=== PATIENT | male | born 1970 | race Caucasian/White ===

== ENCOUNTER 2018-01-09 14:31 | Emergency (ER) | payer MEDICAID, SELFPAY ==
[2018-01-09 14:33] VITALS: BP 149/80; PULSE 107; RESP 16; TEMP 37; O2SAT 94; BMI 27.6
[2018-01-09] MEDS: Acetaminophen 500 MG Tablet 1000 MG PO (15:02)
[2018-01-09] MEDS: LORazepam 1 MG Tablet PO (15:02)
[2018-01-09] MEDS: levETIRAcetam 1,000 MG Tablet 1000 MG PO (15:13)
--- NOTE | 2018-01-09 15:15 | CM.ED ---
Patient states his drug store has to call his PCP every month for a new prescription for Keppra. He waits until he runs out to call for the refill. Patient states he has never had problems with his insurance covering his medication. Patient states he sees Lynn Boone in [place] for primary care. I instructed him to contact his PCP's office for advisement on the quantity of prescription. Patient denies further needs from case management at this time.
--- NOTE | 2018-01-09 15:23 | ED.VISSUMM ---
- ER Visit Summary Date of Service: 01/09/18 Chief Complaint: Seizure History of Present Illness: The patient is a [address] Mcdonough on. He has a long-standing history of seizures. He reports that he is supposed to be on Keppra 750 mg twice daily. He ran out of it 3 days ago. Reports that he had a seizure today that was approximately 7 minutes at work and a 50 minute postictal episode. He did not bite his tongue. Did not have any urinary incontinence. Currently patient complains of headache is 8 out of 10 severity in his typical of the headaches that he gets after seizures. He denies any injury to his head. Review of systems: General: No fever, chills, cold sweats. Cardiovascular: No chest pain, palpitations. Respiratory: No cough, shortness of breath, dyspnea on exertion. Gastrointestinal: No abdominal pain, nausea, vomiting, diarrhea, melena, or hematochezia. Genitourinary: No dysuria, frequency, hematuria. Skin: No rash. Neuro: No numbness, weakness. Physical Examination: Vitals: Stable. Afebrile. General: Well-nourished and well-developed. Head: Normocephalic atraumatic. Neck: Supple, no lymphadenopathy. No JVD. Nontender. Cardiovascular: Regular rate and rhythm. No murmurs. Respiratory: No respiratory distress. Clear to auscultation bilaterally. Abdominal: Soft, nontender, nondistended, normal bowel sounds. No guarding, rebound, or peritoneal signs. Back: Nontender. Extremities: Nontender, no edema. Skin: Normal color, no rash. Neurologic: Alert and oriented ?3. Cranial nerves II through XII are intact. Normal strength and sensation. Psych: Normal affect. Test Results: Patient refused an IV. Emergency Department Course and Treatment: Patient was given a gram of Keppra p.o., Ativan p.o., Tylenol p.o. He has been observed over the course of an hour and has not had any further seizure activity. Treatment Plan: Patient was discussed with Dr. Goode. He will be placed back on his 750 mg of Keppra twice daily and instructed to follow-up Dr. Mcdonough on for further evaluation and treatment. Patient reports that he does not drive. Disposition: To home in improved and stable condition. Impression: 1. Recurrent seizure. 2. Medical noncompliance. This note was generated with [employer] dictation software. It may contain incorrect words, spelling, and punctuation that were not noted in review of the chart prior to signing ED Disposition - Plan for ED Patient: Chief Complaint: Seizure Instructions: ED Seizure Recurrent Prescriptions: Levetiracetam [Keppra] 750 mg PO BID #60 tablet Referrals: Perfecto Mcdonough MD [STAFF PHYSICIAN] - As Needed
== END 2018-01-09 15:43 | disposition home or self-care (01) ==
PROVIDERS: Emergency Provider Emergency Medicine
DX: G40.909 Epilepsy, unspecified, not intractable, without status epilepticus (principal); Z91.14 Patient's other noncompliance with medication regimen
CPT/HCPCS: 99285

== ENCOUNTER 2018-09-18 20:31 | Inpatient (IN) | payer MEDICAID, SELFPAY ==
[2018-09-18] VITALS (10 sets, daily range): BP systolic 149–175; BP diastolic 99–113; PULSE 125–138; RESP 15–27; TEMP 36.6–37.1; O2SAT 86–98; BMI 22.8; BMI 25.3
--- NOTE | 2018-09-18 20:48 | CT_ITS ---
STUDY: CT BRAIN WITHOUT CONTRAST REASON FOR EXAM: Male, 48 years old. Trauma RADIATION DOSAGE (If Supplied By Facility): CTDIvol = ( 44.99 ) mGy, DLP = ( 796.11 ) mGycm TECHNIQUE: Transaxial CT imaging of the brain was performed without administration of intravenous contrast material. Individualized dose optimization techniques were used for this CT. COMPARISON: August 13, 2013 FINDINGS: Normal soft tissue structures. Normal calvarium. Mild cortical atrophy and periventricular white matter ischemic changes.. Normal basal ganglia and thalami. Normal brainstem. Normal cerebellum. There is no intracranial hemorrhage. There are no findings of an acute ischemic infarction. Mild mucosal thickening of the maxillary ethmoid and sphenoid sinuses. CT/Brain/Head without Contrast IMPRESSION: Mild cortical atrophy and periventricular white matter ischemic changes. No evidence for acute cranial bleed Electronically Signed: Jnoo Figueroa MD at 21:52 EST , Service support ,
--- NOTE | 2018-09-18 20:48 | CT_ITS ---
STUDY: CT CERVICAL SPINE WITHOUT CONTRAST REASON FOR EXAM: Male, 48 years old. Trauma RADIATION DOSAGE (If Supplied By Facility): CTDIvol = ( 14.61 ) mGy, DLP = ( 292.97 ) mGycm TECHNIQUE: High resolution transaxial imaging was performed without contrast material. Sagittal and coronal images were reconstructed. Individualized dose optimization techniques were used for this CT. COMPARISON: None FINDINGS: Normal craniovertebral junction. Normal anterior atlantoaxial articulation. Normal odontoid process. Normal cervical lordosis. Normal vertebral bodies and posterior osseous elements. C2-3: Normal endplates. Normal disc height and morphology. Normal central canal and intervertebral neuroforamina. C3-4: Normal endplates. Normal disc height and morphology. Normal central canal and intervertebral neuroforamina. C4-5: Minor endplate spurring.. Normal disc height and morphology. Normal central canal and intervertebral neuroforamina. C5-6: Normal endplates. Normal disc height and morphology. Normal central canal and intervertebral neuroforamina. C6-7: Normal endplates. Normal disc height and morphology. Normal central canal and intervertebral neuroforamina. C7-T1: Normal endplates. Normal disc height and morphology. Normal central canal and intervertebral neuroforamina. Normal visualized soft tissue structures. CT/Spine Cervical without Contras IMPRESSION: No evidence for acute fracture or subluxation.. Mild spondylosis Electronically Signed: Jono Figueroa MD at 21:50 EST , Service support ,
[2018-09-18] MEDS: Ondansetron 4 MG/2 ML Vial IV (21:01)
[2018-09-18] MEDS: LORazepam 2 MG/ML Syringe 1 MG IV ×2 (21:01→21:47)
[2018-09-18 21:04] LABS: Absolute Lymphocyte Count 0.77 X10^3/ul (0.83-4.51); Absolute Neutrophil Count 15.7 X10^3/uL (2.0-7.7); Basophil# 0.07 X10^3/uL; Basophil% 0.4 % (0-1); Eosinophil# 0.05 X10^3/uL; Eosinophils% 0.3 % (0-5); Hematocrit 45.7 % (40-54); Hemoglobin 15.1 g/dl (13.0-16.5); Lymphocyte # 0.77 X10^3/ul (4.0); Lymphocyte % 4.4 % (19-41); Mean Corpuscular Hgb 32.8 pg (27.0-32.0); Mean Corpuscular Volume 99.3 fL (80-94); Mean Platelet Vol. 9.5 fl (6.2-12.0); Monocyte# 1.06 X10^3/uL; Neutrophil # 15.72 X10^3/uL (2.7-7.7); Neutrophil % 88.8 % (47-70); Platelet Count 214 K/mm3 (150-450); RBC Distribution Width CV 12.9 % (11.6-14.6); White Blood Count 17.7 K/mm3 (4.4-11.0)
[2018-09-18 21:09] LABS: POSITIVE COUNT NO; POSITIVE DIFFERENTIAL NO; POSITIVE MORPHOLOGY NO
[2018-09-18 21:24] LABS: ALB/GLOB Ratio 0.9 RATIO (0.9-2.4); AST(SGOT) 55 U/L (15-37); Alanine Aminotransfer ALT/SGPT 49 U/L (16-61); Albumin, Serum 4.4 g/dL (3.2-5.0); Alkaline Phosphatase 71 U/L (45-117); Anion Gap 19 (5-15); BUN 8 mg/dL (7-18); BUN/Creat Ratio 7.5 RATIO (10-20); Calcium,Total 8.8 mg/dL (8.5-10.1); Chloride 98 mmol/L (98-107); Creatinine, Serum 1.07 mg/dL (0.70-1.30); EST Glomerular Filtration Rate 78 mL/min (>60); Est Glom Filt Rate - Afr Amer 94 mL/min (>60); Estimated Creatinine Clearance 90.01 ml/min; Globulin 4.7 g/dL (2.2-4.2); Glucose 120 mg/dL (74-106); Potassium 4.6 mmol/L (3.5-5.1); Protein, Total 9.1 g/dL (6.4-8.2); Sodium Level 133 mmol/L (136-145)
--- NOTE | 2018-09-18 21:40 | RAD_ITS ---
STUDY: X-RAY CHEST REASON FOR EXAM: Male, 48 years old. Hypoxia TECHNIQUE: PA and lateral COMPARISON: October 02, 2015 FINDINGS: Diminished inspiratory effort is seen however the lungs are clear There is no demonstrated pleural abnormality. Normal size heart. Normal mediastinum and desi. Normal visualized pulmonary arteries. Normal visualized aortic arch and descending thoracic aorta. Dorsal spine demonstrates spondylosis. Normal visualized ribs, clavicles, and shoulders. There is no demonstrated abnormality of the visualized soft tissue structures of the upper abdomen. RAD/Chest PA and Lateral IMPRESSION: Diminished inspiratory effort. No acute disease Electronically Signed: Jono Figueroa MD at 22:14 EST , Service support ,
[2018-09-18] MEDS: chlordiazePOXIDE 25 MG Capsule 50 MG PO (21:49)
--- NOTE | 2018-09-18 22:18 | ED.VISSUMM ---
- ER Visit Summary Date of Service: 09/18/18 Chief Complaint: Seizure History of Present Illness: The patient is a 48 M who is unable to provide any relevant history. When asked questions he answers everything I do not know. Per EMS the patient was carrying in groceries and had an unwitnessed fall outside. He is unsure what happened. Friends believe he may have had a seizure. He has a history of seizures and is supposed to be on Keppra 750 twice daily. Friends also told EMS that he had a job interview today and because of this he did not drink. I am unable to ascertain whether the patient drinks on a daily basis. Physical Examination: Vitals: 98.0, 151/113, 138, 27, 88% on room air which is hypoxic. General: Well-nourished and well-developed. Extremely tremulous. Head: Normocephalic, abrasion and contusion to the bridge of his nose. No septal hematoma. Neck: Supple, no lymphadenopathy. No JVD. Nontender. Cardiovascular: Tachycardic regular rhythm. No murmurs. Respiratory: No respiratory distress. Clear to auscultation bilaterally. Abdominal: Soft, nontender, nondistended, normal bowel sounds. No guarding, rebound, or peritoneal signs. Back: Nontender. Extremities: Nontender, no edema. Skin: Normal color, no rash. Neurologic: Lethargic. Arouses to voice. Moves all extremities well.. Test Results: CT brain shows mild cortical atrophy and periventricular white matter changes. No intracranial hemorrhage. CT of the C-spine shows no acute disease. Chest x-ray shows no acute disease. CBC is more for white count of 17.7 with 89 segmented neutrophils and 4 lymphocytes. Chem-7 is more for sodium 133, CO2 of 16, glucose of 120, anion gap of 19. This is consistent with a seizure. LFTs marked total protein 9.1 globulin 4.7. His AST is 55. Alcohol level is 0. Emergency Department Course and Treatment: Patient had an IV placed. He was given a dose of Ativan IV and his tremulousness essentially resolved. However, he remained tachycardic and hypertensive. He was given a second dose of Ativan IV and Librium p.o. He was given Keppra and Zofran IV. Chart reviewed does show that he has been admitted for alcohol withdrawal in the past. Treatment Plan: At this time I am unable to obtain any useful history from the patient and he does not have family with him. The squad did bring his Keppra. It appears that it was last filled September 10 and in the last 8 days he is taken 10 pills. The patient was discussed with Dr. Kaur. He will be admitted for further evaluation and treatment. Disposition: Admitted in serious condition. Impression: 1. Alcohol withdrawal, presumed. 2. Seizure. This note was generated with [employer] dictation software. It may contain incorrect words, spelling, and punctuation that were not noted in review of the chart prior to signing ED Disposition - Plan for ED Patient: Chief Complaint: Seizure Referrals: Care Physician,No Primary [Primary Care Provider] -
--- NOTE | 2018-09-18 22:20 | HP.PCM_ITS ---
Problem List (1) Seizure Status: Acute (2) EtOH dependence Status: Acute (3) Alcohol withdrawal Status: Acute History of Present Illness Date of Admission: 09/18/18 Chief Complaint: fall The patient is a 48 year old M with a significant history of seizure disorder and alcohol dependence who was brought by the paramedics because of a probable fall. It is assumed that patient fell and crawled to his home. Notably he had returned from a grocery shopping. Patient is a known alcoholic but friend reported that because patient was going to an interview on the day of presentation he did not drink. Emergency department doctor reported the patient was shaking on presentation but his shakiness went down after receiving IV Ativan. Patient is on home Keppra. Upon ED staff checking his home Keppra bottle, it was realize that he might not have taken 6 of his Keppra pills. At the emergency department patient vomited multiple times. Patient was noted to be hypoxic requiring supplemental oxygen. Patient was tachycardic. He had elevated blood pressure and his respiratory rate was high. Patient was noted to have leukocytosis; hyponatremia and anion gap metabolic acidosis. Past Medical History Medical History: Medical History (Last Updated 09/19/18 @ 00:43 by Otis Kaur MD) Seizure disorder G40.909 Allergies No Known Allergies Allergy (Verified 10/02/15 14:35) Home Medications: Ambulatory Orders Medication Instructions Recorded Levetiracetam [Keppra] 750 mg PO BID 01/09/18 Amitriptyline HCl 50 mg PO QHS 09/18/18 Surgical History: - - History of left tibial fracture status post internal fixation with wires and screws. No other significant past surgical history. Psychiatric History: No pertinent psych hx, - Lives: - - Live with friends Tobacco Use: - - Unable to obtain history as patient is lethargic and not unanswering many questions Alcohol: Heavy Drugs: - - Unable to obtain history as patient is lethargic and not unanswering many questions - *Family History Maternal History Items: - - Unable to obtain history as patient is lethargic and not unanswering many questions Paternal History Items: - - Unable to obtain history as patient is lethargic and not unanswering many questions Review of Systems Unable to obtain accurate/complete ROS d/t: Unable to obtain hx as patient is lethargic and not unanswering questions VTE Information - Inpt Only VTE Present on Admission: No VTE Mechan Device Prophylaxis: SCD's, None VTE Pharm Prophylaxis ordered?: No Patient Problems: Active and Suspected Problems (Last Updated 09/19/18 @ 00:43 by Otis Kaur MD) Seizure (Acute) EtOH dependence (Acute) Alcohol withdrawal (Acute) - Physical Exam General: Confused, Lethargic HEENT: - - excoriation on bridge of nose Neck: Supple, No JVD, Negative Carotid Bruits Lungs: Clear to auscultation, Normal air movement Cardiovascular: Tachycardic Abdomen: Bowel Sounds Present, Soft, Non Tender Extremities: No edema, Capillary Refill Less than 3 Seconds Skin: Excoriated - Right knuckles Musculoskeletal: No Muscle Wasting Neurological: - - Lethargic. Follow some commands like protruding tongue but with peristent directions. Psych/Mental Status: - - Lethargic and confused. Vital Signs Temp Pulse Resp BP Pulse Ox 98 F 126 H 15 175/105 H 95 09/18/18 20:38 09/18/18 21:53 09/18/18 21:53 09/18/18 21:16 09/18/18 21:58 Oxygen Flow Rate (L/min) 4 Oxygen Delivery Method Nasal Cannula Weight: 76.2 kg Body Mass Index (BMI) 22.8 Finger Stick Blood Glucose 132 Laboratory Tests Past 24 Hrs 09/18/18 09/18/18 09/18/18 20:50 20:50 20:50 WBC 17.7 H RBC 4.60 Hgb 15.1 Hct 45.7 MCV 99.3 H MCH 32.8 H MCHC 33.0 RDW 12.9 RDW Differential 47.0 H Plt Count 214 MPV 9.5 Immature Gran % (Auto) 0.100 Neut % (Auto) 88.8 H Lymph % (Auto) 4.4 L [place]eller % (Auto) 6.0 Eos % (Auto) 0.3 Baso % (Auto) 0.4 Absolute Neuts (auto) 15.7 H Absolute Lymphs (auto) 0.77 L Total Counted Not Reportable Sodium 133 L Potassium 4.6 Chloride 98 Carbon Dioxide 16.0 L Anion Gap 19 H BUN 8 Creatinine 1.07 Estim Creat Clear Calc 90.01 Est GFR (MDRD) Af Amer 94 Est GFR (MDRD) Non-Af 78 BUN/Creatinine Ratio 7.5 L Glucose 120 H Calcium 8.8 Total Bilirubin 0.90 AST 55 H ALT 49 Alkaline Phosphatase 71 Total Protein 9.1 H Albumin 4.4 Globulin 4.7 H Albumin/Globulin Ratio 0.9 Ethyl Alcohol 3.0 Assessment/Plan All Active Problems (Last Updated 09/19/18 @ 00:43 by Otis Kaur MD) Seizure (Acute) EtOH dependence (Acute) Alcohol withdrawal (Acute) The patient is a 48 year old M with a significant history of seizure disorder and alcohol dependence who was brought by the paramedics because of a probable fall that could be from seizures; and also in likely EtOH withdrawal. Acute Encephalopathy Admitted to the ICU Likely post ictal . Etiology from primary seizure disorder; or seizure from alcohol withdrawal; or seizure superimposed on alcohol withdrawal CT head with no acute pathology. Cervical Spine CT unremarkable. Independently reviewed and agree with radiologist interpretation. Patient received IV Keppra at emergency department. Keppra level could not be checked because he has just received IV Keppra. We will continue patient on his home p.o. Keppra. Remarkably patient could take p.o. Librium at emergency department so we will start p.o. Keppra next day of admission. Seizure precautions. Discussed the ED doctor to order prolactin level. Ativan prn for seizure. EEG ordered. Open Hearth Furnace Operator consult to optimize management, Consider neurology consult if patient does not improve. Probable alcohol withdrawal. At admission his ethanol level was normal. Patient had hypertension; tachycardia and tachypnea which could be attributed to alcohol withdrawal. Patient received Librium at emergency department. Librium taper ordered. Clonidine prn for elevated blood pressure in the setting of alcohol dependence. Probable aspiration pneumonia. Patient with leukocytosis and hypoxia with oxygen saturation of 86% on room air. Notably he has no fever, rales or radiographic evidence of pneumonia or chemical pneumonitis We will treat with Unasyn for probable aspiration pneumonia. Receiving IVF normal saline hydration. If patient continues to improve and has no respiratory symptoms or radiographic findings consider discontinuing antibiotics. Leukocytosis Leukocytosis could be reactive from seizure. Less likely aspiration pneumonia. Hyponatremia Likely from seizure or from beer potomania. Trend BMP. Anion gap metabolic acidosis Ketones negative Likely from lactic acidosis secondary to seizure. Seizure management as above Lactic acidosis Likely from seizures as above Seizure management as above Trend Supportive treatment with Normal saline infusion Excoriations on nose and right knuckles. Received Bactroban at the emergency department. Bactroban continued. DVT prophylaxis SCD.
--- NOTE | 2018-09-18 22:28 | ED.RN ---
PT OPENS EYES TO NAME, SPEECH REMAINS NON-SENSICAL, RAMBLING. PT STATES CORRECT DATE OF BUT UNAWARE OF PLACE, TIME OR SITUATION. NO FAMILY PRESENT, EMS BRINGS RX BOTTLE OF KEPPRA, 10 PILLS MISSING SINCE FILL DATE 8 DAYS AGO. ORDERS STATES TO TAKE I TAB BID.
[2018-09-18 23:41] LABS: Prolactin 4.6 ng/mL; Thyroid Stim Hormone (TSH) 2.27 uIU/mL (0.358-3.74)
[2018-09-18 23:44] LABS: Lactic Acid 2.7 mmol/L (0.4-2.0)
[2018-09-19] VITALS (25 sets, daily range): BP systolic 116–149; BP diastolic 74–103; PULSE 61–127; RESP 15–23; TEMP 36.8–37.2; O2SAT 83–98
[2018-09-19] MEDS: Lactated Ringers 1,000 ML 100 ML IV (01:08)
--- NOTE | 2018-09-19 01:37 | NURSING ---
roommate called in to ED and provided contact info- [phone]. pt can use this number to get a ride home when being discharged per roommate.
[2018-09-19] MEDS: chlordiazePOXIDE 25 MG Capsule 50 MG PO ×4 (02:43→21:37)
[2018-09-19 02:52] LABS: Reflex Lactate? Y
[2018-09-19] MEDS: Folic Acid 1 MG Tablet PO (08:24)
[2018-09-19] MEDS: Multivitamins,Therapeutic Tablet 1 TABLET PO (08:24)
[2018-09-19] MEDS: Thiamine Hydrochloride 100 MG Tablet PO (08:24)
[2018-09-19] MEDS: Mupirocin Ointment 22gm Tube 1 APPLIC TOPICAL ×2 (08:25→21:37)
[2018-09-19] MEDS: levETIRAcetam 750 MG Tablet PO ×2 (08:25→21:38)
--- NOTE | 2018-09-19 08:53 | PCM.PN.HOSP ---
Patient Problems: Active and Suspected Problems (Last Updated 09/19/18 @ 00:43 by Otis Kaur MD) Seizure (Acute) EtOH dependence (Acute) Alcohol withdrawal (Acute) Subjective: Unsure of what day it is, and does not know how long he has been here. Denies pain and otherwise is feeling ok Vitals/I&O's: Vital Signs Temp Pulse Resp BP Pulse Ox 99 F 108 H 23 H 137/90 H 96 09/19/18 06:00 09/19/18 07:38 09/19/18 07:00 09/19/18 07:00 09/19/18 07:29 Oxygen Flow Rate (L/min) 2 Oxygen Delivery Method Nasal Cannula Weight: 159 lb 2.78 oz Body Mass Index (BMI) 25.3 Finger Stick Blood Glucose 132 Intake and Output for Last 24 Hours 09/17/18 09/18/18 09/19/18 23:59 23:59 23:59 Intake Total 526 / 526 Output Total 300 / 300 Balance 226 / 226 General: Alert, Oriented x3, Cooperative, No apparent distress HEENT: PERRLA, EOMI, Normocephalic, - - lacerations over bridge of nose Oral: Dry Mucosa Neck: Supple, No JVD Lungs: Clear to auscultation, Normal air movement, No rhonchi, No wheeze, No rales Cardiovascular: Regular rate, Regular Rhythm, Normal S1, Normal S2, No murmurs Abdomen: Soft, Non Tender, Non-Distended, No Hepato-splenomegaly Extremities: No edema, Capillary Refill Less than 3 Seconds Skin: No rashes, No breakdown Neurological: Neuro grossly intact, Sensory exam intact to light touch and pain Psych/Mental Status: Flat Affect Laboratory Results 09/18/18 20:50: WBC 17.7 H, RBC 4.60, Hgb 15.1, Hct 45.7, MCV 99.3 H, MCH 32.8 H, MCHC 33.0, RDW 12.9, RDW Differential 47.0 H, Plt Count 214, MPV 9.5, Immature Gran % (Auto) 0.100, Neut % (Auto) 88.8 H, Lymph % (Auto) 4.4 L, [place] % (Auto) 6.0, Eos % (Auto) 0.3, Baso % (Auto) 0.4, Absolute Neuts (auto) 15.7 H, Absolute Lymphs (auto) 0.77 L, Total Counted Not Reportable 09/18/18 20:50: Sodium 133 L, Potassium 4.6, Chloride 98, Carbon Dioxide 16.0 L, Anion Gap 19 H, BUN 8, Creatinine 1.07, Estim Creat Clear Calc 90.01, Est GFR (MDRD) Af Amer 94, Est GFR (MDRD) Non-Af 78, BUN/Creatinine Ratio 7.5 L, Glucose 120 H, Calcium 8.8, Total Bilirubin 0.90, AST 55 H, ALT 49, Alkaline Phosphatase 71, Total Protein 9.1 H, Albumin 4.4, Globulin 4.7 H, Albumin/Globulin Ratio 0.9 09/18/18 20:50: Ethyl Alcohol 3.0 09/18/18 20:50: Levetiracetam Pending 09/18/18 22:45: Acetone Level NEGATIVE 09/18/18 22:45: Lactic Acid 2.7 H 09/18/18 22:45: TSH 2.27, Prolactin 4.6 09/19/18 02:45: Lactic Acid 1.0 Current Medications Chlordiazepoxide (Librium) 50 mg PO Q6H [facility]; Taper Stop: 09/22/18 04:59 Last Admin: 09/19/18 08:25 Dose: 50 mg Clonidine (Catapres) 0.1 mg PO Q6H PRN PRN PRN Reason: sbp > 160 Folic Acid (Folic Acid) 1 mg PO DAILYCM [facility] Last Admin: 09/19/18 08:24 Dose: 1 mg Ampicillin Sodium/Sulbactam (Sodium 3 gm/ Sodium Chloride) 112 mls @ 150 mls/hr IV Q6 [facility] Last Admin: 09/19/18 05:41 Dose: 150 mls/hr Sodium Chloride () 250 mls @ 15 mls/hr IV .[id number] PRN PRN Reason: SALINE FLUSH Lactated Ringer's () 1,000 mls @ 150 mls/hr IV .[id number] [facility] Last Admin: 09/19/18 08:24 Dose: Not Given Levetiracetam (Keppra Tablet) 750 mg PO BID [facility] Last Admin: 09/19/18 08:25 Dose: 750 mg Lorazepam (Ativan) 3 mg IV Q10M PRN PRN PRN Reason: SEIZURE ACTIVITY Magnesium Hydroxide (Milk Of Magnesia) 30 ml PO DAILY PRN PRN PRN Reason: Constipation Multivitamins (Multivitamin) 1 tablet PO DAILYCM [facility] Last Admin: 09/19/18 08:24 Dose: 1 tablet Mupirocin (Bactroban) 1 applic TOPICAL BID [facility]; Protocol Last Admin: 09/19/18 08:25 Dose: 1 applic Sodium Chloride () 5 - 15 ml IV UD PRN PRN Reason: SALINE FLUSH Thiamine HCl (Vitamin B1) 100 mg PO DAILYCM [facility] Last Admin: 09/19/18 08:24 Dose: 100 mg Medical Necessity - Tobacco Use Smoking Status: Former smoker Tobacco Use: - - Unable to obtain history as patient is lethargic and not unanswering many questions Assessment/Plan All Active Problems (Last Updated 09/19/18 @ 00:43 by Otis Kaur MD) Seizure (Acute) EtOH dependence (Acute) Alcohol withdrawal (Acute) 1. Acute encephalopathy 2/2 EtOH withdrawal and Seizure/Possible aspiration pneumonia/Alcohol abuse/Hyponatremia/Acute metabolic acidosis - He was drinking about 20 beers a day, last beer was on sunday or sunday because he quit for a job interview. - Lost his keppra and hasnt taken for several days - Continue with withdrawal protocol, if he has no intention of discontinuing alcohol use can switch to providing beers - Restart home keppra at his usual dose - c/w unasyn for now, will recheck CBC in am - Increase IVF to 150 - Hyponatremia secondary to EtOH will monitor - Acidosis likely resolved since lactic acidosis resolved 2. Nasal laceration from traumatic fall - c/w wound care DVT: SCDs Code Visit Inpatient E&M: 71935 Subs Hosp L2
--- NOTE | 2018-09-19 09:00 | PN_ITS ---
Patient Problems: Active and Suspected Problems (Last Updated 09/19/18 @ 00:43 by Otis Kaur MD) Seizure (Acute) EtOH dependence (Acute) Alcohol withdrawal (Acute) Subjective: Unsure of what day it is, and does not know how long he has been here. Denies pain and otherwise is feeling ok Vitals/I&O's: Vital Signs Temp Pulse Resp BP Pulse Ox 99 F 108 H 23 H 137/90 H 96 09/19/18 06:00 09/19/18 07:38 09/19/18 07:00 09/19/18 07:00 09/19/18 07:29 Oxygen Flow Rate (L/min) 2 Oxygen Delivery Method Nasal Cannula Weight: 159 lb 2.78 oz Body Mass Index (BMI) 25.3 Finger Stick Blood Glucose 132 Intake and Output for Last 24 Hours 09/17/18 09/18/18 09/19/18 23:59 23:59 23:59 Intake Total 526 / 526 Output Total 300 / 300 Balance 226 / 226 General: Alert, Oriented x3, Cooperative, No apparent distress HEENT: PERRLA, EOMI, Normocephalic, - - lacerations over bridge of nose Oral: Dry Mucosa Neck: Supple, No JVD Lungs: Clear to auscultation, Normal air movement, No rhonchi, No wheeze, No rales Cardiovascular: Regular rate, Regular Rhythm, Normal S1, Normal S2, No murmurs Abdomen: Soft, Non Tender, Non-Distended, No Hepato-splenomegaly Extremities: No edema, Capillary Refill Less than 3 Seconds Skin: No rashes, No breakdown Neurological: Neuro grossly intact, Sensory exam intact to light touch and pain Psych/Mental Status: Flat Affect Laboratory Results 09/18/18 20:50: WBC 17.7 H, RBC 4.60, Hgb 15.1, Hct 45.7, MCV 99.3 H, MCH 32.8 H , MCHC 33.0, RDW 12.9, RDW Differential 47.0 H, Plt Count 214, MPV 9.5, Immature Gran % (Auto) 0.100, Neut % (Auto) 88.8 H, Lymph % (Auto) 4.4 L, [place] % (Auto) 6.0, Eos % (Auto) 0.3, Baso % (Auto) 0.4, Absolute Neuts (auto) 15.7 H, Absolute Lymphs (auto) 0.77 L, Total Counted Not Reportable 09/18/18 20:50: Sodium 133 L, Potassium 4.6, Chloride 98, Carbon Dioxide 16.0 L, Anion Gap 19 H, BUN 8, Creatinine 1.07, Estim Creat Clear Calc 90.01, Est GFR (MDRD) Af Amer 94, Est GFR (MDRD) Non-Af 78, BUN/Creatinine Ratio 7.5 L, Glucose 120 H, Calcium 8.8, Total Bilirubin 0.90, AST 55 H, ALT 49, Alkaline Phosphatase 71, Total Protein 9.1 H, Albumin 4.4, Globulin 4.7 H, Albumin/Globulin Ratio 0.9 09/18/18 20:50: Ethyl Alcohol 3.0 09/18/18 20:50: Levetiracetam Pending 09/18/18 22:45: Acetone Level NEGATIVE 09/18/18 22:45: Lactic Acid 2.7 H 09/18/18 22:45: TSH 2.27, Prolactin 4.6 09/19/18 02:45: Lactic Acid 1.0 Current Medications Chlordiazepoxide (Librium) 50 mg PO Q6H [facility]; Taper Stop: 09/22/18 04:59 Last Admin: 09/19/18 08:25 Dose: 50 mg Clonidine (Catapres) 0.1 mg PO Q6H PRN PRN PRN Reason: sbp > 160 Folic Acid (Folic Acid) 1 mg PO DAILYCM [facility] Last Admin: 09/19/18 08:24 Dose: 1 mg Ampicillin Sodium/Sulbactam (Sodium 3 gm/ Sodium Chloride) 112 mls @ 150 mls/hr IV Q6 [facility] Last Admin: 09/19/18 05:41 Dose: 150 mls/hr Sodium Chloride () 250 mls @ 15 mls/hr IV .[id number] PRN PRN Reason: SALINE FLUSH Lactated Ringer's () 1,000 mls @ 150 mls/hr IV .Q6H40M [facility] Last Admin: 09/19/18 08:24 Dose: Not Given Levetiracetam (Keppra Tablet) 750 mg PO BID [facility] Last Admin: 09/19/18 08:25 Dose: 750 mg Lorazepam (Ativan) 3 mg IV Q10M PRN PRN PRN Reason: SEIZURE ACTIVITY Magnesium Hydroxide (Milk Of Magnesia) 30 ml PO DAILY PRN PRN PRN Reason: Constipation Multivitamins (Multivitamin) 1 tablet PO DAILYCM [facility] Last Admin: 09/19/18 08:24 Dose: 1 tablet Mupirocin (Bactroban) 1 applic TOPICAL BID [facility]; Protocol Last Admin: 09/19/18 08:25 Dose: 1 applic Sodium Chloride () 5 - 15 ml IV UD PRN PRN Reason: SALINE FLUSH Thiamine HCl (Vitamin B1) 100 mg PO DAILYCM [facility] Last Admin: 09/19/18 08:24 Dose: 100 mg Medical Necessity - Tobacco Use Smoking Status: Former smoker Tobacco Use: - - Unable to obtain history as patient is lethargic and not unanswering many questions Assessment/Plan All Active Problems (Last Updated 09/19/18 @ 00:43 by Otis Kaur MD) Seizure (Acute) EtOH dependence (Acute) Alcohol withdrawal (Acute) 1. Acute encephalopathy 2/2 EtOH withdrawal and Seizure/Possible aspiration pneumonia/Alcohol abuse/Hyponatremia/Acute metabolic acidosis - He was drinking about 20 beers a day, last beer was on sunday or sunday because he quit for a job interview. - Lost his keppra and hasnt taken for several days - Continue with withdrawal protocol, if he has no intention of discontinuing alcohol use can switch to providing beers - Restart home keppra at his usual dose - c/w unasyn for now, will recheck CBC in am - Increase IVF to 150 - Hyponatremia secondary to EtOH will monitor - Acidosis likely resolved since lactic acidosis resolved 2. Nasal laceration from traumatic fall - c/w wound care DVT: SCDs Code Visit Inpatient E&M: 79140 Subs Hosp L2
[2018-09-19] MEDS: Lactated Ringers 1,000 ML 150 ML IV ×2 (10:45→17:38)
--- NOTE | 2018-09-19 12:54 | CASEMGMT ---
SW met with pt in room and completed assessment. Pt lives in a two story with home with a friend, bed and bath on the second floor. The friend does work and pt is home alone most of the day. Prior to hospitalization pt was independent with ADLs and IADLS. He does not drive and relies on friends or walks for transportation. Pt has a cane that he uses occasionally and no other DME. No previous stays in any form of Rehab. Pt does not have HCPOA or Living will and does not want additional information on this. Pt states he does not have a PCP and friends bring him to ED if he needs something. Later in the conversation pt indicated he has been to the [facility] previously. [facility] is pt pharmacy. SW inquired about alcohol use. Pt denies alcohol abuse stating he drinks 2-3 beers a day and that is not every day. Pt also states he stops drinking at times and denies ever using illegal substances. Pt denies need or desire for information on Substance abuse programs. Pt plans to return home upon d/c from hosptial. Denies and d/c needs at this time. Pt room mate is available to transport pt home. Plan: home with no needs TERENCE Hinton
[2018-09-19 13:38] LABS: Hematocrit 38.8 % (40-54); Hemoglobin 12.6 g/dl (13.0-16.5); Mean Corp Hgb Conc 32.5 g/gl (32-36); Mean Corpuscular Hgb 32.6 pg (27.0-32.0); Mean Corpuscular Volume 100.3 fL (80-94); Mean Platelet Vol. 9.4 fl (6.2-12.0); Platelet Count 152 K/mm3 (150-450); RBC Distribution Width CV 12.7 % (11.6-14.6); RBC Distribution Width SD 46.6 fl (35.1-43.9); Red Blood Count 3.87 M/mm3 (4.6-6.2); White Blood Count 10.2 K/mm3 (4.4-11.0)
[2018-09-19 13:41] LABS: Scan Indicated on CBC? Y/N NO
[2018-09-19 14:20] LABS: Anion Gap 8 (5-15); BUN 8 mg/dL (7-18); BUN/Creat Ratio 10.6 RATIO (10-20); Calcium,Total 8.1 mg/dL (8.5-10.1); Chloride 93 mmol/L (98-107); Creatinine, Serum 0.75 mg/dL (0.70-1.30); EST Glomerular Filtration Rate 117 mL/min (>60); Est Glom Filt Rate - Afr Amer 142 mL/min (>60); Estimated Creatinine Clearance 107.51 ml/min; Glucose 96 mg/dL (74-106); Potassium 3.9 mmol/L (3.5-5.1); Sodium Level 131 mmol/L (136-145)
--- NOTE | 2018-09-19 18:14 | NURSING ---
report called to transfer to room 307 per bed with belongings
[2018-09-19] MEDS: LORazepam 2 MG/ML Syringe IV (23:52)
[2018-09-20] VITALS (12 sets, daily range): BP systolic 111–207; BP diastolic 68–179; PULSE 60–88; RESP 15–24; TEMP 36.6–37.2; O2SAT 92–98
[2018-09-20] MEDS: Haloperidol Lactate 5 MG/ML Vial 2 MG IM (01:10)
[2018-09-20] MEDS: LORazepam 2 MG/ML Syringe IV ×5 (02:09→20:17)
[2018-09-20] MEDS: Lactated Ringers 1,000 ML 150 ML IV (06:12)
[2018-09-20] MEDS: chlordiazePOXIDE 25 MG Capsule 50 MG PO ×3 (06:13→20:22)
[2018-09-20] MEDS: Mupirocin Ointment 22gm Tube 1 APPLIC TOPICAL (07:46)
[2018-09-20] MEDS: levETIRAcetam 750 MG Tablet PO ×2 (07:46→20:22)
[2018-09-20] MEDS: Multivitamins,Therapeutic Tablet 1 TABLET PO (07:46)
[2018-09-20] MEDS: Thiamine Hydrochloride 100 MG Tablet PO (07:46)
[2018-09-20] MEDS: Folic Acid 1 MG Tablet PO (07:46)
--- NOTE | 2018-09-20 09:29 | PCM.PN.HOSP ---
Patient Problems: Active and Suspected Problems (Last Updated 09/19/18 @ 00:43 by Otis Kaur MD) Seizure (Acute) EtOH dependence (Acute) Alcohol withdrawal (Acute) Subjective: Feeling ok, no complaints overnight. Vitals/I&O's: Vital Signs Temp Pulse Resp BP Pulse Ox 98.1 F 60 18 139/88 H 95 09/20/18 07:55 09/20/18 07:55 09/20/18 07:55 09/20/18 07:55 09/20/18 07:55 Oxygen Flow Rate (L/min) 2 Oxygen Delivery Method Room Air Weight: 159 lb 8.56 oz Body Mass Index (BMI) 25.3 Finger Stick Blood Glucose 132 Intake and Output for Last 24 Hours 09/18/18 09/19/18 09/20/18 23:59 23:59 23:59 Intake Total 2491 / 2491 1694 / 1694 Output Total 600 / 600 Balance 1891 / 1891 1694 / 1694 General: Alert, Oriented x3, Cooperative, No apparent distress HEENT: PERRLA, EOMI, Normocephalic, - - lacerations over bridge of nose Oral: Dry Mucosa Neck: Supple, No JVD Lungs: Clear to auscultation, Normal air movement, No rhonchi, No wheeze, No rales Cardiovascular: Regular rate, Regular Rhythm, Normal S1, Normal S2, No murmurs Abdomen: Soft, Non Tender, Non-Distended, No Hepato-splenomegaly Extremities: No edema, Capillary Refill Less than 3 Seconds Skin: No rashes, No breakdown Neurological: Neuro grossly intact, Sensory exam intact to light touch and pain Psych/Mental Status: Flat Affect Laboratory Results 09/19/18 13:30: WBC 10.2, RBC 3.87 L, Hgb 12.6 L, Hct 38.8 L, MCV 100.3 H, MCH 32.6 H, MCHC 32.5, RDW 12.7, RDW Differential 46.6 H, Plt Count 152, MPV 9.4 09/19/18 13:30: Sodium 131 L, Potassium 3.9, Chloride 93 L, Carbon Dioxide 30.0, Anion Gap 8, BUN 8, Creatinine 0.75, Estim Creat Clear Calc 107.51, Est GFR (MDRD) Af Amer 142, Est GFR (MDRD) Non-Af 117, BUN/Creatinine Ratio 10.6, Glucose 96, Calcium 8.1 L Current Medications Chlordiazepoxide (Librium) 50 mg PO Q8H [facility]; Taper Stop: 09/22/18 04:59 Last Admin: 09/20/18 06:13 Dose: 50 mg Clonidine (Catapres) 0.1 mg PO Q6H PRN PRN PRN Reason: sbp > 160 [facility] Last Admin: 09/20/18 07:46 Dose: 1 mg Ampicillin Sodium/Sulbactam (Sodium 3 gm/ Sodium Chloride) 112 mls @ 150 mls/hr IV Q6 [facility] Last Admin: 09/20/18 06:13 Dose: 150 mls/hr Sodium Chloride () 250 mls @ 15 mls/hr IV .[id number] PRN PRN Reason: SALINE FLUSH Lactated Ringer's () 1,000 mls @ 150 mls/hr IV .Q6H40M [facility] Last Admin: 09/20/18 06:12 Dose: 150 mls/hr Levetiracetam (Keppra Tablet) 750 mg PO BID [facility] Last Admin: 09/20/18 07:46 Dose: 750 mg Lorazepam (Ativan) 3 mg IV Q10M PRN PRN PRN Reason: SEIZURE ACTIVITY Magnesium Hydroxide (Milk Of Magnesia) 30 ml PO DAILY PRN PRN PRN Reason: Constipation Multivitamins ([facility]itamin) [facility] Last Admin: 09/20/18 07:46 Dose: 1 tablet Mupirocin (Bactroban) 1 applic TOPICAL BID [facility]; Protocol Last Admin: 09/20/18 07:46 Dose: 1 applic Sodium Chloride () 5 - 15 ml IV UD PRN PRN Reason: SALINE FLUSH Thiamine HCl (Vitamin B1) [facility] Last Admin: 09/20/18 07:46 Dose: 100 mg Medical Necessity - Tobacco Use Smoking Status: Former smoker Tobacco Use: - - Unable to obtain history as patient is lethargic and not unanswering many questions Assessment/Plan All Active Problems (Last Updated 09/19/18 @ 00:43 by Otis Kaur MD) Seizure (Acute) EtOH dependence (Acute) Alcohol withdrawal (Acute) 1. EtOH withdrawal and Seizure/Possible aspiration pneumonia (ruled out)/Alcohol abuse/Hyponatremia/Acute metabolic acidosis - He was drinking about 20 beers a day, last beer was on sunday or sunday because he quit for a job interview. - Lost his keppra and hasnt taken for several days - Continue with withdrawal protocol, if he has no intention of discontinuing alcohol use can switch to providing beers - Restart home keppra at his usual dose - d/c unasyn cbc was 10 and he is not symptomatic - DC IVF - Hyponatremia secondary to EtOH will monitor - Acidosis likely resolved since lactic acidosis resolved - Acute enecphalopathy ruled out - I discussed with him whether he has any intention of quitting alcohol use after discharge. If not, I can DC him today on keppra and he can continue drinking, or he can complete the [facility] protocol and be discharged tomorrow, he is thinking about it. 2. Nasal laceration from traumatic fall - c/w wound care DVT: SCDs Code Visit Inpatient E&M: 89938 Subs Hosp L2
--- NOTE | 2018-09-20 09:33 | PN_ITS ---
Patient Problems: Active and Suspected Problems (Last Updated 09/19/18 @ 00:43 by Otis Kaur MD) Seizure (Acute) EtOH dependence (Acute) Alcohol withdrawal (Acute) Subjective: Feeling ok, no complaints overnight. Vitals/I&O's: Vital Signs Temp Pulse Resp BP Pulse Ox 98.1 F 60 18 139/88 H 95 09/20/18 07:55 09/20/18 07:55 09/20/18 07:55 09/20/18 07:55 09/20/18 07:55 Oxygen Flow Rate (L/min) 2 Oxygen Delivery Method Room Air Weight: 159 lb 8.56 oz Body Mass Index (BMI) 25.3 Finger Stick Blood Glucose 132 Intake and Output for Last 24 Hours 09/18/18 09/19/18 09/20/18 23:59 23:59 23:59 Intake Total 2491 / 2491 1694 / 1694 Output Total 600 / 600 Balance 1891 / 1891 1694 / 1694 General: Alert, Oriented x3, Cooperative, No apparent distress HEENT: PERRLA, EOMI, Normocephalic, - - lacerations over bridge of nose Oral: Dry Mucosa Neck: Supple, No JVD Lungs: Clear to auscultation, Normal air movement, No rhonchi, No wheeze, No rales Cardiovascular: Regular rate, Regular Rhythm, Normal S1, Normal S2, No murmurs Abdomen: Soft, Non Tender, Non-Distended, No Hepato-splenomegaly Extremities: No edema, Capillary Refill Less than 3 Seconds Skin: No rashes, No breakdown Neurological: Neuro grossly intact, Sensory exam intact to light touch and pain Psych/Mental Status: Flat Affect Laboratory Results 09/19/18 13:30: WBC 10.2, RBC 3.87 L, Hgb 12.6 L, Hct 38.8 L, MCV 100.3 H, MCH 32.6 H, MCHC 32.5, RDW 12.7, RDW Differential 46.6 H, Plt Count 152, MPV 9.4 09/19/18 13:30: Sodium 131 L, Potassium 3.9, Chloride 93 L, Carbon Dioxide 30.0, Anion Gap 8, BUN 8, Creatinine 0.75, Estim Creat Clear Calc 107.51, Est GFR (MDRD) Af Amer 142, Est GFR (MDRD) Non-Af 117, BUN/Creatinine Ratio 10.6, Glucose 96, Calcium 8.1 L Current Medications Chlordiazepoxide (Librium) 50 mg PO Q8H [facility]; Taper Stop: 09/22/18 04:59 Last Admin: 09/20/18 06:13 Dose: 50 mg Clonidine (Catapres) 0.1 mg PO Q6H PRN PRN PRN Reason: sbp > 160 [facility] Last Admin: 09/20/18 07:46 Dose: 1 mg Ampicillin Sodium/Sulbactam (Sodium 3 gm/ Sodium Chloride) 112 mls @ 150 mls/hr IV Q6 [facility] Last Admin: 09/20/18 06:13 Dose: 150 mls/hr Sodium Chloride () 250 mls @ 15 mls/hr IV .[id number] PRN PRN Reason: SALINE FLUSH Lactated Ringer's () 1,000 mls @ 150 mls/hr IV .Q6H40M [facility] Last Admin: 09/20/18 06:12 Dose: 150 mls/hr Levetiracetam (Keppra Tablet) 750 mg PO BID [facility] Last Admin: 09/20/18 07:46 Dose: 750 mg Lorazepam (Ativan) 3 mg IV Q10M PRN PRN PRN Reason: SEIZURE ACTIVITY Magnesium Hydroxide (Milk Of Magnesia) 30 ml PO DAILY PRN PRN PRN Reason: Constipation [facility]) [facility] Last Admin: 09/20/18 07:46 Dose: 1 tablet Mupirocin (Bactroban) 1 applic TOPICAL BID [facility]; Protocol Last Admin: 09/20/18 07:46 Dose: 1 applic Sodium Chloride () 5 - 15 ml IV UD PRN PRN Reason: SALINE FLUSH Thiamine HCl (Vitamin B1) [facility] Last Admin: 09/20/18 07:46 Dose: 100 mg Medical Necessity - Tobacco Use Smoking Status: Former smoker Tobacco Use: - - Unable to obtain history as patient is lethargic and not unanswering many questions Assessment/Plan All Active Problems (Last Updated 09/19/18 @ 00:43 by Otis Kaur MD) Seizure (Acute) EtOH dependence (Acute) Alcohol withdrawal (Acute) 1. EtOH withdrawal and Seizure/Possible aspiration pneumonia (ruled out)/Alcohol abuse/Hyponatremia/Acute metabolic acidosis - He was drinking about 20 beers a day, last beer was on sunday or sunday because he quit for a job interview. - Lost his keppra and hasnt taken for several days - Continue with withdrawal protocol, if he has no intention of discontinuing alcohol use can switch to providing beers - Restart home keppra at his usual dose - d/c unasyn cbc was 10 and he is not symptomatic - DC IVF - Hyponatremia secondary to EtOH will monitor - Acidosis likely resolved since lactic acidosis resolved - Acute enecphalopathy ruled out - I discussed with him whether he has any intention of quitting alcohol use after discharge. If not, I can DC him today on keppra and he can continue drinking, or he can complete the [facility] protocol and be discharged tomorrow, he is thinking about it. 2. Nasal laceration from traumatic fall - c/w wound care DVT: SCDs Code Visit Inpatient E&M: 59294 Subs Hosp L2
--- NOTE | 2018-09-20 11:14 | CASEMGMT ---
Social Work Met with pt, dgt and pt mother in pt room to discuss alcohol abuse. Pt quiet during conversation. SW presented information on [facility] and discussed with pt opportunity for alcohol rehabilitation. Pt mother and dgt stating they are at a limit with pt and feel pt needs to get help if they are going to continue to be active in his life. Pt is agreeable to speak with career services representative of [facility] program. Referral made to Meenakshi Crowley in [facility] who states she will see pt today. TERENCE Hinton
--- NOTE | 2018-09-20 13:49 | EEG ---
- Electroencephalogram Date of service 09/19/18 This is an 18 channel echoencephalogram performed utilizing the international electrode placement protocol on this 48-year-old male with seizures due to alcohol withdrawal. Background activity appears to be 9 Hz symmetrically in the posterior leads which attenuates with eye opening. There is also superimposed beta range activity likely due to medication effect. Hyperventilation is performed for 1 minute. Poor effort is noted by the radiation technician. The post hyperventilatory phase was unremarkable. The patient remained awake throughout the recording without lateralizing or epileptiform changes. EKG was normal sinus rhythm during the recording. Stimulation generates a normal symmetric drive response in the posterior leads. Impression: This is an abnormal echoencephalogram to the presence of beta range activity which is likely medication effect. There are no epileptiform changes noted during this recording.
--- NOTE | 2018-09-20 13:52 | EEG_ITS ---
- Electroencephalogram Date of service 09/19/18 This is an 18 channel echoencephalogram performed utilizing the international electrode placement protocol on this 48-year-old male with seizures due to alcohol withdrawal. Background activity appears to be 9 Hz symmetrically in the posterior leads which attenuates with eye opening. There is also superimposed beta range activity likely due to medication effect. Hyperventilation is performed for 1 minute. Poor effort is noted by the arcade game technician. The post hyperventilatory phase was unremarkable. The patient remained awake throughout the recording without lateralizing or epileptiform changes. EKG was normal sinus rhythm during the recording. Stimulation generates a normal symmetric drive response in the posterior leads. Impression: This is an abnormal echoencephalogram to the presence of beta range activity which is likely medication effect. There are no epileptiform changes noted during this recording.
[2018-09-20] MEDS: LORazepam 2 MG/ML Syringe IM (15:32)
[2018-09-20] MEDS: 0.9% NaCl Peripheral Flush Adult/Peds IV ×5 (16:07→22:38)
--- NOTE | 2018-09-20 19:25 | NURSING ---
per pharmacist daphne, libby to give ativan every 1 hr if ciwa greater than 15 or diastolic bp >110
--- NOTE | 2018-09-20 20:16 | NURSING ---
Called Laine Arango because pt would not stay in the room and the RN was having to block the door. DELORES Perry, here to assist. Contacted Dr. Kaur and explained the situation and advised him that sawing and assembly supervisor thought he would probably need to go to ICU for Precedex gtt. Dr. Kaur agreed and pt will go to ICU #2.
--- NOTE | 2018-09-20 20:18 | PCM.PN.BLA ---
Progress Note Patient was violent to the extent that code violent was called. Patient was admitted with probable seizures and alcohol withdrawal. Nurses requested that the patient's be transferred to the ICU and placed on Precedex. I thought that was reasonable . Patient with will be transferred to the ICU and placed on Precedex drip.
[2018-09-20] MEDS: cloNIDine HCl 0.1 MG Tablet PO (20:21)
[2018-09-20] MEDS: Haloperidol Lactate 5 MG/ML Vial 4 MG IV (21:45)
[2018-09-21] VITALS (26 sets, daily range): BP systolic 130–170; BP diastolic 84–104; PULSE 54–68; RESP 13–23; TEMP 36.1–37.1; O2SAT 93–100
[2018-09-21] MEDS: Mupirocin Ointment 22gm Tube 1 APPLIC TOPICAL ×3 (01:00→21:08)
[2018-09-21] MEDS: 0.9% NaCl Peripheral Flush Adult/Peds IV ×6 (01:01→23:12)
[2018-09-21] MEDS: hydrALAZINE 20 MG/ML Vial 5 MG IV (01:01)
[2018-09-21 04:46] LABS: Absolute Lymphocyte Count 1.25 X10^3/ul (0.83-4.51); Absolute Neutrophil Count 4.1 X10^3/uL (2.0-7.7); Basophil# 0.03 X10^3/uL; Basophil% 0.5 % (0-1); Eosinophil# 0.09 X10^3/uL; Eosinophils% 1.5 % (0-5); Hematocrit 39.7 % (40-54); Hemoglobin 13.3 g/dl (13.0-16.5); Lymphocyte # 1.25 X10^3/ul (4.0); Lymphocyte % 20.8 % (19-41); Mean Corp Hgb Conc 33.5 g/gl (32-36); Mean Corpuscular Hgb 32.9 pg (27.0-32.0); Mean Corpuscular Volume 98.3 fL (80-94); Monocyte# 0.57 X10^3/uL; Monocyte% 9.5 % (0-10); Neutrophil # 4.06 X10^3/uL (2.7-7.7); Neutrophil % 67.7 % (47-70); POSITIVE COUNT NO; POSITIVE DIFFERENTIAL NO; POSITIVE MORPHOLOGY NO; Platelet Count 144 K/mm3 (150-450); RBC Distribution Width CV 12.3 % (11.6-14.6); RBC Distribution Width SD 44.3 fl (35.1-43.9); Red Blood Count 4.04 M/mm3 (4.6-6.2)
[2018-09-21 05:01] LABS: Anion Gap 11 (5-15); BUN 8 mg/dL (7-18); BUN/Creat Ratio 11.4 RATIO (10-20); Calcium,Total 8.8 mg/dL (8.5-10.1); Chloride 102 mmol/L (98-107); EST Glomerular Filtration Rate 127 mL/min (>60); Est Glom Filt Rate - Afr Amer 154 mL/min (>60); Estimated Creatinine Clearance 115.19 ml/min; Glucose 113 mg/dL (74-106); Potassium 3.4 mmol/L (3.5-5.1); Sodium Level 139 mmol/L (136-145)
[2018-09-21] MEDS: 0.9% NaCl IVPB Med Flush (250 mL) 15 ML IV (06:49)
--- NOTE | 2018-09-21 07:00 | PCM.CON.CC ---
Problem List (1) Seizure Status: Chronic (2) EtOH dependence Status: Acute Qualifiers: Substance use status: in withdrawal (3) Alcohol withdrawal Status: Acute Qualifiers: Complication of substance-induced condition: with delirium Qualified Code(s): F10.231 - Alcohol dependence with withdrawal delirium Reason for Consult Date of Consultation: 09/21/18 Reason for Consultation: Precedex therapy History of Present Illness: The patient is a 48 year old M, with past medical history significant for seizure disorder, who presented to [facility] on 09/18/2018 secondary to seizure. Patient was reportedly carrying groceries and had an unwitnessed fall outside. Patient has a history of seizures and is supposed to be on Keppra at baseline, but reportedly had stopped drinking alcohol and taking his Keppra because of a job interview. Patient was noted to be 88% by ER and hypertensive with a blood pressure of 151/113. There was some contusion and abrasion noted to the bridge of the nose, but no tongue trauma. Workup showed a metabolic acidosis with a negative alcohol level. Patient was admitted to the intensive care unit for further evaluation. While in the intensive care unit, patient did receive Keppra therapy. No repeat seizure activity was noted. Patient was started on an alcohol withdrawal protocol and transferred to the floor. Overnight, patient became aggressive and had a code arturo called twice. The patient was transferred to the intensive care unit and placed on a Precedex drip. Patient continues to be extremely impulsive despite Precedex therapy. Patient is not able to provide any further history at this time. Past Medical History Past Medical History (Chronic Problems): Chronic Problems (Last Updated 09/19/18 @ 00:43 by Otis Kaur MD) Seizure (Chronic) Medical History: Medical History (Last Updated 09/19/18 @ 00:43 by Otis Kaur MD) Seizure disorder G40.909 Allergies No Known Allergies Allergy (Verified 10/02/15 14:35) Home Medications: Ambulatory Orders Medication Instructions Recorded Levetiracetam [Keppra] 750 mg PO BID 01/09/18 Amitriptyline HCl 50 mg PO QHS 09/18/18 Surgical History: - - History of left tibial fracture status post internal fixation with wires and screws. No other significant past surgical history. Psychiatric History: No pertinent psych hx, - Lives: - - Live with friends Smoking Status: Former smoker Tobacco Use: - - Unable to obtain history as patient is lethargic and not unanswering many questions Alcohol: Heavy Drugs: - - Unable to obtain history as patient is lethargic and not unanswering many questions - *Family History Maternal History Items: - - Unable to obtain history as patient is lethargic and not unanswering many questions Paternal History Items: - - Unable to obtain history as patient is lethargic and not unanswering many questions Review of Systems Unable to obtain accurate/complete ROS d/t: See HPI Patient Problems: Active and Suspected Problems (Last Updated 09/19/18 @ 00:43 by Otis Kuar MD) EtOH dependence (Acute) Alcohol withdrawal (Acute) Objective: All imaging was personally reviewed. Chest x-ray showed poor inspiration, but no acute infiltrates. CT of the head showed some mild cortical atrophy, but no bleed. EEG showed presence of beta range activity that was thought to be medication related. - Physical Exam General: - - Sedated. Not answering questions or following commands. Appears older than stated age. HEENT: PERRLA, EOMI, Normocephalic, - - Abrasion noted at the bridge of the nose. Oral: Moist Mucosa, No Gingival or Mucosal Lesions/ Ulcerations, - - Poor dentition Neck: Supple, No JVD, No Nodes, Trachea Midline Lungs: No rhonchi, No wheeze, No rales, Diminished, - - Fair effort. Cardiovascular: Normal S1, Normal S2, No murmurs, No rub noted, No Gallop, Tachycardic Abdomen: Bowel Sounds Present, Soft, Non Tender, Non-Distended Extremities: No clubbing, No cyanosis, No edema, Capillary Refill Less than 3 Seconds Skin: No rashes, No breakdown Musculoskeletal: No Tenderness to Palpation of Joints or Extremities Lymphatic: No Cervical, Supraclavicular, or Inguinal Adenopathy Neurological: Cranial nerves II-XII grossly intact, Neuro grossly intact, Motor Exam 5/5 strength throughout Psych/Mental Status: Impulsive, Restless Vital Signs Temp Pulse Resp BP Pulse Ox 36.1 C L 56 L 17 148/99 H 97 09/21/18 06:00 09/21/18 06:00 09/21/18 06:00 09/21/18 06:00 09/21/18 06:00 Oxygen Flow Rate (L/min) 2 Oxygen Delivery Method Room Air Weight: 71.9 kg Body Mass Index (BMI) 25.3 Finger Stick Blood Glucose 132 Intake and Output for Last 24 Hours 09/19/18 09/20/18 09/21/18 23:59 23:59 23:59 Intake Total 2491 / 2491 3102 / 3102 204 / 204 Output Total 600 / 600 800 / 800 Balance 1891 / 1891 3102 / 3102 -596 / -596 Laboratory Tests Past 24 Hrs 09/21/18 09/21/18 04:35 04:35 WBC 6.0 RBC 4.04 L Hgb 13.3 Hct 39.7 L MCV 98.3 H MCH 32.9 H MCHC 33.5 RDW 12.3 RDW Differential 44.3 H Plt Count 144 L MPV 10.0 Immature Gran % (Auto) 0.000 Neut % (Auto) 67.7 Lymph % (Auto) 20.8 S[place]y % (Auto) 9.5 Eos % (Auto) 1.5 Baso % (Auto) 0.5 Absolute Neuts (auto) 4.1 Absolute Lymphs (auto) 1.25 Total Counted Not Reportable Sodium 139 Potassium 3.4 L Chloride 102 Carbon Dioxide 26.0 Anion Gap 11 BUN 8 Creatinine 0.70 Estim Creat Clear Calc 115.19 Est GFR (MDRD) Af Amer 154 Est GFR (MDRD) Non-Af 127 BUN/Creatinine Ratio 11.4 Glucose 113 H Calcium 8.8 Phosphorus 2.0 L Magnesium 2.0 Assessment/Plan Active and Suspected Problems (Last Updated 09/19/18 @ 00:43 by Otis Kaur MD) EtOH dependence (Acute) Alcohol withdrawal (Acute) RECOMMENDATIONS: 1. Continue Precedex therapy 2. Electrolyte repletion as indicated 3. Transition Keppra to IV 4. Delirium protocol IMPRESSIONS: 1. Acute alcohol withdrawal Patient failed [facility] protocol. Patient has since been placed on Precedex for safety of staff and himself. Anticipate continuing Precedex for 24-48 hours. Continue with CIWA protocol. Initial seizure likely secondary to holding of Keppra, not true DTs. Patient's x-ray was not consistent with aspiration pneumonia. Patient's heart rate tolerating current dosage of Precedex therapy. Will need to monitor electrolytes closely as patient will likely suffer from refeeding syndrome upon addition of glucose. 2. Seizure disorder Patient is on Keppra at baseline. Given sedation, swallowing will be difficult. Will transition Keppra to IV. Continue with seizure precautions. Code Visit Inpatient E&M: 00446 Init Hosp L2
--- NOTE | 2018-09-21 08:54 | PCM.PN.HOSP ---
Patient Problems: Active and Suspected Problems (Last Updated 09/19/18 @ 00:43 by Otis Kaur MD) EtOH dependence (Acute) Alcohol withdrawal (Acute) Subjective: Very agitated last night necessitating admission to the ICU for closer monitoring and a precedex drip. Vitals/I&O's: Vital Signs Temp Pulse Resp BP Pulse Ox 97 F L 58 L 16 148/101 H 100 09/21/18 06:00 09/21/18 08:00 09/21/18 08:00 09/21/18 08:00 09/21/18 08:00 Oxygen Flow Rate (L/min) 2 Oxygen Delivery Method Room Air Weight: 158 lb 8.198 oz Body Mass Index (BMI) 25.3 Finger Stick Blood Glucose 132 Intake and Output for Last 24 Hours 09/19/18 09/20/18 09/21/18 23:59 23:59 23:59 Intake Total 2491 / 2491 3102 / 3102 204 / 204 Output Total 600 / 600 800 / 800 Balance 1891 / 1891 3102 / 3102 -596 / -596 General: No apparent distress, - - sedated but arouses to stimuli HEENT: Atraumatic, Normocephalic Oral: Dry Mucosa Neck: Supple, No JVD Lungs: Clear to auscultation, Normal air movement, No rhonchi, No wheeze, No rales Cardiovascular: Regular rate, Regular Rhythm, Normal S1, Normal S2, No murmurs Abdomen: Soft, Non-Distended, No Hepato-splenomegaly Extremities: No edema, Capillary Refill Less than 3 Seconds Neurological: Neuro grossly intact, Sensory exam intact to light touch and pain Psych/Mental Status: - - sedated Laboratory Results 09/21/18 04:35: WBC 6.0, RBC 4.04 L, Hgb 13.3, Hct 39.7 L, MCV 98.3 H, MCH 32.9 H, MCHC 33.5, RDW 12.3, RDW Differential 44.3 H, Plt Count 144 L, MPV 10.0, Immature Gran % (Auto) 0.000, Neut % (Auto) 67.7, Lymph % (Auto) 20.8, Swift % (Auto) 9.5, Eos % (Auto) 1.5, Baso % (Auto) 0.5, Absolute Neuts (auto) 4.1, Absolute Lymphs (auto) 1.25, Total Counted Not Reportable 09/21/18 04:35: Sodium 139, Potassium 3.4 L, Chloride 102, Carbon Dioxide 26.0, Anion Gap 11, BUN 8, Creatinine 0.70, Estim Creat Clear Calc 115.19, Est GFR (MDRD) Af Amer 154, Est GFR (MDRD) Non-Af 127, BUN/Creatinine Ratio 11.4, Glucose 113 H, Calcium 8.8, Phosphorus 2.0 L, Magnesium 2.0 Current Medications Clonidine (Catapres) 0.1 mg PO Q6H PRN PRN PRN Reason: sbp > 160 Last Admin: 09/20/18 20:21 Dose: 0.1 mg Folic Acid ([facility]) [facility] Last Admin: 09/21/18 08:45 Dose: Not Given Hydralazine HCl (Apresoline Iv) 5 mg IV Q6H PRN PRN PRN Reason: BLOOD PRESSURE Last Admin: 09/21/18 01:01 Dose: 5 mg Sodium Chloride () 250 mls @ 15 mls/hr IV .[id number] PRN PRN Reason: SALINE FLUSH Last Admin: 09/21/18 06:49 Dose: 15 mls/hr Dexmedetomidine HCl 1,000 mcg/ (Sodium Chloride) 250 mls @ 9.05 mls/hr IV .[id number] [facility] Last Admin: 09/21/18 01:07 Dose: 9.05 mls/hr Potassium Phosphate 40 mm/ (Sodium Chloride) 513.3333 mls @ 62.5 mls/hr IV X1 ONE Stop: 09/21/18 14:33 Last Admin: 09/21/18 06:48 Dose: 62.5 mls/hr Levetiracetam 750 mg/ N/A 150 mls @ 600 mls/hr IV Q12 [facility] Lorazepam (Ativan) 3 mg IV Q10M PRN PRN PRN Reason: SEIZURE ACTIVITY Lorazepam (Ativan) 2 mg IV Q2H PRN PRN PRN Reason: Alcohol Withdrawal Magnesium Hydroxide (Milk Of Magnesia) 30 ml PO DAILY PRN PRN PRN Reason: Constipation Multivitamins (Multivitamin) [facility] Last Admin: 09/21/18 08:45 Dose: Not Given Mupirocin (Bactroban) 1 applic TOPICAL BID NANCY; Protocol Last Admin: 09/21/18 01:00 Dose: 1 applic Sodium Chloride () 5 - 15 ml IV UD PRN PRN Reason: SALINE FLUSH Last Admin: 09/21/18 06:49 Dose: 10 ml Thiamine HCl (Vitamin B1) 100 mg PO DAILYCM NANCY Last Admin: 09/21/18 08:45 Dose: Not Given Medical Necessity - Tobacco Use Smoking Status: Former smoker Tobacco Use: - - Unable to obtain history as patient is lethargic and not unanswering many questions Assessment/Plan All Active Problems (Last Updated 09/19/18 @ 00:43 by Otis Kaur MD) EtOH dependence (Acute) Alcohol withdrawal (Acute) 1. EtOH withdrawal and Seizure/Possible aspiration pneumonia (ruled out)/Alcohol abuse/Hyponatremia(resolved)/Acute metabolic acidosis - He was drinking about 20 beers a day, last beer was on sunday or sunday because he quit for a job interview. - Lost his keppra and hasnt taken for several days prior to admission - Restart home keppra at his usual dose - Acute enecphalopathy ruled out - He decided that he would like to go to 180 on discharge so he was kept to complete the taper and as the day progressed he was becoming more agitated. He was started on CIWA and given ativan. He was transferred to the ICU for a precedex drip which he is doing ok with, c/w ativan, when stable can resume librium 2. Nasal laceration from traumatic fall - c/w wound care DVT: SCDs Code Visit Inpatient E&M: 50071 Subs Hosp L2
--- NOTE | 2018-09-21 08:58 | PN_ITS ---
Patient Problems: Active and Suspected Problems (Last Updated 09/19/18 @ 00:43 by Otis Kaur MD) EtOH dependence (Acute) Alcohol withdrawal (Acute) Subjective: Very agitated last night necessitating admission to the ICU for closer monitoring and a precedex drip. Vitals/I&O's: Vital Signs Temp Pulse Resp BP Pulse Ox 97 F L 58 L 16 148/101 H 100 09/21/18 06:00 09/21/18 08:00 09/21/18 08:00 09/21/18 08:00 09/21/18 08:00 Oxygen Flow Rate (L/min) 2 Oxygen Delivery Method Room Air Weight: 158 lb 8.198 oz Body Mass Index (BMI) 25.3 Finger Stick Blood Glucose 132 Intake and Output for Last 24 Hours 09/19/18 09/20/18 09/21/18 23:59 23:59 23:59 Intake Total 2491 / 2491 3102 / 3102 204 / 204 Output Total 600 / 600 800 / 800 Balance 1891 / 1891 3102 / 3102 -596 / -596 General: No apparent distress, - - sedated but arouses to stimuli HEENT: Atraumatic, Normocephalic Oral: Dry Mucosa Neck: Supple, No JVD Lungs: Clear to auscultation, Normal air movement, No rhonchi, No wheeze, No rales Cardiovascular: Regular rate, Regular Rhythm, Normal S1, Normal S2, No murmurs Abdomen: Soft, Non-Distended, No Hepato-splenomegaly Extremities: No edema, Capillary Refill Less than 3 Seconds Neurological: Neuro grossly intact, Sensory exam intact to light touch and pain Psych/Mental Status: - - sedated Laboratory Results 09/21/18 04:35: WBC 6.0, RBC 4.04 L, Hgb 13.3, Hct 39.7 L, MCV 98.3 H, MCH 32.9 H, MCHC 33.5, RDW 12.3, RDW Differential 44.3 H, Plt Count 144 L, MPV 10.0, Immature Gran % (Auto) 0.000, Neut % (Auto) 67.7, Lymph % (Auto) 20.8, Alfalfa % (Auto) 9.5, Eos % (Auto) 1.5, Baso % (Auto) 0.5, Absolute Neuts (auto) 4.1, Absolute Lymphs (auto) 1.25, Total Counted Not Reportable 09/21/18 04:35: Sodium 139, Potassium 3.4 L, Chloride 102, Carbon Dioxide 26.0, Anion Gap 11, BUN 8, Creatinine 0.70, Estim Creat Clear Calc 115.19, Est GFR (MDRD) Af Amer 154, Est GFR (MDRD) Non-Af 127, BUN/Creatinine Ratio 11.4, Glu cose 113 H, Calcium 8.8, Phosphorus 2.0 L, Magnesium 2.0 Current Medications Clonidine (Catapres) 0.1 mg PO Q6H PRN PRN PRN Reason: sbp > 160 Last Admin: 09/20/18 20:21 Dose: 0.1 mg Folic Acid ([facility] Acid) [facility] Last Admin: 09/21/18 08:45 Dose: Not Given Hydralazine HCl (Apresoline Iv) 5 mg IV Q6H PRN PRN PRN Reason: BLOOD PRESSURE Last Admin: 09/21/18 01:01 Dose: 5 mg Sodium Chloride () 250 mls @ 15 mls/hr IV .[id number] PRN PRN Reason: SALINE FLUSH Last Admin: 09/21/18 06:49 Dose: 15 mls/hr Dexmedetomidine HCl 1,000 mcg/ (Sodium Chloride) 250 mls @ 9.05 mls/hr IV .[id number] [facility] Last Admin: 09/21/18 01:07 Dose: 9.05 mls/hr Potassium Phosphate 40 mm/ (Sodium Chloride) 513.3333 mls @ 62.5 mls/hr IV X1 ONE Stop: 09/21/18 14:33 Last Admin: 09/21/18 06:48 Dose: 62.5 mls/hr Levetiracetam 750 mg/ N/A 150 mls @ 600 mls/hr IV Q12 [facility] Lorazepam (Ativan) 3 mg IV Q10M PRN PRN PRN Reason: SEIZURE ACTIVITY Lorazepam (Ativan) 2 mg IV Q2H PRN PRN PRN Reason: Alcohol Withdrawal Magnesium Hydroxide (Milk Of Magnesia) 30 ml PO DAILY PRN PRN PRN Reason: Constipation Multivitamins (Multivitamin) [facility] Last Admin: 09/21/18 08:45 Dose: Not Given Mupirocin (Bactroban) 1 applic TOPICAL BID NANCY; Protocol Last Admin: 09/21/18 01:00 Dose: 1 applic Sodium Chloride () 5 - 15 ml IV UD PRN PRN Reason: SALINE FLUSH Last Admin: 09/21/18 06:49 Dose: 10 ml Thiamine HCl (Vitamin B1) 100 mg PO DAILYCM [facility]ANCY Last Admin: 09/21/18 08:45 Dose: Not Given Medical Necessity - Tobacco Use Smoking Status: Former smoker Tobacco Use: - - Unable to obtain history as patient is lethargic and not un answering many questions Assessment/Plan All Active Problems (Last Updated 09/19/18 @ 00:43 by Otis Kaur MD) EtOH dependence (Acute) Alcohol withdrawal (Acute) 1. EtOH withdrawal and Seizure/Possible aspiration pneumonia (ruled out)/Alcohol abuse/Hyponatremia(resolved)/Acute metabolic acidosis - He was drinking about 20 beers a day, last beer was on sunday or sunday because he quit for a job interview. - Lost his keppra and hasnt taken for several days prior to admission - Restart home keppra at his usual dose - Acute enecphalopathy ruled out - He decided that he would like to go to 180 on discharge so he was kept to complete the taper and as the day progressed he was becoming more agitated. He was started on CIWA and given ativan. He was transferred to the ICU for a precedex drip which he is doing ok with, c/w ativan, when stable can resume librium 2. Nasal laceration from traumatic fall - c/w wound care DVT: SCDs Code Visit Inpatient E&M: 77984 Subs Hosp L2
[2018-09-21] MEDS: LORazepam 2 MG/ML Syringe IV ×3 (18:21→23:12)
[2018-09-22] VITALS (24 sets, daily range): BP systolic 99–148; BP diastolic 73–91; PULSE 59–81; RESP 14–22; TEMP 36.6–37; O2SAT 95–100
[2018-09-22] MEDS: LORazepam 2 MG/ML Syringe IV ×2 (01:18→03:18)
[2018-09-22] MEDS: 0.9% NaCl Peripheral Flush Adult/Peds IV (01:18)
[2018-09-22 05:57] LABS: Anion Gap 13 (5-15); BUN 8 mg/dL (7-18); BUN/Creat Ratio 11.6 RATIO (10-20); Calcium,Total 8.3 mg/dL (8.5-10.1); Chloride 99 mmol/L (98-107); Creatinine, Serum 0.69 mg/dL (0.70-1.30); EST Glomerular Filtration Rate 129 mL/min (>60); Est Glom Filt Rate - Afr Amer 156 mL/min (>60); Estimated Creatinine Clearance 116.86 ml/min; Glucose 93 mg/dL (74-106); Sodium Level 137 mmol/L (136-145)
--- NOTE | 2018-09-22 06:25 | PCM.PN.HOSP ---
Patient Problems: Active and Suspected Problems (Last Updated 09/19/18 @ 00:43 by Otis Kaur MD) EtOH dependence (Acute) Alcohol withdrawal (Acute) Subjective: Still on the precedex and on ativan and keppra, seems to be doing better, less agitated no complaints Vitals/I&O's: Vital Signs Temp Pulse Resp BP Pulse Ox 98 F 60 17 138/82 H 95 09/22/18 06:00 09/22/18 06:00 09/22/18 06:00 09/22/18 06:00 09/22/18 06:00 Oxygen Flow Rate (L/min) 2 Oxygen Delivery Method Room Air Weight: 157 lb 10.088 oz Body Mass Index (BMI) 25.3 Finger Stick Blood Glucose 132 Intake and Output for Last 24 Hours 09/20/18 09/21/18 09/22/18 23:59 23:59 23:59 Intake Total 3102 / 3102 3266 / 3266 826 / 826 Output Total 1800 / 1800 1000 / 1000 Balance 3102 / 3102 1466 / 1466 -174 / -174 General: No apparent distress, Alert and oriented HEENT: Atraumatic, Normocephalic Oral: Dry Mucosa Neck: Supple, No JVD Lungs: Clear to auscultation, Normal air movement, No rhonchi, No wheeze, No rales Cardiovascular: Regular rate, Regular Rhythm, Normal S1, Normal S2, No murmurs Abdomen: Soft, Non-Distended, No Hepato-splenomegaly Extremities: No edema, Capillary Refill Less than 3 Seconds Neurological: Neuro grossly intact, Sensory exam intact to light touch and pain Psych/Mental Status: Flat affect Laboratory Results 09/22/18 05:35: Sodium 137, Potassium 3.0 L, Chloride 99, Carbon Dioxide 25.0, Anion Gap 13, BUN 8, Creatinine 0.69 L, Estim Creat Clear Calc 116.86, Est GFR (MDRD) Af Amer 156, Est GFR (MDRD) Non-Af 129, BUN/Creatinine Ratio 11.6, Glucose 93, Calcium 8.3 L 09/22/18 05:35: Phosphorus Pending, Magnesium Pending Current Medications Clonidine (Catapres) 0.1 mg PO Q6H PRN PRN PRN Reason: sbp > 160 Last Admin: 09/20/18 20:21 Dose: 0.1 mg Folic Acid ([facility]) [facility] Last Admin: 09/21/18 08:45 Dose: Not Given Hydralazine HCl (Apresoline Iv) 5 mg IV Q6H PRN PRN PRN Reason: BLOOD PRESSURE Last Admin: 09/21/18 01:01 Dose: 5 mg Sodium Chloride () 250 mls @ 15 mls/hr IV .[id number] PRN PRN Reason: SALINE FLUSH Last Admin: 09/21/18 06:49 Dose: 15 mls/hr Dexmedetomidine HCl 1,000 mcg/ (Sodium Chloride) 250 mls @ 9.05 mls/hr IV .[id number] [facility] Last Admin: 09/21/18 23:15 Dose: 9.05 mls/hr Levetiracetam 750 mg/ N/A 150 mls @ 600 mls/hr IV Q12 [facility] Last Admin: 09/21/18 21:07 Dose: 600 mls/hr Lorazepam (Ativan) 3 mg IV Q10M PRN PRN PRN Reason: SEIZURE ACTIVITY Lorazepam (Ativan) 2 mg IV Q2H PRN PRN PRN Reason: Alcohol Withdrawal Last Admin: 09/22/18 03:18 Dose: 2 mg Magnesium Hydroxide (Milk Of Magnesia) 30 ml PO DAILY PRN PRN PRN Reason: Constipation Multivitamins ([facility]itamin) [facility] Last Admin: 09/21/18 08:45 Dose: Not Given Mupirocin (Bactroban) 1 applic TOPICAL BID [facility]; Protocol Last Admin: 09/21/18 21:08 Dose: 1 applic Sodium Chloride () 5 - 15 ml IV UD PRN PRN Reason: SALINE FLUSH Last Admin: 09/22/18 01:18 Dose: 10 ml Thiamine HCl (Vitamin B1) [facility] Last Admin: 09/21/18 08:45 Dose: Not Given Medical Necessity - Tobacco Use Smoking Status: Former smoker Tobacco Use: - - Unable to obtain history as patient is lethargic and not unanswering many questions Assessment/Plan All Active Problems (Last Updated 09/19/18 @ 00:43 by Otis Kaur MD) EtOH dependence (Acute) Alcohol withdrawal (Acute) 1. EtOH withdrawal and Seizure/Possible aspiration pneumonia (ruled out)/Alcohol abuse/Hyponatremia(resolved)/Acute metabolic acidosis - He was drinking about 20 beers a day, last beer was on sunday or sunday because he quit for a job interview. - Lost his keppra and hasnt taken for several days prior to admission - C/w home keppra at his usual dose - Acute enecphalopathy ruled out - He decided that he would like to go to 180 on discharge so he was kept to complete the taper and as the day progressed he was becoming more agitated. He was started on CIWA and given ativan. He was transferred to the ICU for a precedex drip which he is doing ok with, c/w ativan, when stable can resume librium 2. Nasal laceration from traumatic fall - c/w wound care 3. Hypokalemia - replaced yesterday with potassium phos - 3.0 today will replace DVT: SCDs Code Visit Inpatient E&M: 36933 Subs Hosp L2
--- NOTE | 2018-09-22 06:28 | PN_ITS ---
Patient Problems: Active and Suspected Problems (Last Updated 09/19/18 @ 00:43 by Otis Kaur MD) EtOH dependence (Acute) Alcohol withdrawal (Acute) Subjective: Still on the precedex and on ativan and keppra, seems to be doing better, less agitated no complaints Vitals/I&O's: Vital Signs Temp Pulse Resp BP Pulse Ox 98 F 60 17 138/82 H 95 09/22/18 06:00 09/22/18 06:00 09/22/18 06:00 09/22/18 06:00 09/22/18 06:00 Oxygen Flow Rate (L/min) 2 Oxygen Delivery Method Room Air Weight: 157 lb 10.088 oz Body Mass Index (BMI) 25.3 Finger Stick Blood Glucose 132 Intake and Output for Last 24 Hours 09/20/18 09/21/18 09/22/18 23:59 23:59 23:59 Intake Total 3102 / 3102 3266 / 3266 826 / 826 Output Total 1800 / 1800 1000 / 1000 Balance 3102 / 3102 1466 / 1466 -174 / -174 General: No apparent distress, Alert and oriented HEENT: Atraumatic, Normocephalic Oral: Dry Mucosa Neck: Supple, No JVD Lungs: Clear to auscultation, Normal air movement, No rhonchi, No wheeze, No rales Cardiovascular: Regular rate, Regular Rhythm, Normal S1, Normal S2, No murmurs Abdomen: Soft, Non-Distended, No Hepato-splenomegaly Extremities: No edema, Capillary Refill Less than 3 Seconds Neurological: Neuro grossly intact, Sensory exam intact to light touch and pain Psych/Mental Status: Flat affect Laboratory Results 09/22/18 05:35: Sodium 137, Potassium 3.0 L, Chloride 99, Carbon Dioxide 25.0, Anion Gap 13, BUN 8, Creatinine 0.69 L, Estim Creat Clear Calc 116.86, Est GFR (MDRD) Af Amer 156, Est GFR (MDRD) Non-Af 129, BUN/Creatinine Ratio 11.6, Glucose 93, Calcium 8.3 L 09/22/18 05:35: Phosphorus Pending, Magnesium Pending Current Medications Clonidine (Catapres) 0.1 mg PO Q6H PRN PRN PRN Reason: sbp > 160 Last Admin: 09/20/18 20:21 Dose: 0.1 mg [facility] Last Admin: 09/21/18 08:45 Dose: Not Given Hydralazine HCl (Apresoline Iv) 5 mg IV Q6H PRN PRN PRN Reason: BLOOD PRESSURE Last Admin: 09/21/18 01:01 Dose: 5 mg Sodium Chloride () 250 mls @ 15 mls/hr IV .[id number] PRN PRN Reason: SALINE FLUSH Last Admin: 09/21/18 06:49 Dose: 15 mls/hr Dexmedetomidine HCl 1,000 mcg/ (Sodium Chloride) 250 mls @ 9.05 mls/hr IV .[id number] [facility] Last Admin: 09/21/18 23:15 Dose: 9.05 mls/hr Levetiracetam 750 mg/ N/A 150 mls @ 600 mls/hr IV Q12 [facility] Last Admin: 09/21/18 21:07 Dose: 600 mls/hr Lorazepam (Ativan) 3 mg IV Q10M PRN PRN PRN Reason: SEIZURE ACTIVITY Lorazepam (Ativan) 2 mg IV Q2H PRN PRN PRN Reason: Alcohol Withdrawal Last Admin: 09/22/18 03:18 Dose: 2 mg Magnesium Hydroxide (Milk Of Magnesia) 30 ml PO DAILY PRN PRN PRN Reason: Constipation [facility] Last Admin: 09/21/18 08:45 Dose: Not Given Mupirocin (Bactroban) 1 applic TOPICAL BID [facility]; Protocol Last Admin: 09/21/18 21:08 Dose: 1 applic Sodium Chloride () 5 - 15 ml IV UD PRN PRN Reason: SALINE FLUSH Last Admin: 09/22/18 01:18 Dose: 10 ml Thiamine HCl ([facility]itamin B1) [facility] Last Admin: 09/21/18 08:45 Dose: Not Given Medical Necessity - Tobacco Use Smoking Status: Former smoker Tobacco Use: - - Unable to obtain history as patient is lethargic and not unanswering many questions Assessment/Plan All Active Problems (Last Updated 09/19/18 @ 00:43 by Otis Kaur MD) EtOH dependence (Acute) Alcohol withdrawal (Acute) 1. EtOH withdrawal and Seizure/Possible aspiration pneumonia (ruled out)/Alcohol abuse/Hyponatremia(resolved)/Acute metabolic acidosis - He was drinking about 20 beers a day, last beer was on sunday or sunday because he quit for a job interview. - Lost his keppra and hasnt taken for several days prior to admission - C/w home keppra at his usual dose - Acute enecphalopathy ruled out - He decided that he would like to go to 180 on discharge so he was kept to complete the taper and as the day progressed he was becoming more agitated. He was started on CIWA and given ativan. He was transferred to the ICU for a precedex drip which he is doing ok with, c/w ativan, when stable can resume librium 2. Nasal laceration from traumatic fall - c/w wound care 3. Hypokalemia - replaced yesterday with potassium phos - 3.0 today will replace DVT: SCDs Code Visit Inpatient E&M: 98521 Subs Hosp L2
--- NOTE | 2018-09-22 06:39 | PCM.PN.INT ---
Subjective: The patient was seen and examined at the bedside this morning. Events from the last 24 hours have been reviewed. The patient is currently afebrile, hemodynamically stable and maintaining appropriate oxygen saturations on room air. The patient remains on Precedex at 1.2. Nursing staff reports that he remains confused, but is less agitated than previous. Objective: The patient's most recent lab work, culture data and imaging studies have all been personally reviewed. EEG dated September 19 revealed an abnormal encephalogram due to the presence of beta range activity, likely medication effect. No epileptiform discharges were noted. General: Cooperative, No apparent distress HEENT: Atraumatic, PERRLA, Normocephalic Oral: Dry Mucosa Neck: Supple, No Nodes, Trachea Midline Lungs: No rhonchi, No wheeze, No rales, Diminished Cardiovascular: Regular rate, Regular Rhythm, Normal S1, Normal S2, No murmurs Abdomen: Bowel Sounds Present, Soft, Non Tender Extremities: No clubbing, No cyanosis, No edema Skin: No breakdown Musculoskeletal: No Tenderness to Palpation of Joints or Extremities Lymphatic: No Cervical, Supraclavicular, or Inguinal Adenopathy Neurological: Neuro grossly intact Psych/Mental Status: Anxious, Flat Affect Vital Signs Temp Pulse Resp BP Pulse Ox 36.6 C 60 17 138/82 H 95 09/22/18 06:00 09/22/18 06:00 09/22/18 06:00 09/22/18 06:00 09/22/18 06:00 Oxygen Flow Rate (L/min) 2 Oxygen Delivery Method Room Air Weight: 157 lb 10.088 oz Body Mass Index (BMI) 25.3 Finger Stick Blood Glucose 132 Intake and Output for Last 24 Hours 09/20/18 09/21/18 09/22/18 23:59 23:59 23:59 Intake Total 3102 / 3102 3266 / 3266 826 / 826 Output Total 1800 / 1800 1000 / 1000 Balance 3102 / 3102 1466 / 1466 -174 / -174 Labs (Last 48 Hours) 09/21/18 09/21/18 09/22/18 04:35 04:35 05:35 WBC 6.0 RBC 4.04 L Hgb 13.3 Hct 39.7 L MCV 98.3 H MCH 32.9 H MCHC 33.5 RDW 12.3 RDW Differential 44.3 H Plt Count 144 L MPV 10.0 Immature Gran % (Auto) 0.000 Neut % (Auto) 67.7 Lymph % (Auto) 20.8 [place] % (Auto) 9.5 Eos % (Auto) 1.5 Baso % (Auto) 0.5 Absolute Neuts (auto) 4.1 Absolute Lymphs (auto) 1.25 Total Counted Not Reportable Sodium 139 137 Potassium 3.4 L 3.0 L Chloride 102 99 Carbon Dioxide 26.0 25.0 Anion Gap 11 13 BUN 8 8 Creatinine 0.70 0.69 L Estim Creat Clear Calc 115.19 116.86 Est GFR (MDRD) Af Amer 154 156 Est GFR (MDRD) Non-Af 127 129 BUN/Creatinine Ratio 11.4 11.6 Glucose 113 H 93 Calcium 8.8 8.3 L Phosphorus 2.0 L Magnesium 2.0 09/22/18 05:35 WBC RBC Hgb Hct MCV MCH MCHC RDW RDW Differential Plt Count MPV Immature Gran % (Auto) Neut % (Auto) Lymph % (Auto) [place] % (Auto) Eos % (Auto) Baso % (Auto) Absolute Neuts (auto) Absolute Lymphs (auto) Total Counted Sodium Potassium Chloride Carbon Dioxide Anion Gap BUN Creatinine Estim Creat Clear Calc Est GFR (MDRD) Af Amer Est GFR (MDRD) Non-Af BUN/Creatinine Ratio Glucose Calcium Phosphorus Pending Magnesium Pending Clinical Impression(s) from Imaging Studies Brain CT 09/18/18 20:48 IMPRESSION: Mild cortical atrophy and periventricular white matter ischemic changes. No evidence for acute cranial bleed Electronically Signed: Jono Figueroa MD at 21:52 EST , Service support , Cervical Spine CT 09/18/18 20:48 IMPRESSION: No evidence for acute fracture or subluxation.. Mild spondylosis Electronically Signed: Jono Figueroa MD at 21:50 EST , Service support , Chest X-Ray 09/18/18 21:40 IMPRESSION: Diminished inspiratory effort. No acute disease Electronically Signed: Jono Figueroa MD at 22:14 EST , Service support , Medical Necessity - Tobacco Use Smoking Status: Former smoker Tobacco Use: - - Unable to obtain history as patient is lethargic and not unanswering many questions Assessment/Plan All Active Problems (Last Updated 09/19/18 @ 00:43 by Otis Kaur MD) EtOH dependence (Acute) Alcohol withdrawal (Acute) RECOMMENDATIONS: 1. Wean Precedex as tolerated. 2. Continue thiamine and folate repletion. 3. Continue Keppra and Ativan per neurology recommendations. 4. Potassium repletion as indicated. IMPRESSIONS: 1. Acute alcohol withdrawal Continue to wean Precedex as tolerated. Continue to monitor CIWA score. Continue thiamine and folate repletion. 2. Unspecified seizure disorder Continue Keppra and Ativan, along with seizure precautions. Neurology is following. 3. Hypokalemia Potassium repletion as ordered. Recheck levels in the morning. This note was generated with [employer] dictation software. It may contain incorrect words, spelling, and punctuation that were not noted in checking the note before signing. Code Visit Inpatient E&M: 53480 Subs Hosp L2
[2018-09-22 06:48] LABS: Magnesium 1.7 mg/dL (1.6-2.6); Phosphorus 3.7 mg/dL (2.5-4.9)
[2018-09-22] MEDS: Thiamine Hydrochloride 100 MG Tablet PO (08:59)
[2018-09-22] MEDS: Folic Acid 1 MG Tablet PO (08:59)
[2018-09-22] MEDS: Multivitamins,Therapeutic Tablet 1 TABLET PO (08:59)
[2018-09-22] MEDS: Mupirocin Ointment 22gm Tube 1 APPLIC TOPICAL ×2 (09:34→21:48)
[2018-09-23] VITALS (20 sets, daily range): BP systolic 97–145; BP diastolic 72–95; PULSE 85–148; RESP 14–22; TEMP 36.7–37.2; O2SAT 93–98
--- NOTE | 2018-09-23 01:45 | RAD_ITS ---
STUDY: X-RAY CHEST REASON FOR EXAM: Male, 48 years old. Chest pain TECHNIQUE: 1 view COMPARISON: September 18, 2018 FINDINGS: The lungs are clear and expanded. There is no demonstrated pleural abnormality. Normal size heart. Normal mediastinum and desi. Normal visualized pulmonary arteries. Normal visualized aortic arch and descending thoracic aorta. Normal visualized thoracic spine. Normal visualized ribs, clavicles, and shoulders. There is no demonstrated abnormality of the visualized soft tissue structures of the upper abdomen. RAD/Chest 1 View (Portable) IMPRESSION: Normal x-ray examination of the chest. No acute findings in the lungs Electronically Signed: Pacheco Williamson MD at 2:12 EST Tel , Service support ,
--- NOTE | 2018-09-23 06:50 | PN_ITS ---
Subjective: The patient was seen and examined at the bedside this morning. Events from the last 24 hours have been reviewed. The patient is currently afebrile, hemodynamically stable and maintaining appropriate oxygen saturations on room air. The patient has been weaned from Precedex. CIWA scores have improved. Objective: The patient's most recent lab work, culture data and imaging studies have all been personally reviewed. EEG dated September 19 revealed an abnormal encephalogram due to the presence of beta range activity, likely medication effect. No epileptiform discharges were noted. General: Alert, No apparent distress HEENT: Atraumatic, PERRLA, Normocephalic Oral: No Gingival or Mucosal Lesions/ Ulcerations Neck: Supple, No Nodes, Trachea Midline Lungs: Normal air movement, No rhonchi, No wheeze, No rales Cardiovascular: Normal S1, Normal S2, No murmurs, Tachycardic Abdomen: Bowel Sounds Present, Soft, Non Tender Extremities: No clubbing, No cyanosis, No edema Skin: No rashes, No breakdown Musculoskeletal: No Tenderness to Palpation of Joints or Extremities Lymphatic: No Cervical, Supraclavicular, or Inguinal Adenopathy Neurological: Neuro grossly intact Psych/Mental Status: Flat Affect Vital Signs Temp Pulse Resp BP Pulse Ox 37.2 C 125 H 17 122/91 H 96 09/23/18 04:00 09/23/18 06:00 09/23/18 06:00 09/23/18 06:00 09/23/18 06:00 Oxygen Flow Rate (L/min) 2 Oxygen Delivery Method Room Air Weight: 156 lb 15.506 oz Body Mass Index (BMI) 25.3 Finger Stick Blood Glucose 132 Intake and Output for Last 24 Hours 09/21/18 09/22/18 09/23/18 23:59 23:59 23:59 Intake Total 3266 / 3266 1991 / 1991 635 / 635 Output Total 1800 / 1800 1400 / 1400 1800 / 1800 Balance 1466 / 1466 592 / 592 -1165 / -1165 Labs (Last 48 Hours) 09/22/18 09/22/18 09/23/18 05:35 05:35 02:00 Sodium 137 Potassium 3.0 L Chloride 99 Carbon Dioxide 25.0 Anion Gap 13 BUN 8 Creatinine 0.69 L Estim Creat Clear Calc 116.86 Est GFR (MDRD) Af Amer 156 Est GFR (MDRD) Non-Af 129 BUN/Creatinine Ratio 11.6 Glucose 93 Calcium 8.3 L Phosphorus 3.7 Magnesium 1.7 Troponin I < 0.015 09/23/18 04:45 Sodium Potassium Chloride Carbon Dioxide Anion Gap BUN Creatinine Estim Creat Clear Calc Est GFR (MDRD) Af Amer Est GFR (MDRD) Non-Af BUN/Creatinine Ratio Glucose Calcium Phosphorus Magnesium Troponin I < 0.015 Clinical Impression(s) from Imaging Studies Brain CT 09/18/18 20:48 IMPRESSION: Mild cortical atrophy and periventricular white matter ischemic changes. No evidence for acute cranial bleed Electronically Signed: Jono Figueroa MD at 21:52 EST , Service support , Cervical Spine CT 09/18/18 20:48 IMPRESSION: No evidence for acute fracture or subluxation.. Mild spondylosis Electronically Signed: Jono Figueroa MD at 21:50 EST , Service support , Chest X-Ray 09/18/18 21:40 IMPRESSION: Diminished inspiratory effort. No acute disease Electronically Signed: Jono Figueroa MD at 22:14 EST , Service support , Chest X-Ray 09/23/18 01:45 IMPRESSION: Normal x-ray examination of the chest. No acute findings in the lungs Electronically Signed: Pacheco Williamson MD at 2:12 EST Tel , Service support , Medical Necessity - Tobacco Use Smoking Status: Former smoker Tobacco Use: - - Unable to obtain history as patient is lethargic and not unanswering many questions Assessment/Plan All Active Problems (Last Updated 09/19/18 @ 00:43 by Otis Kaur MD) EtOH dependence (Acute) Alcohol withdrawal (Acute) RECOMMENDATIONS: 1. Continue as needed Ativan. 2. Continue thiamine and folate. 3. Continue Keppra. 4. Mobilize patient as tolerated. IMPRESSIONS: 1. Acute alcohol withdrawal The patient has been successfully weaned from continuous Precedex infusion. CIWA scores have improved. He appears to be emerging from his alcohol withdrawal window. Continue as needed Ativan, along with thiamine and folate repletion. 2. Unspecified seizure disorder Continue Keppra and Ativan, along with seizure precautions. Neurology is following. 3. Hypokalemia Potassium was repleted yesterday. Recommend rechecking BMP this morning. This note was generated with [employer] dictation software. It may contain incorrect words, spelling, and punctuation that were not noted in checking the note before signing. DISPOSITION: The patient is medically stable for transfer out of the intensive care unit. Given the lack of further ICU needs, will sign off. Please call with any additional questions. Code Visit Inpatient E&M: 82515 Subs Hosp L2
[2018-09-23] MEDS: Folic Acid 1 MG Tablet PO (08:51)
[2018-09-23] MEDS: Thiamine Hydrochloride 100 MG Tablet PO (08:51)
[2018-09-23] MEDS: Multivitamins,Therapeutic Tablet 1 TABLET PO (08:51)
[2018-09-23] MEDS: 0.9% NaCl Peripheral Flush Adult/Peds IV ×3 (08:52→13:32)
[2018-09-23] MEDS: LORazepam 2 MG/ML Syringe IV ×3 (08:52→13:32)
[2018-09-23] MEDS: levETIRAcetam 750 MG Tablet PO ×2 (10:40→21:07)
[2018-09-23] MEDS: Mupirocin Ointment 22gm Tube 1 APPLIC TOPICAL (10:40)
[2018-09-23 14:44] LABS: KEPPRA (LEVETIRACETAM) 15.6 ug/mL (10.0-40.0)
--- NOTE | 2018-09-23 17:48 | PN_ITS ---
Patient Problems: Active and Suspected Problems (Last Updated 09/19/18 @ 00:43 by Otis Kaur MD) EtOH dependence (Acute) Alcohol withdrawal (Acute) Subjective: Patient seen and examined today in the ICU, he was alert, nursing is still medicating the patient with Ativan as needed for alcohol withdrawal. Patient is tachycardic this morning but has been taken off Precedex only a few hours at the time of my examination this morning. - Physical Exam General: Alert, Oriented x3, Cooperative, No apparent distress, Well developed HEENT: Atraumatic, PERRLA, EOMI, Normocephalic Oral: Moist Mucosa Neck: Supple, No Nuchal Rigidity, Trachea Midline, Thyroid Normal Size and Texture Lungs: Clear to auscultation, Normal air movement, No rhonchi, No wheeze, No rales Cardiovascular: Regular rate, Regular Rhythm, Normal S1, Normal S2, No murmurs, No Ectopic Activity, No rub noted, No Gallop, Tachycardic Abdomen: Bowel Sounds Present, Soft, Non Tender, Non-Distended, No hernias noted Extremities: No clubbing, No cyanosis, No edema, Capillary Refill Less than 3 Seconds Skin: No rashes, No breakdown Neurological: Cranial nerves II-XII grossly intact, Neuro grossly intact, Sensory exam intact to light touch and pain, Coordination normal Psych/Mental Status: Normal Affect, Appropriate, Alert and oriented to time, place, person, mood and affect Vital Signs Temp Pulse Resp BP Pulse Ox 98.8 F 99 20 H 112/86 H 95 09/23/18 15:06 09/23/18 15:06 09/23/18 15:06 09/23/18 15:06 09/23/18 15:06 Oxygen Flow Rate (L/min) 2 Oxygen Delivery Method Room Air Weight: 71.2 kg Body Mass Index (BMI) 25.3 Finger Stick Blood Glucose 132 Intake and Output for Last 24 Hours 09/21/18 09/22/18 09/23/18 23:59 23:59 23:59 Intake Total 3266 / 3266 1991 1075 / 1075 Output Total 1800 / 1800 1400 / 1400 2500 / 2500 Balance 1466 / 1466 592 / 592 -1425 / -1425 Laboratory Tests Past 24 Hrs 09/18/18 09/23/18 09/23/18 20:50 02:00 04:45 Troponin I < 0.015 < 0.015 Levetiracetam 15.6 Medical Necessity - Tobacco Use Smoking Status: Former smoker Tobacco Use: - - Unable to obtain history as patient is lethargic and not unanswering many questions Assessment/Plan All Active Problems (Last Updated 09/19/18 @ 00:43 by Otis Kaur MD) EtOH dependence (Acute) Alcohol withdrawal (Acute) #1 acute alcohol withdrawal-patient's symptoms are being controlled with IV benzodiazepines at this time, patient will be moved to [facility] and I will institute programmed Librium with p.o. Librium as needed for severe agitation. Patient will be seen by PT #2 seizure disorder-continue Sloan #3 hypokalemia-patient's potassium will be rechecked tomorrow #4 chronic alcoholism Code Visit Inpatient E&M: 54703 Subs Hosp L2
[2018-09-23] MEDS: Acetaminophen 325 MG Tablet 650 MG PO (18:10)
[2018-09-23] MEDS: chlordiazePOXIDE 25 MG Capsule PO (21:07)
[2018-09-24 01:56] VITALS: BP 119/71; PULSE 92; RESP 16; TEMP 36.7; O2SAT 99
[2018-09-24] MEDS: chlordiazePOXIDE 25 MG Capsule PO ×3 (05:28→21:31)
[2018-09-24 06:09] LABS: BUN 10 mg/dL (7-18); Creatinine, Serum 0.93 mg/dL (0.70-1.30); EST Glomerular Filtration Rate 92 mL/min (>60); Estimated Creatinine Clearance 86.71 ml/min; Glucose 88 mg/dL (74-106)
[2018-09-24 06:10] LABS: Anion Gap 9 (5-15); BUN/Creat Ratio 10.8 RATIO (10-20); Calcium,Total 8.8 mg/dL (8.5-10.1); Chloride 103 mmol/L (98-107); Est Glom Filt Rate - Afr Amer 111 mL/min (>60); Potassium 3.3 mmol/L (3.5-5.1); Sodium Level 139 mmol/L (136-145)
--- NOTE | 2018-09-24 06:48 | PCM.PROGNOTE ---
Patient Problems: Active and Suspected Problems (Last Updated 09/19/18 @ 00:43 by Otis Kaur MD) EtOH dependence (Acute) Alcohol withdrawal (Acute) Subjective: The patient was seen and examined at the bedside this morning. Events from the last 24 hours have been reviewed. The patient is currently afebrile, hemodynamically stable and maintaining appropriate oxygen saturations on room air. The patient has done well clinically following his transfer out of the intensive care unit yesterday. Potassium is low this morning at 3.3. Objective: The patient's most recent lab work, culture data and imaging studies have all been personally reviewed. EEG dated September 19 revealed an abnormal encephalogram due to the presence of beta range activity, likely medication effect. No epileptiform discharges were noted. - Physical Exam General: Alert, Cooperative, No apparent distress HEENT: Atraumatic, PERRLA, Normocephalic Oral: No Gingival or Mucosal Lesions/ Ulcerations Neck: Supple, No Nodes, Trachea Midline Lungs: Normal air movement, No rhonchi, No wheeze, No rales Cardiovascular: Regular rate, Regular Rhythm, Normal S1, Normal S2, No murmurs Abdomen: Bowel Sounds Present, Soft, Non Tender Extremities: No clubbing, No cyanosis, No edema Skin: No rashes, No breakdown Musculoskeletal: No Tenderness to Palpation of Joints or Extremities, No Muscle Wasting Lymphatic: No Cervical, Supraclavicular, or Inguinal Adenopathy Neurological: Cranial nerves II-XII grossly intact, Neuro grossly intact Psych/Mental Status: Normal Affect, Appropriate Vital Signs Temp Pulse Resp BP Pulse Ox 36.7 C 92 16 119/71 99 09/24/18 01:56 09/24/18 01:56 09/24/18 01:56 09/24/18 01:56 09/24/18 01:56 Oxygen Flow Rate (L/min) 2 Oxygen Delivery Method Room Air Weight: 156 lb 15.506 oz Body Mass Index (BMI) 25.3 Finger Stick Blood Glucose 132 Intake and Output for Last 24 Hours 09/22/18 09/23/18 09/24/18 23:59 23:59 23:59 Intake Total 1991 / 1991 1175 / 1175 1200 / 1200 Output Total 1400 / 1400 2500 / 2500 Balance 592 / 592 -1325 / -1325 1200 / 1200 Laboratory Tests Past 24 Hrs 09/18/18 09/24/18 20:50 05:30 Sodium 139 Potassium 3.3 L Chloride 103 Carbon Dioxide 27.0 Anion Gap 9 BUN 10 Creatinine 0.93 Estim Creat Clear Calc 86.71 Est GFR (MDRD) Af Amer 111 Est GFR (MDRD) Non-Af 92 BUN/Creatinine Ratio 10.8 Glucose 88 Calcium 8.8 Levetiracetam 15.6 Labs (Last 48 Hours) 09/18/18 09/23/18 09/23/18 20:50 02:00 04:45 Sodium Potassium Chloride Carbon Dioxide Anion Gap BUN Creatinine Estim Creat Clear Calc Est GFR (MDRD) Af Amer Est GFR (MDRD) Non-Af BUN/Creatinine Ratio Glucose Calcium Troponin I < 0.015 < 0.015 Levetiracetam 15.6 09/24/18 05:30 Sodium 139 Potassium 3.3 L Chloride 103 Carbon Dioxide 27.0 Anion Gap 9 BUN 10 Creatinine 0.93 Estim Creat Clear Calc 86.71 Est GFR (MDRD) Af Amer 111 Est GFR (MDRD) Non-Af 92 BUN/Creatinine Ratio 10.8 Glucose 88 Calcium 8.8 Troponin I Levetiracetam Clinical Impression(s) from Imaging Studies Brain CT 09/18/18 20:48 IMPRESSION: Mild cortical atrophy and periventricular white matter ischemic changes. No evidence for acute cranial bleed Electronically Signed: Jono Figueroa MD at 21:52 EST , Service support , Cervical Spine CT 09/18/18 20:48 IMPRESSION: No evidence for acute fracture or subluxation.. Mild spondylosis Electronically Signed: Jono Figueroa MD at 21:50 EST , Service support , Chest X-Ray 09/18/18 21:40 IMPRESSION: Diminished inspiratory effort. No acute disease Electronically Signed: Jono Figueroa MD at 22:14 EST , Service support , Chest X-Ray 09/23/18 01:45 IMPRESSION: Normal x-ray examination of the chest. No acute findings in the lungs Electronically Signed: Pacheco Williamson MD at 2:12 EST Tel , Service support , Medical Necessity - Tobacco Use Smoking Status: Former smoker Tobacco Use: - - Unable to obtain history as patient is lethargic and not unanswering many questions Assessment/Plan All Active Problems (Last Updated 09/19/18 @ 00:43 by Otis Kaur MD) EtOH dependence (Acute) Alcohol withdrawal (Acute) RECOMMENDATIONS: 1. Continue as needed Ativan along with Librium taper 2. Continue thiamine and folate. 3. Continue Keppra. 4. Mobilize patient as tolerated. IMPRESSIONS: 1. Acute alcohol withdrawal The patient has been successfully weaned from continuous Precedex infusion. CIWA scores have improved. He appears to be emerging from his alcohol withdrawal window. Continue as needed Ativan, along with thiamine and folate repletion. 2. Unspecified seizure disorder Continue Keppra and Ativan, along with seizure precautions. Neurology is following. 3. Hypokalemia Additional potassium repletion as indicated. This note was generated with [employer] dictation software. It may contain incorrect words, spelling, and punctuation that were not noted in checking the note before signing. DISPOSITION: Given the lack of further ICU/pulmonary needs, will sign off. Please call with any additional questions. Code Visit Inpatient E&M: 33116 Subs Hosp L2
[2018-09-24] MEDS: Folic Acid 1 MG Tablet PO (08:44)
[2018-09-24] MEDS: Thiamine Hydrochloride 100 MG Tablet PO (08:45)
[2018-09-24 10:12] VITALS: BP 94/69; PULSE 95; RESP 18; TEMP 36.8; O2SAT 98
[2018-09-24] MEDS: levETIRAcetam 750 MG Tablet PO ×2 (10:40→21:31)
--- NOTE | 2018-09-24 11:00 | CASEMGMT ---
Social Work Note Per physician, pt is confused and not able to provide appropriate answers to questions. STEPHANIE informed physician that [facility] was following pt and this worker will call [facility] to come see pt again. STEPHANIE placed a call to Meenakshi Crowley with [facility]. Per Meenakshi Crowley she will come see patient again and provide resources, again, for pt. Hanna Valencia SPECIALIST WOUND CARE, [employer]
[2018-09-24 14:39] VITALS: BP 114/74; PULSE 81; RESP 18; TEMP 36.8; O2SAT 98
[2018-09-24 14:44] VITALS: BP 114/74; PULSE 84; RESP 18; TEMP 36.9; O2SAT 98
--- NOTE | 2018-09-24 19:28 | PN_ITS ---
Patient Problems: Active and Suspected Problems (Last Updated 09/19/18 @ 00:43 by Otis Kaur MD) EtOH dependence (Acute) Alcohol withdrawal (Acute) Subjective: Patient was seen and examined today, he does not appear to be actively going through alcohol withdrawal at this time, his memory is poor and he is a poor informant today-he could not name his family practitioner. I found out he was seen a family practitioner in [place]-actually seeing the nurse practitioner that works for the practice-by the name of Paolo. She confirmed that the patient is not been seen in the office since January of this year, she has been refilling his Keppra anyway. I confirm that the patient's last Keppra refill was picked up to 10 September. Patient told me today that he has not been drinking prior to coming into the hospital this time, however, patient cannot tell me why he went through alcohol withdrawal. Patient's daughter came to see the patient this afternoon to pick him up to bring him home and patient wanted to go to inpatient alcohol detox tomorrow instead and so the plan is for the patient to be admitted into [facility] tomorrow as an inpatient. - Physical Exam General: Alert, Oriented x3, Cooperative, No apparent distress, Well developed HEENT: Atraumatic, PERRLA, EOMI, Normocephalic Oral: Moist Mucosa Neck: Supple, No JVD, Negative Carotid Bruits, Trachea Midline, Thyroid Normal Size and Texture Lungs: Clear to auscultation, Normal air movement, No rhonchi, No wheeze, No rales Cardiovascular: Regular rate, Regular Rhythm, Normal S1, Normal S2, No murmurs, PMI Normal, No rub noted, No Gallop Abdomen: Bowel Sounds Present, Soft, Non Tender, Non-Distended, No hernias noted Extremities: No clubbing, No cyanosis, No edema, Capillary Refill Less than 3 Seconds Skin: No rashes, No breakdown Musculoskeletal: No Tenderness to Palpation of Joints or Extremities Neurological: Cranial nerves II-XII grossly intact, Neuro grossly intact, Sensory exam intact to light touch and pain, Coordination normal Psych/Mental Status: Appropriate, Flat Affect Vital Signs Temp Pulse Resp BP Pulse Ox 98.5 F 84 18 114/74 98 09/24/18 14:44 09/24/18 14:44 09/24/18 14:44 09/24/18 14:44 09/24/18 14:44 Oxygen Flow Rate (L/min) 2 Oxygen Delivery Method Room Air Weight: 71.2 kg Body Mass Index (BMI) 25.3 Finger Stick Blood Glucose 132 Intake and Output for Last 24 Hours 09/22/18 09/23/18 09/24/18 23:59 23:59 23:59 Intake Total 1991 / 1991 1175 / 1175 3680 / 3680 Output Total 1400 / 1400 2500 / 2500 Balance 592 / 592 -1325 / -1325 3680 / 3680 Laboratory Tests Past 24 Hrs 09/24/18 05:30 Sodium 139 Potassium 3.3 L Chloride 103 Carbon Dioxide 27.0 Anion Gap 9 BUN 10 Creatinine 0.93 Estim Creat Clear Calc 86.71 Est GFR (MDRD) Af Amer 111 Est GFR (MDRD) Non-Af 92 BUN/Creatinine Ratio 10.8 Glucose 88 Calcium 8.8 Medical Necessity - Tobacco Use Smoking Status: Former smoker Tobacco Use: - - Unable to obtain history as patient is lethargic and not unanswering many questions Assessment/Plan All Active Problems (Last Updated 09/19/18 @ 00:43 by Otis Kaur MD) EtOH dependence (Acute) Alcohol withdrawal (Acute) #1 acute alcohol withdrawal-patient's symptoms are being controlled with oral Librium programmed and oral Librium as needed. #2 seizure disorder-continue Keppra #3 hypokalemia-patient's potassium will be rechecked tomorrow #4 chronic alcoholism-as of today, patient has agreed to an inpatient alcohol detox program, the plan is for the patient to be discharged tomorrow morning. Code Visit Inpatient E&M: 64930 Subs Hosp L2
[2018-09-24 20:21] VITALS: BP 118/75; PULSE 86; RESP 18; TEMP 36.6; O2SAT 100
[2018-09-25 02:55] VITALS: BP 119/73; PULSE 75; RESP 16; TEMP 36.8; O2SAT 98
[2018-09-25] MEDS: chlordiazePOXIDE 25 MG Capsule PO ×2 (06:01→14:56)
[2018-09-25] MEDS: Thiamine Hydrochloride 100 MG Tablet PO (08:51)
[2018-09-25] MEDS: Folic Acid 1 MG Tablet PO (08:51)
[2018-09-25] MEDS: levETIRAcetam 750 MG Tablet PO (08:51)
[2018-09-25 09:10] VITALS: BP 103/64; PULSE 71; RESP 16; TEMP 36.8; O2SAT 98
--- NOTE | 2018-09-25 11:51 | DCINST_ITS ---
- Discharge Diagnoses Current Active Problems: Current Active and Chronic Problems (Last Updated 09/19/18 @ 00:43 by Otis Kaur MD) Seizure (Chronic) EtOH dependence (Acute) Alcohol withdrawal (Acute) You will use the following diet at home:: No restrictions Your food should be the consistency of: Regular Your liquids should be the consistency of: Regular/Thin Discharge Activity: Return to Normal Activity Weight Bearing Status: Full weight bearing Allergies/Adverse Reactions: Allergies No Known Allergies Allergy (Verified 10/02/15 14:35) Medications to take at Discharge Levetiracetam [Keppra] 750 mg PO BID 01/09/18 Amitriptyline HCl 50 mg PO QHS 09/18/18 Primary Care Physician: Care Physician,No Primary [Primary Care Provider] - Please follow up with your Primary Care Physician in: in 2-3 weeks Test Results: Test results from this visit will be discussed in further detail at your follow- up appointment, if applicable.
[2018-09-25 15:01] VITALS: BP 138/66; PULSE 90; RESP 18; TEMP 36.8; O2SAT 99
--- NOTE | 2018-09-25 18:47 | NURSING ---
Patient left entire [employer] packet on bedside table. This RN attempted to call patient at this time to notify him of same. No answer- will pass on and try to call pt again tomorrow.
--- NOTE | 2018-09-26 10:45 | DS.PCM_ITS ---
Discharge Date and Diagnosis Date of Admission: 09/18/18 Date of Discharge: 09/25/18 - Primary Discharge Diagnosis #1 acute alcohol withdrawal- #2 seizure disorder with breakthrough seizure #3 hypokalemia #4 chronic alcoholism - Secondary Discharge Diagnosis Chronic Problems (Last Updated 09/19/18 @ 00:43 by Otis Kaur MD) Seizure (Chronic) Hospital Course and Treatment Operations: None Procedures: None Summary of Care Provided: The patient is a 48 year old M who was seen in the emergency room at [facility] after being found by friends on the ground outside his home, it was believed that the patient had a seizure as he had a history of chronic seizure disorder. Patient also has a history of chronic alcoholism. CT of the brain showed mild cortical atrophy and periventricular white matter changes, CT of the C-spine showed no acute disease, chest x-ray showed no acute disease, CBC showed an elevated white count at 17.7, chemistry profile showed an anion gap of 19 which was felt to be consistent with a seizure. Alcohol level was 0. Patient had an IV placed and was given IV Ativan, he was also given IV Keppra and Zofran. Patient was admitted to [place] [address], he admitted to the medical staff that he was drinking approximately 20 beers per day but he had quit drinking a few days earlier due to a job interview. EEG was performed which was abnormal for a medication effect but no epileptiform changes were noted. On 09/20/18, patient became agitated and a code arturo was called, patient was transferred to ICU and placed on Precedex IV, he was seen in consultation by pulmonary medicine in the ICU. Patient remained confused in the ICU but was less agitated on Precedex, he was subsequently transferred out of the ICU after the Precedex was stopped. He was seen by [facility] social workers and patient had agreed to go to [facility] as an inpatient. On the day the patient was supposed to go to [facility] which was 09/25/18, nursing was unable to contact his transportation until late in the day and by that time he had missed his appointment at [facility]. On 09/25/18, patient was seen and examined:- Physical Exam General: Alert, Oriented x3, Cooperative, No apparent distress, Well developed HEENT: Atraumatic, PERRLA, EOMI, Normocephalic Oral: Moist Mucosa Neck: Supple, No JVD, Negative Carotid Bruits, Trachea Midline, Thyroid Normal Size and Texture Lungs: Clear to auscultation, Normal air movement, No rhonchi, No wheeze, No rales Cardiovascular: Regular rate, Regular Rhythm, Normal S1, Normal S2, No murmurs, PMI Normal, No rub noted, No Gallop Abdomen: Bowel Sounds Present, Soft, Non Tender, Non-Distended, No hernias noted Extremities: No clubbing, No cyanosis, No edema, Capillary Refill Less than 3 Seconds Skin: No rashes, No breakdown Musculoskeletal: No Tenderness to Palpation of Joints or Extremities Neurological: Cranial nerves II-XII grossly intact, Neuro grossly intact, Sensory exam intact to light touch and pain, Coordination normal Psych/Mental Status: Appropriate, Flat Affect, poor informant Vital Signs as outlined on 09/25/18 On 09/25/18, patient was seen and examined felt to be in stable condition for discharge home - Physical Exam Vital Signs Temp Pulse Resp BP Pulse Ox 98.2 F 90 18 138/66 H 99 09/25/18 15:01 09/25/18 15:01 09/25/18 15:01 09/25/18 15:01 09/25/18 15:01 Oxygen Flow Rate (L/min) 2 Oxygen Delivery Method Room Air Weight: 71.2 kg Body Mass Index (BMI) 25.3 Finger Stick Blood Glucose 132 Intake and Output for Last 24 Hours 09/24/18 09/25/18 09/26/18 23:59 23:59 23:59 Intake Total 3680 / 3680 1750 / 1750 Balance 3680 / 3680 1750 / 1750 Discharge Activity: Return to Normal Activity Weight Bearing Status: Full weight bearing Home Medications: Medications to take at Discharge Levetiracetam [Keppra] 750 mg PO BID 01/09/18 Amitriptyline HCl 50 mg PO QHS 09/18/18 Primary Care Physician: Care Physician,No Primary [Primary Care Provider] - Please follow up with your Primary Care Physician in: in 2-3 weeks Disposition: Home Minutes spent on discharge:: 32 Patient Condition:: Stable Medical Necessity - Tobacco Use Smoking Status: Former smoker Tobacco Use: - - Unable to obtain history as patient is lethargic and not unanswering many questions Meaningful Use Info Meaningful Use Diagnoses (Choose all that apply): None applicable Code Visit Inpatient E&M: 70326 Disch Hosp
--- OUTSIDE RECORDS SUMMARY | 2018-11-14 04:36 | XMS RPT_ITS ---
:1970 Author Organization OHIP Support Name Relationship Address Phone MARRERO, CHOLO Unavailable [address] + [place] [address] S Unavailable Unavailable Unavailable MARRERO, CHOLO Unavailable [address] + [place] [address] S Unavailable Unavailable Unavailable MARRERO, CHOLO Unavailable [address] + [place] [address] S Unavailable Unavailable Unavailable MARRERO, CHOLO Unavailable [address] + [place] [address] S Unavailable Unavailable Unavailable MARRERO, CHOLO Unavailable [address] + [place] [address] S Unavailable Unavailable Unavailable MARRERO, CHOLO Unavailable [address] + [place] [address] S Unavailable Unavailable Unavailable MARRERO, CHOLO Unavailable [address] + [place] [address] S Unavailable Unavailable Unavailable MARRERO, CHOLO Unavailable [address] + [place] [address] S Unavailable Unavailable Unavailable MARRERO, CHOLO Unavailable [address] + [place] [address] S Unavailable Unavailable Unavailable MARRERO, CHLOO Unavailable [address] + [place] [address] S Unavailable Unavailable Unavailable MARRERO, CHOLO Unavailable [address] + [place] [address] S Unavailable Unavailable Unavailable MARRERO, CHOLO Unavailable [address] + [place] [address] S Unavailable Unavailable Unavailable MARRERO, CHOLO Unavailable [address] + [place] [address] S Unavailable Unavailable Unavailable MARRERO, CHOLO Unavailable [address] + [place] [address] S Unavailable Unavailable Unavailable Care Team Providers Name Role Phone Primay Care Physicia, No Primary Care Unavailable RadhaErwin wagner Attending Unavailable Primay Care Physicia, No Primary Care Unavailable Agyepong, Otis Admitting Unavailable OlegarioKashif mcdonald Consulting Unavailable TereletskyTc Attending Unavailable Agyepong, Otis Admitting Unavailable Agyepong, Otis Attending Unavailable Primay Care Physicia, No Primary Care Unavailable OlegarioKashif mcdonald Consulting Unavailable Agyepong, Otis Consulting Unavailable Agyepong, Otis Admitting Unavailable Kotsonis, Sly F Attending Unavailable Primay Care Physicia, No Primary Care Unavailable OlegarioKashif Consulting Unavailable Kotsonis, Sly F Consulting Unavailable Agyepong, Otis Admitting Unavailable Kotsonis, Sly F Attending Unavailable Primay Care Physicia, No Primary Care Unavailable Kashif Melvin Consulting Unavailable Kotsonis, Sly F Consulting Unavailable Agyepong, Otis Admitting Unavailable Kotsonis, Sly F Attending Unavailable Primay Care Physicia, No Primary Care Unavailable OlegarioKashif mcdonald Consulting Unavailable Kotsonis, Sly F Consulting Unavailable Agyepong, Otis Admitting Unavailable OlegarioKashif mcdonald Attending Unavailable Primay Care Physicia, No Primary Care Unavailable Kashif Melvin Consulting Unavailable Kotsonis, Sly F Consulting Unavailable Agyepong, Otis Admitting Unavailable Kotsonis, Sly F Attending Unavailable Primay Care Physicia, No Primary Care Unavailable Kashif Melvin Consulting Unavailable Kotsonis, Sly F Consulting Unavailable Agyepong, Otis Admitting Unavailable Angelo Cartwright.Price. Attending Unavailable Primay Care Physicia, No Primary Care Unavailable Kashif Melvin Consulting Unavailable Kotsonis, Sly F Consulting Unavailable Agyepong, Otis Admitting Unavailable Angelo Cartwright.Price. Attending Unavailable Primay Care Physicia, No Primary Care Unavailable Kashif Melvin Consulting Unavailable TereletskyTc Consulting Unavailable Agyepong, Otis Admitting Unavailable Tc Huynh Attending Unavailable Primay Care Physicia, No Primary Care Unavailable Kashif Melvin Consulting Unavailable KarolineeletskyTc Consulting Unavailable Agyepong, Otis Admitting Unavailable Angelo Cartwright.O. Attending Unavailable Primay Care Physicia, No Primary Care Unavailable Kashif Melvin Consulting Unavailable Tereletsky, Tc Consulting Unavailable Agyepong, Otis Admitting Unavailable Tereletsky, Tc Attending Unavailable Primay Care Physicia, No Primary Care Unavailable Olegario, Kashif Consulting Unavailable Tereletsky, Tc Consulting Unavailable Agyepong, Otis Admitting Unavailable Tereletsky, Tc Attending Unavailable Primay Care Physicia, No Primary Care Unavailable Olegario, Kashif Consulting Unavailable Tereletsky, Tc Consulting Unavailable PROBLEMS PROBLEMS No Problem Records FoundPROCEDURES PROCEDURES No Procedure Records FoundRESULTS RESULTS DISCHARGE SUMMARY Observed: 09/26/2018 Status: F Source: [place] 10:46 AM [facility] REPOSITORY [facility] Medical Records Department [address] [place] [address] Discharge Summary 09/26/18 1036 MR#: [id number] Acct: [id number] Name: ANIBAL MANE Rep #: [id number] : 1970 48 From: Tc Huynh DO PCP: Care Physician, No Primary Status: DIS IN Y [place] [facility]-[place] Discharge Date and Diagnosis Date of Admission: 09/18/18 Date of Discharge: 09/25/18 - Primary Discharge Diagnosis #1 acute alcohol withdrawal- #2 seizure disorder with breakthrough seizure #3 hypokalemia #4 chronic alcoholism - Secondary Discharge Diagnosis Chronic Problems (Last Updated 09/19/18 @ 00:43 by Otis Kaur MD) Seizure (Chronic) Hospital Course and Treatment Operations: None Procedures: None Summary of Care Provided: The patient is a 48 year old M who was seen in the emergency room at [facility] after being found by friends on the ground outside his home, it was believed that the patient had a seizure as he had a history of chronic seizure disorder. Patient also has a history of chronic alcoholism. CT of the brain showed mild cortical atrophy and periventricular white matter changes, CT of the C-spine showed no acute disease, chest x-ray showed no acute disease, CBC showed an elevated white count at 17.7, chemistry profile showed an anion gap of 19 which was felt to be consistent with a seizure. Alcohol level was 0. Patient had an IV placed and was given IV Ativan, he was also given IV Keppra and Zofran. Patient was admitted to [place] [address], he admitted to the medical staff that he was drinking approximately 20 beers per day but he had quit drinking a few days earlier due to a job interview. EEG was performed which was abnormal for a medication effect but no epileptiform changes were noted. On 09/20/18, patient became agitated and a code arturo was called, patient was transferred to ICU and placed on Precedex IV, he was seen in consultation by pulmonary medicine in the ICU. Patient remained confused in the ICU but was less agitated on Precedex, he was subsequently transferred out of the ICU after the Precedex was stopped. He was seen by [facility] social workers and patient had agreed to go to [facility] as an inpatient. On the day the patient was supposed to go to [facility] which was 09/25/18, nursing was unable to contact his transportation until late in the day and by that time he had missed his appointment at [facility]. On 09/25/18, patient was seen and examined:- Physical Exam General: Alert, Oriented x3, Cooperative, No apparent distress, Well developed HEENT: Atraumatic, PERRLA, EOMI, Normocephalic Oral: Moist Mucosa Neck: Supple, No JVD, Negative Carotid Bruits, Trachea Midline, Thyroid Normal Size and Texture Lungs: Clear to auscultation, Normal air movement, No rhonchi, No wheeze, No rales Cardiovascular: Regular rate, Regular Rhythm, Normal S1, Normal S2, No murmurs, PMI Normal, No rub noted, No Gallop Abdomen: Bowel Sounds Present, Soft, Non Tender, Non-Distended, No hernias noted Extremities: No clubbing, No cyanosis, No edema, Capillary Refill Less than 3 Seconds Skin: No rashes, No breakdown Musculoskeletal: No Tenderness to Palpation of Joints or Extremities Neurological: Cranial nerves II-XII grossly intact, Neuro grossly intact, Sensory exam intact to light touch and pain, Coordination normal Psych/Mental Status: Appropriate, Flat Affect, poor informant Vital Signs as outlined on 09/25/18 On 09/25/18, patient was seen and examined felt to be in stable condition for discharge home - Physical Exam Vital Signs Temp Pulse Resp BP Pulse Ox 98.2 F 90 18 138/66 H 99 09/25/18 15:01 09/25/18 15:01 09/25/18 15:01 09/25/18 15:01 09/25/18 15:01 Oxygen Flow Rate (L/min) 2 Oxygen Delivery Method Room Air Weight: 71.2 kg Body Mass Index (BMI) 25.3 Finger Stick Blood Glucose 132 Intake and Output for Last 24 Hours Intake Total 3680 / 3680 1750 / 1750 Balance 3680 / 3680 1750 / 1750 Discharge Activity: Return to Normal Activity Weight Bearing Status: Full weight bearing Home Medications: Medications to take at Discharge Levetiracetam [Keppra] 750 mg PO BID 01/09/18 Amitriptyline HCl 50 mg PO QHS 09/18/18 Primary Care Physician: Care Physician,No Primary [Primary Care Provider] - Please follow up with your Primary Care Physician in: in 2- 3 weeks Disposition: Home Minutes spent on discharge:: 32 Patient Condition:: Stable Medical Necessity - Tobacco Use Smoking Status: Former smoker Tobacco Use: - - Unable to obtain history as patient is lethargic and not unanswering many questions Meaningful Use Info Meaningful Use Diagnoses (Choose all that apply): None applicable Code Visit Inpatient E AND M: [id number] Disch Hosp 09/26/18 1046 <Electronically signed by Tc Huynh DO> Date Tc Huynh DO Cosigner Signature (if applicable): Date CC: No Primary Care Physician; Tc Huynh DO Signed DISCHARGE INSTRUCTION Observed: 09/25/2018 Status: F Source: [place] 11:51 AM [facility] REPOSITORY [facility] Medical Records Department [address] [place] [address] Instructions for Home/Discharge Instructions 09/25/18 1150 MR#: [id number] Acct: [id number] Name: ANTONIETTAANIBAL JOE Rep #: [id number] : 1970 48 From: Tc Huynh DO PCP: Care Physician, No Primary Status: ADM IN - Discharge Diagnoses Current Active Problems: Current Active and Chronic Problems (Last Updated 09/19/18 @ 00:43 by Otis Kaur MD) Seizure (Chronic) EtOH dependence (Acute) Alcohol withdrawal (Acute) You will use the following diet at home:: No restrictions Your food should be the consistency of: Regular Your liquids should be the consistency of: Regular/Thin Discharge Activity: Return to Normal Activity Weight Bearing Status: Full weight bearing Allergies/Adverse Reactions: Allergies No Known Allergies Allergy (Verified 10/02/15 14:35) Medications to take at Discharge Levetiracetam [Keppra] 750 mg PO BID 01/09/18 Amitriptyline HCl 50 mg PO QHS 09/18/18 Primary Care Physician: Care Physician,No Primary [Primary Care Provider] - Please follow up with your Primary Care Physician in: in 2- 3 weeks Test Results: Test results from this visit will be discussed in further detail at your follow-up appointment, if applicable. 09/25/18 1151 <Electronically signed by Tc Huynh DO> Date Tc Huynh DO CC: No Primary Care Physician; Kashif Melvin MD BASIC METABOLIC Collected: 09/24/2018 Status: F Source: [place] PROFILE (BMP) 5:30 AM [facility] REPOSITORY TYPE CODE TESTS RESULT OUT OF RANGE REFERENCE UNITS LAB L501.0100 74-106 mg/dL Normal GLU 88 Result Comment: Please note revised GLUCOSE reference range effective 2017. LAB L501.1000 7-18 mg/dL Normal BUN 10 LAB L501.1100 0.70-1.30 mg/dL Normal CREAT,SERUM 0.93 Result Comment: The validity of the calculated GFR AND GFRAA in patients over 70 years has not been determined. Clinical correlation is essential. LAB L501.1110 >60 mL/min Normal EST GFR 92 Result Comment: Non- GFR Calc LAB L501.1115 >60 mL/min Normal EST GFR - AA 111 Result Comment: GFR Calc LAB L501.1255 ml/min Normal Estimated CRCL 86.71 LAB L501.1300 10-20 RATIO Normal BUN/CRE 10.8 LAB L501.2200 8.5-10 mg/dL Normal .1 CA 8.8 LAB L501.5300 136-14 mmol/L Normal 5 NA 139 LAB L501.5600 3.5-5. mmol/L Low 1 K 3.3 LAB L501.5900 98-107 mmol/L Normal CL 103 LAB L501.6100 21.0-3 mmol/L Normal 2.0 CO2 27.0 LAB L501.6200 5-15 Normal GAP 9 Performed By: #### L500.2500 #### [facility] [address] [place], [address] TROPONIN-I Collected: 09/23/2018 Status: F Source: [place] 4:45 AM [facility] REPOSITORY Order Comment: 'TROP' Serial specimen #1, #2 or #3: 2 TYPE CODE TESTS RESULT OUT OF RANGE REFERENCE UNITS LAB L501.4010 <0.045 ng/mL Normal < 0.015 TROPONIN-I Result Comment: TROPONIN-I EXPECTED VALUES <0.045 Negative 0.045 - 0.590 Consistent with Cardiac Damage > OR = 0.600 Critical Value Not every elevated troponin is indicative of SD. These values should be used with clinical judgement in examining the patient's clinical picture for diagnosis. To establish a diagnosis of SD versus myocardial injury, there must be a demonstrated rise and/or fall in the troponin values, in addition to ischemic symptoms, EKG changes, new regional wall motion abnormality, and/or angiographical evidence. PLEASE NOTE: REFERENCE RANGES EDITED 18 Performed By: #### L501.4010 #### [facility] [address] [place], [address] TROPONIN-I Collected: 09/23/2018 Status: F Source: [place] 2:00 AM [facility] REPOSITORY Order Comment: 'TROP' Serial specimen #1, #2 or #3: 1 TYPE CODE TESTS RESULT OUT OF RANGE REFERENCE UNITS LAB L501.4010 <0.045 ng/mL Normal < 0.015 TROPONIN-I Result Comment: TROPONIN-I EXPECTED VALUES <0.045 Negative 0.045 - 0.590 Consistent with Cardiac Damage > OR = 0.600 Critical Value Not every elevated troponin is indicative of SD. These values should be used with clinical judgement in examining the patient's clinical picture for diagnosis. To establish a diagnosis of SD versus myocardial injury, there must be a demonstrated rise and/or fall in the troponin values, in addition to ischemic symptoms, EKG changes, new regional wall motion abnormality, and/or angiographical evidence. PLEASE NOTE: REFERENCE RANGES EDITED 18 Performed By: #### L501.4010 #### [facility] [address] [place], [address] CHEST 1 VIEW Observed: 09/23/2018 Status: F Source: [place] (PORTABLE) 1:46 AM [facility] [place] REPOSITORY [facility] Imaging Services [address] [place] [address] Chest 1 View (Portable) MR#: [id number] Acct: [id number] Name: ANIBAL MANE Rep #: [id number] : 1970 M 48 From: Pacheco Williamson MD PCP: Care Physician, No Primary Status: ADM IN Study: Chest 1 View (Portable) Date of Exam: 09/23/18 Exam# [id number] Ordering Dr: Otis Kaur MD STUDY: X-RAY CHEST REASON FOR EXAM: Male, 48 years old. Chest pain TECHNIQUE: 1 view COMPARISON: September 18, 2018 FINDINGS: The lungs are clear and expanded. There is no demonstrated pleural abnormality. Normal size heart. Normal mediastinum and desi. Normal visualized pulmonary arteries. Normal visualized aortic arch and descending thoracic aorta. Normal visualized thoracic spine. Normal visualized ribs, clavicles, and shoulders. There is no demonstrated abnormality of the visualized soft tissue structures of the upper abdomen. RAD/Chest 1 View (Portable) IMPRESSION: Normal x-ray examination of the chest. No acute findings in the lungs Electronically Signed: Pacheco Williamson MD at 2:12 EST Tel , Service support , CC: No Primary Care Physician; Otis Kaur MD Finance Officer: Signed BASIC METABOLIC Collected: 09/22/2018 Status: F Source: [place] PROFILE (BMP) 5:35 AM [facility] [place] REPOSITORY TYPE CODE TESTS RESULT OUT OF RANGE REFERENCE UNITS LAB L501.0100 74-106 mg/dL Normal GLU 93 Result Comment: Please note revised GLUCOSE reference range effective 2017. LAB L501.1000 7-18 mg/dL Normal BUN 8 LAB L501.1100 0.70-1.30 mg/dL Low CREAT,SERUM 0.69 Result Comment: The validity of the calculated GFR AND GFRAA in patients over 70 years has not been determined. Clinical correlation is essential. LAB L501.1110 >60 mL/min Normal EST GFR 129 Result Comment: Non- GFR Calc LAB L501.1115 >60 mL/min Normal EST GFR - AA 156 Result Comment: GFR Calc LAB L501.1255 ml/min Normal Estimated CRCL 116.86 LAB L501.1300 10-20 RATIO BUN/CRE Normal 11.6 LAB L501.2200 8.5-10 mg/dL Low .1 CA 8.3 LAB L501.5300 136-14 mmol/L 5 NA Normal 137 LAB L501.5600 3.5-5. mmol/L Low 1 K 3.0 LAB L501.5900 98-107 mmol/L CL Normal 99 LAB L501.6100 21.0-3 mmol/L 2.0 CO2 Normal 25.0 LAB L501.6200 5-15 GAP Normal 13 Performed By: #### L500.2500 #### [facility] [address] [place], [place], [address] PHOSPHORUS Collected: 09/22/2018 Status: F Source: [place] 5:35 AM [facility] REPOSITORY TYPE CODE TESTS RESULT OUT OF RANGE REFERENCE UNITS LAB L501.2300 2.5-4.9 mg/dL Normal PHOS 3.7 Performed By: #### L501.2300, L501.5200 #### [facility] [address] [place], [place], [address] MAGNESIUM Collected: 09/22/2018 Status: F Source: [place] 5:35 AM [facility] REPOSITORY TYPE CODE TESTS RESULT OUT OF RANGE REFERENCE UNITS LAB L501.5200 1.6-2.6 mg/dL Normal MG 1.7 Performed By: #### L501.2300, L501.5200 #### [facility] [address] [place], [address] CONSULTATION Observed: 09/21/2018 Status: F Source: [place] 11:59 AM [facility] [place] REPOSITORY [facility] Medical Records Department [address] [place] [address] Consultation 09/21/18 0700 MR#: [id number] Acct: [id number] Name: ANIBAL MANE Rep #: [id number] : 1970 48 From: Kashif Melvin MD PCP: Care Physician, No Primary Status: ADM IN Y Location: ICU ICU02 Problem List (1) Seizure Status: Chronic (2) EtOH dependence Status: Acute Qualifiers: Substance use status: in withdrawal (3) Alcohol withdrawal Status: Acute Qualifiers: Complication of substance-induced condition: with delirium Qualified Code(s): F10.231 - Alcohol dependence with withdrawal delirium Reason for Consult Date of Consultation: 09/21/18 Reason for Consultation: Precedex therapy History of Present Illness: The patient is a 48 year old M, with past medical history significant for seizure disorder, who presented to [facility] on 09/18/2018 secondary to seizure. Patient was reportedly carrying groceries and had an unwitnessed fall outside. Patient has a history of seizures and is supposed to be on Keppra at baseline, but reportedly had stopped drinking alcohol and taking his Keppra because of a job interview. Patient was noted to be 88% by ER and hypertensive with a blood pressure of 151/113. There was some contusion and abrasion noted to the bridge of the nose, but no tongue trauma. Workup showed a metabolic acidosis with a negative alcohol level. Patient was admitted to the intensive care unit for further evaluation. While in the intensive care unit, patient did receive Keppra therapy. No repeat seizure activity was noted. Patient was started on an alcohol withdrawal protocol and transferred to the floor. Overnight, patient became aggressive and had a code arturo called twice. The patient was transferred to the intensive care unit and placed on a Precedex drip. Patient continues to be extremely impulsive despite Precedex therapy. Patient is not able to provide any further history at this time. Past Medical History Past Medical History (Chronic Problems): Chronic Problems (Last Updated 09/19/18 @ 00:43 by Otis Kaur MD) Seizure (Chronic) Medical History: Medical History (Last Updated 09/19/18 @ 00:43 by Otis Kaur MD) Seizure disorder G40.909 Allergies No Known Allergies Allergy (Verified 10/02/15 14:35) Home Medications: Ambulatory Orders Medication Instructions Recorded Levetiracetam [Keppra] 750 mg PO BID 01/09/18 Amitriptyline HCl 50 mg PO QHS 09/18/18 Surgical History: - - History of left tibial fracture status post internal fixation with wires and screws. No other significant past surgical history. Psychiatric History: No pertinent psych hx, - Lives: - - Live with friends Smoking Status: Former smoker Tobacco Use: - - Unable to obtain history as patient is lethargic and not unanswering many questions Alcohol: Heavy Drugs: - - Unable to obtain history as patient is lethargic and not unanswering many questions - *Family History Maternal History Items: - - Unable to obtain history as patient is lethargic and not unanswering many questions Paternal History Items: - - Unable to obtain history as patient is lethargic and not unanswering many questions Review of Systems Unable to obtain accurate/complete ROS d/t: See HPI Patient Problems: Active and Suspected Problems (Last Updated 09/19/18 @ 00:43 by Otis Kaur MD) EtOH dependence (Acute) Alcohol withdrawal (Acute) Objective: All imaging was personally reviewed. Chest x-ray showed poor inspiration, but no acute infiltrates. CT of the head showed some mild cortical atrophy, but no bleed. EEG showed presence of beta range activity that was thought to be medication related. - Physical Exam General: - - Sedated. Not answering questions or following commands. Appears older than stated age. HEENT: PERRLA, EOMI, Normocephalic, - - Abrasion noted at the bridge of the nose. Oral: Moist Mucosa, No Gingival or Mucosal Lesions/ Ulcerations, - - Poor dentition Neck: Supple, No JVD, No Nodes, Trachea Midline Lungs: No rhonchi, No wheeze, No rales, Diminished, - - Fair effort. Cardiovascular: Normal S1, Normal S2, No murmurs, No rub noted, No Gallop, Tachycardic Abdomen: Bowel Sounds Present, Soft, Non Tender, Non-Distended Extremities: No clubbing, No cyanosis, No edema, Capillary Refill Less than 3 Seconds Skin: No rashes, No breakdown Musculoskeletal: No Tenderness to Palpation of Joints or Extremities Lymphatic: No Cervical, Supraclavicular, or Inguinal Adenopathy Neurological: Cranial nerves II-XII grossly intact, Neuro grossly intact, Motor Exam 5/5 strength throughout Psych/Mental Status: Impulsive, Restless Vital Signs Temp Pulse Resp BP Pulse Ox 36.1 C L 56 L 17 148/99 H 97 09/21/18 06:00 09/21/18 06:00 09/21/18 06:00 09/21/18 06:00 09/21/18 06:00 Oxygen Flow Rate (L/min) 2 Oxygen Delivery Method Room Air Weight: 71.9 kg Body Mass Index (BMI) 25.3 Finger Stick Blood Glucose 132 Intake and Output for Last 24 Hours Intake Total 2491 / 2491 3102 / 3102 204 / 204 Output Total 600 / 600 800 / 800 Balance 1891 / 1891 3102 / 3102 -596 / -596 Laboratory Tests Past 24 Hrs WBC 6.0 RBC 4.04 L Hgb 13.3 Hct 39.7 L MCV 98.3 H MCH 32.9 H MCHC 33.5 RDW 12.3 RDW Differential 44.3 H Assessment/Plan Active and Suspected Problems (Last Updated 09/19/18 @ 00:43 by Otis Kaur MD) EtOH dependence (Acute) Alcohol withdrawal (Acute) RECOMMENDATIONS: 1. Continue Precedex therapy 2. Electrolyte repletion as indicated 3. Transition Keppra to IV 4. Delirium protocol IMPRESSIONS: 1. Acute alcohol withdrawal Patient failed [facility] protocol. Patient has since been placed on Precedex for safety of staff and himself. Anticipate continuing Precedex for 24-48 hours. Continue with CIWA protocol. Initial seizure likely secondary to holding of Keppra, not true DTs. Patient's x-ray was not consistent with aspiration pneumonia. Patient's heart rate tolerating current dosage of Precedex therapy. Will need to monitor electrolytes closely as patient will likely suffer from refeeding syndrome upon addition of glucose. 2. Seizure disorder Patient is on Keppra at baseline. Given sedation, swallowing will be difficult. Will transition Keppra to IV. Continue with seizure precautions. Code Visit Inpatient [place] AND M: [id number] Init Hosp L2 09/21/18 1159 <Electronically signed by Kashif Melvin MD> Date Kashif Melvin MD Cosigner Signature (if applicable): Date CC: No Primary Care Physician; Kashif Melvin MD Signed CBC W/DIFF, AUTOMATED Collected: 09/21/2018 Status: F Source: [place] 4:35 AM [facility] REPOSITORY TYPE CODE TESTS RESULT OUT OF RANGE REFERENCE UNITS LAB L100.1000 4.4-11.0 K/mm3 Normal WBC 6.0 LAB L100.1200 4.6-6.2 M/mm3 Low RBC 4.04 LAB L100.1300 13.0-16.5 g/dl Normal HGB 13.3 LAB L100.1400 40-54 % Low HCT 39.7 LAB L100.1500 80-94 fL High MCV 98.3 LAB L100.1600 27.0-32.0 pg High MCH 32.9 LAB L100.1700 32-36 g/gl Normal MCHC 33.5 LAB L100.1810 11.6-14.6 % Normal RDW CV 12.3 LAB L100.1820 35.1-43.9 fl High RDW SD 44.3 LAB L100.1900 150-450 K/mm3 Low PLT 144 LAB L100.2000 6.2-12.0 fl Normal MPV 10.0 LAB L100.2100 47-70 % Normal NEUT% 67.7 LAB L100.2200 19-41 % Normal LY% 20.8 LAB L100.2300 0-10 % Normal MONO% 9.5 LAB L100.2400 0-5 % Normal EO% 1.5 LAB L100.2500 0-1 % Normal BASO% 0.5 LAB L100.2550 0.0-0.9 % Normal IM GRAN % 0.000 Result Comment: IG% - Immature Granulocytes (promyelocytes, myelocytes and metamyelocytes) > 1% indicates that a LEFT SHIFT is Present. LAB L100.2620 2.0-7.7 X10 3/uL Normal Absolute Neut 4.1 LAB L100.2720 0.83-4.51 X10 3/ul Normal Absolute Lymph 1.25 Performed By: #### L100.0100 #### [facility] [address] [place], [place], [address] BASIC METABOLIC Collected: 09/21/2018 Status: F Source: [place] PROFILE (BMP) 4:35 AM [facility] REPOSITORY TYPE CODE TESTS RESULT OUT OF RANGE REFERENCE UNITS LAB L501.0100 74-106 mg/dL High GLU 113 Result Comment: Fasting Glucose result from 100 to 125 mg/dL suggests IMPAIRED HOMEOSTASIS per A.D.A. criteria. Please note revised GLUCOSE reference range effective 2017. LAB L501.1000 7-18 mg/dL Normal BUN 8 LAB L501.1100 0.70-1.30 mg/dL Normal CREAT,SERUM 0.70 Result Comment: The validity of the calculated GFR AND GFRAA in patients over 70 years has not been determined. Clinical correlation is essential. LAB L501.1110 >60 mL/min Normal EST GFR 127 Result Comment: Non- GFR Calc LAB L501.1115 >60 mL/min Normal EST GFR - AA 154 Result Comment: GFR Calc LAB L501.1255 ml/min Normal Estimated CRCL 115.19 LAB L501.1300 10-20 RATIO BUN/CRE Normal 11.4 LAB L501.2200 8.5-10 mg/dL .1 CA Normal 8.8 LAB L501.5300 136-14 mmol/L 5 NA Normal 139 LAB L501.5600 3.5-5. mmol/L Low 1 K 3.4 Result Comment: Moderate Hemolysis, Result may be falsely increased. LAB L501.5900 98-107 mmol/L Normal CL 102 LAB L501.6100 21.0-32.0 mmol/L Normal CO2 26.0 LAB L501.6200 5-15 Normal GAP 11 Performed By: #### L500.2500, L501.2300, L501.5200 #### [facility] [address] [place], [address] PHOSPHORUS Collected: 09/21/2018 Status: F Source: [place] 4:35 AM [facility] REPOSITORY TYPE CODE TESTS RESULT OUT OF RANGE REFERENCE UNITS LAB L501.2300 2.5-4.9 mg/dL Low PHOS 2.0 Performed By: #### L500.2500, L501.2300, L501.5200 #### [facility] [address] [place], [address] MAGNESIUM Collected: 09/21/2018 Status: F Source: [place] 4:35 AM [facility] REPOSITORY TYPE CODE TESTS RESULT OUT OF RANGE REFERENCE UNITS LAB L501.5200 1.6-2.6 mg/dL Normal MG 2.0 Result Comment: Moderate Hemolysis, Result may be falsely increased. Performed By: #### L500.2500, L501.2300, L501.5200 #### [facility] [address] [place], [address] ELECTROENCEPHALOGRAM Observed: 09/20/2018 Status: F Source: [place] 1:52 PM [facility] REPOSITORY [facility] Pulmonary Services/Neurology [address] [place] [address] MR#: [id number] Acct: [id number] Name: ANIBAL MANE JOE Rep #: [id number] : 1970 48 From: Leo Goode MD Referring Dr: Sly Villaseñor MD Status: ADM IN Ordering Dr: Date: Location: ID3 [id number] Sex: M C - Electroencephalogram Date of service 09/19/18 This is an 18 channel echoencephalogram performed utilizing the international electrode placement protocol on this 48-year-old male with seizures due to alcohol withdrawal. Background activity appears to be 9 Hz symmetrically in the posterior leads which attenuates with eye opening. There is also superimposed beta range activity likely due to medication effect. Hyperventilation is performed for 1 minute. Poor effort is noted by the seed technician. The post hyperventilatory phase was unremarkable. The patient remained awake throughout the recording without lateralizing or epileptiform changes. EKG was normal sinus rhythm during the recording. Stimulation generates a normal symmetric drive response in the posterior leads. Impression: This is an abnormal echoencephalogram to the presence of beta range activity which is likely medication effect. There are no epileptiform changes noted during this recording. 09/20/18 1352 <Electronically signed by Leo Goode MD> Date Leo Goode MD CC: No Primary Care Physician; Sly Villaseñor MD; Leo Goode MD Date Dictated: 09/20/181348 Date Transcribed: 09/20/181348 Finance Officer: NF Signed CBC-COMPLETE BLOOD CNT Collected: 09/19/2018 Status: F Source: [place] NO DIFF 1:30 PM [facility] REPOSITORY TYPE CODE TESTS RESULT OUT OF RANGE REFERENCE UNITS LAB L100.1000 4.4-11.0 K/mm3 Normal WBC 10.2 LAB L100.1200 4.6-6.2 M/mm3 Low RBC 3.87 LAB L100.1300 13.0-16.5 g/dl Low HGB 12.6 LAB L100.1400 40-54 % Low HCT 38.8 LAB L100.1500 80-94 fL High MCV 100.3 LAB L100.1600 27.0-32.0 pg High MCH 32.6 LAB L100.1700 32-36 g/gl Normal MCHC 32.5 LAB L100.1810 11.6-14.6 % Normal RDW CV 12.7 LAB L100.1820 35.1-43.9 fl High RDW SD 46.6 LAB L100.1900 150-450 K/mm3 Normal PLT 152 LAB L100.2000 6.2-12.0 fl Normal MPV 9.4 Performed By: #### L100.0500 #### [facility] [address] [place], [address] BASIC METABOLIC Collected: 09/19/2018 Status: F Source: [place] PROFILE (BMP) 1:30 PM [facility] REPOSITORY TYPE CODE TESTS RESULT OUT OF RANGE REFERENCE UNITS LAB L501.0100 74-106 mg/dL Normal GLU 96 Result Comment: Please note revised GLUCOSE reference range effective 2017. LAB L501.1000 7-18 mg/dL Normal BUN 8 LAB L501.1100 0.70-1.30 mg/dL Normal CREAT,SERUM 0.75 Result Comment: The validity of the calculated GFR AND GFRAA in patients over 70 years has not been determined. Clinical correlation is essential. LAB L501.1110 >60 mL/min Normal EST GFR 117 Result Comment: Non- GFR Calc LAB L501.1115 >60 mL/min Normal EST GFR - AA 142 Result Comment: GFR Calc LAB L501.1255 ml/min Normal Estimated CRCL 107.51 LAB L501.1300 10-20 RATIO BUN/CRE Normal 10.6 LAB L501.2200 8.5-10 mg/dL Low .1 CA 8.1 LAB L501.5300 136-14 mmol/L Low 5 NA 131 LAB L501.5600 3.5-5. mmol/L 1 K Normal 3.9 LAB L501.5900 98-107 mmol/L Low CL 93 LAB L501.6100 21.0-3 mmol/L 2.0 CO2 Normal 30.0 LAB L501.6200 5-15 GAP Normal 8 Performed By: #### L500.2500 #### [facility] [address] [place], [address] LACTIC ACID Collected: 09/19/2018 Status: F Source: [place] 2:45 AM [facility] REPOSITORY TYPE CODE TESTS RESULT OUT OF RANGE REFERENCE UNITS LAB L503.6005 0.4-2.0 mmol/L Normal LACTIC ACID 1.0 Performed By: #### L503.6005 #### [facility] [address] [place], [address] HISTORY AND PHYSICAL Observed: 09/19/2018 Status: F Source: [place] EXAM 1:11 AM [facility] REPOSITORY [facility] Medical Records Department [address] [place], [place] [address] [address] History and Physical 09/18/18 2220 MR#: [id number] Acct: [id number] Name: ANIBAL MANE Rep #: [id number] : 1970 48 From: Otis Kaur MD PCP: Care Physician, No Primary Status: ADM IN Y Location: ICU ICU04-1 Problem List (1) Seizure Status: Acute (2) EtOH dependence Status: Acute (3) Alcohol withdrawal Status: Acute History of Present Illness Date of Admission: 09/18/18 Chief Complaint: fall The patient is a 48 year old M with a significant history of seizure disorder and alcohol dependence who was brought by the paramedics because of a probable fall. It is assumed that patient fell and crawled to his home. Notably he had returned from a grocery shopping. Patient is a known alcoholic but friend reported that because patient was going to an interview on the day of presentation he did not drink. Emergency department doctor reported the patient was shaking on presentation but his shakiness went down after receiving IV Ativan. Patient is on home Keppra. Upon ED staff checking his home Keppra bottle, it was realize that he might not have taken 6 of his Keppra pills. At the emergency department patient vomited multiple times. Patient was noted to be hypoxic requiring supplemental oxygen. Patient was tachycardic. He had elevated blood pressure and his respiratory rate was high. Patient was noted to have leukocytosis; hyponatremia and anion gap metabolic acidosis. Past Medical History Medical History: Medical History (Last Updated 09/19/18 @ 00:43 by Otis Kaur MD) Seizure disorder G40.909 Allergies No Known Allergies Allergy (Verified 10/02/15 14:35) Home Medications: Ambulatory Orders Medication Instructions Recorded Levetiracetam [Keppra] 750 mg PO BID 01/09/18 Amitriptyline HCl 50 mg PO QHS 09/18/18 Surgical History: - - History of left tibial fracture status post internal fixation with wires and screws. No other significant past surgical history. Psychiatric History: No pertinent psych hx, - Lives: - - Live with friends Tobacco Use: - - Unable to obtain history as patient is lethargic and not unanswering many questions Alcohol: Heavy Drugs: - - Unable to obtain history as patient is lethargic and not unanswering many questions - *Family History Maternal History Items: - - Unable to obtain history as patient is lethargic and not unanswering many questions Paternal History Items: - - Unable to obtain history as patient is lethargic and not unanswering many questions Review of Systems Unable to obtain accurate/complete ROS d/t: Unable to obtain hx as patient is lethargic and not unanswering questions VTE Information - Inpt Only VTE Present on Admission: No VTE Mechan Device Prophylaxis: SCD's, None VTE Pharm Prophylaxis ordered?: No Patient Problems: Active and Suspected Problems (Last Updated 09/19/18 @ 00:43 by Otis Kaur MD) Seizure (Acute) EtOH dependence (Acute) Alcohol withdrawal (Acute) - Physical Exam General: Confused, Lethargic HEENT: - - excoriation on bridge of nose Neck: Supple, No JVD, Negative Carotid Bruits Lungs: Clear to auscultation, Normal air movement Cardiovascular: Tachycardic Abdomen: Bowel Sounds Present, Soft, Non Tender Extremities: No edema, Capillary Refill Less than 3 Seconds Skin: Excoriated - Right knuckles Musculoskeletal: No Muscle Wasting Neurological: - - Lethargic. Follow some commands like protruding tongue but with peristent directions. Psych/Mental Status: - - Lethargic and confused. Vital Signs Temp Pulse Resp BP Pulse Ox 98 F 126 H 15 175/105 H 95 09/18/18 20:38 09/18/18 21:53 09/18/18 21:53 09/18/18 21:16 09/18/18 21:58 Oxygen Flow Rate (L/min) 4 Oxygen Delivery Method Nasal Cannula Weight: 76.2 kg Body Mass Index (BMI) 22.8 Finger Stick Blood Glucose 132 Laboratory Tests Past 24 Hrs WBC 17.7 H RBC 4.60 Hgb 15.1 Hct 45.7 MCV 99.3 H MCH 32.8 H MCHC 33.0 RDW 12.9 RDW Differential 47.0 H Assessment/Plan All Active Problems (Last Updated 09/19/18 @ 00:43 by Otis Kaur MD) Seizure (Acute) EtOH dependence (Acute) Alcohol withdrawal (Acute) The patient is a 48 year old M with a significant history of seizure disorder and alcohol dependence who was brought by the paramedics because of a probable fall that could be from seizures; and also in likely EtOH withdrawal. Acute Encephalopathy Admitted to the ICU Likely post ictal . Etiology from primary seizure disorder; or seizure from alcohol withdrawal; or seizure superimposed on alcohol withdrawal CT head with no acute pathology. Cervical Spine CT unremarkable. Independently reviewed and agree with radiologist interpretation. Patient received IV Keppra at emergency department. Keppra level could not be checked because he has just received IV Keppra. We will continue patient on his home p.o. Keppra. Remarkably patient could take p.o. Librium at emergency department so we will start p.o. Keppra next day of admission. Seizure precautions. Discussed the ED doctor to order prolactin level. Ativan prn for seizure. EEG ordered. Building Rigger consult to optimize management, Consider neurology consult if patient does not improve. Probable alcohol withdrawal. At admission his ethanol level was normal. Patient had hypertension; tachycardia and tachypnea which could be attributed to alcohol withdrawal. Patient received Librium at emergency department. Librium taper ordered. Clonidine prn for elevated blood pressure in the setting of alcohol dependence. Probable aspiration pneumonia. Patient with leukocytosis and hypoxia with oxygen saturation of 86% on room air. Notably he has no fever, rales or radiographic evidence of pneumonia or chemical pneumonitis We will treat with Unasyn for probable aspiration pneumonia. Receiving IVF normal saline hydration. If patient continues to improve and has no respiratory symptoms or radiographic findings consider discontinuing antibiotics. Leukocytosis Leukocytosis could be reactive from seizure. Less likely aspiration pneumonia. Hyponatremia Likely from seizure or from beer potomania. Trend BMP. Anion gap metabolic acidosis Ketones negative Likely from lactic acidosis secondary to seizure. Seizure management as above Lactic acidosis Likely from seizures as above Seizure management as above Trend Supportive treatment with Normal saline infusion Excoriations on nose and right knuckles. Received Bactroban at the emergency department. Bactroban continued. DVT prophylaxis SCD. 09/19/18 0111 <Electronically signed by Otis Kaur MD> Date Otis Kaur MD Cosigner Signature: Date (if applicable) CC: No Primary Care Physician; Otis Kaur MD Signed EMERGENCY DEPARTMENT Observed: 09/18/2018 Status: F Source: [place] SUMMARY 11:11 PM [facility] REPOSITORY [facility] Medical Records Department [address] [place] [address] Emergency Department Summary 09/18/18 2218 MR#: [id number] Acct: [id number] Name: ANIBAL MANE Rep #: [id number] : 1970 48 From: Erwin Garcia MD PCP: Care Physician, No Primary Status: ADM IN - ER Visit Summary Date of Service: 09/18/18 Chief Complaint: Seizure History of Present Illness: The patient is a 48 M who is unable to provide any relevant history. When asked questions he answers everything I do not know. Per EMS the patient was carrying in groceries and had an unwitnessed fall outside. He is unsure what happened. Friends believe he may have had a seizure. He has a history of seizures and is supposed to be on Keppra 750 twice daily. Friends also told EMS that he had a job interview today and because of this he did not drink. I am unable to ascertain whether the patient drinks on a daily basis. Physical Examination: Vitals: 98.0, 151/113, 138, 27, 88% on room air which is hypoxic. General: Well-nourished and well-developed. Extremely tremulous. Head: Normocephalic, abrasion and contusion to the bridge of his nose. No septal hematoma. Neck: Supple, no lymphadenopathy. No JVD. Nontender. Cardiovascular: Tachycardic regular rhythm. No murmurs. Respiratory: No respiratory distress. Clear to auscultation bilaterally. Abdominal: Soft, nontender, nondistended, normal bowel sounds. No guarding, rebound, or peritoneal signs. Back: Nontender. Extremities: Nontender, no edema. Skin: Normal color, no rash. Neurologic: Lethargic. Arouses to voice. Moves all extremities well.. Test Results: CT brain shows mild cortical atrophy and periventricular white matter changes. No intracranial hemorrhage. CT of the C-spine shows no acute disease. Chest x-ray shows no acute disease. CBC is more for white count of 17.7 with 89 segmented neutrophils and 4 lymphocytes. Chem-7 is more for sodium 133, CO2 of 16, glucose of 120, anion gap of 19. This is consistent with a seizure. LFTs marked total protein 9.1 globulin 4.7. His AST is 55. Alcohol level is 0. Emergency Department Course and Treatment: Patient had an IV placed. He was given a dose of Ativan IV and his tremulousness essentially resolved. However, he remained tachycardic and hypertensive. He was given a second dose of Ativan IV and Librium p.o. He was given Keppra and Zofran IV. Chart reviewed does show that he has been admitted for alcohol withdrawal in the past. Treatment Plan: At this time I am unable to obtain any useful history from the patient and he does not have family with him. The squad did bring his Keppra. It appears that it was last filled September 10 and in the last 8 days he is taken 10 pills. The patient was discussed with Dr. Kaur. He will be admitted for further evaluation and treatment. Disposition: Admitted in serious condition. Impression: 1. Alcohol withdrawal, presumed. 2. Seizure. This note was generated with Floored dictation software. It may contain incorrect words, spelling, and punctuation that were not noted in review of the chart prior to signing ED Disposition - Plan for ED Patient: Chief Complaint: Seizure Referrals: Care Physician,No Primary [Primary Care Provider] - What to do if you have Problems For any increased pain, shortness of breath, bleeding, nausea or vomiting, chest pain, or any unexpected problems, contact your Primary Care Provider. Call [facility] ([phone]) or report to the closest Emergency Room. Call 911 if necessary. 09/18/18 2311 <Electronically signed by Erwin Garcia MD> Date Erwin Garcia MD Cosigner Signature (If Indicated): Date CC: No Primary Care Physician ACETONE SERUM Collected: 09/18/2018 Status: F Source: [place] 10:45 PM [facility] REPOSITORY TYPE CODE TESTS RESULT OUT OF RANGE REFERENCE UNITS LAB L501.6900 NEG Normal ACETONE SERUM NEGATIVE Performed By: #### L501.6900 #### [facility] [address] [place], [place], [address] THYROID STIM HORMONE Collected: 09/18/2018 Status: F Source: [place] (TSH) 10:45 PM [facility] REPOSITORY TYPE CODE TESTS RESULT OUT OF RANGE REFERENCE UNITS LAB L501.9520 0.358-3.74 uIU/mL Normal TSH 2.27 Performed By: #### L501.9520, L3100.5420 #### [facility] [address] [place], [address] PROLACTIN Collected: 09/18/2018 Status: F Source: [place] 10:45 PM [facility] REPOSITORY TYPE CODE TESTS RESULT OUT OF RANGE REFERENCE UNITS LAB L3100.5420 ng/mL Normal PROLACTIN 4.6 Result Comment: NORMAL REFERENCE RANGES FEMALE NON- 2.2 - 30.3 ng/mL 8.1 - 347.6 ng/mL POST-MENOPAUSAL 0.7 - 31.5 ng/mL MALE 2.5 - 17.4 ng/mL NEW TEST METHOD AND REFERENCE RANGES MARCH 11, 2012 Performed By: #### L501.9520, L3100.5420 #### [facility] [address] [place], [place], [address] LACTIC ACID Collected: 09/18/2018 Status: F Source: [place] 10:45 PM [facility] REPOSITORY Order Comment: Yes/No query for Sepsis Lactate Rule Y TYPE CODE TESTS RESULT OUT OF REFERENCE UNITS RANGE LAB L503.6005 0.4-2.0 mmol/L High LACTIC ACID 2.7 Result Comment: Critical Result(s) Called at: 23:43:37 09/18/2018 by: DWAINE GUZMAN to Shanna Matos Performed By: #### L503.6005 #### [facility] [address] [place], [place], [address] CHEST PA AND LATERAL Observed: 09/18/2018 Status: F Source: [place] 9:31 PM [facility] REPOSITORY [facility] Imaging Services [address] [place] [address] Chest PA and Lateral MR#: [id number] Acct: [id number] Name: ANIBAL MANE Rep #: [id number] : 1970 M 48 From: Jono Figueroa MD PCP: Care Physician, No Primary Status: REG ER Study: Chest PA and Lateral Date of Exam: 09/18/18 Exam# [id number] Ordering Dr: Erwin Garcia MD STUDY: X-RAY CHEST REASON FOR EXAM: Male, 48 years old. Hypoxia TECHNIQUE: PA and lateral COMPARISON: October 02, 2015 FINDINGS: Diminished inspiratory effort is seen however the lungs are clear There is no demonstrated pleural abnormality. Normal size heart. Normal mediastinum and desi. Normal visualized pulmonary arteries. Normal visualized aortic arch and descending thoracic aorta. Dorsal spine demonstrates spondylosis. Normal visualized ribs, clavicles, and shoulders. There is no demonstrated abnormality of the visualized soft tissue structures of the upper abdomen. RAD/Chest PA and Lateral IMPRESSION: Diminished inspiratory effort. No acute disease Electronically Signed: Jono Figueroa MD at 22:14 EST , Service support , CC: No Primary Care Physician; Erwin Garcia MD Finance Officer: Signed CBC W/DIFF, AUTOMATED Collected: 09/18/2018 Status: F Source: [place] 8:50 PM [facility] REPOSITORY TYPE CODE TESTS RESULT OUT OF RANGE REFERENCE UNITS LAB L100.1000 4.4-11.0 K/mm3 High WBC 17.7 LAB L100.1200 4.6-6.2 M/mm3 Normal RBC 4.60 LAB L100.1300 13.0-16.5 g/dl Normal HGB 15.1 LAB L100.1400 40-54 % Normal HCT 45.7 LAB L100.1500 80-94 fL High MCV 99.3 LAB L100.1600 27.0-32.0 pg High MCH 32.8 LAB L100.1700 32-36 g/gl Normal MCHC 33.0 LAB L100.1810 11.6-14.6 % Normal RDW CV 12.9 LAB L100.1820 35.1-43.9 fl High RDW SD 47.0 LAB L100.1900 150-450 K/mm3 Normal PLT 214 LAB L100.2000 6.2-12.0 fl Normal MPV 9.5 LAB L100.2100 47-70 % High NEUT% 88.8 LAB L100.2200 19-41 % Low LY% 4.4 LAB L100.2300 0-10 % Normal MONO% 6.0 LAB L100.2400 0-5 % Normal EO% 0.3 LAB L100.2500 0-1 % Normal BASO% 0.4 LAB L100.2550 0.0-0.9 % Normal IM GRAN % 0.100 Result Comment: IG% - Immature Granulocytes (promyelocytes, myelocytes and metamyelocytes) > 1% indicates that a LEFT SHIFT is Present. LAB L100.2620 2.0-7.7 X10 3/uL High Absolute Neut 15.7 LAB L100.2720 0.83-4.51 X10 3/ul Low Absolute Lymph 0.77 Performed By: #### L100.0100 #### [facility] [address] [place], [address] COMPREHENSIVE METABOLIC Collected: 09/18/2018 Status: F Source: [facility] 8:50 PM [facility] REPOSITORY TYPE CODE TESTS RESULT OUT OF RANGE REFERENCE UNITS LAB L501.0100 74-106 mg/dL High GLU 120 Result Comment: Fasting Glucose result from 100 to 125 mg/dL suggests IMPAIRED HOMEOSTASIS per A.D.A. criteria. Please note revised GLUCOSE reference range effective 2017. LAB L501.1000 7-18 mg/dL Normal BUN 8 LAB L501.1100 0.70-1.30 mg/dL Normal CREAT,SERUM 1.07 Result Comment: The validity of the calculated GFR AND GFRAA in patients over 70 years has not been determined. Clinical correlation is essential. LAB L501.1110 >60 mL/min Normal EST GFR 78 Result Comment: Non- GFR Calc LAB L501.1115 >60 mL/min Normal EST GFR - AA 94 Result Comment: GFR Calc LAB L501.1255 ml/min Normal Estimated CRCL 90.01 LAB L501.1300 10-20 RATIO Low BUN/CRE 7.5 LAB L501.1500 6.4-8. g/dL High 2 T PROT 9.1 LAB L501.1800 3.2-5. g/dL Normal 0 ALB 4.4 LAB L501.1950 2.2-4. g/dL High 2 GLOB 4.7 LAB L501.2000 0.9-2. RATIO Normal 4 A/G 0.9 LAB L501.2200 8.5-10 mg/dL Normal .1 CA 8.8 LAB L501.4100 15-37 U/L High AST 55 LAB L501.4305 45-117 U/L Normal ALK P 71 LAB L501.4405 16-61 U/L Normal ALT 49 LAB L501.4600 0.20-1 mg/dL Normal .00 T BILI 0.90 LAB L501.5300 136-14 mmol/L Low 5 NA 133 LAB L501.5600 3.5-5. mmol/L Normal 1 K 4.6 LAB L501.5900 98-107 mmol/L Normal CL 98 LAB L501.6100 21.0-3 mmol/L Low 2.0 CO2 16.0 LAB L501.6200 5-15 High GAP 19 Performed By: #### L500.4050 #### [facility] [address] [place], [address] ALCOHOL, BLOOD Collected: 09/18/2018 Status: F Source: [place] ([facility])-SERUM 8:50 PM [facility] REPOSITORY TYPE CODE TESTS RESULT OUT OF RANGE REFERENCE UNITS LAB L501.9100 mg/dL Normal SERUM 3.0 ETOH Result Comment: The serum:whole blood ethanol ratio is approximately 1.14 and varies slightly with hematocrit. Medical Alcohol reference interval and critical value in non-tolerant individuals; 50 - 100 Impairment 100 Intoxication 100 - 250 Severe Poisoning 250 - 400 Deep/possible fatal coma Performed By: #### L501.9100 #### [facility] [address] [place], [address] KEPPRA (LEVETIRACETAM) Collected: 09/18/2018 Status: F Source: [place] 8:50 PM [facility] REPOSITORY TYPE CODE TESTS RESULT OUT OF RANGE REFERENCE UNITS LAB L3310.0000 10.0-40.0 ug/mL Normal KEPPRA 15.6 Result Comment: Performed at: - [facility] [id number] Auto Former Machine Operator: Barbara Fry MD, Phone: [phone] Performed By: #### L3310.0000 #### [facility] (refer to report for specific site) refer to report for address and phone number SPINE CERVICAL Observed: 09/18/2018 Status: F Source: [place] WITHOUT CONTRAS 8:49 PM [facility] REPOSITORY [facility] Imaging Services [address] [place] [address] Spine Cervical without Contras MR#: [id number] Acct: [id number] Name: ANIBAL MANE Rep #: [id number] : 1970 M 48 From: Jono Figueroa MD PCP: Care Physician, No Primary Status: REG ER Study: Spine Cervical without Contras Date of Exam: 09/18/18 Exam# [id number] Ordering Dr: Erwin Garcia MD STUDY: CT CERVICAL SPINE WITHOUT CONTRAST REASON FOR EXAM: Male, 48 years old. Trauma RADIATION DOSAGE (If Supplied By Facility): CTDIvol = ( 14.61 ) mGy, DLP = ( 292.97 ) mGycm TECHNIQUE: High resolution transaxial imaging was performed without contrast material. Sagittal and coronal images were reconstructed. Individualized dose optimization techniques were used for this CT. COMPARISON: None FINDINGS: Normal craniovertebral junction. Normal anterior atlantoaxial articulation. Normal odontoid process. Normal cervical lordosis. Normal vertebral bodies and posterior osseous elements. C2-3: Normal endplates. Normal disc height and morphology. Normal central canal and intervertebral neuroforamina. C3-4: Normal endplates. Normal disc height and morphology. Normal central canal and intervertebral neuroforamina. C4-5: Minor endplate spurring.. Normal disc height and morphology. Normal central canal and intervertebral neuroforamina. C5-6: Normal endplates. Normal disc height and morphology. Normal central canal and intervertebral neuroforamina. C6-7: Normal endplates. Normal disc height and morphology. Normal central canal and intervertebral neuroforamina. C7-T1: Normal endplates. Normal disc height and morphology. Normal central canal and intervertebral neuroforamina. Normal visualized soft tissue structures. CT/Spine Cervical without Contras IMPRESSION: No evidence for acute fracture or subluxation.. Mild spondylosis Electronically Signed: Jono Figueroa MD at 21:50 EST , Service support , CC: No Primary Care Physician; Erwin Garcia MD Finance Officer: Signed BRAIN/HEAD WITHOUT Observed: 09/18/2018 Status: F Source: [place] CONTRAST 8:49 PM [facility] REPOSITORY [facility] Imaging Services [address] [place] [address] Brain/Head without Contrast MR#: [id number] Acct: [id number] Name: ANIBAL MANE Rep #: [id number] : 1970 M 48 From: Jono Figueroa MD PCP: Care Physician, No Primary Status: REG ER Study: Brain/Head without Contrast Date of Exam: 09/18/18 Exam# [id number] Ordering Dr: Erwin Garcia MD STUDY: CT BRAIN WITHOUT CONTRAST REASON FOR EXAM: Male, 48 years old. Trauma RADIATION DOSAGE (If Supplied By Facility): CTDIvol = ( 44.99 ) mGy, DLP = ( 796.11 ) mGycm TECHNIQUE: Transaxial CT imaging of the brain was performed without administration of intravenous contrast material. Individualized dose optimization techniques were used for this CT. COMPARISON: August 13, 2013 FINDINGS: Normal soft tissue structures. Normal calvarium. Mild cortical atrophy and periventricular white matter ischemic changes.. Normal basal ganglia and thalami. Normal brainstem. Normal cerebellum. There is no intracranial hemorrhage. There are no findings of an acute ischemic infarction. Mild mucosal thickening of the maxillary ethmoid and sphenoid sinuses. CT/Brain/Head without Contrast IMPRESSION: Mild cortical atrophy and periventricular white matter ischemic changes. No evidence for acute cranial bleed Electronically Signed: Jono Figueroa MD at 21:52 EST , Service support , CC: No Primary Care Physician; Erwin Garcia MD Finance Officer: Signed EMERGENCY DEPARTMENT Observed: 01/09/2018 Status: F Source: [place] SUMMARY 4:01 PM [facility] REPOSITORY [facility] Medical Records Department [address] [place] [address] Emergency Department Summary 01/09/18 1523 MR#: [id number] Acct: [id number] Name: ANIBAL MANE Rep #: [id number] : 1970 47 From: Erwin Garcia MD PCP: Care Physician, No Primary Status: DEP ER - ER Visit Summary Date of Service: 01/09/18 Chief Complaint: Seizure History of Present Illness: The patient is a [address] Mcdonough on. He has a long-standing history of seizures. He reports that he is supposed to be on Keppra 750 mg twice daily. He ran out of it 3 days ago. Reports that he had a seizure today that was approximately 7 minutes at work and a 50 minute postictal episode. He did not bite his tongue. Did not have any urinary incontinence. Currently patient complains of headache is 8 out of 10 severity in his typical of the headaches that he gets after seizures. He denies any injury to his head. Review of systems: General: No fever, chills, cold sweats. Cardiovascular: No chest pain, palpitations. Respiratory: No cough, shortness of breath, dyspnea on exertion. Gastrointestinal: No abdominal pain, nausea, vomiting, diarrhea, melena, or hematochezia. Genitourinary: No dysuria, frequency, hematuria. Skin: No rash. Neuro: No numbness, weakness. Physical Examination: Vitals: Stable. Afebrile. General: Well-nourished and well-developed. Head: Normocephalic atraumatic. Neck: Supple, no lymphadenopathy. No JVD. Nontender. Cardiovascular: Regular rate and rhythm. No murmurs. Respiratory: No respiratory distress. Clear to auscultation bilaterally. Abdominal: Soft, nontender, nondistended, normal bowel sounds. No guarding, rebound, or peritoneal signs. Back: Nontender. Extremities: Nontender, no edema. Skin: Normal color, no rash. Neurologic: Alert and oriented 3. Cranial nerves II through XII are intact. Normal strength and sensation. Psych: Normal affect. Test Results: Patient refused an IV. Emergency Department Course and Treatment: Patient was given a gram of Keppra p.o., Ativan p.o., Tylenol p.o. He has been observed over the course of an hour and has not had any further seizure activity. Treatment Plan: Patient was discussed with Dr. Goode. He will be placed back on his 750 mg of Keppra twice daily and instructed to follow-up Dr. Mcdonough on for further evaluation and treatment. Patient reports that he does not drive. Disposition: To home in improved and stable condition. Impression: 1. Recurrent seizure. 2. Medical noncompliance. This note was generated with Floored dictation software. It may contain incorrect words, spelling, and punctuation that were not noted in review of the chart prior to signing ED Disposition - Plan for ED Patient: Chief Complaint: Seizure Instructions: ED Seizure Recurrent Prescriptions: Levetiracetam [Keppra] 750 mg PO BID #60 tablet Referrals: Perfecto Mcdonough MD [STAFF PHYSICIAN] - As Needed What to do if you have Problems For any increased pain, shortness of breath, bleeding, nausea or vomiting, chest pain, or any unexpected problems, contact your Primary Care Provider. Call [facility] ([phone]) or report to the closest Emergency Room. Call 911 if necessary. 01/09/18 1601 <Electronically signed by Erwin Garcia MD> Date Erwin Garcia MD Cosigner Signature (If Indicated): Date CC: No Primary Care Physician ALLERGIES ALLERGIES DATE TYPE / CODE NAME / CODE REACTION SEVERITY SOURCE 10/02/2015 Drug No Known Unknown [facility] Allergy/4160 Allergies/F00 Hospital 31039(SNOMED [id number](RXNOR Repository CT) M) ENCOUNTERS ENCOUNTERS ADMIT/DISCHARGE ACCOUNT ADMITTING ENCOUNTER LOCATION SOURCE NUMBER CLASS 09/18/2018/ [id number] Agyeolug, Inpatient [facility] [place] [address] [place] Encounter [facility] Hospital ing:[id number]: Repository GG166Kmn: 1 09/18/2018 [id number] Agyepong, Ambulatory BMSBuilding:B [facility] [address] [place].[facility] Repository 09/18/2018 [id number] Agyepong, Ambulatory BMSBuilding:B [facility] [address] [place].[facility] Repository 09/18/2018 [id number] Agyepong, Ambulatory BMSBuilding:B [place] [address] [place].[facility] Repository 09/18/2018 [id number] Agyepong, Ambulatory BMSBuilding:B [place] [address] [place].[facility] Repository 09/18/2018 [id number] Agyepong, Ambulatory BMSBuilding:B [facility] [address] [place] MS.[facility] Repository 09/18/2018 [id number] Agyepong, Ambulatory BMSBuilding:B [place] [address] [place].[facility] Repository 09/18/2018 [id number] Agyepong, Ambulatory BMSBuilding:B [facility] [address] [place].[facility] Repository 09/18/2018 [id number] Agyepong, Ambulatory BMSBuilding:B [place] [address] [place].[facility] Repository 09/18/2018 [id number] Agyepong, Ambulatory BMSBuilding:B [place] [address] [place] MS.[facility] Repository 09/18/2018 [id number] Agyepong, Ambulatory BMSBuilding:B [facility] [address] [place].[facility] Repository 09/18/2018 [id number] Agyepong, Ambulatory BMSBuilding:B [facility] [address] [place].[facility] Repository 09/18/2018 [id number] Agyepong, Ambulatory BMSBuilding:B [place] [address] [place].[facility] Repository 01/09/2018/ [id number] Emergency [place] 8 4 [facility] ing:ED Repository PAYERS PAYERS ENCOUNTER GUARANTOR PAYER SUBSCRIBER SOURCE 09/18/2018 ANIBAL PAL Primary ANIBAL PAL [facility] [id number] [place] Insurance:PARAM[facility] LEMARDOB: [facility] [id number] Hospital [address]Bnd: (330) Number: Repository [phone] () [id number] Date:5578-70-63MV [address] [address]YA: 09/18/2018 Secondary NOT GIVENUNK [place] Insurance:SELF PAY [facility] Number: Effective Repository Date:2018-09-18 09/18/2018 Anibal Pal Primary Anibal Pal [place] [id number] Insurance:PARAMOUNT LemarDOB: [facility] [id number] Number: Repository [phone]: 330 [id number] [phone] () Date:1478-17-79YU[address] [address]VN: 09/18/2018 Secondary NOT GIVENUNK [facility] Insurance:SELF PAY [facility] Number: Effective Repository Date:2018-09-18 09/18/2018 ANIBAL PAL Primary ANIBAL PAL [place] [id number] [place] Insurance:LEBANON LEMARDOB: [facility] [id number] Hospital [address]Tal: (330) Number: Repository [phone] () [id number] Date:8050-96-57SU [address] [place] [id number]: 09/18/2018 Secondary NOT GIVENUNK [place] Insurance:SELF PAY [facility] Number: Effective Repository Date:2018-09-18 09/18/2018 ANIBAL PAL Primary ANIBAL PAL [place] [id number] [place] Insurance:PARAMOUNT LEMARDOB: [facility] [id number] Hospital [address]Eqa: (330) Number: Repository [phone] () [id number] Date:3050-86-73OF [address] [place] [id number]: 09/18/2018 Secondary NOT GIVENUNK [facility] Insurance:SELF PAY [facility] Number: Effective Repository Date:2018-09-18 09/18/2018 ANIBALCECI PAL Primary ANIBAL PAL [place] [id number] [place] Insurance:PARAMOUNT LEMARDOB: [facility] [id number] Hospital [address]Ovw: (330) Number: Repository [phone] () [id number] Date:7898-50-51EH [address] [place] [address]GE: 09/18/2018 Secondary NOT GIVENUNK [place] Insurance:SELF PAY [facility] Number: Effective Repository Date:2018-09-18 09/18/2018 ANIBAL PAL Primary ANIBAL PAL [facility] [id number] [place] Insurance:PARAMOUNT LEMARDOB: [facility] [id number] Hospital [address]Ctt: (330) Number: Repository [phone] () [id number] Date:7237-33-02WY [address] [place] [address]VP: 09/18/2018 Secondary NOT GIVENUNK [place] Insurance:SELF PAY [facility] Number: Effective Repository Date:2018-09-18 09/18/2018 ANIBAL PAL Primary ANIBAL PAL [place] [id number] [place] Insurance:PARAMOUNT LEMARDOB: Community [place] ADVANTAGE [employer]CD[employer] [id number] Hospital [address]Bdq: (330) Number: Repository [phone] () [id number] Date:1997-41-34HR [address] [address]CK: 09/18/2018 Secondary NOT GIVENUNK [place] Insurance:SELF PAY [facility] Number: Effective Repository Date:2018-09-18 09/18/2018 ANIBAL PAL Primary ANIBAL PAL [facility] [id number] [place] Insurance:PARAMOUNT LEMARDOB: [facility] ADVANT[facility] [id number] Hospital [address]Riu: (330) Number: Repository [phone] () [id number] Date:8399-94-17AZ [address] [address]GR: 09/18/2018 Secondary NOT GIVENUNK [facility] Insurance:SELF PAY [facility] Number: Effective Repository Date:2018-09-18 09/18/2018 ANIBAL PAL Primary ANIBAL Ibrahim [id number] [place] Insurance:PARAMOUNT LEMARDOB: [facility], in ADVANTAGE [facility] [id number] Hospital [address]Oax: (330) Number: Repository [phone] () [id number] Date:1340-60-77MC [address] [place] [phone]: 09/18/2018 Secondary NOT GIVENUNK [place] Insurance:SELF PAY [facility] Number: Effective Repository Date:2018-09-18 09/18/2018 ANIBAL PAL Primary ANIBAL Ibrahim [id number] [place] Insurance:PARAMOUNT LEMARDOB: [facility] in ADVANTAGE [facility] [id number] Hospital [address]Tav: (330) Number: Repository [phone] () [id number] Date:7245-83-45PI [address] [place] [address]VE: 09/18/2018 Secondary NOT GIVENUNK [facility] Insurance:SELF PAY [facility]: Effective Repository Date:2018-09-18 09/18/2018 ANIBAL PAL Primary ANIBAL PAL [facility] [id number] [place] Insurance:PARAMOUNT LEMARDOB: [place] [employer] [id number] Hospital [address]Fbn: (409) Number: Repository [phone] () [id number] Date:5978-22-98CD [address] [place] [address]XN: 09/18/2018 Secondary NOT GIVENUNK [facility] Insurance:SELF PAY [facility] Hospital Number: Effective Repository Date:2018-09-18 09/18/2018 ANIBAL PAL Primary ANIBAL PAL [facility] [id number] [place] Insurance:PARAMOUNT LEMARDOB: [place] [employer] [id number] Hospital 15[address]Jra: (330) Number: Repository [phone] () [id number] Date:4738-69-33VJ [address] [place] [phone]: 09/18/2018 Secondary NOT GIVENUNK [facility] Insurance:SELF PAY [facility] Number: Effective Repository Date:2018-09-18 09/18/2018 ANIBAL PAL Primary ANIBAL PAL [place] [id number] [place] Insurance:PARAMOUNT LEMARDOB: [place] [employer] [id number] Hospital [address]Sbu: (330) Number: Repository [phone] () [id number] Date:4380-51-79AB [address] [place] [address]AG: 09/18/2018 Secondary NOT GIVENUNK [place] Insurance:SELF PAY [facility] Hospital Number: Effective Repository Date:2018-09-18 01/09/2018 Anibal Pal Primary Anibal [place]oster [id number] Insurance:LEBANON LemarDOB: [facility] [id number] Number: Repository [phone]: [phone]) [id number] [phone] () Date:8244-46-72CO[address] [address]GF: 01/09/2018 Secondary NOT GIVENAMNA Ibrahim Insurance:SELF PAY [facility] Number: Effective Repository Date:2018-01-09
== END 2018-09-25 15:06 | disposition home or self-care (01) | DRG 53 ==
LOC: ED 20:53 → ICU 22:56 → MS3 09-19 18:46 → ICU 09-20 20:38 → MS2 09-24 08:05
PROVIDERS: Family Medicine; Internal Medicine Critical Care Medicine; Admitting Provider Hospitalist; Emergency Provider Emergency Medicine; Visit Provider Internal Medicine
DX: G40.909 Epilepsy, unspecified, not intractable, without status epilepticus (principal); E87.1 Hypo-osmolality and hyponatremia; E87.2 Acidosis; F10.239 Alcohol dependence with withdrawal, unspecified; S01.21XA Laceration without foreign body of nose, initial encounter; W19.XXXA Unspecified fall, initial encounter; E87.6 Hypokalemia; Z87.891 Personal history of nicotine dependence
CPT/HCPCS: 36415; 70450; 71045; 71046; 72125; 80048; 80053; 80177; 80320; 82009; 83605; 83735; 84100; 84146; 84443; 84484; 85025; 85027; 95819; 97161; 97165; 97530; 97802; 99251; 99285; J7030; J7040; J7050; J7120; A4216; G0463; G0480; J0295; J2405

== ENCOUNTER 2019-06-10 10:54 | Emergency (ER) | payer MEDICAID, SELFPAY ==
[2018-09-18 23:34] VITALS: BMI 25.3
[2019-06-10 10:55] VITALS: BP 147/96; PULSE 88; RESP 16; TEMP 36.3; O2SAT 98; BMI 25.8
[2019-06-10 11:35] LABS: Absolute Neutrophil Count 1.7 X10^3/uL (2.0-7.7); Basophil% 2.4 % (0-1); Eosinophil# 0.25 X10^3/uL; Eosinophils% 5.9 % (0-5); Hematocrit 42.8 % (40-54); Hemoglobin 14.3 g/dL (13.0-16.5); Lymphocyte % 37.6 % (19-41); Mean Corp Hgb Conc 33.4 g/dL (32-36); Mean Corpuscular Hgb 32.8 pg (27.0-32.0); Mean Corpuscular Volume 98.2 fL (80-94); Mean Platelet Vol. 9.2 fl (6.2-12.0); Monocyte# 0.55 X10^3/uL; Monocyte% 12.9 % (0-10); NRBC Flagged by Analyzer 0 % (0-5); Neutrophil # 1.74 X10^3/uL (2.7-7.7); Platelet Count 324 K/mm3 (150-450); RBC Distribution Width CV 11.9 % (11.6-14.6); RBC Distribution Width SD 42.9 fl (35.1-43.9); Red Blood Count 4.36 M/mm3 (4.6-6.2); White Blood Count 4.3 K/mm3 (4.4-11.0)
[2019-06-10 12:00] LABS: AST(SGOT) 18 U/L (15-37); Alanine Aminotransfer ALT/SGPT 23 U/L (16-61); Alkaline Phosphatase 57 U/L (45-117); Anion Gap 4 (5-15); BUN 5 mg/dL (7-18); BUN/Creat Ratio 5.6 RATIO (10-20); Calcium,Total 8.8 mg/dL (8.5-10.1); Chloride 99 mmol/L (98-107); EST Glomerular Filtration Rate 95 mL/min (>60); Est Glom Filt Rate - Afr Amer 115 mL/min (>60); Estimated Creatinine Clearance 88.61 ml/min; Glucose 96 mg/dL (74-106); Potassium 3.8 mmol/L (3.5-5.1); Sodium Level 133 mmol/L (136-145)
[2019-06-10 12:06] LABS: Amphetamine Urine VISTA NEGATIVE (<1000 ng/mL); Barbiturate Urine VISTA NEGATIVE (< 200 ng/mL); Benzodiazepine Urine VISTA NEGATIVE (< 200 ng/mL); Cocaine Urine VISTA NEGATIVE (< 300 ng/mL); Ecstacy Urine VISTA NEGATIVE (< 500 ng/mL); Methadone Urine VISTA NEGATIVE (< 300 ng/mL); PCP Urine VISTA NEGATIVE (< 25 ng/mL); THC Urine VISTA NEGATIVE (< 50 ng/mL); Vista UDS pH Range 6
--- NOTE | 2019-06-10 12:15 | CM.ED ---
SOCIAL WORK INFORMANT: DR. KELLOGG REASON FOR REFERRAL: SUBSTANCE ABUSE CHIEF COMPLIANT: PATIENT WANTING ALCOHOL DETOX/TREATMENT LIVING ARRANGEMENTS: HOMELESS EMPLOYMENT/FINANCIAL: UNEMPLOYED, NO INCOME, NO INSURANCE MEDICAL HX: PATIENT REPORTS HX OF SEIZURES MENTAL HEALTH HX: PATIENT REPORTS HX OF DEPRESSION SUBSTANCE ABUSE HX: ALCOHOL ABUSE ASSESSMENT: MET WITH PATIENT IN ROOM. INTRODUCED ROLE AND REASON FOR REFERRAL. PATIENT REPORTS HX OF ALCOHOL ABUSE AND STATES LAST DRINK WAS YESTERDAY, 06/09/19. PATIENT STATES DOES NOT DRINK EVERY DAY. PATIENT WANTING TREATMENT AND REPORTS HX OF SEIZURES. PATIENT IS SELF PAY. THIS WORKER TO ASSIST PATIENT IN APPLYING FOR MEDICAID. PATIENT REPORTS IS HOMELESS. ALL OPTIONS DISCUSSED. PATIENT STATES HAS BEEN TO THE HOMELESS SKILLED NURSING IN THE PAST. THIS WORKER TO CONTACT [facility] TREATMENT NAVIGATOR TO DISCUSS OPTIONS FOR PATIENT. NURSING AND DR. KELLOGG UPDATED. INTERVENTIONS: SOCIAL SERVICE ASSESSMENT ASSIST WITH APPLYING FOR MEDICAID DISCUSS TREATMENT OPTIONS- CALL TO [facility] TREATMENT NAVIGATOR. PLAN: TBD
--- NOTE | 2019-06-10 12:18 | CM.ED ---
SOCIAL WORK CALL TO ONE [facility] TREATMENT NAVIGATOR. LEFT MESSAGE, AWAITING CALL BACK. JHON MARSHALL, DOUGHMAKER, SOCK IRONER.
--- NOTE | 2019-06-10 12:27 | CM.ED ---
SOCIAL WORK ASSISTED PATIENT IN FACILITATING PHONE CALL TO MEDICAID TO RE-APPLY FOR COVERAGE. PATIENT ON PHONE AT THIS TIME. NURSING UPDATED. JHON MARSHALL, HUMAN RESOURCES CONSULTANT, SALES REPRESENTATIVE FACILITY SERVICES.
--- NOTE | 2019-06-10 12:58 | CM.ED ---
SOCIAL WORK PATIENT COMPLETED PHONE CALL WITH MEDICAID. PATIENT STATES WAS INFORMED WILL HAVE COVERAGE AND WILL DATE BACK TO APRIL 21, 2019. PATIENT STATES WORKER REPORTED SHOULD SEE COVERAGE WITHIN THE HOUR OR WITHIN 24 HOURS. UPDATED REGISTRATION. LOI NAIK, ELECTROLYTIC ETCHER.
[2019-06-10 13:00] VITALS: RESP 16
--- NOTE | 2019-06-10 13:23 | CM.ED ---
SOCIAL WORK PATIENT'S MEDICAID RE-INSTATED. FACILITATED PHONE CALL WITH PATIENT AND [facility] TREATMENT NAVIGATOR, [facility]. [facility] WORKING ON OPTIONS FOR PATIENT AND WILL CALL THIS WORKER BACK. JHON MARSHALL, KETTLE WORKER, POWER GENERATING PLANT OPERATOR.
--- NOTE | 2019-06-10 13:27 | ED.DCSUM_ITS ---
- ER Visit Summary Date of Service: 06/10/19 Chief Complaint: [Requesting detox from alcohol] History of Present Illness: The patient is a 49 M [the emergency department requesting detox from alcohol. Patient states that his last drink was yesterday morning. Patient normally drinks about 2 or 3 times a week and anywhere from 3-6 beers. Patient would like to get into an inpatient program. He denies feeling suicidal or homicidal. Patient also has history of seizures and his last seizure was about a month ago. Patient states that he has seizures at least once or twice a month. Patient takes Keppra for seizures. He denies any significant complaints at this time.] Physical Examination: [HEENT-PERRLA, EOMI. Cranial nerves II through XII grossly intact. TMs clear. Mucous membranes moist. No adenopathy. Cardiovascular-regular rate and rhythm without murmur or ectopy Lungs-clear to auscultation, chest wall stable without crepitus or subcu emphysema Abdomen-normoactive bowel sounds, soft, nontender, no rebound or rigidity, no peritoneal signs. Neuro fozx-vxxzcz-tfpc and heel hamlin testing within normal limits, negative Romberg, negative pronator drift, fundi benign Extremities-intact ?4, normal range of motion, normal pulses, atraumatic] Test Results: [CBC with differential showed a white count of 4.3, hemoglobin 14, hematocrit 43, platelets 324. Chemistries unremarkable. LFTs were normal. Toxicology screen was negative. Alcohol was 59.] Emergency Department Course and Treatment: [Patient is being seen in the emergency department by aids social worker at this time.] Treatment Plan: [Patient was accepted at a detox facility in [place] facilitated by 180 and they will arrange transfer for patient.] Disposition: [Discharged for voluntary detox to facility in [place]] Impression: [EtOH abuse] This note was generated with [employer] dictation software. It may contain incorrect words, spelling, and punctuation that were not noted in review of the chart prior to signing ED Disposition - Plan for ED Patient: Prescriptions: Levetiracetam [Keppra] 500 mg PO BID #60 tab Prescription Printed Referrals: Lynn Boone, EMILYC [Primary Care Provider] -
--- NOTE | 2019-06-10 13:46 | CM.ED ---
SOCIAL WORK PATIENT COMPLETED INTAKE QUESTIONS WITH RECOR IN [place]. WORKER REQUESTING COPY OF PHOTO ID BE FAXED TO FACILITY. COPY OF PHOTO ID FAXED AT THIS TIME. AWAITING ACCEPTANCE. JHON MARSHALL, SENIOR WEB ARCHITECT, LIME MIXER TENDER.
--- NOTE | 2019-06-10 13:56 | ED.DEP ---
ED Disposition - Plan for ED Patient: Prescriptions: Levetiracetam [Keppra] 500 mg PO BID #60 tab Prescription Printed Referrals: Lynn Boone, ROZINA-C [Primary Care Provider] -
[2019-06-10] MEDS: levETIRAcetam 500 MG Tablet PO (14:14)
--- NOTE | 2019-06-10 14:55 | CM.ED ---
SOCIAL WORK RECEIVED CALL FROM DAY[facility] WITH RECOR IN [place]. PATIENT ACCEPTED TO DETOX UNIT. CALL TO [facility] WITH [facility]. [facility] TO ASSIST WITH TRANSPORT FOR PATIENT. WILL CALL THIS WORKER BACK ONCE TRANSPORT HAS BEEN ARRANGED. JHON MARSHALL, DISPLAY AND BANNER DESIGNER, ENGINEERING FACULTY MEMBER.
[2019-06-10 15:00] VITALS: BP 144/85; PULSE 79; RESP 16; O2SAT 97
--- NOTE | 2019-06-10 15:00 | ED.DEP ---
ED Disposition - Plan for ED Patient: Instructions: Alcohol Abuse Prescriptions: Levetiracetam [Keppra] 500 mg PO BID #60 tab Prescription Printed Referrals: Lynn Boone NP-C [Primary Care Provider] - As Needed Additional Instructions: go to detox facility
--- NOTE | 2019-06-10 15:14 | CM.ED ---
SOCIAL WORK RECEIVED CALL FROM [facility] WITH [facility]. [facility] TO PICK PATIENT UP WITHIN THE HOUR TO TRANSPORT PATIENT TO [facility] FOR THE CRIMINALLY INSANER FOR DETOX. UPDATED PATIENT AND STAFF. JHON MARSHALL, EMERGENCY SPILL RESPONSE TECHNICIAN, MACHINING TECHNICIAN.
== END 2019-06-10 16:10 | disposition home or self-care (01) ==
PROVIDERS: Emergency Provider Emergency Medicine; Family Provider Family Medicine; PCP Family Medicine
DX: F10.10 Alcohol abuse, uncomplicated (principal); Y90.2 Blood alcohol level of 40-59 mg/100 ml; G40.909 Epilepsy, unspecified, not intractable, without status epilepticus
CPT/HCPCS: 80053; 80307; 80320; 85025; 99284; A4216; G0480

== ENCOUNTER 2020-05-24 15:14 | Emergency (ER) | payer MEDICAID, SELFPAY ==
[2020-05-24 15:15] VITALS: BP 132/85; PULSE 89; RESP 18; TEMP 37; O2SAT 96; BMI 29.0
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
== END 2020-05-24 16:54 | disposition home or self-care (01) ==
PROVIDERS: Emergency Provider Emergency Medicine; PCP Family Medicine
DX: S16.1XXA Strain of muscle, fascia and tendon at neck level, initial encounter (principal); V48.6XXA Car passenger injured in noncollision transport accident in traffic accident, initial encounter
CPT/HCPCS: 70450; 71250; 72125; 99285

== ENCOUNTER 2020-10-13 16:42 | Inpatient (IN) | payer MEDICAID, SELFPAY ==
[2020-10-13 16:45] VITALS: BP 147/98; PULSE 109; RESP 18; TEMP 36.2; O2SAT 94; BMI 27.0
[2020-10-13 17:21] VITALS: BP 137/69; PULSE 74; RESP 16; TEMP 36.4; O2SAT 96
[2020-10-13 17:25] LABS: Absolute Lymphocyte Count 1.65 X10^3/uL (0.83-4.51); Absolute Neutrophil Count 3.2 X10^3/uL (2.0-7.7); Basophil# 0.07 X10^3/uL; Basophil% 1.2 % (0-1); Eosinophil# 0.04 X10^3/uL; Eosinophils% 0.7 % (0-5); Hematocrit 39.1 % (40-54); Hemoglobin 13.3 g/dL (13.0-16.5); Lymphocyte # 1.65 X10^3/ul (4.0); Lymphocyte % 29.4 % (19-41); Mean Corpuscular Hgb 32.9 pg (27.0-32.0); Mean Corpuscular Volume 96.8 fL (80-94); Monocyte# 0.69 X10^3/uL; Monocyte% 12.3 % (0-10); NRBC Flagged by Analyzer 0 % (0-5); Neutrophil # 3.16 X10^3/uL (2.7-7.7); Neutrophil % 56.2 % (47-70); Platelet Count 134 K/mm3 (150-450); RBC Distribution Width CV 12.4 % (11.6-14.6); RBC Distribution Width SD 44.4 fl (35.1-43.9); Red Blood Count 4.04 M/mm3 (4.6-6.2); White Blood Count 5.6 K/mm3 (4.4-11.0)
[2020-10-13 17:33] LABS: Bacteria 0 SEEN /hpf (None Seen); Mucous, Urine 0 SEEN /hpf (<or=2+); Red Blood Cells-Urine 0 SEEN /hpf (0-5); Squamous Epithelial Cells - UA 0 SEEN /hpf (0-5); White Blood Cells 0 SEEN /hpf (0-5)
[2020-10-13 17:35] LABS: Color, Urine Straw (Yellow); Glucose, Dipstick Normal (Normal); Ketone-Dipstick Negative (Negative); Leukocyte Esterase-Dipstick Negative /ul (Negative); Nitrite-Dipstick Negative (Negative); Occult Blood-Urine Negative /ul (Negative); Protein-Dipstick Negative (Negative); Urine Bilirubin Dipstick Negative (Negative); Urine Clarity Clear (Clear); Urine Urobilinogen Normal (Normal); Urine pH 6.5 (5.0 - 8.0)
[2020-10-13 17:41] LABS: AST(SGOT) 71 U/L (15-37); Alanine Aminotransfer ALT/SGPT 58 U/L (16-61); Alkaline Phosphatase 69 U/L (45-117); Anion Gap 9 (5-15); BUN 7 mg/dL (7-18); BUN/Creat Ratio 9.4 RATIO (10-20); Calcium,Total 8.6 mg/dL (8.5-10.1); Chloride 104 mmol/L (98-107); Creatinine, Serum 0.74 mg/dL (0.70-1.30); EST Glomerular Filtration Rate 118 mL/min (>60); Est Glom Filt Rate - Afr Amer 143 mL/min (>60); Estimated Creatinine Clearance 106.57 ml/min; Glucose 103 mg/dL (74-106); Lipase 344 U/L (73-393); Potassium 3.7 mmol/L (3.5-5.1); Sodium Level 141 mmol/L (136-145)
--- NOTE | 2020-10-13 17:47 | ED.DCSUM_ITS ---
- ER Visit Summary Date of Service: 10/13/20 Chief Complaint: Alcohol detox History of Present Illness: The patient is a 50 M who presents requesting alcohol detox. Patient states he drinks approximately 5-6 beers per day. Patient states he has been drinking since he was 15 years of age. Patient has never been through detox before. Patient does have a history of epilepsy and has been having seizures. Patient states she also has a history of a cerebral aneurysm but denies any headaches. Patient states he does feel his heart racing at times. Patient denies any fevers or chills. Patient denies any nausea or vomiting. Patient denies any diarrheas. Patient denies any rashes or abscesses. Physical Examination: Vital signs are stable. Patient is afebrile. Patient is in no acute distress. Oral mucosa is pink and moist. Neck is supple. Trachea is midline. There is no JVD noted. Heart was regular rate and rhythm. Lungs are clear and equal bilaterally. Abdomen is soft. Bowel sounds are normal. There is no tenderness. There is no rebound or guarding noted. Skin is warm dry. Cranial nerves II through XII are intact. There are no focal motor or sensory deficits noted. Extremities are intact. There is no calf tenderness or edema. Test Results: CBC and comprehensive metabolic profile were within normal limits. Urinalysis was normal. Serum alcohol level and urine tox screen are obtained and are pending. Emergency Department Course and Treatment: Patient was given a dose of phenobarbital. Case was discussed with the hospitalist. Patient will be admitted for detox. Patient understands and is agreeable with the plan. All questions were answered. Disposition: Admit to hospital Impression: Alcohol abuse This note was generated with [employer] dictation software. It may contain incorrect words, spelling, and punctuation that were not noted in review of the chart prior to signing ED Disposition - Plan for ED Patient: Disposition: Acute Care Hospital [facility] Diagnosis: Alcohol abuse Referrals: Lynn Boone NP, CLINICAL SERVICES ASSISTANT-C [Primary Care Provider] -
[2020-10-13 17:52] LABS: Amphetamine Urine VISTA NEGATIVE (<1000 ng/mL); Barbiturate Urine VISTA NEGATIVE (< 200 ng/mL); Benzodiazepine Urine VISTA NEGATIVE (< 200 ng/mL); Cocaine Urine VISTA NEGATIVE (< 300 ng/mL); Ecstacy Urine VISTA NEGATIVE (< 500 ng/mL); Methadone Urine VISTA NEGATIVE (< 300 ng/mL); PCP Urine VISTA NEGATIVE (< 25 ng/mL); THC Urine VISTA NEGATIVE (< 50 ng/mL); Vista UDS pH Range 6
[2020-10-13 18:57] VITALS: BMI 27.0
[2020-10-13 19:00] VITALS: BP 114/71; PULSE 82; RESP 16; TEMP 37; O2SAT 95
[2020-10-13] MEDS: Phenobarbital 32.4 MG Tablet PO (19:05)
--- NOTE | 2020-10-13 19:17 | HP.PCM_ITS ---
History of Present Illness Date of Admission: 10/13/20 Chief Complaint: Alcohol detox The patient is a 50 year old M with a PMH as below who presents to the hospital requesting alcohol detox. When asked him why today he decided that today was the day he want to quit drinking. He said that he went to inpatient rehab in [place] 3 years ago and he completed that after about 4-1/2 5 months. He states that he was sober for about 1 month and then went back to drinking. I asked him why he thinks at this time will be any different and he did not have an answer. Does not have any current symptoms of withdrawal and his CIWA was a 0 in the ER. 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 In the ED lab work was unremarkable, urine drug screen was negative for any other drugs but his blood alcohol level was 434. Past Medical History Past Medical History (Chronic Problems): Chronic Problems (Last Updated 09/19/18 @ 00:[address] Otis Kaur MD) Seizure (Chronic) Medical History: Medical History (Last Updated 09/19/18 @ 00:[address] Otis Kaur MD) Seizure disorder G40.909 Allergies No Known Allergies Allergy (Verified 10/13/20 16:46) Home Medications: Ambulatory Orders Medication Instructions Recorded Levetiracetam [Keppra] 750 mg PO BID 01/09/18 Tadalafil 20 mg PO DAILY 05/24/20 Surgical History: - - History of left tibial fracture status post internal fixation with wires and screws. No other significant past surgical history. Psychiatric History: No pertinent psych hx, - Smoking Status: Current every day smoker Tobacco Use: Cigarettes Alcohol: Heavy Drugs: None - *Family History Maternal History Items: Unknown - He does not speak to his mother Paternal History Items: Unknown - States old age Review of Systems Constitutional: Denies: Chills, Fever, Weight Change HEENT: Denies: Head Aches, Sinus Congestion, Sinus Drainage Cardiovascular: Denies: Chest Pain, Palpitations Respiratory: Denies: Cough, Shortness of breath at rest, Sputum production Gastrointestinal: Denies: Abdominal Pain, Nausea, Vomiting Genitourinary: Denies: Dysuria Musculoskeletal: Denies: Joint Pain, Joint Tenderness Skin: Denies: Rash, Wounds Neurological: Denies: Numbness, Tingling, Focal weakness Psychiatric: Denies: Anxiety, Depression Hematologic/ Lymphatic: Denies: Easy Bruising, Easy Bleeding VTE Information - Inpt Only VTE Present on Admission: No Patient Problems: Active and Suspected Problems Alcohol abuse (Acute) - Physical Exam Vitals/I&O's: Vital Signs Temp Pulse Resp BP Pulse Ox 98.6 F 82 16 114/71 95 10/13/20 19:00 10/13/20 19:00 10/13/20 19:00 10/13/20 19:00 10/13/20 19:00 Oxygen Delivery Method Room Air Weight: 167 lb 8.821 oz Body Mass Index (BMI) 27.0 Finger Stick Blood Glucose 132 General: Alert, Oriented x3, Cooperative, No apparent distress HEENT: Atraumatic, PERRLA, EOMI, Normocephalic Oral: Moist Mucosa Neck: Supple, No JVD Lungs: Clear to auscultation, Normal air movement, No rhonchi, No wheeze, No rales Cardiovascular: Regular rate, Regular Rhythm, Normal S1, Normal S2, No murmurs Abdomen: Soft, Non Tender, Non-Distended, No Hepato-splenomegaly Extremities: No edema, Capillary Refill Less than 3 Seconds Skin: No rashes, No breakdown Neurological: Neuro grossly intact, Sensory exam intact to light touch and pain Psych/Mental Status: Normal Affect, Appropriate Laboratory Results 10/13/20 17:15: WBC 5.6, RBC 4.04 L, Hgb 13.3, Hct 39.1 L, MCV 96.8 H, MCH 32.9 H, MCHC 34.0, RDW Std Deviation 44.4 H, RDW Coeff of Kenneth 12.4, Plt Count 134 L, MPV 10.0, Immature Gran % (Auto) 0.200, Neut % (Auto) 56.2, Lymph % (Auto) 29.4, [place] % (Auto) 12.3 H, Eos % (Auto) 0.7, Baso % (Auto) 1.2 H, Absolute Neuts (auto) 3.2, Absolute Lymphs (auto) 1.65, Nucleated RBC % 0 10/13/20 17:15: Sodium 141, Potassium 3.7, Chloride 104, Carbon Dioxide 28.0, Anion Gap 9, BUN 7, Creatinine 0.74, Estim Creat Clear Calc 106.57, Est GFR (MDRD) Af Amer 143, Est GFR (MDRD) Non-Af 118, BUN/Creatinine Ratio 9.4 L, Glucose 103, Calcium 8.6, Total Bilirubin 0.30, AST 71 H, ALT 58, Alkaline Phosphatase 69, Total Protein 8.0, Albumin 4.0, Globulin 4.0, Albumin/Globulin Ratio 1.0, Lipase 344 10/13/20 17:15: Ethyl Alcohol 434.0 H* 10/13/20 17:26: Urine Color Straw, Urine Clarity Clear, Urine pH 6.5, Ur Specific [place] 1.010, Urine Protein Negative, Urine Glucose (UA) Normal, Urine Ketones Negative, Urine Occult Blood Negative, Urine Nitrite Negative, Urine Bilirubin Negative, Urine Urobilinogen Normal, Ur Leukocyte Esterase Negative, Urine RBC 0 SEEN, Urine WBC 0 SEEN, Ur Squamous Epith Cells 0 SEEN, Urine Bacteria 0 SEEN, Urine Mucus 0 SEEN 10/13/20 17:26: Urine Opiates Screen NEGATIVE, Urine Methadone Screen NEGATIVE, Ur Barbiturates Screen NEGATIVE, Ur Phencyclidine Scrn NEGATIVE, Ur Amphetamines Screen NEGATIVE, U Methamphetamin-MDMA NEGATIVE, U Benzodiazepines Scrn NEGATIVE, Urine Cocaine Screen NEGATIVE, U Cannabinoids Screen NEGATIVE, Ur Drug Screen Comment Current Medications Dicyclomine HCl (Dicyclomine 10 Mg Capsule) 20 mg PO Q6H PRN PRN PRN Reason: abdominal discomfort Folic Acid (Folic Acid 1 Mg Tablet) 1 mg PO DAILY@0800 [facility] Gabapentin (Gabapentin 300 Mg Capsule) 300 mg PO Q8H PRN PRN PRN Reason: moderate to severe anxiety Hydroxyzine Pamoate (Hydroxyzine [place] 25 Mg Capsule) 50 mg PO Q4H PRN PRN PRN Reason: mild anxiety Loperamide HCl (Loperamide 2 Mg Capsule) 2 mg PO Q4H PRN PRN PRN Reason: LOOSE STOOLS Lorazepam (Lorazepam 1 Mg Tablet) 2 mg PO Q4H [facility]; Taper Stop: 10/18/20 02:59 Ondansetron HCl (Ondansetron 8 Mg Tablet) 8 mg PO Q8H PRN PRN PRN Reason: NAUSEA Thiamine HCl (Thiamine Hydrochloride 100 Mg Tablet) 100 mg PO DAILYCM NANCY Trazodone HCl (Trazodone 100 Mg Tablet) 100 mg PO QHS PRN PRN Reason: INSOMNIA Assessment/Plan All Active Problems EtOH dependence (Acute) Alcohol withdrawal (Acute) Alcohol abuse (Acute) 1. Alcohol abuse/alcohol detox/seizure disorder -We will continue with his Keppra 1000 mg p.o. twice daily which is what he says he takes -We will also place him on an Ativan taper -Continue with the current alcohol withdrawal protocol, the last time he was admitted his withdrawal was so severe that he needed to be placed on a Precedex drip in the ICU so will have a low threshold -We will have him follow-up with 180 as an outpatient DVT: Ambulation Inpatient E&M: 76696 Init Hosp L2
[2020-10-13 19:55] VITALS: BMI 27.0
[2020-10-13] MEDS: LORazepam 1 MG Tablet 0.5 MG PO ×2 (20:01→23:05)
--- NOTE | 2020-10-13 21:22 | CM.ED ---
Social Work Unable to meet with patient. Telephone call to [facility] treatment navigator, Honey. Honey updated on patient admission to [facility] program. Kamaljit Mcnair MSW, JADIEL-S
[2020-10-13 23:04] VITALS: BP 115/70; PULSE 77; RESP 16; TEMP 36.6; O2SAT 97
[2020-10-13] MEDS: levETIRAcetam 1,000 MG Tablet 1000 MG PO (23:05)
[2020-10-14] VITALS (8 sets, daily range): BP systolic 119–158; BP diastolic 69–97; PULSE 60–88; RESP 12–18; TEMP 36.1–37.1; O2SAT 94–98
[2020-10-14] MEDS: LORazepam 1 MG Tablet 0.5 MG PO ×6 (03:19→22:07)
[2020-10-14] MEDS: Folic Acid 1 MG Tablet PO (10:48)
[2020-10-14] MEDS: Thiamine Hydrochloride 100 MG Tablet PO (10:48)
[2020-10-14] MEDS: hydrOXYzine PAM 25 MG Capsule 50 MG PO ×2 (10:48→18:00)
[2020-10-14] MEDS: levETIRAcetam 1,000 MG Tablet 1000 MG PO ×2 (10:49→21:05)
--- NOTE | 2020-10-14 14:04 | PN_ITS ---
Patient Problems: Active and Suspected Problems Alcohol abuse (Acute) Subjective: Resting comfortably no issues overnight Vitals/I&O's: Vital Signs Temp Pulse Resp BP Pulse Ox 98.1 F 60 12 144/93 H 98 10/14/20 10:46 10/14/20 10:46 10/14/20 10:46 10/14/20 10:46 10/14/20 10:46 Oxygen Delivery Method Room Air Weight: 167 lb 8.821 oz Body Mass Index (BMI) 27.0 Finger Stick Blood Glucose 132 Intake and Output for Last 24 Hours 10/12/20 10/13/20 10/14/20 23:59 23:59 23:59 Intake Total 330 / 330 Balance 330 / 330 General: Alert, Oriented x3, Cooperative, No apparent distress HEENT: Atraumatic, PERRLA, EOMI, Normocephalic Oral: Moist Mucosa Neck: Supple, No JVD Lungs: Clear to auscultation, Normal air movement, No rhonchi, No wheeze, No rales Cardiovascular: Regular rate, Regular Rhythm, Normal S1, Normal S2, No murmurs Abdomen: Soft, Non Tender, Non-Distended, No Hepato-splenomegaly Extremities: No edema, Capillary Refill Less than 3 Seconds Skin: No rashes, No breakdown Neurological: Neuro grossly intact, Sensory exam intact to light touch and pain Psych/Mental Status: Normal Affect, Appropriate Laboratory Results 10/13/20 17:15: WBC 5.6, RBC 4.04 L, Hgb 13.3, Hct 39.1 L, MCV 96.8 H, MCH 32.9 H, MCHC 34.0, RDW Std Deviation 44.4 H, RDW Coeff of Kenneth 12.4, Plt Count 134 L, MPV 10.0, Immature Gran % (Auto) 0.200, Neut % (Auto) 56.2, Lymph % (Auto) 29.4, [place] % (Auto) 12.3 H, Eos % (Auto) 0.7, Baso % (Auto) 1.2 H, Absolute Neuts (auto) 3.2, Absolute Lymphs (auto) 1.65, Nucleated RBC % 0 10/13/20 17:15: Sodium 141, Potassium 3.7, Chloride 104, Carbon Dioxide 28.0, Anion Gap 9, BUN 7, Creatinine 0.74, Estim Creat Clear Calc 106.57, Est GFR (MDRD) Af Amer 143, Est GFR (MDRD) Non-Af 118, BUN/Creatinine Ratio 9.4 L, Glucose 103, Calcium 8.6, Total Bilirubin 0.30, AST 71 H, ALT 58, Alkaline Phosphatase 69, Total Protein 8.0, Albumin 4.0, Globulin 4.0, Albumin/Globulin Ratio 1.0, Lipase 344 10/13/20 17:15: Ethyl Alcohol 434.0 H* 10/13/20 17:26: Urine Color Straw, Urine Clarity Clear, Urine pH 6.5, Ur Specific [place] 1.010, Urine Protein Negative, Urine Glucose (UA) Normal, Urine Ketones Negative, Urine Occult Blood Negative, Urine Nitrite Negative, Urine Bilirubin Negative, Urine Urobilinogen Normal, Ur Leukocyte Esterase Negative, Urine RBC 0 SEEN, Urine WBC 0 SEEN, Ur Squamous Epith Cells 0 SEEN, Urine Bacteria 0 SEEN, Urine Mucus 0 SEEN 10/13/20 17:26: Urine Opiates Screen NEGATIVE, Urine Methadone Screen NEGATIVE, Ur Barbiturates Screen NEGATIVE, Ur Phencyclidine Scrn NEGATIVE, Ur Amphetamines Screen NEGATIVE, U Methamphetamin-MDMA NEGATIVE, U Benzodiazepines Scrn NEGATIVE, Urine Cocaine Screen NEGATIVE, U Cannabinoids Screen NEGATIVE, Ur Drug Screen Comment Current Medications Dicyclomine HCl (Dicyclomine 10 Mg Capsule) 20 mg PO Q6H PRN PRN PRN Reason: abdominal discomfort Folic Acid (Folic Acid 1 Mg Tablet) 1 mg PO DAILY@0800 [facility] Last Admin: 10/14/20 10:48 Dose: 1 mg Documented by: Gabapentin (Gabapentin 300 Mg Capsule) 300 mg PO Q8H PRN PRN PRN Reason: moderate to severe anxiety Hydroxyzine Pamoate (Hydroxyzine [place] 25 Mg Capsule) 50 mg PO Q4H PRN PRN PRN Reason: mild anxiety Last Admin: 10/14/20 10:48 Dose: 50 mg Documented by: Levetiracetam (Levetiracetam 1,000 Mg Tablet) 1,000 mg PO BID [facility] Last Admin: 10/14/20 10:49 Dose: 1,000 mg Documented by: Loperamide HCl (Loperamide 2 Mg Capsule) 2 mg PO Q4H PRN PRN PRN Reason: LOOSE STOOLS Lorazepam (Lorazepam 1 Mg Tablet) 2 mg PO Q4H [facility]ANC[facility]; Taper Stop: 10/18/20 02:59 Last Admin: 10/14/20 10:48 Dose: 2 mg Documented by: Ondansetron HCl (Ondansetron 8 Mg Tablet) 8 mg PO Q8H PRN PRN PRN Reason: NAUSEA Thiamine HCl (Thiamine Hydrochloride 100 Mg Tablet) 100 mg PO DAILYCM NANCY Last Admin: 10/14/20 10:48 Dose: 100 mg Documented by: Trazodone HCl (Trazodone 100 Mg Tablet) 100 mg PO QHS PRN PRN Reason: INSOMNIA STROKE Vital Signs/Narrative: Vital Signs Temp Pulse Resp BP Pulse Ox 10/14/20 10:46 98.1 F 60 12 144/93 H 98 Medical Necessity - Tobacco Use Smoking Status: Never smoker Tobacco Use: Cigarettes Assessment/Plan All Active Problems EtOH dependence (Acute) Alcohol withdrawal (Acute) Alcohol abuse (Acute) 1. Alcohol abuse/alcohol detox/seizure disorder -We will continue with his Keppra 1000 mg p.o. twice daily which is what he says he takes -We will also place him on an Ativan taper -Continue with the current alcohol withdrawal protocol, the last time he was admitted his withdrawal was so severe that he needed to be placed on a Precedex drip in the ICU so will have a low threshold -We will have him follow-up with 180 as an outpatient DVT: Ambulation Inpatient E&M: [id number] Subs Hosp L2
[2020-10-14] MEDS: Dicyclomine 10 MG Capsule 20 MG PO (15:10)
[2020-10-14] MEDS: Gabapentin 300 MG Capsule PO ×2 (15:10→23:19)
[2020-10-14] MEDS: traZODone 100 MG Tablet PO (21:07)
[2020-10-15] MEDS: hydrOXYzine PAM 25 MG Capsule 50 MG PO ×4 (00:44→21:48)
[2020-10-15 02:18] VITALS: BP 114/77; PULSE 85; RESP 18; TEMP 36.5; O2SAT 98
[2020-10-15] MEDS: LORazepam 1 MG Tablet 0.5 MG PO ×6 (02:21→23:45)
[2020-10-15] MEDS: Phenobarbital 32.4 MG Tablet PO ×5 (07:02→23:45)
--- NOTE | 2020-10-15 07:45 | PN_ITS ---
Patient Problems: Active and Suspected Problems Alcohol abuse (Acute) Subjective: Patient with significant agitation and elevated CIWA scores overnight initially maintained only on Ativan taper, discussed at length with the staff and added phenobarbital taper concurrently given significant prior history with required transition to the ICU at one point with Precedex. Following initiation early this morning on dual agents per clearance per pharmacy patient with significantly improved CIWA scores. Patient only complaint upon evaluation was itching. Patient denies fevers, chills, nausea, emesis, abdominal pain, chest pain or dyspnea. Objective: Physical Examination: General: Awakens to stimuli, still alert, oriented to self, place and recent events, fatigued appearing, currently more cooperative, mild tremor still but notes he is feeling improved, only complaint is itching, laying in the medical surgical bed. Skin: normal color, turgor, no icterus, cyanosis. HEENT: AT/NC, EOMI, PERRLA, mildly dry MM. Lungs: Diminished BS, > bases, moderate effort, no rales, ronchi or wheezing. Heart: Currently regular rate and rhythm; no gallop, rub audible. Abdomen: soft, obese, NTTP, ND, normal BS. Extremities: no cyanosis, clubbing, or edema. Neurological: patient awake, alert, oriented as noted; cognitive function given recent added regimen mildly decreased, more fatigued, not baseline intact; pupils equally reactive to light and accomodation; cranial nerves II-XII grossly normal, moving all 4 extremities, no focal deficits, strength severely globally decreased given acute presentation and recently worsened withdrawal symptoms with regimen addition, mild tremors but not severe. Psychiatric: affect appears fatigued, no acute evidence of depressive or anxiety feelings. Vitals/I&O's: Vital Signs Temp Pulse Resp BP Pulse Ox 97.7 F L 85 18 114/77 98 10/15/20 02:18 10/15/20 02:18 10/15/20 02:18 10/15/20 02:18 10/15/20 02:18 Oxygen Delivery Method Room Air Weight: 167 lb 8.821 oz Body Mass Index (BMI) 27.0 Finger Stick Blood Glucose 132 Intake and Output for Last 24 Hours 10/13/20 10/14/20 10/15/20 23:59 23:59 23:59 Intake Total 1130 / 1130 1000 / 1000 Output Total 400 / 400 Balance 730 / 730 1000 / 1000 Current Medications Acetaminophen (Acetaminophen 500 Mg Tablet) 500 mg PO Q4H PRN PRN PRN Reason: Temp > 100.4 F Al Hydroxide/Mg Hydroxide (Mag Hydrox/Al Hydrox/Simeth 30 Ml Udc) 30 ml PO Q6H PRN PRN PRN Reason: dyspesia Bisacodyl (Bisacodyl 10 Mg Suppository) 10 mg RECTAL DAILY PRN PRN Reason: Constipation Dicyclomine HCl (Dicyclomine 10 Mg Capsule) 20 mg PO Q6H PRN PRN PRN Reason: abdominal discomfort Last Admin: 10/14/20 15:10 Dose: 20 mg Documented by: Folic Acid (Folic Acid 1 Mg Tablet) 1 mg PO DAILY@0800 [facility] Last Admin: 10/14/20 10:48 Dose: 1 mg Documented by: Gabapentin (Gabapentin 300 Mg Capsule) 300 mg PO Q8H PRN PRN PRN Reason: moderate to severe anxiety Last Admin: 10/14/20 23:19 Dose: 300 mg Documented by: Hydroxyzine Pamoate (Hydroxyzine Beverly 25 Mg Capsule) 50 mg PO Q4H PRN PRN PRN Reason: mild anxiety Last Admin: 10/15/20 04:47 Dose: 50 mg Documented by: Levetiracetam (Levetiracetam 1,000 Mg Tablet) 1,000 mg PO BID [facility] Last Admin: 10/14/20 21:05 Dose: 1,000 mg Documented by: Loperamide HCl (Loperamide 2 Mg Capsule) 2 mg PO Q4H PRN PRN PRN Reason: LOOSE STOOLS Lorazepam (Lorazepam 1 Mg Tablet) 1 mg PO Q4H [facility]; Taper Stop: 10/18/20 02:59 Last Admin: 10/15/20 06:15 Dose: 1 mg Documented by: Ondansetron HCl (Ondansetron 8 Mg Tablet) 8 mg PO Q8H PRN PRN PRN Reason: NAUSEA Phenobarbital (Phenobarbital 32.4 Mg Tablet) 97.2 mg PO Q4H [facility]; Taper Stop: 10/19/20 14:59 Last Admin: 10/15/20 07:02 Dose: 97.2 mg Documented by: Senna (Senna Tablet) 2 tablet PO QHS PRN PRN Reason: Constipation Thiamine HCl (Thiamine Hydrochloride 100 Mg Tablet) 100 mg PO DAILYCM [facility] Last Admin: 10/14/20 10:48 Dose: 100 mg Documented by: Trazodone HCl (Trazodone 100 Mg Tablet) 100 mg PO QHS PRN PRN Reason: INSOMNIA Last Admin: 10/14/20 21:07 Dose: 100 mg Documented by: Medical Necessity - Tobacco Use Smoking Status: Never smoker Tobacco Use: Cigarettes Assessment/Plan All Active Problems EtOH dependence (Acute) Alcohol withdrawal (Acute) Alcohol abuse (Acute) The patient is a 50 y/o M w/ PMHx: Seizure disorder, EtOH Abuse, Tobacco use who presented to the [facility] ED on 10/13/20 with history of requested acute alcohol detoxification. 1. Acute EtOH Withdrawal, Worsening Symptoms and elevated CIWA scores: Patient admitted to medical surgical floor, routine labs obtained in the ED upon presentation and notable for chronically elevated LFTs, UDS with positive cannabis and initial alcohol level 367 when initially presented to the ED, given interest in sobriety patient was initiated and continue on protocol with taper course of initially Ativan however given severity of symptoms also started on concurrent taper of phenobarbital, clinically improving since dual regimen initiation, attempt to avoid need for ICU transfer and Precedex which patient has required prior, given history encourage staff to utilize gabapentin for seizure prophylaxis in addition to continuation of his baseline keppra regimen, as needed Catapres, Bentyl, Vistaril, IV fluids, IV antiemetics, Tylenol as needed for pain. Will consult Case management for assistance for transition to next level of rehabilitation care. Mag, phos pending. Maintain on CIWA protocol concurrently. 2. 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 3. DVT prophylaxis: Low risk but if unable to ambulate may need to consider addition of SCDs and Lovenox therapy in AM. Inpatient E&M: [id number] [facility] Hosp L3
[2020-10-15 10:05] VITALS: BP 158/95; PULSE 87; RESP 18; TEMP 36.6; O2SAT 97
[2020-10-15] MEDS: Thiamine Hydrochloride 100 MG Tablet PO (10:11)
[2020-10-15] MEDS: levETIRAcetam 1,000 MG Tablet 1000 MG PO ×2 (10:11→21:48)
[2020-10-15] MEDS: Folic Acid 1 MG Tablet PO (10:11)
[2020-10-15 14:45] VITALS: BP 161/81; PULSE 65; RESP 18; TEMP 36.6; O2SAT 98
[2020-10-15] MEDS: Gabapentin 300 MG Capsule PO (14:47)
[2020-10-15 18:40] VITALS: BP 155/85; PULSE 65; RESP 18; TEMP 36.6; O2SAT 97
[2020-10-15 22:40] VITALS: BP 139/86; PULSE 81; RESP 16; TEMP 36.7; O2SAT 98
[2020-10-16] MEDS: Phenobarbital 32.4 MG Tablet PO ×5 (06:57→23:41)
--- NOTE | 2020-10-16 07:01 | PN_ITS ---
Patient Problems: Active and Suspected Problems Alcohol abuse (Acute) Subjective: Patient significantly improved from day prior on dual regimen. CIWA score significantly lower. Slept through the evening without any issues per discussion with staff and himself. This morning he has no complaints and denies any specific itching as he had noted significant whole body itching the day prior requesting hydroxyzine. Patient denies fevers, chills, nausea, emesis, abdominal pain, chest pain or dyspnea. Objective: Physical Examination: General: awake, alert, oriented x 3 and cooperative, laying in the medical surgical bed, notes feeling improved since day prior, no acute distress, no significant overt withdrawal symptoms. Skin: normal color, turgor, no icterus, cyanosis. HEENT: AT/NC, EOMI, PERRLA, improved MMM. Lungs: Diminished breath sounds, greater bases, moderate effort, no rales, ronchi or wheezing. Heart: Regular rate and rhythm; no gallop, rub audible. Abdomen: soft, NTTP, ND, normal BS, no HSM. Extremities: no cyanosis, clubbing, or edema. Neurological: patient awake, alert, oriented as noted; cognitive function improved, nearing baseline; pupils equally reactive to light and accomodation; cranial nerves II-XII grossly normal, moving all 4 extremities, no focal deficits, strength improving, moderately global decrease. Psychiatric: affect appears less anxious, less fatigued, no acute evidence of depressive or anxiety feelings. Vitals/I&O's: Vital Signs Temp Pulse Resp BP Pulse Ox 98.0 F 81 16 139/86 H 98 10/15/20 22:40 10/15/20 22:40 10/15/20 22:40 10/15/20 22:40 10/15/20 22:40 Oxygen Delivery Method Room Air Weight: 167 lb 8.821 oz Body Mass Index (BMI) 27.0 Finger Stick Blood Glucose 132 Intake and Output for Last 24 Hours 10/14/20 10/15/20 10/16/20 23:59 23:59 23:59 Intake Total 1130 / 1130 1300 / 1500 400 / 400 Output Total 400 / 400 525 / 525 Balance 730 / 730 775 / 975 400 / 400 Current Medications Acetaminophen (Acetaminophen 500 Mg Tablet) 500 mg PO Q4H PRN PRN PRN Reason: Temp > 100.4 F Al Hydroxide/Mg Hydroxide (Mag Hydrox/Al Hydrox/Simeth 30 Ml Udc) 30 ml PO Q6H PRN PRN PRN Reason: dyspesia Bisacodyl (Bisacodyl 10 Mg Suppository) 10 mg RECTAL DAILY PRN PRN Reason: Constipation Dicyclomine HCl (Dicyclomine 10 Mg Capsule) 20 mg PO Q6H PRN PRN PRN Reason: abdominal discomfort Last Admin: 10/14/20 15:10 Dose: 20 mg Documented by: Folic Acid (Folic Acid 1 Mg Tablet) 1 mg PO DAILY@0800 [facility] Last Admin: 10/15/20 10:11 Dose: 1 mg Documented by: Gabapentin (Gabapentin 300 Mg Capsule) 300 mg PO Q8H PRN PRN PRN Reason: moderate to severe anxiety Last Admin: 10/15/20 14:47 Dose: 300 mg Documented by: Hydroxyzine Pamoate (Hydroxyzine Beverly 25 Mg Capsule) 50 mg PO Q4H PRN PRN PRN Reason: mild anxiety Last Admin: 10/15/20 21:48 Dose: 50 mg Documented by: Levetiracetam (Levetiracetam 1,000 Mg Tablet) 1,000 mg PO BID [facility] Last Admin: 10/15/20 21:48 Dose: 1,000 mg Documented by: Loperamide HCl (Loperamide 2 Mg Capsule) 2 mg PO Q4H PRN PRN PRN Reason: LOOSE STOOLS Lorazepam (Lorazepam 1 Mg Tablet) 1 mg PO Q6H [facility]; Taper Stop: 10/18/20 02:59 Last Admin: 10/16/20 04:00 Dose: Not Given Documented by: Nicotine Polacrilex (Nicotine Polacrilex 4 Mg Gum) 4 mg PO Q2H PRN PRN PRN Reason: Nicotine Craving Ondansetron HCl (Ondansetron 8 Mg Tablet) 8 mg PO Q8H PRN PRN PRN Reason: NAUSEA Phenobarbital (Phenobarbital 32.4 Mg Tablet) 97.2 mg PO Q4H [facility]; Taper Stop: 10/19/20 14:59 Last Admin: 10/16/20 06:57 Dose: 97.2 mg Documented by: Senna (Senna Tablet) 2 tablet PO QHS PRN PRN Reason: Constipation Thiamine HCl (Thiamine Hydrochloride 100 Mg Tablet) 100 mg PO DAILYCM [facility] Last Admin: 10/15/20 10:11 Dose: 100 mg Documented by: Trazodone HCl (Trazodone 100 Mg Tablet) 100 mg PO QHS PRN PRN Reason: INSOMNIA Last Admin: 10/14/20 21:07 Dose: 100 mg Documented by: Medical Necessity - Tobacco Use Smoking Status: Never smoker Tobacco Use: Cigarettes Assessment/Plan All Active Problems EtOH dependence (Acute) Alcohol withdrawal (Acute) Alcohol abuse (Acute) The patient is a 50 y/o M w/ PMHx: Seizure disorder, EtOH Abuse, Tobacco use who presented to the [facility] ED on 10/13/20 with history of requested acute alcohol detoxification. 1. Acute EtOH Withdrawal, Worsening Symptoms and elevated CIWA scores: Patient admitted to medical surgical floor, routine labs obtained in the ED upon presentation and notable for chronically elevated LFTs, UDS with positive cannabis and initial alcohol level 367 when initially presented to the ED, given interest in sobriety patient was initiated and continue on protocol with taper course of initially Ativan however given severity of symptoms also started on concurrent taper of phenobarbital 10/15/20, clinically improving since dual regimen initiation. Patient with prior history of need for ICU transition for Precedex, currently given presentation likely will defer any need. Will continue to utilize gabapentin for seizure prophylaxis in addition to continuation of his baseline keppra regimen, as needed Catapres, Bentyl, Vistaril, IV fluids, IV antiemetics, Tylenol as needed for pain. Case management consulted for assistance for transition to next level of rehabilitation care. Mag, phos requested to be added to initial ED labs upon presentation and will supplement if needed. Maintain on CIWA protocol concurrently. 2. 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 3. DVT prophylaxis: Low risk, given improvement encourage ambulation. Inpatient E&M: 61993 [facility] Hosp L2
[2020-10-16 08:15] VITALS: BP 127/83; PULSE 74; RESP 16; TEMP 36.8; O2SAT 95
[2020-10-16] MEDS: hydrOXYzine PAM 25 MG Capsule 50 MG PO ×2 (08:20→17:13)
[2020-10-16] MEDS: LORazepam 1 MG Tablet 0.5 MG PO ×3 (08:20→21:24)
[2020-10-16] MEDS: levETIRAcetam 1,000 MG Tablet 1000 MG PO ×2 (08:21→21:25)
[2020-10-16] MEDS: Folic Acid 1 MG Tablet PO (08:21)
[2020-10-16] MEDS: Thiamine Hydrochloride 100 MG Tablet PO (08:22)
[2020-10-16 13:18] LABS: Magnesium 2.1 mg/dL (1.6-2.6); Phosphorus 3.2 mg/dL (2.5-4.9)
[2020-10-16 15:09] VITALS: BP 127/88; PULSE 84; RESP 16; TEMP 36.8; O2SAT 100
[2020-10-16 18:47] VITALS: BP 113/78; PULSE 89; RESP 16; TEMP 37.1; O2SAT 97
[2020-10-17 00:47] VITALS: BP 114/81; PULSE 82; RESP 16; TEMP 37.2; O2SAT 95
[2020-10-17] MEDS: Phenobarbital 32.4 MG Tablet PO ×4 (06:29→20:55)
[2020-10-17 06:31] VITALS: BP 125/83; PULSE 79; RESP 16; TEMP 36.4; O2SAT 97
--- NOTE | 2020-10-17 06:53 | PN_ITS ---
Patient Problems: Active and Suspected Problems Alcohol abuse (Acute) Subjective: The patient is a 50 y/o M w/ PMHx: Seizure disorder, EtOH Abuse, Tobacco use who presented to the [facility] ED on 10/13/20 with history of requested acute alcohol detoxification. Patient admitted to medical surgical floor, routine labs obtained in the ED upon presentation and notable for chronically elevated LFTs, UDS with positive cannabis and initial alcohol level 367 when initially presented to the ED, given interest in sobriety patient was initiated and continue on protocol with taper course of initially Ativan however given severity of symptoms also started on concurrent taper of phenobarbital 10/15/20, clinically improving since dual regimen initiation. 10/17/2020 will plan to change Ativan to every 8 from every 6 for the last 3.5 mg doses and continue phenobarb taper given clinical improvement and some increased fatigue.. Patient with prior history of need for ICU transition for Precedex. Will continue to utilize gabapentin for seizure prophylaxis in addition to continuation of his baseline keppra regimen, as needed Catapres, Bentyl, Vistaril, IV fluids, IV antiemetics, Tylenol as needed for pain. Case management consulted for assistance for transition to next level of rehabilitation care. Mag, phos requested to be added to initial ED labs upon presentation and will supplement if needed. Maintain on CIWA protocol concurrently. Patient with no acute events overnight per self and per nursing report however p atient was more sluggish and did require hold on Ativan but continued phenobarb. Patient withdrawal symptoms have significantly improved. This morning he awakens and discusses current status and states that he is feeling improved. Discussed widening the Ativan for the last 3 doses given his fatigue and continuing his phenobarb taper to which she is amenable. Patient denies fevers, chills, nausea, emesis, abdominal pain, chest pain or dyspnea. Objective: Physical Examination: General: awake, alert, oriented x 3 and cooperative, laying in the medical surgical bed, notes withdrawal symptoms have significantly improved, notes he feels sluggish, states he slept well and is just waking up. Skin: normal color, turgor, no icterus, cyanosis. HEENT: AT/NC, EOMI, PERRLA, MMM. Lungs: Diminished breath sounds, greater bases, moderate effort, no rales, ronchi or wheezing. Heart: Regular rate and rhythm; no gallop, rub audible. Abdomen: soft, NTTP, ND, normal BS, no HSM. Extremities: no cyanosis, clubbing, or edema. Neurological: patient awake, alert, oriented as noted; cognitive function improved, nearing baseline; pupils equally reactive to light and accomodation; cranial nerves II-XII grossly normal, moving all 4 extremities, no focal deficits, strength improving, moderately global decrease. Psychiatric: affect appears calm, mildly sluggish but notes he just woke up, no acute evidence of depressive or anxiety feelings. Vitals/I&O's: Vital Signs Temp Pulse Resp BP Pulse Ox 97.6 F L 79 16 125/83 H 97 10/17/20 06:31 10/17/20 06:31 10/17/20 06:31 10/17/20 06:31 10/17/20 06:31 Oxygen Delivery Method Room Air Weight: 167 lb 8.821 oz Body Mass Index (BMI) 27.0 Finger Stick Blood Glucose 132 Intake and Output for Last 24 Hours 10/15/20 10/16/20 10/17/20 23:59 23:59 23:59 Intake Total 1300 / 1500 400 / 400 1100 / 1100 Output Total 525 / 525 1550 / 1550 1250 / 1250 Balance 775 / 975 -1150 / -1150 -150 / -150 Laboratory Results 10/13/20 16:29: Phosphorus 3.2, Magnesium 2.1 Current Medications Acetaminophen (Acetaminophen 500 Mg Tablet) 500 mg PO Q4H PRN PRN PRN Reason: Temp > 100.4 F Al Hydroxide/Mg Hydroxide (Mag Hydrox/Al Hydrox/Simeth 30 Ml Udc) 30 ml PO Q6H PRN PRN PRN Reason: dyspesia Bisacodyl (Bisacodyl 10 Mg Suppository) 10 mg RECTAL DAILY PRN PRN Reason: Constipation Dicyclomine HCl (Dicyclomine 10 Mg Capsule) 20 mg PO Q6H PRN PRN PRN Reason: abdominal discomfort Last Admin: 10/14/20 15:10 Dose: 20 mg Documented by: Folic Acid (Folic Acid 1 Mg Tablet) 1 mg PO DAILY@0800 [facility] Last Admin: 10/16/20 08:21 Dose: 1 mg Documented by: Gabapentin (Gabapentin 300 Mg Capsule) 300 mg PO Q8H PRN PRN PRN Reason: moderate to severe anxiety Last Admin: 10/15/20 14:47 Dose: 300 mg Documented by: Hydroxyzine Pamoate (Hydroxyzine Beverly 25 Mg Capsule) 50 mg PO Q4H PRN PRN PRN Reason: mild anxiety Last Admin: 10/16/20 17:13 Dose: 50 mg Documented by: Levetiracetam (Levetiracetam 1,000 Mg Tablet) 1,000 mg PO BID [facility] Last Admin: 10/16/20 21:25 Dose: 1,000 mg Documented by: Loperamide HCl (Loperamide 2 Mg Capsule) 2 mg PO Q4H PRN PRN PRN Reason: LOOSE STOOLS Lorazepam (Lorazepam 1 Mg Tablet) 0.5 mg PO Q6H [facility]; Taper Stop: 10/18/20 02:59 Last Admin: 10/17/20 03:11 Dose: Not Given Documented by: Nicotine Polacrilex (Nicotine Polacrilex 4 Mg Gum) 4 mg PO Q2H PRN PRN PRN Reason: Nicotine Craving Ondansetron HCl (Ondansetron 8 Mg Tablet) 8 mg PO Q8H PRN PRN PRN Reason: NAUSEA Phenobarbital (Phenobarbital 32.4 Mg Tablet) 64.8 mg PO Q4H [facility]; Taper Stop: 10/19/20 14:59 Last Admin: 10/17/20 06:29 Dose: 64.8 mg Documented by: Senna (Senna Tablet) 2 tablet PO QHS PRN PRN Reason: Constipation Thiamine HCl (Thiamine Hydrochloride 100 Mg Tablet) 100 mg PO DAILYCM [facility] Last Admin: 10/16/20 08:22 Dose: 100 mg Documented by: Trazodone HCl (Trazodone 100 Mg Tablet) 100 mg PO QHS PRN PRN Reason: INSOMNIA Last Admin: 10/14/20 21:07 Dose: 100 mg Documented by: STROKE Vital Signs/Narrative: Vital Signs Temp Pulse Resp BP Pulse Ox 10/17/20 06:31 97.6 F L 79 16 125/83 H 97 Medical Necessity - Tobacco Use Smoking Status: Never smoker Tobacco Use: Cigarettes Assessment/Plan All Active Problems EtOH dependence (Acute) Alcohol withdrawal (Acute) Alcohol abuse (Acute) The patient is a 50 y/o M w/ PMHx: Seizure disorder, EtOH Abuse, Tobacco use who presented to the [facility] ED on 10/13/20 with history of requested acute alcohol detoxification. 1. Acute EtOH Withdrawal, Worsening Symptoms and elevated CIWA scores: Patient admitted to medical surgical floor, routine labs obtained in the ED upon presentation and notable for chronically elevated LFTs, UDS with positive cannabis and initial alcohol level 367 when initially presented to the ED, given interest in sobriety patient was initiated and continue on protocol with taper course of initially Ativan however given severity of symptoms also started on concurrent taper of phenobarbital 10/15/20, clinically improving since dual regimen initiation. 10/17/2020 will plan to change Ativan to every 8 from every 6 for the last 3.5 mg doses and continue phenobarb taper given clinical improvement and some increased fatigue.. Patient with prior history of need for ICU transition for Precedex. Will continue to utilize gabapentin for seizure prophylaxis in addition to continuation of his baseline keppra regimen, as needed Catapres, Bentyl, Vistaril, IV fluids, IV antiemetics, Tylenol as needed for pain. Case management consulted for assistance for transition to next level of rehabilitation care. Mag, phos requested to be added to initial ED labs upon presentation and will supplement if needed. Maintain on CIWA protocol concurrently. Plan discharge this coming week once completed taper and medically appropriate with case management/[address] 2. 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 3. DVT prophylaxis: Low risk, given improvement encourage ambulation. Inpatient E&M: [id number] [facility] Hosp L2
[2020-10-17] MEDS: Thiamine Hydrochloride 100 MG Tablet PO (08:19)
[2020-10-17] MEDS: Gabapentin 300 MG Capsule PO (08:20)
[2020-10-17] MEDS: Folic Acid 1 MG Tablet PO (08:20)
[2020-10-17] MEDS: LORazepam 1 MG Tablet 0.5 MG PO (08:20)
[2020-10-17] MEDS: levETIRAcetam 1,000 MG Tablet 1000 MG PO ×2 (08:21→20:55)
[2020-10-17 10:58] VITALS: BP 111/75; PULSE 87; RESP 16; TEMP 36.7; O2SAT 95
[2020-10-17] MEDS: LORazepam 0.5 MG Tablet PO ×2 (15:42→23:54)
[2020-10-17 21:00] VITALS: BP 126/80; PULSE 85; RESP 16; TEMP 37.2; O2SAT 95
[2020-10-18 03:00] VITALS: BP 116/73; PULSE 75; RESP 16; TEMP 36.9; O2SAT 97
[2020-10-18] MEDS: Phenobarbital 32.4 MG Tablet PO ×4 (03:28→20:40)
--- NOTE | 2020-10-18 08:54 | CASEMGMT ---
STEPHANIE spoke w/pt navigator Petey with [facility], plan is for pt to eventually go to [facility] when they can again take patients. For now, pt to return to [facility] at discharge. CEZAR Medley
[2020-10-18 09:00] VITALS: BP 116/72; PULSE 73; RESP 18; TEMP 36.5; O2SAT 97
--- NOTE | 2020-10-18 09:00 | PCM.PN.HOSP ---
Patient Problems: Active and Suspected Problems Alcohol abuse (Acute) Reason for Visit: alcohol wd Subjective: Feels tired. States he only drinks 4-6 beers/day. Vitals/I&O's: Vital Signs Temp Pulse Resp BP Pulse Ox 36.9 C 75 16 116/73 97 10/18/20 03:00 10/18/20 03:00 10/18/20 03:00 10/18/20 03:00 10/18/20 03:00 Oxygen Delivery Method Room Air Weight: 76 kg Body Mass Index (BMI) 27.0 Finger Stick Blood Glucose 132 Intake and Output for Last 24 Hours 10/16/20 10/17/20 10/18/20 23:59 23:59 23:59 Intake Total 400 / 400 1100 / 1100 400 / 400 Output Total 1550 / 1550 1250 / 1250 1000 / 1000 Balance -1150 / -1150 -150 / -150 -600 / -600 General: Alert, - - groggy. listless. HEENT: Atraumatic, Normocephalic Psych/Mental Status: Appropriate, Flat Affect Current Medications Acetaminophen (Acetaminophen 500 Mg Tablet) 500 mg PO Q4H PRN PRN PRN Reason: Temp > 100.4 F Al Hydroxide/Mg Hydroxide (Mag Hydrox/Al Hydrox/Simeth 30 Ml Udc) 30 ml PO Q6H PRN PRN PRN Reason: dyspesia Bisacodyl (Bisacodyl 10 Mg Suppository) 10 mg RECTAL DAILY PRN PRN Reason: Constipation Dicyclomine HCl (Dicyclomine 10 Mg Capsule) 20 mg PO Q6H PRN PRN PRN Reason: abdominal discomfort Last Admin: 10/14/20 15:10 Dose: 20 mg Documented by: Folic Acid (Folic Acid 1 Mg Tablet) 1 mg PO DAILY@0800 [facility] Last Admin: 10/17/20 08:20 Dose: 1 mg Documented by: Gabapentin (Gabapentin 300 Mg Capsule) 300 mg PO Q8H PRN PRN PRN Reason: moderate to severe anxiety Last Admin: 10/17/20 08:20 Dose: 300 mg Documented by: Hydroxyzine Pamoate (Hydroxyzine Beverly 25 Mg Capsule) 50 mg PO Q4H PRN PRN PRN Reason: mild anxiety Last Admin: 10/16/20 17:13 Dose: 50 mg Documented by: Levetiracetam (Levetiracetam 1,000 Mg Tablet) 1,000 mg PO BID [facility] Last Admin: 10/17/20 20:55 Dose: 1,000 mg Documented by: Loperamide HCl (Loperamide 2 Mg Capsule) 2 mg PO Q4H PRN PRN PRN Reason: LOOSE STOOLS Nicotine Polacrilex (Nicotine Polacrilex 4 Mg Gum) 4 mg PO Q2H PRN PRN PRN Reason: Nicotine Craving Ondansetron HCl (Ondansetron 8 Mg Tablet) 8 mg PO Q8H PRN PRN PRN Reason: NAUSEA Phenobarbital (Phenobarbital 32.4 Mg Tablet) 64.8 mg PO Q6H [facility]; Taper Stop: 10/19/20 14:59 Last Admin: 10/18/20 03:28 Dose: 64.8 mg Documented by: Senna (Senna Tablet) 2 tablet PO QHS PRN PRN Reason: Constipation Thiamine HCl (Thiamine Hydrochloride 100 Mg Tablet) 100 mg PO DAILYCM [facility] Last Admin: 10/17/20 08:19 Dose: 100 mg Documented by: Trazodone HCl (Trazodone 100 Mg Tablet) 100 mg PO QHS PRN PRN Reason: INSOMNIA Last Admin: 10/14/20 21:07 Dose: 100 mg Documented by: Medical Necessity - Tobacco Use Smoking Status: Never smoker Tobacco Use: Cigarettes Assessment/Plan All Active Problems EtOH dependence (Acute) Alcohol withdrawal (Acute) Alcohol abuse (Acute) 1. acute alcohol withdrawal ongoing on phenobarital taper through 10/19 had long discussion with patient about his long-term plans. He said he wants to go to an inpatient program, but has no other plans. I asked him to whom he is working with. He said he is not working with anyone. I explained to the patient that he needs to be an active participant in his recovery, if not, then he will have a high-likelihood to relapse. 2. VTE prophylaxis: not indicated 3. Disposition: anticipate DC 10/19 Greater than 25 minutes of which greater than 50% of the time was discussing with the patient about his alcohol withdrawal treatments, outpatient evaluation and being an active participate in his recovery. Inpatient E&M: [id number] [facility] Hosp L2
[2020-10-18] MEDS: LORazepam 0.5 MG Tablet PO (09:20)
[2020-10-18] MEDS: levETIRAcetam 1,000 MG Tablet 1000 MG PO ×2 (09:21→20:40)
[2020-10-18] MEDS: Thiamine Hydrochloride 100 MG Tablet PO (09:21)
[2020-10-18] MEDS: Folic Acid 1 MG Tablet PO (09:21)
--- NOTE | 2020-10-18 10:53 | CASEMGMT ---
Addendum entered by Nicolasa Tafoya 10/18/20 14:30: SW spoke wEran from [facility], they will have a bed for him likely by . When Jona comes in later from [facility] she is to speak w/elizabeth. CEZAR Medley Addendum entered by Nicolasa Tafoya 10/18/20 11:50: SW spoke justus/Jerardo from [facility], they do not take Medicaid. This is the facility that SW had passed information on to Petey at [facility]. SW called Petey back, let her know this. SW explained pt is not ready for discharge today, asked if the pt navigator coming in today can follow up w/pt, she states will let her know to do so. Also, she is going to look into seeing if there is any possibility [facility] may have a spot for pt tomorrow. CEZAR Medley Original Note: SW spoke w/Petey again, pt navigator from [facility], she asked for pt's number to call when pt is discharged, so she can follow up w/him once Fernando has a bed. SW spoke w/pt, got his phone number to pass on to [facility]. Pt then spoke w/SW about all of his health problems, but cannot get disability. Pt became tearful. SW offered support. SW spoke w/pt about plan from the hospital, where he will go while waiting for bed at [facility]. Pt states [facility] has no beds, states cannot go to any friends' homes. SW asked if he would want to go to a detention in [place]; pt agreeable to this if transportation can be provided. SW explained will find out if he can go there and then we will look into transport. SW called [facility], confirmed they have no beds. SW called [facility], they will not take pt as they are not taking pts outside of the [facility] due to COVID. SW spoke wEran again from [facility], gave her this pt's number, explained he has no place to go. SW did pass on to Petey a residential program to try. SW will continue to follow. CEZAR Medley
[2020-10-18 14:50] VITALS: BP 128/79; PULSE 74; RESP 18; TEMP 36.8; O2SAT 99
--- NOTE | 2020-10-18 14:52 | CASEMGMT ---
Social Work Erick from [phone] and now reporting that [facility] might have an open bed for patient tomorrow. Zheng Tafoya updated. H&P faxed to [facility] as requested. Kamaljit Mcnair RETAIL PLANNER, TRUCK DRIVER HEAVY-S
--- NOTE | 2020-10-18 15:49 | CHAPLAIN ---
Type of Pastoral Visit _x__ Initial Visit ___ Follow-up Visit ___ On-call Visit ___ General Patient Visit ___ Spiritual Assessment ___ Family Conference ___ Bereavement ___ Rapid Response ___ Code Blue ___ Other (describe below) Pastoral Care Referral From _x__ Patient ___ Family ___ Nurse ___ Physician ___ Buzzsaw Operator ___ Algebra Tutor ___ Other (describe below) Sacrament/Intervention _x__ Active listening ___ Anointing ___ Anabaptism _x__ Bereavement ___ Communion ___ Nicolasa exploration ___ _x__ Life review _x__ Prayer ___ Reconciliation ___ Sacrament of Sick _x__ Supportive presence ___ Wedding ___ Other (describe below) Pastoral Comments patient welcomes this Shot Hole Shooter to take a seat and pt gives long review of life, decisions, losses, and current situation; pt has layers of issues and needs; pt is homeless at this point; pt states I am facing a brick wall and I need answers which I don't think there are many; pt states he is open to any rehab/treatment including [facility]; pt acknowledges he needs housing
[2020-10-18 20:32] VITALS: BP 128/79; PULSE 88; RESP 17; TEMP 36.9; O2SAT 97
[2020-10-19] MEDS: Phenobarbital 32.4 MG Tablet PO ×2 (02:22→09:16)
[2020-10-19 02:27] VITALS: BP 157/87; PULSE 76; RESP 17; TEMP 37; O2SAT 98
[2020-10-19] MEDS: Thiamine Hydrochloride 100 MG Tablet PO (07:48)
[2020-10-19] MEDS: Folic Acid 1 MG Tablet PO (07:48)
[2020-10-19 08:27] VITALS: BP 117/85; PULSE 73; RESP 18; TEMP 36.6; O2SAT 98
--- NOTE | 2020-10-19 08:57 | CASEMGMT ---
Addendum entered by Nicolasa Tafoya 10/19/20 09:59: SW called peer supporter Aranza, to let her know pt is discharged and can be picked up about 11am. Aranza states she has a client, Saúl will be here to slate picker pt. CEZAR Medley Original Note: SW spoke w/Petey at [facility], pt can go to [facility] today, he will be picked up by a peer supporter once discharged. SW will call the peer supporter once pt is discharged to let her know. CEZAR Medley
[2020-10-19] MEDS: levETIRAcetam 1,000 MG Tablet 1000 MG PO (09:17)
--- NOTE | 2020-10-19 09:33 | DCINST_ITS ---
- Discharge Diagnoses Current Active Problems: Current Active and Chronic Problems Alcohol abuse (Acute) You will use the following diet at home:: No restrictions Your food should be the consistency of: Regular Your liquids should be the consistency of: Regular/Thin Call your doctor if you observe: Fever of 101 or Higher, Shortness of breath Allergies/Adverse Reactions: Allergies No Known Allergies Allergy (Verified 10/13/20 16:46) Medications to take at Discharge Levetiracetam [Keppra] 750 mg PO BID 01/09/18 Primary Care Physician: Lynn Boone CLERICAL SUPPORT, CLERICAL SUPPORT-C [NON-STAFF] - Test Results: Test results from this visit will be discussed in further detail at your follow- up appointment, if applicable. Please Follow Up With: [facility] Proposed Discharge Date: 10/19/20
--- NOTE | 2020-10-19 09:34 | PCM.DC.SUM ---
Discharge Date and Diagnosis - Problem List Patient Problems: Active and Suspected Problems Alcohol abuse (Acute) Date of Admission: 10/13/20 Date of Discharge: 10/19/20 - Primary Discharge Diagnosis Acute Problems: Active Problems acute alcohol withdrawal - Secondary Discharge Diagnosis Chronic Problems: Chronic Problems (Last Updated 09/19/18 @ 00:[address] Otis Kaur MD) Seizure (Chronic) Hospital Course and Treatment Operations: None Procedures: None Summary of Care Provided: The patient is a 50 year old M presents seeking treatment for acute alcohol withdrawal. Patient was initiated on a lorazepam taper, however did start getting worse and then was switched over to a phenobarbital taper. Subsequently, patient did steadily improve. Patient had no further evidence of worsening alcohol withdrawal, alcohol withdrawal seizures nor delirium tremens. [facility]. [] Patient Problems: Active and Suspected Problems Alcohol abuse (Acute) - Physical Exam Vitals/I&O's: Vital Signs Temp Pulse Resp BP Pulse Ox 36.6 C 73 18 117/85 H 98 10/19/20 08:27 10/19/20 08:27 10/19/20 08:27 10/19/20 08:27 10/19/20 08:27 Oxygen Delivery Method Room Air Weight: 76 kg Body Mass Index (BMI) 27.0 Finger Stick Blood Glucose 132 Intake and Output for Last 24 Hours 10/17/20 10/18/20 10/19/20 23:59 23:59 23:59 Intake Total 1100 / 1100 880 / 880 Output Total 1250 / 1250 2150 / 2150 Balance -150 / -150 -1270 / -1270 General: Alert, No apparent distress HEENT: Atraumatic, Normocephalic Oral: Moist Mucosa, No Gingival or Mucosal Lesions/ Ulcerations Neck: No Nodes, Thyroid Normal Size and Texture Lungs: Clear to auscultation, Normal air movement, No rhonchi, No wheeze, No rales Cardiovascular: Regular rate, Regular Rhythm, Normal S1, Normal S2, No murmurs Abdomen: Bowel Sounds Present, Soft, Non Tender, Non-Distended, No Hepato-splenomegaly Extremities: No edema, No Calf Tenderness Psych/Mental Status: Normal Affect, Appropriate Current Medications Acetaminophen (Acetaminophen 500 Mg Tablet) 500 mg PO Q4H PRN PRN PRN Reason: Temp > 100.4 F Al Hydroxide/Mg Hydroxide (Mag Hydrox/Al Hydrox/Simeth 30 Ml Udc) 30 ml PO Q6H PRN PRN PRN Reason: dyspesia Bisacodyl (Bisacodyl 10 Mg Suppository) 10 mg RECTAL DAILY PRN PRN Reason: Constipation Dicyclomine HCl (Dicyclomine 10 Mg Capsule) 20 mg PO Q6H PRN PRN PRN Reason: abdominal discomfort Last Admin: 10/14/20 15:10 Dose: 20 mg Documented by: Folic Acid (Folic Acid 1 Mg Tablet) 1 mg PO DAILY@0800 [facility] Last Admin: 10/19/20 07:48 Dose: 1 mg Documented by: Hydroxyzine Pamoate (Hydroxyzine Beverly 25 Mg Capsule) 50 mg PO Q4H PRN PRN PRN Reason: mild anxiety Last Admin: 10/16/20 17:13 Dose: 50 mg Documented by: Levetiracetam (Levetiracetam 1,000 Mg Tablet) 1,000 mg PO BID [facility] Last Admin: 10/19/20 09:17 Dose: 1,000 mg Documented by: Loperamide HCl (Loperamide 2 Mg Capsule) 2 mg PO Q4H PRN PRN PRN Reason: LOOSE STOOLS Nicotine Polacrilex (Nicotine Polacrilex 4 Mg Gum) 4 mg PO Q2H PRN PRN PRN Reason: Nicotine Craving Ondansetron HCl (Ondansetron 8 Mg Tablet) 8 mg PO Q8H PRN PRN PRN Reason: NAUSEA Phenobarbital (Phenobarbital 32.4 Mg Tablet) 32.4 mg PO Q6H [facility]; Taper Stop: 10/19/20 14:59 Last Admin: 10/19/20 09:16 Dose: 32.4 mg Documented by: Senna (Senna Tablet) 2 tablet PO QHS PRN PRN Reason: Constipation Thiamine HCl (Thiamine Hydrochloride 100 Mg Tablet) 100 mg PO DAILYCM [facility] Last Admin: 10/19/20 07:48 Dose: 100 mg Documented by: Trazodone HCl (Trazodone 100 Mg Tablet) 100 mg PO QHS PRN PRN Reason: INSOMNIA Last Admin: 10/14/20 21:07 Dose: 100 mg Documented by: Discharge Diet: No Restrictions Call your doctor if you observe: Fever of 101 or Higher, Shortness of breath Home Medications: Medications to take at Discharge Levetiracetam [Keppra] 750 mg PO BID 01/09/18 Primary Care Physician: Lynn Boone FRAMING MECHANIC, FRAMING MECHANIC-C [NON-STAFF] - Please Follow Up With: [facility] Disposition: Home Minutes spent on discharge:: 28 Patient Condition:: Good Medical Necessity - Tobacco Use Smoking Status: Never smoker Tobacco Use: Cigarettes Meaningful Use Info Meaningful Use Diagnoses (Choose all that apply): None applicable Inpatient E&M: 44576 Disch Hosp
[2020-10-19 11:12] VITALS: BP 128/62; PULSE 70; RESP 18; TEMP 37; O2SAT 98
--- NOTE | 2020-10-20 11:43 | CASEMGMT ---
Social Work Note SW received call from Gina at [facility] who requests H+P be faxed to Honey at [facility]. STEPHANIE faxed H+P to [facility]. Hanna Valencia EXTRACT MIXER, COOLER SERVICE SUPERVISOR
== END 2020-10-19 11:10 | disposition home or self-care (01) | DRG 775 ==
LOC: ED 17:51 → MS3 18:16
PROVIDERS: Family Medicine; Admitting Provider Family Medicine; Emergency Provider Emergency Medicine
DX: F10.239 Alcohol dependence with withdrawal, unspecified (principal); G40.909 Epilepsy, unspecified, not intractable, without status epilepticus; Y90.8 Blood alcohol level of 240 mg/100 ml or more; F17.210 Nicotine dependence, cigarettes, uncomplicated
CPT/HCPCS: 80053; 80307; 80320; 81001; 83690; 83735; 84100; 85025; 99282; A4216; G0480

== ENCOUNTER 2024-08-05 12:19 | Observation (INO) | payer MEDICAID, SELFPAY ==
[2024-08-05] VITALS (14 sets, daily range): BP systolic 91–135; BP diastolic 62–76; PULSE 77–121; RESP 13–18; TEMP 36.4–36.9; O2SAT 96–100; BMI 23.3; BMI 24.3
--- NOTE | 2024-08-05 14:03 | EKG12_ITS ---
Test Reason : GENERAL Blood Pressure : / mmHG Vent. Rate : 085 BPM Atrial Rate : 085 BPM P-R Int : 176 ms QRS Dur : 090 ms QT Int : 394 ms P-R-T Axes : 054 063 059 degrees QTc Int : 468 ms Normal sinus rhythm Normal ECG Confirmed by Patrick Fink ([id number]), offline editor DAYAMI BOUCHER ([id number]) on 08/06/2024 9:33:09 AM Referred By: Confirmed By:Patrick Fink
--- NOTE | 2024-08-05 14:04 | EDS_ITS ---
HPI History of Present Illness Chief Complaint: General Illness Narrative Narrative: 54-year-old male past medical history of seizure disorder, on Keppra, drinks alcohol daily, presents with his significant other for multiple reasons. Over the last few weeks, he is felt weak, and tired. They state that he has lost weight. He is felt rundown. They relate history that approximately 3 weeks ago he had a 200 pound lawnmower run over his right foot and, up to his right ankle. The area was swollen and bruised. While the skin is dry on it and swelling is gone down and improved, they noticed that few days ago he has bruising all over the back of his thighs. Additionally, while he denies any fever he has had chills, but has chronically been cold. He denies any other bleeding diathesis but he vomits every morning. He endorses generalized weakness and fatigue. Denies other bleeding diathesis. His significant other has noticed that he has been somewhat yellow in color. Denies black stool or discolored urine. [facility] Medical History Drinking problem Seizure disorder Home Medications ?Medication ?Instructions ?Recorded ?Last Taken ?Type levetiracetam 750 mg tablet 750 mg PO BID 01/09/18 Unknown History (Keppra) Allergy/AdvReac Type Severity Reaction Status Date / Time No Known Allergies Allergy Verified 08/05/24 12:21 Social History Smoking Status: Never smoker ROS ROS ED ROS Narrative Constitutional: No fever, occasional chills. Positive fatigue and generalized weakness. Positive weight loss. HEENT: No sore throat. No neck pain. No loss of vision. No rhinorrhea. Cardiovascular: No chest pain. No palpitations. No pedal edema. Respiratory: No cough, no shortness of breath. Abdominal: No abdominal pain. Nausea and vomiting, daily. Genitourinary: No dysuria. No hematuria. Musculoskeletal: No myalgias. No arthralgias. Neurologic: No headaches. No dizziness. No lightheadedness. Skin: No rash. Positive change in color. Yellowing of eyes. Bruises easily along posterior thighs. Psychiatric: No depression. No anxiety. EXAM Physical Exam Narrative Exam Narrative: Afebrile. Vital signs noted. HEENT examination shows it to be normal cephalic, atraumatic, positive scleral icterus, no subconjunctival pallor. Mild pallor face. No central cyanosis. Airway patent. Neck soft supple without meningismus. Cardiovascular examination reveals a regular rate and rhythm, lungs are clear to auscultation bilaterally. Abdomen is soft nontender with normoactive bowel sounds. Patient has bilateral lower extremities shows large ecchymosis along the posterior thighs. There is dry skin and cellulitis/dusky color to right ankle. Palpable dorsalis pedis pulses bilaterally. EHL intact bilaterally. Const Vital Signs: 08/05/24 12:21 08/05/24 13:14 08/05/24 13:20 Temperature 97.7 F L Temperature Source Oral Pulse Rate 121 H 90 Respiratory Rate 16 18 Respiratory Pattern Normal Blood Pressure 91/68 94/63 Blood Pressure Mean 75 73 Pulse Ox 100 99 Oxygen Delivery Method Room Air Room Air 08/05/24 14:00 08/05/24 15:00 08/05/24 16:00 Temperature Temperature Source Pulse Rate 85 90 Respiratory Rate 15 17 Respiratory Pattern Blood Pressure 105/62 97/65 101/64 Blood Pressure Mean 77 76 75 Pulse Ox 99 99 100 Oxygen Delivery Method 08/05/24 17:00 08/05/24 18:00 Temperature Temperature Source Pulse Rate 85 83 Respiratory Rate 13 16 Respiratory Pattern Blood Pressure 105/65 Blood Pressure Mean 78 Pulse Ox 99 99 Oxygen Delivery Method Room Air MDM MDM MDM Narrative Medical decision making narrative: Differential diagnosis includes but not limited to liver failure with coagulation abnormality. Patient was initially tachycardic, and has a soft blood pressure 94/63, but while I was in the room he had a systolic blood pressure of 100. Concern the right lower extremity would be cellulitis versus fracture versus contusion. Comprehensive workup was pursued. I will obtain x- rays of the right ankle and of the right foot. X-rays of the right ankle and of the right foot interpreted by myself independently shows no evidence of acute fracture. I reviewed the radiology report which confirms my independent interpretation. I reviewed his laboratory work and he has normal white count of 10.0, hemoglobin low at 9.5, but he has been anemic previously, and the last comparison is from 4 years ago. Platelet count is normal at 201. PT is slightly elevated at 15 but INR normal at 1.2 with a PTT normal at 31.2. No elevation of his coagulation studies. Sodium is slightly low at 132 and potassium 3.3. He was bolused normal saline because chloride was 96 so he may be dehydrated, as he was initially tachycardic and hypotensive. Glucose is appropriately elevated at 111. Lactic acid is elevated at 2.4 which once again may be secondary to dehydration more so than sepsis. I do not think that his right lower extremity is cellulitic where he is septic from it. It has been 3 weeks since his initial injury, so antibiotics were deferred to the hospitalist. Lipase is normal at 56 so I doubt pancreatitis. Urinalysis is negative for infection. I do not feel antibiotics are indicated for a UTI. Given the bruising on his posterior bilateral thighs, concern was for DVT as well. I received call from ultrasound with preliminary report that he is negative for DVT bilaterally. I obtained a CT of the abdomen and pelvis because of elevated LFTs as alk phos was in the 170s and AST was in the 40s but he had a low ALT, and CT of the abdomen and pelvis showed no acute process. While the gallbladder was distended, there was no wall thickening or pericholecystic fluid. I do not feel that ultrasound of the right upper quadrant is indicated and I have low suspicion for acute cholecystitis. His LFTs may be secondary to cirrhosis as he drinks alcohol daily. In discussion with his significant other and the patient, he is cut back on his alcohol intake over the last few days. At this point in time, given his elevated lactic acid and slight elevation of LFTs and his bilateral neuropathy and leg pain, I discussed patient with Dr. Abreu. As he is also hyponatremic, he requested the patient be given an additional liter of normal saline and his blood pressure rechecked. He would like him admitted to the PCU. Disposition is admit in stable condition. History & Record Review Discussion w/independent historian: Patient and Significant other Additional record(s) reviewed:: Prior ED visit and Prior labs (Since 2019) Lab Data Attestation: I reviewed the patient's lab results. Labs: Laboratory Results - last 24 hr 08/05/24 08/05/24 08/05/24 13:05 16:35 17:40 WBC 10.0 RBC 2.70 L Hgb 9.5 L Hct 29.0 L MCV 107.4 H MCH 35.2 H MCHC 32.8 RDW Std Deviation 58.6 H RDW Coeff of Kenneth 14.9 H Plt Count 201 MPV 10.9 Immature Gran % (Auto) 0.700 Neut % (Auto) 77.8 H Lymph % (Auto) 11.5 L Hinds % (Auto) 9.1 Eos % (Auto) 0.1 Baso % (Auto) 0.8 Absolute Neuts (auto) 7.8 H Absolute Lymphs (auto) 1.15 Nucleated RBC % 0 PT 15.0 H INR 1.2 APTT 31.2 Sodium 132 L Potassium 3.3 L Chloride 96 L Carbon Dioxide 26.0 Anion Gap 11 BUN 10 Creatinine 0.63 L Estim Creat Clear Calc 119.55 Est GFR (MDRD) Af Amer 169 Est GFR (MDRD) Non-Af 139 BUN/Creatinine Ratio 15.8 Glucose 111 H Lactic Acid 2.4 H* Calcium 8.6 Total Bilirubin 4.10 H AST 42 H ALT 14 L Alkaline Phosphatase 179 H Troponin I High Sens 3 Total Protein 6.9 Albumin 2.5 L Globulin 4.4 H Albumin/Globulin Ratio 0.6 L Lipase 56 Urine Color Vera Urine Clarity Sl. Cloudy Urine pH 7.0 Ur Specific [place] 1.005 Urine Protein 15 H Urine Glucose (UA) Normal Urine Ketones 50 H Urine Occult Blood Negative Urine Nitrite Negative Urine Bilirubin 3 H Urine Urobilinogen 12 H Ur Leukocyte Esterase 25 H Urine RBC 0 SEEN Urine WBC 0 SEEN Ur Squamous Epith Cells 0 SEEN Urine Bacteria RARE Urine Mucus 0 SEEN Ethyl Alcohol < 3.0 Radiography Diagnostic Testing: Clinical Impression(s) from Imaging Studies Ankle X-Ray 08/05/24 14:10 IMPRESSION: Normal x-ray examination of the ankle. Electronically Signed: Lexx Lees MD at 14:27 EDT , Foot X-Ray 08/05/24 14:10 IMPRESSION: Normal x-ray examination of the foot. Electronically Signed: Lexx Lees MD at 14:28 EDT , Abdomen/Pelvis CT 08/05/24 15:18 IMPRESSION: No definite acute or significant abnormality seen. Electronically Signed: Lexx Lees MD at 16:36 EDT , Management Discussion w/another healthcare provider: Hospitalist (Dr. Abreu) Discharge Plan Dx/Rx/DC Orders Clinical Impression: Elevated liver enzymes, Lactic acidosis, Bilateral leg pain, Scleral icterus Disposition Disposition: Acute Care Hospital [facility]
--- NOTE | 2024-08-05 14:10 | RAD_ITS ---
STUDY: X-RAY - RIGHT FOOT CLINICAL: Male, 54 years old. Trauma TECHNIQUE: 3 view(s) of the foot. COMPARISON: None. FINDINGS: Normal talus, calcaneus, and tarsal bones. Normal visualized subtalar, talonavicular, calcaneocuboid, tarsal and tarsometatarsal articulations. Normal metatarsi. Normal metatarsophalangeal joint of the great toe. Normal tibial and fibular sesamoid bones. Normal interphalangeal joint of the great toe. Normal phalanges of the great toe. Normal second through fifth metatarsophalangeal joints. Normal interphalangeal joints and phalanges of the lesser toes. The soft tissue structures are unremarkable. There is no demonstrated fracture. RAD/Foot min 3 Views IMPRESSION: Normal x-ray examination of the foot. Electronically Signed: Lexx Lees MD at 14:28 EDT ,
--- NOTE | 2024-08-05 14:10 | RAD_ITS ---
STUDY: X-RAY - RIGHT ANKLE REASON FOR EXAM: Male, 54 years old. trauma TECHNIQUE: 3 view(s) of the ankle. COMPARISON: None. FINDINGS: Normal visualized distal tibia and fibula. Normal medial and lateral malleoli. Normal tibiotalar articulation and ankle mortise. Normal visualized talus and calcaneus. The visualized subtalar, talonavicular, calcaneocuboid and tarsal articulations are normal. There is no demonstrated fracture. The soft tissue structures are unremarkable. RAD/Ankle min 3 Views IMPRESSION: Normal x-ray examination of the ankle. Electronically Signed: Lexx Lees MD at 14:27 EDT ,
[2024-08-05 14:14] LABS: Absolute Lymphocyte Count 1.15 X10^3/uL (0.83-4.51); Absolute Neutrophil Count 7.8 X10^3/uL (2.0-7.7); Basophil# 0.08 X10^3/uL; Basophil% 0.8 % (0-1); Eosinophil# 0.01 X10^3/uL; Eosinophils% 0.1 % (0-5); Hemoglobin 9.5 g/dL (13.0-16.5); Lymphocyte # 1.15 X10^3/ul (0.83-4.51); Lymphocyte % 11.5 % (19-41); Mean Corp Hgb Conc 32.8 g/dL (32-36); Mean Corpuscular Hgb 35.2 pg (27.0-32.0); Mean Corpuscular Volume 107.4 fL (80-94); Mean Platelet Vol. 10.9 fl (6.2-12.0); Monocyte# 0.91 X10^3/uL; Monocyte% 9.1 % (0-10); NRBC Flagged by Analyzer 0 % (0-5); Neutrophil % 77.8 % (47-70); Platelet Count 201 K/mm3 (150-450); RBC Distribution Width CV 14.9 % (11.6-14.6); RBC Distribution Width SD 58.6 fl (35.1-43.9)
[2024-08-05 14:27] LABS: International Normalized Ratio 1.2
[2024-08-05 14:36] LABS: ALB/GLOB Ratio 0.6 RATIO (0.9-2.4); AST(SGOT) 42 U/L (15-37); Alanine Aminotransfer ALT/SGPT 14 U/L (16-61); Albumin, Serum 2.5 g/dL (3.2-5.0); Alkaline Phosphatase 179 U/L (45-117); Anion Gap 11 (5-15); BUN 10 mg/dL (7-18); BUN/Creat Ratio 15.8 RATIO (10-20); Calcium,Total 8.6 mg/dL (8.5-10.1); Chloride 96 mmol/L (98-107); Creatinine, Serum 0.63 mg/dL (0.70-1.30); EST Glomerular Filtration Rate 139 mL/min (>60); Est Glom Filt Rate - Afr Amer 169 mL/min (>60); Estimated Creatinine Clearance 119.55 ml/min; Globulin 4.4 g/dL (2.2-4.2); Glucose 111 mg/dL (74-106); Lipase 56 U/L (13-75); Potassium 3.3 mmol/L (3.5-5.1); Protein, Total 6.9 g/dL (6.4-8.2); Sodium Level 132 mmol/L (136-145); Troponin-I HS 3 pg/mL (3.0-78.0)
[2024-08-05 14:40] LABS: Partial Thromboplast Time 31.2 Seconds (24.1-36.2)
--- NOTE | 2024-08-05 14:54 | ED.RN ---
LACTIC 2.4. AWARE
[2024-08-05 14:55] LABS: Lactic Acid 2.4 mmol/L (0.4-1.9)
--- NOTE | 2024-08-05 15:18 | CT_ITS ---
EXAM: CT ABDOMEN AND PELVIS WITH INTRAVENOUS CONTRAST CLINICAL INDICATION: jaundice, nausea and vomiting TECHNIQUE: Helically acquired images were obtained of the abdomen and pelvis with intravenous contrast. This CT exam was performed using one or more of the following dose reduction techniques: automated exposure control, adjustment of the mA and/or kV according to patient size, and/or use of iterative reconstruction technique. CONTRAST: IV 100mL Isovue-370 RADIATION DOSE: CTDIvol = 9.44 mGy, DLP = 440.86 mGy-cm COMPARISON: No relevant prior studies available. FINDINGS: LOWER THORAX: Unremarkable. Lung bases are clear. No cardiomegaly. No significant pericardial effusion. ABDOMEN: LIVER: Unremarkable. Homogeneous. No focal mass. GALLBLADDER AND BILE DUCTS: No calcified gallstones. There is gallbladder distention. No wall thickening. No intra- or extrahepatic biliary ductal dilation. PANCREAS: Unremarkable. No focal cystic or solid mass. SPLEEN: Unremarkable. Normal size without focal cystic or solid mass. ADRENALS: Unremarkable. No nodules. KIDNEYS AND URETERS: Unremarkable. Normal renal size and position. No hydronephrosis. STOMACH AND BOWEL: Unremarkable. No stomach or bowel distention. No focal inflammatory change. PELVIS: APPENDIX: No evidence of acute appendicitis. BLADDER: Unremarkable. REPRODUCTIVE: Unremarkable as visualized. No mass. ABDOMEN and PELVIS: INTRAPERITONEAL SPACE: Unremarkable. No ascites or other fluid collection. No free air. BONES/JOINTS: Prominent degenerative changes of the thoracolumbar spine. Old compression fracture of T12. No suspicious lytic or blastic abnormality. SOFT TISSUES: Unremarkable. No discrete abdominal or pelvic wall hernia. VASCULATURE: Unremarkable. Abdominal aorta is non-dilated. LYMPH NODES: Unremarkable. No enlarged lymph nodes. CT/Abdomen/Pelvis W IV Cont ONLY IMPRESSION: No definite acute or significant abnormality seen. Electronically Signed: Lexx Lees MD at 16:36 EDT ,
[2024-08-05] MEDS: 0.9% Normal Saline (1000mL) 1,000 ML 999 ML IV ×3 (15:22→18:48)
--- NOTE | 2024-08-05 15:25 | VDLE_ITS ---
Reason For Study: BLE Pain RIGHT LEFT GSV is normal. GSV is normal. CFV is compressible, spontaneous, phasic, CFV is compressible, spontaneous, phasic, competent and demonstrates normal competent, and demonstrates normal augmentation. augmentation. FV is compressible, spontaneous, phasic, FV is compressible, spontaneous, phasic, competent and demonstrates normal competent and demonstrates normal augmentation. augmentation. POP V is compressible, spontaneous, phasic, POP V is compressible, spontaneous, phasic, competent and demonstrates normal competent and demonstrates normal augmentation. augmentation. T/P Trunk is compressible. T/P Trunk is compressible. PTV is compressible. PTV is compressible. RT PerV is compressible. LT PerV is compressible. Procedure This is a venous duplex using B-mode, color flow and spectral Doppler. Exam performed portable in ED. The exam was diagnostic. A preliminary report was called and/or faxed to Dr. Richardson. VL/Venous Duplex US - Nestor Extrem Interpretation Summary Deep veins of the lower extremities are bilaterally patent and compressible seg mentally. There is no evidence of deep vein thrombosis on either side. Valvular competence appears in tact within the proximal deep venous systems bilaterally. The great saphenous veins appear bila terally patent and compressible segmentally. Ordering Physician: Jona Richardson Referring Physician: N/A Performed By: Raul Ga RVT
[2024-08-05 16:39] LABS: Mucous, Urine 0 SEEN /hpf (<or=2+); Red Blood Cells-Urine 0 SEEN /hpf (0-5); Squamous Epithelial Cells - UA 0 SEEN /hpf (0-5); White Blood Cells 0 SEEN /hpf (0-5)
[2024-08-05 16:44] LABS: Color, Urine Amber (Yellow); Glucose, Dipstick Normal (Normal); Ketone-Dipstick 50 mg/dl (Negative); Leukocyte Esterase-Dipstick 25 /ul (Negative); Nitrite-Dipstick Negative (Negative); Occult Blood-Urine Negative /ul (Negative); Protein-Dipstick 15 mg/dl (Negative); Specific Gravity, Urine 1.005 (1.002-1.030); Urine Clarity Sl. Cloudy (Clear); Urine Urobilinogen 12 mg/dl (Normal)
[2024-08-05 17:05] LABS: Urine Bilirubin Dipstick 3 mg/dL (Negative)
[2024-08-05 17:06] LABS: Bacteria RARE /hpf (None Seen)
--- NOTE | 2024-08-05 17:51 | CT_ITS ---
STUDY: CT LEFT LOWER EXTREMITY WITHOUT CONTRAST REASON FOR EXAM: Male, 54 years old. BRUISING -- LEFT RADIATION DOSAGE (If Supplied By Facility): CTDIvol = ( 15.35 ) mGy, DLP = ( 1570.34 ) mGycm TECHNIQUE: Transaxial CT imaging of the femur was performed. Sagittal and coronal images were reconstructed. Individualized dose optimization techniques were used for this CT. COMPARISON: None. FINDINGS: Normal visualized femur. Normal tibia and fibula. Normal musculature. There is swelling and subcutaneous edema of the lower leg. There are atherosclerotic calcifications. CT/Extremity Lower without Contra IMPRESSION: Soft tissue swelling. No abscess or fluid collection. Electronically Signed: Genaro Hawk MD at 20:16 EDT ,
--- NOTE | 2024-08-05 17:54 | PCM.HP.STD ---
HPI - General General Date of Admission: 08/05/24 Date of Service: 08/05/24 Chief Complaint: Both lower leg swelling and bruise and pain HPI Narrative JACKIE MANE, is a 54 M was brought to ED for bilateral lower extremity bruising and swelling that was noticed yesterday by his girlfriend, present in the ED. Patient drinks beer 6-8 every day but has not drunken for last 2 to 3 days. He had a lawnmower fell on his right foot about 3 weeks ago and right foot was swollen and pain but did not seek medical help. Yesterday, bruising the right thigh was noticed by his girlfriend and then she noticed it is in both right and left thighs and right and left foot and ankle. Although he has pain and swelling in bilateral ankle and feet right worse than left, thigh bruises are not tender. Besides that he did not had fall or other injury. Denies any fever or chill, headache. Patient also complained of dry heaving, acid reflux in the morning when he wakes up but that is his chronic problem In ED, blood pressure was low 91/68, heart rate 120/min and at 1 L of normal saline bolus improved to 101/64. He is on second normal saline IV bolus. Labs and imaging reviewed and discussed assessment and plan. [facility] Medical History Drinking problem Seizure disorder Home Medications ?Medication ?Instructions ?Recorded ?Last Taken ?Type levetiracetam 750 mg tablet 750 mg PO BID 01/09/18 Unknown History (Ke) Allergy/AdvReac Type Severity Reaction Status Date / Time No Known Allergies Allergy Verified 08/05/24 12:21 Social History Smoking Status: Never smoker ROS ROS Narrative Constitutional: As described in HPI. No fever. HEENT: Reports systems reviewed and no addt'l complaints, except as documented Respiratory/Chest: No acute shortness of breath or respiratory distress or wheezing. CVS: No chest pain or acute shortness of breath. Denies CAD Gastrointestinal: Chronic acid reflux and dry heaving. Denies GI bleed Genitourinary: Had BM yesterday. Denies burning urination or new urinary tract symptoms Musculoskeletal: Denies acute joint pain or limited range of motion. No acute injury Neurologic: Denies acute seizure-like symptoms. On Keppra for seizure last year. skin: Subcutaneous bruise as described in HPI. Endocrinology: Reports systems reviewed and no addt'l complaints, except as documented Hematologic/Lymphatic: Reports systems reviewed and no addt'l complaints, except as documented Rest 14 ROS are negative except as mentioned in HPI Vital Signs Vital Signs Vital Signs: 08/05/24 12:21 08/05/24 13:14 08/05/24 13:20 Temperature 97.7 F L Temperature Source Oral Pulse Rate 121 H 90 Respiratory Rate 16 18 Respiratory Pattern Normal Blood Pressure 91/68 94/63 Blood Pressure Mean 75 73 Pulse Ox 100 99 Oxygen Delivery Method Room Air Room Air 08/05/24 14:00 08/05/24 15:00 08/05/24 16:00 Temperature Temperature Source Pulse Rate 85 90 Respiratory Rate 15 17 Respiratory Pattern Blood Pressure 105/62 97/65 101/64 Blood Pressure Mean 77 76 75 Pulse Ox 99 99 100 Oxygen Delivery Method 08/05/24 17:00 Temperature Temperature Source Pulse Rate 85 Respiratory Rate 13 Respiratory Pattern Blood Pressure Blood Pressure Mean Pulse Ox 99 Oxygen Delivery Method Weight Weight: 145 lb Body Mass Index (BMI) 23.3 Physical Exam Narrative General: Alert, Oriented x3, Cooperative HEENT: Scleral icterus present. Atraumatic, PERRLA, EOMI, Normocephalic Oral: Oral mucosa dry. No Gingival or Mucosal Lesions/ Ulcerations Neck: Supple, No JVD, Negative Carotid Bruits Chest wall/Lungs: Air entry diminished in bilateral lung bases. No crepitation/rhonchi Cardiovascular: Sinus rhythm, Normal S1, Normal S2, No M/G/R Abdomen: Bowel Sounds Present, Soft, Non Tender, Non-Distended : No dysuria. No renal angle tenderness. No suprapubic tenderness. No scrotal/perineal tenderness, swelling or discoloration or open ulcer. Extremities: Mild bilateral right more than left ankle inflammatory edema, Capillary Refill Less than 3 Seconds Skin: Swelling, tenderness and redness in bilateral ankle right more than left. Bilateral thigh bruise/bluish discoloration. Musculoskeletal: No Tenderness to Palpation of Joints or Extremities Neurological: Cranial nerves II-XII grossly intact, DTR 2+/4. No acute focal neurological deficit. Psych/Mental Status: Normal Affect, Appropriate. Results Lab / Micro Data 08/05/24 13:05 08/05/24 13:05 Labs: Laboratory Results - last 24 hr 08/05/24 13:05: WBC 10.0, RBC 2.70 L, Hgb 9.5 L, Hct 29.0 L, MCV 107.4 H, MCH 35.2 H, MCHC 32.8, RDW Std Deviation 58.6 H, RDW Coeff of Kenneth 14.9 H, Plt Count 201, MPV 10.9, Immature Gran % (Auto) 0.700, Neut % (Auto) 77.8 H, Lymph % (Auto) 11.5 L, Lasalle % (Auto) 9.1, Eos % (Auto) 0.1, Baso % (Auto) 0.8, Absolute Neuts (auto) 7.8 H, Absolute Lymphs (auto) 1.15, Nucleated RBC % 0, PT 15.0 H, INR 1.2, APTT 31.2, Sodium 132 L, Potassium 3.3 L, Chloride 96 L, Carbon Dioxide 26.0, Anion Gap 11, BUN 10, Creatinine 0.63 L, Estim Creat Clear Calc 119.55, Est GFR (MDRD) Af Amer 169, Est GFR (MDRD) Non-Af 139, BUN/Creatinine Ratio 15.8, Glucose 111 H, Lactic Acid 2.4 H*, Calcium 8.6, Total Bilirubin 4.10 H, AST 42 H, ALT 14 L, Alkaline Phosphatase 179 H, Troponin I High Sens 3, Total Protein 6.9, Albumin 2.5 L, Globulin 4.4 H, Albumin/Globulin Ratio 0.6 L, Lipase 56 08/05/24 16:35: Urine Color Vera, Urine Clarity Sl. Cloudy, Urine pH 7.0, Ur Specific [place] 1.005, Urine Protein 15 H, Urine Glucose (UA) Normal, Urine Ketones 50 H, Urine Occult Blood Negative, Urine Nitrite Negative, Urine Bilirubin 3 H, Urine Urobilinogen 12 H, Ur Leukocyte Esterase 25 H, Urine RBC 0 SEEN, Urine WBC 0 SEEN, Ur Squamous Epith Cells 0 SEEN, Urine Bacteria RARE, Urine Mucus 0 SEEN Imaging Radiology Impression Ankle X-Ray 08/05/24 14:10 IMPRESSION: Normal x-ray examination of the ankle. Electronically Signed: Lexx Lees MD at 14:27 EDT , Foot X-Ray 08/05/24 14:10 IMPRESSION: Normal x-ray examination of the foot. Electronically Signed: Lexx Lees MD at 14:28 EDT , Abdomen/Pelvis CT 08/05/24 15:18 IMPRESSION: No definite acute or significant abnormality seen. Electronically Signed: Lexx Lees MD at 16:36 EDT , Assessment & Plan Assessment/Plan (1) Cellulitis: QUALIFIERS: Site of cellulitis: extremity Site of cellulitis of extremity: lower extremity Laterality: unspecified laterality Qualified Code(s): L03.119 - Cellulitis of unspecified part of limb PLAN: Plan 54-year-old came to ED after noticed bruise on the bilateral thigh yesterday and right ankle swelling and pain more than left ankle for 3 weeks. 1. High suspicion of cellulitis right ankle/feet more than left after lawnmower injury: Patient is being admitted in PCU. His baseline blood pressure is about systolic in 120s. His MAP did not drop less than 65 mmHg therefore does not meet criteria for sepsis even though lactic acid elevated which I think might be elevated because of dehydration along with drinking alcohol/ketoacidosis. Second liter of IV fluid bolus normal saline going on and then normal saline +40 mEq IV KCl at 100 mL/h for 1 more liter. Started on broad-spectrum IV antibiotic vancomycin and ceftriaxone. Imaging done in the ED reviewed and does not show acute or significant abnormality. CT bilateral lower extremities without contrast and venous duplex bilateral lower extremities ordered as patient just had contrast for abdomen/pelvis CT. 2. Chronic alcohol use with chronic alcoholic hepatitis: Lactic acid elevated 2.4, total bilirubin 4.1. AST more than ALT 2: 1 ratio. Alkaline phosphatase elevated. Lipase normal. Serum alcohol and GGT ordered. CIWA for next 24 hours. Patient was last admitted in September 2020 for acute alcohol withdrawal syndrome. 3. Possible alcoholic gastritis with GERD: Pantoprazole 40 mg once daily in the morning ordered 4. Electrolyte abnormality: Hyponatremia, hypokalemia: Patient on IV fluid normal saline. Potassium getting replaced. Serum magnesium and phosphorus ordered. 5. Mild acute or chronic macrocytic anemia: Last H&H 13.3/39% in September 2020 about 4 years ago. Most recent 9.5/29% therefore unclear about acuity of anemia. Platelet count 201,000. Stool for occult blood, anemia workup including serum vitamin B12 and folic acid ordered DVT prophylaxis: High risk of bleeding due to bilateral thigh bruise and mild anemia. Patient also her high risk for DVT. Venous duplex ordered. Lovenox 40 mg subcu daily with holding parameters ordered Laboratory Results 08/05/24 13:05: WBC 10.0, RBC 2.70 L, Hgb 9.5 L, Hct 29.0 L, MCV 107.4 H, MCH 35.2 H, MCHC 32.8, RDW Std Deviation 58.6 H, RDW Coeff of Kenneth 14.9 H, Plt Count 201, MPV 10.9, Immature Gran % (Auto) 0.700, Neut % (Auto) 77.8 H, Lymph % (Auto) 11.5 L, Lasalle % (Auto) 9.1, Eos % (Auto) 0.1, Baso % (Auto) 0.8, Absolute Neuts (auto) 7.8 H, Absolute Lymphs (auto) 1.15, Nucleated RBC % 0, PT 15.0 H, INR 1.2, APTT 31.2, Sodium 132 L, Potassium 3.3 L, Chloride 96 L, Carbon Dioxide 26.0, Anion Gap 11, BUN 10, Creatinine 0.63 L, Estim Creat Clear Calc 119.55, Est GFR (MDRD) Af Amer 169, Est GFR (MDRD) Non-Af 139, BUN/Creatinine Ratio 15.8, Glucose 111 H, Lactic Acid 2.4 H*, Calcium 8.6, Total Bilirubin 4.10 H, AST 42 H, ALT 14 L, Alkaline Phosphatase 179 H, Troponin I High Sens 3, Total Protein 6.9, Albumin 2.5 L, Globulin 4.4 H, Albumin/Globulin Ratio 0.6 L, Lipase 56 08/05/24 16:35: Urine Color Vera, Urine Clarity Sl. Cloudy, Urine pH 7.0, Ur Specific Latham 1.005, Urine Protein 15 H, Urine Glucose (UA) Normal, Urine Ketones 50 H, Urine Occult Blood Negative, Urine Nitrite Negative, Urine Bilirubin 3 H, Urine Urobilinogen 12 H, Ur Leukocyte Esterase 25 H, Urine RBC 0 SEEN, Urine WBC 0 SEEN, Ur Squamous Epith Cells 0 SEEN, Urine Bacteria RARE, Urine Mucus 0 SEEN 08/05/24 17:40: GGT Pending, Ethyl Alcohol Pending Clinical Impression(s) from Imaging Studies Ankle X-Ray 08/05/24 14:10 IMPRESSION: Normal x-ray examination of the ankle. Foot X-Ray 08/05/24 14:10 IMPRESSION: Normal x-ray examination of the foot. Abdomen/Pelvis CT 08/05/24 15:18 IMPRESSION: No definite acute or significant abnormality seen. Electronically Signed: Lexx eLes MD at 16:36 EDT , Charges/Coding Visit Charges Inpatient E&M: 46642 Init Hosp L3 Procedures Hospitalists Procedures: 74607 Advncd Care Plan 30 Min
--- NOTE | 2024-08-05 17:58 | CT_ITS ---
STUDY: CT RIGHT LOWER EXTREMITY WITHOUT CONTRAST REASON FOR EXAM: Male, 54 years old. BRUISING -- RIGHT RADIATION DOSAGE (If Supplied By Facility): CTDIvol = ( 15.35 ) mGy, DLP = ( 1545.01 ) mGycm TECHNIQUE: Transaxial CT imaging of the lower extremity was performed. Sagittal and coronal images were reconstructed. Individualized dose optimization techniques were used for this CT. COMPARISON: None. FINDINGS: Normal visualized femur. Normal tibia and fibula. Normal visualized ankle. There is accessory navicular. Normal musculature. There are atherosclerotic calcifications. There is subcutaneous edema of the medial aspect of the lower leg. CT/Extremity Lower without Contra IMPRESSION: Soft tissue swelling. No abscess or fluid collection. Electronically Signed: Genaro Hawk MD at 20:19 EDT ,
[2024-08-05 18:10] LABS: Reflex Lactate? Y
[2024-08-05 18:10] LABS: Alcohol, Blood (Medical)-Serum < 3.0 mg/dL
--- NOTE | 2024-08-05 18:20 | US_ITS ---
INDICATION: bilateral swelling EXAMINATION: Ultrasound US Venous Duplex LE Bilat Complete TECHNIQUE: Brunson scale, pulse wave, and color flow Doppler imaging was performed of the lower extremity venous system. The bilateral greater saphenous, common femoral, femoral, and popliteal veins were interrogated. COMPARISON: None. FINDINGS: There is normal compression, augmentation, and signal throughout the visualized deep lower extremity veins. No mass or fluid collection. US/Venous Duplex Imag/Nestor Extrem IMPRESSION: No sonographic evidence of deep venous thrombosis. Electronically Signed: Sal Massey MD at 20:50 EDT ,
[2024-08-05 18:47] LABS: Platelet Count 205 K/mm3 (150-450); RET-HE 37.3 pg (30-35); Reticulocyte Count 10.07 % (0.5-1.5)
[2024-08-05] MEDS: Ceftriaxone 1 GM/50 ML BAG IV (18:48)
[2024-08-05 18:55] LABS: Bilirubin, Direct 2.07 mg/dL (0.00-0.30); CPK Total, Creatine Kinase 14 U/L (39-308); Magnesium 1.9 mg/dL (1.6-2.6); Phosphorus 2.7 mg/dL (2.5-4.9)
[2024-08-05 18:58] LABS: Ferritin 177 ng/mL (26-388); Iron 65 ug/dL (65-175); Iron Binding Capacity,Total 206 ug/dL (250-450); PERCENT IRON SATURATION 31.6 % (15.0-55.0)
[2024-08-05 19:23] LABS: Lactic Acid 1.5 mmol/L (0.4-1.9)
[2024-08-05] MEDS: Vancomycin IV 1,000 MG/200 ML BAG 200 MG IV (21:07)
--- NOTE | 2024-08-05 22:15 | PCM.RX.CS ---
Consult Antibiotic Management Pharmacy has been consulted to manage selected antibiotic: Vancomycin Type of Intervention Type of Consult: New start Suspected Infection Suspected Infection: Skin/Soft tissue Labs Labs: Sodium 132 mmol/L (136-145) L 08/05/24 13:05 Potassium 3.3 mmol/L (3.5-5.1) L 08/05/24 13:05 Chloride 96 mmol/L (98-107) L 08/05/24 13:05 Carbon Dioxide 26.0 mmol/L (21.0-32.0) 08/05/24 13:05 Anion Gap 11 (5-15) 08/05/24 13:05 BUN 10 mg/dL (7-18) 08/05/24 13:05 Creatinine 0.63 mg/dL (0.70-1.30) L 08/05/24 13:05 Est GFR (MDRD) Af Amer 169 mL/min (>60) 08/05/24 13:05 Est GFR (MDRD) Non-Af 139 mL/min (>60) 08/05/24 13:05 BUN/Creatinine Ratio 15.8 RATIO (10-20) 08/05/24 13:05 Glucose 111 mg/dL (74-106) H 08/05/24 13:05 Dosing Weight Weight used for dosin.5 kg Estimated Creatinine Clearance Estimated Creatinine Clearance: 119 Goal Trough Goal Trough: 15-20 mcg/mL Pharmacy Plan for Drug Dosing Pharmacy Plan for Drug Dosing: Pharmacy Service will continue to monitor and adjust dosing as required. Follow-Up Labs Follow-Up Labs: Trough: Vancomycin Date/Time Labs Ordered Labs to be done on [date and time ordered]: 08/06/24 @2030
[2024-08-05] MEDS: levETIRAcetam 750 MG Tablet PO (22:38)
[2024-08-05] MEDS: Pantoprazole Sodium 40 MG in 0.9% Normal Saline (100mL MB+) 100 ML 330 MG IV (22:39)
[2024-08-05] MEDS: levETIRAcetam 750 MG Tablet 1500 MG PO (22:45)
[2024-08-05] MEDS: Acetaminophen 325 MG Tablet 650 MG PO (22:46)
[2024-08-06] MEDS: Potassium Chloride 10mEq/100mL 10 MEQ/100 ML IV.SOLN. 100 MEQ IV BOLUS ×4 (00:30→03:22)
[2024-08-06] MEDS: Potassium Chloride 40 MEQ in 0.9% Normal Saline (1000mL) 1,000 ML 100 ML IV (01:17)
[2024-08-06 02:00] VITALS: BP 132/74; PULSE 89; RESP 16; TEMP 36.9; O2SAT 99
[2024-08-06] MEDS: Enoxaparin 40 MG/0.4 ML Syringe SC (05:12)
[2024-08-06] MEDS: Vancomycin HCl 750 MG in 0.9% Normal Saline (250mL Bag) 250 ML 250 MG IV ×3 (05:12→21:30)
[2024-08-06 06:50] LABS: Absolute Neutrophil Count 4.6 X10^3/uL (2.0-7.7); Basophil# 0.05 X10^3/uL; Basophil% 0.8 % (0-1); Eosinophil# 0.05 X10^3/uL; Eosinophils% 0.8 % (0-5); Hematocrit 26.4 % (40-54); Lymphocyte % 17.5 % (19-41); Mean Corp Hgb Conc 30.3 g/dL (32-36); Mean Corpuscular Hgb 35.6 pg (27.0-32.0); Mean Corpuscular Volume 117.3 fL (80-94); Mean Platelet Vol. 10.5 fl (6.2-12.0); Monocyte# 0.48 X10^3/uL; Monocyte% 7.7 % (0-10); NRBC Flagged by Analyzer 0 % (0-5); Neutrophil # 4.55 X10^3/uL (2.7-7.7); Neutrophil % 72.6 % (47-70); Platelet Count 191 K/mm3 (150-450); RBC Distribution Width CV 15.1 % (11.6-14.6); RBC Distribution Width SD 64.7 fl (35.1-43.9); Red Blood Count 2.25 M/mm3 (4.6-6.2); White Blood Count 6.3 K/mm3 (4.4-11.0)
[2024-08-06 07:19] LABS: ALB/GLOB Ratio 0.5 RATIO (0.9-2.4); AST(SGOT) 39 U/L (15-37); Alanine Aminotransfer ALT/SGPT 10 U/L (16-61); Alkaline Phosphatase 144 U/L (45-117); Anion Gap 7 (5-15); BUN 6 mg/dL (7-18); BUN/Creat Ratio 13.1 RATIO (10-20); Bilirubin, Direct 1.57 mg/dL (0.00-0.30); Calcium,Total 7.4 mg/dL (8.5-10.1); Chloride 107 mmol/L (98-107); Creatinine, Serum 0.46 mg/dL (0.70-1.30); EST Glomerular Filtration Rate 202 mL/min (>60); Est Glom Filt Rate - Afr Amer 245 mL/min (>60); Estimated Creatinine Clearance 163.74 ml/min; Globulin 3.7 g/dL (2.2-4.2); Glucose 85 mg/dL (74-106); Protein, Total 5.7 g/dL (6.4-8.2); Sodium Level 133 mmol/L (136-145)
[2024-08-06 07:30] VITALS: O2SAT 94
[2024-08-06 08:00] VITALS: BP 126/66; PULSE 89; RESP 15; TEMP 36.6; O2SAT 100
[2024-08-06 08:30] VITALS: BP 126/66; PULSE 89; RESP 16; TEMP 36.6; O2SAT 100
--- NOTE | 2024-08-06 09:25 | PCM.PN.HOSP ---
Reason for Visit Reason for Visit: Diagnoses Cellulitis of unspecified part of limb (08/05/24) Objective Data Objective Data Vital Signs: Vital Signs Temp Pulse Resp BP Pulse Ox O2 Del Method 97.9 F 89 16 126/66 H 100 Room Air 08/06/24 08:30 08/06/24 08:30 08/06/24 08:30 08/06/24 08:30 08/06/24 08:30 08/06/24 08:30 Oxygen Delivery Method Room Air Weight: 68.5 kg Body Mass Index (BMI) 24.3 Intake & Output: Intake and Output for Last 24 Hours 08/04/24 08/05/24 08/06/24 23:59 23:59 23:59 Intake Total 2049 Balance 2049 Lab / Micro Data 08/06/24 05:58 08/06/24 05:58 Labs: Laboratory Results - last 24 hr 08/05/24 13:05: WBC 10.0, RBC 2.70 L, Hgb 9.5 L, Hct 29.0 L, MCV 107.4 H, MCH 35.2 H, MCHC 32.8, RDW Std Deviation 58.6 H, RDW Coeff of Kenneth 14.9 H, Plt Count 201, MPV 10.9, Immature Gran % (Auto) 0.700, Neut % (Auto) 77.8 H, Lymph % (Auto) 11.5 L, Eaton % (Auto) 9.1, Eos % (Auto) 0.1, Baso % (Auto) 0.8, Absolute Neuts (auto) 7.8 H, Absolute Lymphs (auto) 1.15, Nucleated RBC % 0, Retic Count 10.07 H, Immature Retic Fraction 29.80 H, Retic Hgb Equivalent 37.3 H, PT 15.0 H, INR 1.2, APTT 31.2, Sodium 132 L, Potassium 3.3 L, Chloride 96 L, Carbon Dioxide 26.0, Anion Gap 11, BUN 10, Creatinine 0.63 L, Estim Creat Clear Calc 119.55, Est GFR (MDRD) Af Amer 169, Est GFR (MDRD) Non-Af 139, BUN/Creatinine Ratio 15.8, Glucose 111 H, Lactic Acid 2.4 H*, Calcium 8.6, Phosphorus 2.7, Magnesium 1.9, Iron 65, TIBC 206 L, Iron Saturation 31.6, Ferritin 177, Total Bilirubin 4.10 H, Direct Bilirubin 2.07 H, AST 42 H, ALT 14 L, Alkaline Phosphatase 179 H, Total Creatine Kinase 14 L, Troponin I High Sens 3, Total Protein 6.9, Albumin 2.5 L, Globulin 4.4 H, Albumin/Globulin Ratio 0.6 L, Lipase 56, Folate 2.40 L 08/05/24 16:35: Urine Color Vera, Urine Clarity Sl. Cloudy, Urine pH 7.0, Ur Specific [place] 1.005, Urine Protein 15 H, Urine Glucose (UA) Normal, Urine Ketones 50 H, Urine Occult Blood Negative, Urine Nitrite Negative, Urine Bilirubin 3 H, Urine Urobilinogen 12 H, Ur Leukocyte Esterase 25 H, Urine RBC 0 SEEN, Urine WBC 0 SEEN, Ur Squamous Epith Cells 0 SEEN, Urine Bacteria RARE, Urine Mucus 0 SEEN 08/05/24 17:40: Ethyl Alcohol < 3.0 08/05/24 18:50: Lactic Acid 1.5 08/06/24 05:58: WBC 6.3, RBC 2.25 L, Hgb 8.0 L, Hct 26.4 L, MCV 117.3 H D, MCH 35.6 H, MCHC 30.3 L D, RDW Std Deviation 64.7 H, RDW Coeff of Kenneth 15.1 H, Plt Count 191, MPV 10.5, Immature Gran % (Auto) 0.600, Neut % (Auto) 72.6 H, Lymph % (Auto) 17.5 L, Eaton % (Auto) 7.7, Eos % (Auto) 0.8, Baso % (Auto) 0.8, Absolute Neuts (auto) 4.6, Absolute Lymphs (auto) 1.10, Nucleated RBC % 0, Sodium 133 L, Potassium 4.0, Chloride 107, Carbon Dioxide 19.0 L, Anion Gap 7, BUN 6 L, Creatinine 0.46 L, Estim Creat Clear Calc 163.74, Est GFR (MDRD) Af Amer 245, Est GFR (MDRD) Non-Af 202, BUN/Creatinine Ratio 13.1, Glucose 85, Calcium 7.4 L, Total Bilirubin 2.90 H, Direct Bilirubin 1.57 H, AST 39 H, ALT 10 L, Alkaline Phosphatase 144 H, Total Protein 5.7 L, Albumin 2.0 L, Globulin 3.7, Albumin/Globulin Ratio 0.5 L Radiography Diagnostic Testing: Radiology Impression Ankle X-Ray 08/05/24 14:10 IMPRESSION: Normal x-ray examination of the ankle. Electronically Signed: Lexx Lees MD at 14:27 EDT Reading Location ID and State: [facility] / [place] , Service support , Foot X-Ray 08/05/24 14:10 IMPRESSION: Normal x-ray examination of the foot. Electronically Signed: Lexx Lees MD at 14:28 EDT , Abdomen/Pelvis CT 08/05/24 15:18 IMPRESSION: No definite acute or significant abnormality seen. Electronically Signed: Lexx Lees MD at 16:36 EDT , Venous Doppler Study 08/05/24 15:25 Interpretation Summary Deep veins of the lower extremities are bilaterally patent and compressible segmentally. There is no evidence of deep vein thrombosis on either side. Valvular competence appears intact within the proximal deep venous systems bilaterally. The great saphenous veins appear bilaterally patent and compressible segmentally. Ordering Physician: Jona Richardson Referring Physician: N/A Performed By: Raul Ga, RVT Lower Extremity CT 08/05/24 17:51 IMPRESSION: Soft tissue swelling. No abscess or fluid collection. Electronically Signed: Genaro Hawk MD at 20:16 EDT , ADDENDUM: 08/05/242023 IMPRESSION: undefined Lower Extremity CT 08/05/24 17:58 IMPRESSION: Soft tissue swelling. No abscess or fluid collection. Electronically Signed: Genaro Hawk MD at 20:19 EDT , Venous Duplex 08/05/24 18:20 IMPRESSION: No sonographic evidence of deep venous thrombosis. Electronically Signed: Sal Massey MD at 20:50 EDT , Physical Exam Narrative GENERAL: cooperative HEENT: Atraumatic; normocephalic EYES; Anicteric, Normal Conjunctiva NECK; supple, normal thyroid, RESPIRATORY: Diminished to auscultation CARDIOVASCULAR: Regular S1 S2, GI: soft, normoactive bowel sounds, : No Renal angle tenderness; EXTREMITIES: Extensive bruising involving the posterior aspect of both legs with a scaly area involving the right ankle MUSCULOSKELETAL: no muscle wasting NEURO: Awake; no lateralizing signs. SKIN: As discussed above PSYCH; Flat affect Assessment & Plan Assessment/Plan (1) Cellulitis: QUALIFIERS: Laterality: unspecified laterality Site of cellulitis: extremity Site of cellulitis of extremity: lower extremity Qualified Code(s): L03.119 - Cellulitis of unspecified part of limb PLAN: Plan Patient is a 54-year-old gentleman who presented to the emergency department with bruising involving both thighs as well as right ankle swelling and pain of 3 weeks duration 1. Cellulitis involving the right ankle following lawnmower injury ? Patient admitted to the regular nursing floor treatment initiated per protocol with broad-spectrum antibiotic therapy. Venous duplex ordered to rule out DVT 2. Extensive bruising ? Etiology not clear. Patient denies any recent trauma do suspect underlying bleeding disorder including possible functional platelet disorder. Ordered PT PTT fibrinogen as well as FDP consult was placed to heme-onc Case discussed with Dr. Rios 2. Chronic alcohol dependence with chronic alcoholic hepatitis ? Patient was found to have abnormal LFTs on admission. Admitted to monitored bed CIIA protocol initiated 3. Possible gastritis ? Patient is on PPI continue 4. Anemia ? Secondary to chronic disorder monitoring H&H and transfuse if patient becomes symptomatic or hemoglobin falls below 7. Patient had microcytosis ordered B12 levels, iron studies as well as stool guaiac 5. Hyponatremia ? Secondary to beer potomania, monitoring sodium levels 6. Hypokalemia ? Corrected per protocol 7. Seizure disorder ? Patient is on Keppra 8. DVT prophylaxis ?Patient was started on Lovenox for DVT prophylaxis however with significant drop in hemoglobin level Lovenox discontinued Time spent in the patient's overall evaluation,decision-making process, review of diagnostic data, adjustment of management, discussion with other providers, nursing nursing and ancillary staff involved in patient's care documentation, 50 Minutes Charges/Coding Visit Charges Inpatient E&M: 62371 Init Hosp L3
[2024-08-06] MEDS: levETIRAcetam 750 MG Tablet 1500 MG PO ×2 (09:49→20:18)
[2024-08-06] MEDS: Pantoprazole Sodium 40 MG Tablet PO (09:49)
[2024-08-06 10:32] LABS: International Normalized Ratio 1.3; Prothrombin Time (Protime)PT. 16.5 SECONDS (11.7-14.9)
[2024-08-06 10:33] LABS: Fibrinogen 241 mg/dl (203-444); Partial Thromboplast Time 40.7 Seconds (24.1-36.2)
[2024-08-06] MEDS: Ceftriaxone 1 GM/50 ML BAG IV (11:29)
--- NOTE | 2024-08-06 12:00 | CASEMGMT ---
CHEMA LARA Assessment: Face to Face with pt for initial transition planning/care coordination assessment. CHEMA LARA introduced self and role at [facility], pt voices understanding and consents to assessment. Pt is A&O x4 and answers all questions appropriately at this time. Pt lying in bed in no distress. Care providers, pharmacy, and demographics verified/updated. Admitting Dx: cellulitis with low BP Strata Score: 1 PCP:[facility], provided pt with a local healthcare directory pamphlet. Pt states his sig other will work on this. Specialists:Denies Preferred Pharmacy:[facility] Insurance: [facility] Prescription Benefit: yes LNOK: Jama Starr, sig other Living Arrangements: Pt lives with sig other in a mobile home with 2 steps to enter with a rail. Pt reports he is I in ADLs and denies concerns at home. Transportation: Pt reports he does not drive due to epilepsy. Pt sig other transports him. DME:Denies HHC/SNF: Denies hx of Pt states no concerns with going home at time of dc. Pt reports drinking 6-8 alcoholic beverages several times a week. Pt denies any need for resources for cessation. Pt denies having any open wounds with his cellulitis. Pt states no further concerns/needs. CM to follow. Advised pt to ask CM if any further question/concerns/needs arise, voices understanding. Pt Goal: Home Plan: Home [place] CM
[2024-08-06] MEDS: 0.9% Saline Lock 10 ML Syringe IV (12:11)
[2024-08-06 14:30] VITALS: BP 112/71; PULSE 86; RESP 16; TEMP 36.6; O2SAT 97
--- NOTE | 2024-08-06 17:42 | ONC.CONSULT ---
Assessment & Plan Assessment/Plan (1) Bruising: Status: Acute Code(s): T14.8XXA - Other injury of unspecified body region, initial encounter Plan: Prolongation of PT/PTT likely r/t hepatic dysfunction and nutritional deficiencies secondary to ETOH abuse-mainly vitamin K, and possibly exacerbated by current infection (unlikely DIC as creatinine, fibrinogen and platelets are WNL) . ? (2) Anemia, macrocytic, nutritional: Status: Acute Code(s): D52.0 - Dietary folate deficiency anemia Plan: Hgb 8. Patient has been supported with IV hydration, which can explain the drop in Hgb since admission. Elevated retic count, macrocytosis also secondary to alcoholic cirrhosis.?No evidence of iron deficiency, B12 pending. FOB negative. Folate low, may consider folic acid 1000 mcg daily. Transfusion threshold < 7 g/dL. Patient encouraged to follow up with [facility] after discharge to monitor anemia. Case discussed with Dr. Rios who was in agreement with the aforementioned plan. HPI Consult Data Date of Service:: 08/07/24 PCP / Referring Provider: No Primary Care Phys Attending: Dr. Roverto Colindres MD Chief Complaint Chief Complaint: Bruising History of Present Illness History of Present Illness: Mr. Head is a 54 year old gentleman with a PMH for seizure disorder (on Keppra) and ETOH use-chronic alcoholic hepatitis who presented to [facility] ED on 08/05/24 with c/o generalized fatigue and weakness. On examination he was noted to have BLE edema and bruising. Patient shared he had an accident with a lawnmower approx 3 weeks ago which resulted in right foot edema and pain, later noticed bruising of BLE. Found to be hypotensive and tachycardic. Labs revealed electrolyte derangements, macrocytic anemia. CT A/P with IV contrast performed 08/05/24 did not identify any acute abnormality, liver reportedly unremarkable without focal mass. He was subsequently admitted for presumed cellulitis of right ankle, cultures pending and started on broad spectrum atb. Mr. Head underwent a CT RLE on 08/05/24 which showed soft tissue swelling, no abscess and BLE venous duplex performed 08/05/24 showed no evidence of DVT. Advanced Directives Power of Agriculture Worker: No Living Will: No [facility] Medical History (Updated 08/06/24 @ 18:46 by Yulia Genet LEAD PRESS OPERATOR, LEAD PRESS OPERATOR-C) Bruising Anemia, macrocytic, nutritional Non-smoker Drinking problem Seizure disorder Home Medications ?Medication ?Instructions ?Recorded ?Last Taken ?Type levetiracetam 750 mg tablet 1,500 mg PO BID seizures 01/09/18 Unknown History ([place]) Allergy/AdvReac Type Severity Reaction Status Date / Time No Known Allergies Allergy Verified 08/05/24 12:21 Social History Smoking Status: Never smoker ROS Constitutional Constitutional: Reports fatigue, weight loss and other Details: nutrition poor ; Denies fever(s), frequent falls or headache(s) Eyes Eyes: Denies change in vision Cardiovascular Cardiovascular: Reports fatigue; Denies chest pain, dizziness or palpitations Respiratory/Chest Respiratory/Chest: Denies cough, dyspnea on exertion or hemoptysis Gastrointestinal Gastrointestinal: Denies abdominal pain, constipation, diarrhea, dysphagia or early satiety Integumentary Integumentary: Denies lesions or rash Neurologic Neurologic: Denies dizziness, focal weakness, headache(s), numbness or paresthesias Psychiatric Psychiatric: Denies anxiety or depression Hematologic/Lymphatic Hematologic/Lymphatic: Reports easy bleeding and easy bruising; Denies lymphadenopathy Physical Exam Const alert and oriented x3 General Appearance: cooperative HEENT normocephalic Mouth: oral and palatal mucosa normal and No lesions Eyes Sclera: sclera abnormal Positive for bilateral Details: other (icteric ) Neck no lymphadenopathy and supple Resp normal respiratory effort and clear to auscultation bilaterally Cardio regular rate, regular rhythm, S1 normal heart sound and S2 normal heart sound GI normal to inspection, nondistended, normoactive bowel sounds, soft to palpation and non-tender Extremity Extremity Narrative: bilat medial and posterior thigh ecchymosis Neuro oriented x3 and CN's II-XII intact bilaterally Psych affect normal Attitude: calm Vital Signs Temperature 97.9 F 08/06/24 14:30 Temperature Source Oral 08/06/24 14:30 Pulse Rate 86 08/06/24 14:30 Respiratory Rate 16 08/06/24 14:30 Respiratory Effort Normal, Non-Labored 08/06/24 14:48 Respiratory Depth Normal 08/06/24 14:48 Respiratory Pattern Normal 08/06/24 14:48 Blood Pressure 112/71 08/06/24 14:30 Blood Pressure Mean 84 08/06/24 14:30 Blood Pressure Source Monitor 08/06/24 14:30 Blood Pressure Position Supine 08/06/24 14:30 Blood Pressure Location Left Arm 08/06/24 14:30 Pulse Ox 97 08/06/24 14:30 Oxygen Delivery Method Room Air 08/06/24 14:48 Laboratory Results - last 24 hr 08/05/24 13:05: Retic Count 10.07 H, Immature Retic Fraction 29.80 H, Retic Hgb Equivalent 37.3 H, Phosphorus 2.7, Magnesium 1.9, Iron 65, TIBC 206 L, Iron Saturation 31.6, Ferritin 177, Direct Bilirubin 2.07 H, Total Creatine Kinase 14 L, Folate 2.40 L 08/05/24 17:40: Ethyl Alcohol < 3.0 08/05/24 18:50: Lactic Acid 1.5 08/06/24 05:58: WBC 6.3, RBC 2.25 L, Hgb 8.0 L, Hct 26.4 L, MCV 117.3 H D, MCH 35.6 H, MCHC 30.3 L D, RDW Std Deviation 64.7 H, RDW Coeff of Kenneth 15.1 H, Plt Count 191, MPV 10.5, Immature Gran % (Auto) 0.600, Neut % (Auto) 72.6 H, Lymph % (Auto) 17.5 L, [place] % (Auto) 7.7, Eos % (Auto) 0.8, Baso % (Auto) 0.8, Absolute Neuts (auto) 4.6, Absolute Lymphs (auto) 1.10, Nucleated RBC % 0, Sodium 133 L, Potassium 4.0, Chloride 107, Carbon Dioxide 19.0 L, Anion Gap 7, BUN 6 L, Creatinine 0.46 L, Estim Creat Clear Calc 163.74, Est GFR (MDRD) Af Amer 245, Est GFR (MDRD) Non-Af 202, BUN/Creatinine Ratio 13.1, Glucose 85, Calcium 7.4 L, Total Bilirubin 2.90 H, Direct Bilirubin 1.57 H, AST 39 H, ALT 10 L, Alkaline Phosphatase 144 H, Total Protein 5.7 L, Albumin 2.0 L, Globulin 3.7, Albumin/Globulin Ratio 0.5 L 08/06/24 09:55: PT 16.5 H, INR 1.3, APTT 40.7 H, Fibrinogen 241 Microbiology 08/06/24 09:30 Stool Stool Occult Blood (ROXANNE) - Final Diagnostic Data Ankle X-Ray 08/05/24 14:10 IMPRESSION: Normal x-ray examination of the ankle. Electronically Signed: Lexx Lees MD at 14:27 EDT , Foot X-Ray 08/05/24 14:10 IMPRESSION: Normal x-ray examination of the foot. Electronically Signed: Lexx Lees MD at 14:28 EDT , Abdomen/Pelvis CT 08/05/24 15:18 IMPRESSION: No definite acute or significant abnormality seen. Electronically Signed: Lexx Lees MD at 16:36 EDT , Venous Doppler Study 08/05/24 15:25 Interpretation Summary Deep veins of the lower extremities are bilaterally patent and compressible segmentally. There is no evidence of deep vein thrombosis on either side. Valvular competence appears intact within the proximal deep venous systems bilaterally. The great saphenous veins appear bilaterally patent and compressible segmentally. Ordering Physician: Jona Richardson Referring Physician: N/A Performed By: Raul Ga, RVT Lower Extremity CT 08/05/24 17:58 IMPRESSION: Soft tissue swelling. No abscess or fluid collection. Electronically Signed: Genaro Hawk MD at 20:19 EDT , Venous Duplex 08/05/24 18:20 IMPRESSION: No sonographic evidence of deep venous thrombosis. Electronically Signed: Sal Massey MD at 20:50 EDT ,
[2024-08-06] MEDS: Ensure Plus High Protein 120 ML LIQUID PO (17:59)
[2024-08-06 20:30] VITALS: BP 113/75; PULSE 89; RESP 16; TEMP 36.7; O2SAT 99
[2024-08-06 20:49] LABS: Vancomycin, Trough Level 15.4 ug/mL (5.0-15.0)
--- NOTE | 2024-08-06 21:08 | PCM.RX.CS ---
Consult Antibiotic Management Pharmacy has been consulted to manage selected antibiotic: Vancomycin Type of Intervention Type of Consult: Follow-up Suspected Infection Suspected Infection: Skin/Soft tissue Labs Labs: Sodium 133 mmol/L (136-145) L 08/06/24 05:58 Potassium 4.0 mmol/L (3.5-5.1) 08/06/24 05:58 Chloride 107 mmol/L (98-107) 08/06/24 05:58 Carbon Dioxide 19.0 mmol/L (21.0-32.0) L 08/06/24 05:58 Anion Gap 7 (5-15) 08/06/24 05:58 BUN 6 mg/dL (7-18) L 08/06/24 05:58 Creatinine 0.46 mg/dL (0.70-1.30) L 08/06/24 05:58 Est GFR (MDRD) Af Amer 245 mL/min (>60) 08/06/24 05:58 Est GFR (MDRD) Non-Af 202 mL/min (>60) 08/06/24 05:58 BUN/Creatinine Ratio 13.1 RATIO (10-20) 08/06/24 05:58 Glucose 85 mg/dL (74-106) 08/06/24 05:58 Vancomycin Trough 15.4 ug/mL (5.0-15.0) H 08/06/24 20:27 Microbiology Microbiology: Microbiology 08/06/24 09:30 Stool Stool Occult Blood (ROXANNE) - Final Goal Trough Goal Trough: 15-20 mcg/mL Pharmacy Plan for Drug Dosing Pharmacy Plan for Drug Dosing: VANCOMYCIN LEVEL RECEIVED Current Vancomycin Dose: 750mg Q8H Number of Doses Received: 750mg x2, 1000mg x1 Vancomycin Level: 15.4 Hours Since Last Dose: 8 Renal Function: sCr 0.46 Renal Function Trend: stable Lab/Micro: pending Vancomycin Plan/Comments: Continue 750mg Q8H Pending Level: Trough @ 20:30 08/07/24 Pharmacy Service will continue to monitor and adjust dosing as required. Follow-Up Labs Follow-Up Labs: Trough: Vancomycin (08/07/24 @ 2029)
[2024-08-07 02:30] VITALS: BP 115/71; PULSE 84; RESP 17; TEMP 36.4; O2SAT 99
[2024-08-07] MEDS: Vancomycin HCl 750 MG in 0.9% Normal Saline (250mL Bag) 250 ML 250 MG IV ×2 (04:38→13:49)
[2024-08-07 07:54] VITALS: O2SAT 95
--- NOTE | 2024-08-07 07:59 | PN.HOSP_ITS ---
Reason for Visit Reason for Visit: Diagnoses Cellulitis of unspecified part of limb (08/05/24) Subjective Subjective Patient seen requesting to be discharged home. Objective Data Objective Data Vital Signs: Vital Signs Temp Pulse Resp BP Pulse Ox O2 Del Method 97.6 F L 84 17 115/71 99 Room Air 08/07/24 02:30 08/07/24 02:30 08/07/24 02:30 08/07/24 02:30 08/07/24 02:30 08/07/24 04:29 Oxygen Delivery Method Room Air Weight: 68.5 kg Body Mass Index (BMI) 24.3 Intake & Output: Intake and Output for Last 24 Hours 08/05/24 08/06/24 08/07/24 23:59 23:59 23:59 Intake Total 2049 3555 / 3555 265 / 265 Output Total 1150 / 1550 800 / 800 Balance 2049 / 2004 -535 / -535 Lab / Micro Data 08/06/24 05:58 08/06/24 05:58 Labs: Laboratory Results - last 24 hr 08/06/24 09:55: PT 16.5 H, INR 1.3, APTT 40.7 H, Fibrinogen 241 08/06/24 20:27: Vancomycin Trough 15.4 H Micro: Microbiology 08/06/24 09:30 Stool Stool Occult Blood (ROXANNE) - Final Physical Exam Narrative GENERAL: cooperative HEENT: Atraumatic; normocephalic EYES; Anicteric, Normal Conjunctiva NECK; supple, normal thyroid, RESPIRATORY: Diminished to auscultation CARDIOVASCULAR: Regular S1 S2, GI: soft, normoactive bowel sounds, : No Renal angle tenderness; EXTREMITIES: Extensive bruising involving the posterior aspect of both legs with a scaly area involving the right ankle MUSCULOSKELETAL: no muscle wasting NEURO: Awake; no lateralizing signs. SKIN: As discussed above PSYCH; Flat affect Assessment & Plan Assessment/Plan (1) Cellulitis: QUALIFIERS: Laterality: unspecified laterality Site of cellulitis: extremity Site of cellulitis of extremity: lower extremity Q ualified Code(s): L03.119 - Cellulitis of unspecified part of limb PLAN: Plan Patient is a 54-year-old gentleman who presented to the emergency department with bruising involving both thighs as well as right ankle swelling and pain of 3 weeks duration 1. Cellulitis involving the right ankle following lawnmower injury ? Patient admitted to the regular nursing floor treatment initiated per protocol with broad-spectrum antibiotic therapy. Venous duplex ordered to rule out DVT 08/07/2024 venous duplex negative for DVT patient is requesting to be discharged and will be discharged home on cefdinir 2. Extensive bruising ? Etiology not clear. Patient denies any recent trauma do suspect underlying bleeding disorder including possible functional platelet disorder. Ordered PT PTT fibrinogen as well as FDP consult was placed to heme-onc Case discussed with Dr. Rios ? 08/07/2024 patient was seen in consultation by oncology notes and recommendations reviewed patient will follow-up as 2. Chronic alcohol dependence with chronic alcoholic hepatitis ? Patient was found to have abnormal LFTs on admission. Admitted to monitored bed [facility] protocol initiated ? 08/07/2024. 180 counseling services was given to the patient to follow-up regarding his chronic alcohol dependence 3. Possible gastritis ? Patient is on PPI continue 4. Anemia ? Secondary to chronic disorder monitoring H&H and transfuse if patient becomes symptomatic or hemoglobin falls below 7. Patient had microcytosis ordered B12 levels, iron studies as well as stool guaiac ? 08/07/2024 did discuss with patient about getting a GI consult patient is requested to be discharged home we will get a follow-up appointment with Dr. Jay as outpatient 5. Hyponatremia ? Secondary to beer potomania, monitoring sodium levels 6. Hypokalemia ? Corrected per protocol 7. Seizure disorder ? Patient is on Keppra 8. DVT prophylaxis ?Patient was started on Lovenox for DVT prophylaxis however with significant drop in hemoglobin level Lovenox discontinued Time spent in the patient's overall evaluation,decision-making process, review of diagnostic data, adjustment of management, discussion with other providers, nursing nursing and ancillary staff involved in patient's care documentation, 35 minutes
[2024-08-07 08:26] VITALS: BP 124/78; PULSE 104; RESP 16; TEMP 36.7; O2SAT 99
[2024-08-07] MEDS: Pantoprazole Sodium 40 MG Tablet PO (09:21)
[2024-08-07] MEDS: levETIRAcetam 750 MG Tablet 1500 MG PO (09:21)
[2024-08-07] MEDS: Folic Acid 1 MG Tablet PO (09:24)
[2024-08-07] MEDS: Ceftriaxone 1 GM/50 ML BAG IV (09:28)
--- NOTE | 2024-08-07 09:33 | DS.PCM_ITS ---
Providers Date of Admission: 08/05/24 Date of Discharge: 08/07/24 Primary Care Physician: [place] Primary Care Phys Consultations 08/06/24 13:12 Consult: Oncology/Hematology Routine Consulting Provider: [facility] [place] Reason for Consult: suspected bleeding disorder EMERGENT Consult: No MD Notified: Yes Date Notified: 08/06/24 Time Notified: 13:13 Method of Notification: Verbal Reason For Visit: CELLULITIS WITH LOW BP Diagnosis Discharge Diagnosis (1) Cellulitis: Status: Acute Code(s): L03.90 - Cellulitis, unspecified Qualifiers: Site of cellulitis: extremity Site of cellulitis of extremity: lower extremity Laterality: unspecified laterality Qualified Code(s): L03.119 - Cellulitis of unspecified part of limb Plan Patient is a 54-year-old gentleman who presented to the emergency department with bruising involving both thighs as well as right ankle swelling and pain of 3 weeks duration 1. Cellulitis involving the right ankle following lawnmower injury ? Patient admitted to the regular nursing floor treatment initiated per protocol with broad-spectrum antibiotic therapy. Venous duplex ordered to rule out DVT 08/07/2024 venous duplex negative for DVT patient is requesting to be discharged and will be discharged home on cefdinir 2. Extensive bruising ? Etiology not clear. Patient denies any recent trauma do suspect underlying bleeding disorder including possible functional platelet disorder. Ordered PT PTT fibrinogen as well as FDP consult was placed to heme-onc Case discussed with Dr. Rios ? 08/07/2024 patient was seen in consultation by oncology notes and recommendations reviewed patient will follow-up as 2. Chronic alcohol dependence with chronic alcoholic hepatitis ? Patient was found to have abnormal LFTs on admission. Admitted to monitored bed [facility] protocol initiated ? 08/07/2024. 180 counseling services was given to the patient to follow-up regarding his chronic alcohol dependence 3. Possible gastritis ? Patient is on PPI continue 4. Anemia ? Secondary to chronic disorder monitoring H&H and transfuse if patient becomes symptomatic or hemoglobin falls below 7. Patient had microcytosis ordered B12 levels, iron studies as well as stool guaiac ? 08/07/2024 did discuss with patient about getting a GI consult patient is requested to be discharged home we will get a follow-up appointment with Dr. Jay as outpatient 5. Hyponatremia ? Secondary to beer potomania, monitoring sodium levels 6. Hypokalemia ? Corrected per protocol 7. Seizure disorder ? Patient is on Keppra 8. DVT prophylaxis ?Patient was started on Lovenox for DVT prophylaxis however with significant drop in hemoglobin level Lovenox discontinued Time spent in the patient's overall evaluation,decision-making process, review of diagnostic data, adjustment of management, discussion with other providers, nursing nursing and ancillary staff involved in patient's care documentation, 35 minutes Medications at Discharge Home Medications levetiracetam 750 mg tablet (Keppra) 1,500 mg PO BID seizures 01/09/18 cefdinir 300 mg capsule 300 mg PO BID #14 caps 08/07/24 ferrous sulfate 325 mg (65 mg iron) tablet (Feosol) 325 mg PO DAILY #30 tabs 08/07/24 folic acid 1 mg tablet 1 mg PO BREAKFAST #30 tabs 08/07/24 pantoprazole 40 mg tablet,delayed release (Protonix) 40 mg PO DAILY #30 tabs 08/07/24 thiamine HCl (vitamin B1) 100 mg tablet 100 mg PO DAILY #30 tabs 08/07/24 Physical Exam Narrative GENERAL: cooperative HEENT: Atraumatic; normocephalic EYES; Anicteric, Normal Conjunctiva NECK; supple, normal thyroid, RESPIRATORY: Diminished to auscultation CARDIOVASCULAR: Regular S1 S2, GI: soft, normoactive bowel sounds, : No Renal angle tenderness; EXTREMITIES: Extensive bruising involving the posterior aspect of both legs with a scaly area involving the right ankle MUSCULOSKELETAL: no muscle wasting NEURO: Awake; no lateralizing signs. SKIN: As discussed above PSYCH; Flat affect Weight / BMI Weight Weight: 68.5 kg Body Mass Index (BMI) 24.3 ABG / Lab / Microbiology Data 08/06/24 05:58 08/06/24 05:58 Laboratory: Laboratory Results - last 24 hr 08/06/24 09:55: PT 16.5 H, INR 1.3, APTT 40.7 H, Fibrinogen 241 08/06/24 20:27: Vancomycin Trough 15.4 H Microbiology: Microbiology 08/06/24 09:30 Stool Stool Occult Blood (ROXANNE) - Final D/C Instructions Discharge Diet: No restrictions Discharge Activity: May Not Drive Call your doctor if you observe: Fever of 101 or Higher, Shortness of breath, Fainting spells and Chest pain Meaningful Use Info Meaningful Use Meaningful Use Diagnoses (Choose all that apply): None applicable Ischemic Stroke Statin Dosing Therapy Reference: STATIN DOSE THERAPY REFERENCE: * Patients > 75 years receive moderate or high dose statin therapy. * Patients 75 years or YOUNGER should receive HIGH intensity statin dose unless contraindicated. You will be required to document reason for non-treatment if statin daily dose does not meet guidelines. HIGH DOSE STATIN THERAPY DAILY Atorvastatin > than or = to 40 mg Rosuvastatin > than or = to 20 mg Amlodipine + Atorvastatin > than or = to 2.5/40 mg Ezetimibe + Simvastatin 10/80 mg Simvastatin 80mg Discharge Plan Admission Admit Date/Time: 08/05/24 18:07 Attending Provider: Roverto Colindres Primary Care Provider: Care Physician,No Primary Consulting Providers: Jean Carlos Abreu; Roly Gonsalez; Saúl Ordonez; Carmen Lynch; Jerardo Morales; Daisha Nagel; Jeffy Hernandez; Kash Crystal Discharge Orders/Prescriptions Prescriptions: New folic acid 1 mg Tablet 1 mg PO BREAKFAST Qty: 30 0RF thiamine HCl (vitamin B1) 100 mg tablet 100 mg PO DAILY Qty: 30 0RF ferrous sulfate [Feosol] 325 mg (65 mg iron) tablet 325 mg PO DAILY Qty: 30 0RF pantoprazole [Protonix] 40 mg tablet,delayed release (DR/EC) 40 mg PO DAILY Qty: 30 0RF cefdinir 300 mg capsule 300 mg PO BID Qty: 14 0RF Continued levetiracetam [Keppra] 750 MG tablet 1,500 mg PO BID Referrals / Follow Up: Otis Rios MD [Med Staff - Active Staff] - Within 1 Week (Bruising) Chaitanya Jay DO [Med Staff - Active Staff] - Within 2 Weeks (Anemia) Care Physician,No Primary [Primary Care Provider] - Disposition Disposition (needs filled in before D/C Order can be placed): Home, Self Care Charges/Coding Visit Charges Inpatient E&M: 79462 Disch Hosp >30min
[2024-08-07] MEDS: 0.9% Saline Lock 10 ML Syringe IV (09:34)
--- NOTE | 2024-08-07 10:24 | CASEMGMT ---
Patient has order for discharge. RN CM in to discuss needs at discharge. Patient denies needs or help at discharge. Patient had no further questions or concerns.
[2024-08-07 14:14] VITALS: BP 107/69; PULSE 92; RESP 16; TEMP 36.8; O2SAT 98
--- NOTE | 2024-08-07 17:11 | NURSING ---
Reviewed and agreed on charting with Mariana Cobos RN
[2024-08-12 18:08] LABS: GGTP 253 IU/L (0-65)
== END 2024-08-07 17:05 | disposition home or self-care (01) | DRG 383 ==
LOC: ED 18:47 → PCU 08-06 06:59
PROVIDERS: Admitting Provider Internal Medicine; Emergency Provider Emergency Medicine; Visit Provider Internal Medicine
DX: L03.115 Cellulitis of right lower limb (principal); G40.909 Epilepsy, unspecified, not intractable, without status epilepticus; F10.20 Alcohol dependence, uncomplicated; K70.10 Alcoholic hepatitis without ascites; E87.1 Hypo-osmolality and hyponatremia; D63.8 Anemia in other chronic diseases classified elsewhere; E87.6 Hypokalemia; K21.9 Gastro-esophageal reflux disease without esophagitis; R60.0 Localized edema; E87.20 Acidosis, unspecified; S90.31XD Contusion of right foot, subsequent encounter; Z79.899 Other long term (current) drug therapy; S90.32XD Contusion of left foot, subsequent encounter; S70.11XD Contusion of right thigh, subsequent encounter; S70.12XD Contusion of left thigh, subsequent encounter; V84.9XXD Unspecified occupant of special agricultural vehicle injured in nontraffic accident, subsequent encounter
CPT/HCPCS: 93970; 36415; 73610; 73630; 73700; 74177; 80053; 80202; 81001; 82077; 82248; 82274; 82550; 82607; 82728; 82746; 82977; 83540; 83550; 83605; 83690; 83735; 84100; 84484; 85025; 85045; 85384; 85610; 85730; 87040; 93005; 94668; 94762; 96361; 96365; 96366; 96367; 96368; 96372; 97802; 99221; 99285; Q9967; A4216; G0378

== ENCOUNTER → 2024-08-21 | Outpatient (CLI) | payer MEDICAID, SELFPAY ==
--- OUTSIDE RECORDS SUMMARY | 2024-08-21 13:34 | XMS RPT_ITS | CCD ---
Author Organization [facility] Care Team Providers Care Entertainment & Media Correspondent Name Role Phone ANDRES HORTON - Admitting Unavailable ANDRES HORTON - Primary Care Unavailable ANDRES HORTON - Attending Unavailable AUDI OLSON MD Consulting Unavailable PROVIDER, UNKNOWN Consulting Unavailable PROVIDER, UNKNOWN Consulting Unavailable AUDI OLSON MD Consulting Unavailable LUIS MIGUEL KEARNS Admitting Unavailable BERLINLUIS MIGUEL PRATHER Primary Care Unavailable LUIS MIGUEL KEARNS Attending Unavailable PROVIDER, UNKNOWN Consulting Unavailable PROVIDER, UNKNOWN Consulting Unavailable Beba Mac PA-C Primary Care Provider [phone] Beba Mac PA-C Primary Care Provider [phone] Beba Mac PA-C Primary Care Provider [phone] Pcp, No Primary Care Provider Unavailabl e Pcp, No Primary Care Provider Unavailabl e LUIS MIGUEL KEARNS Attending Unavailable Unavailable Primary Care Provider Unavailabl e LUIS MIGUEL KEARNS Attending Unavailable Medications Current Medications Medication Drug Class(es) Dates Sig (Normalized) Sig (Original) sildenafil 20 mg oral tablet (8 sources) Phosphodiesterase 5 Inhibitor Start: 12-08-2021 sildenafil (REVATIO) 20 mg tablet TAKE 4 TABLETS BY MOUTH ONE HOUR BEFORE sex. Do not exceed one USE in 48 hours. this is not a DAILY medicine. 0 12/08/2021 Active Comment on above: TAKE 4 TABLETS BY [facility] ONE HOUR BEFORE sex. Do not exceed one USE in 48 hours. this is not a DAILY medicine. Completed/Discontinued Medications Medication Drug Class(es) Dates Sig (Normalized) Sig (Original) levETIRAcetam 1000 mg oral tablet (20 sources) Start: 01-09-2022 End: 04-03-2025 take 1 tablet by mouth twice daily levETIRAcetam (KEPPRA) 500 mg tablet Indications: Generalized convulsive epilepsy (HCC) Take 1 tablet by mouth twice daily. To be taken along with 1,000 mg tablet twice daily to equal 1,500 mg 60 tablet 03/28/2023 04/03/2024 Discontinued (Course of therapy completed) Start: 01-09-2022 End: 04-03-2025 take 1 tablet by mouth twice daily levETIRAcetam (KEPPRA) 1,000 mg tablet Indications: Generalized convulsive epilepsy (HCC) Take 1 tablet by mouth twice daily. To be taken with 500 mg tablet to equal 1,500 mg twice daily 60 tablet 03/28/2023 04/03/2024 Discontinued (Course of therapy completed) Comment on above: TAKE ONE TABLET BY M OUTH TWICE DAILY. Take WITH 500mg tablet TO equal 1,500mg TWICE DAILY. TAKE ONE TABLET BY M OUTH TWICE DAILY. Take WITH 1,000mg tablet TO equal 1,500mg TWICE DAILY. Take 1 tablet by arin th twice daily. To be taken along with 1,000 mg tablet twice daily to equal 1,500 mg Take 1 tablet by arin th twice daily. To be taken with 500 mg tablet to equal 1,500 mg twice daily Problems Active Problems Problem Classification Problem Date Documented Date Episodic/Chronic Acute bronchitis (3 sources) Acute bronchitis, unspecified; Translations: [Acute bronchitis, unspecified] Onset: 11-04-2021 Episodic Alcohol-related disorders (9 sources) Alcoholism; Translations: [Alcohol dependence, uncomplicated] 10-17-2021 Chronic Anxiety disorders (9 sources) Mixed anxiety and depressive disorder; Translations: [Anxiety disorder, unspecified] 10-17-2021 Chronic Epilepsy; convulsions (18 sources) Generalized convulsive epilepsy; Translations: [Generalized idiopathic epilepsy and epileptic syndromes, not intractable, without status epilepticus] Onset: 01-01-2008 Chronic Essential hypertension (9 sources) Essential hypertension; Translations: [Essential (primary) hypertension] Onset: 08-09-2015 08-09-2015 Chronic Miscellaneous mental health disorders (7 sources) Psychophysiologic insomnia; Translations: [Psychophysiologic insomnia] Onset: 03-28-2023 Chronic Other nervous system disorders (3 sources) Hereditary and idiopathic neuropathy, unspecified; Translations: [Hereditary and idiopathic neuropathy, unspecified] Onset: 04-07-2021 Chronic Other nervous system disorders (13 sources) Idiopathic peripheral neuropathy; Translations: [Hereditary and idiopathic neuropathy, unspecified] Onset: 04-07-2021 04-07-2021 Chronic Past or Other Problems Problem Classification Problem Date Documented Da te Episodic/Chronic Cardiac dysrhythmias (9 sources) Palpitations; Translations: [Palpitations] Onset: 10-08-2015 10-08-2015 Episodic Epilepsy; convulsions (12 sources) Unspecified convulsions; Translations: [Partial seizure] Onset: 04-07-2021 Episodic Other connective tissue disease (9 sources) Pain in limb; Translations: [Pain in unspecified limb] Onset: 11-15-2010 08-09-2015 Episodic Other screening for suspected conditions (not mental disorders or infectious disease) (12 sources) Encounter for screening for diabetes mellitus; Translations: [Liver function tests abnormal] Onset: 11-15-2010 08-09-2015 Episodic Spondylosis; intervertebral disc disorders; other back problems (9 sources) Backache; Translations: [Dorsalgia, unspecified] Onset: 05-05-2013 08-09-2015 Episodic Syncope (9 sources) Syncope; Translations: [Syncope and collapse] Onset: 10-12-2015 10-12-2015 Episodic Results Test Name Value Interpretation Reference Range Facil fredrick Rosenbaum 04-03-2024 [facility] Office Visit (NEUUPD ) ANIBAL MANE ([id number]) 1970 M Date Time Provider Department 04/03/24 8:45 AM LUIS MIGUEL KEARNS During your visit today, we recorded the following information about you: Pulse Blood pressure Weight Height 98/minute 124/84 80.7 kg 1.676 m Luis Miguel Kearns MD 04/03/2024 11:08 AM Signed Referring Provider: Self Date: April 03, 2024 Chief Complaint: Seizures, neuropathy, and insomnia HISTORY OF PRESENT ILLNESS: Anibal Mane is a 54 year old male who follows for seizures, neuropathy, and insomnia. Patient is a right handed, single gentleman who is accompanied by his girlfriend for today's visit. He is living with his girlfriend and does not work due to back problems. His first visit in the office was on 04/07/2021. The patient is taking Keppra 1,500 mg twice daily and denies any medication side effects. He recalls having a seizure on 2022, at about 7 pm. They were driving and there were a lot of lights which made him blank out for a minute. His states that he often will have a seizure in his sleep, with the last one being a month ago. She has seen him thrashing around, talking and moaning in his sleep, lasting 20 minutes. It seems to occur more often when he's very tired. He is still having trouble sleeping at night. He remains independent in his personal care. Dayami Loera MA, transcribing for Luis Miguel Kearns MD. ALLERGIES No Known Allergies PAST MEDICAL HISTORY: PAST MEDICAL HISTORY Diagnosis Date Alcoholism (HCC) Anxiety and depression GEN CONVUL EPI W/O MENTN INTRACT 03/2006 First episode occurred 03-27: at work on a [employer] job site ( stiff as a board, foaming at the mouth ) Mom had similar episodes about age 55: ended up finding an AVM in the brain (resolved with surgery) MRI -: disproportionate invol changes for age, NL MRA (left mess 08:35, 01-10-08) Holter 02-26: negative for arrhythmia (notified by phone) [facility] rec MRI with Talat to complete eval, started Keppra History of noncompliance with medical treatment HYPERTENSION NOS PAST SURGICAL HISTORY Procedure Laterality Date ANKLE LEFT OP SURGERY ~1975 pinned STRESS TEST 08/16/2015 WNL FAMILY HISTORY Problem Relation Age of Onset Coronary Artery Disease Father PA Heart Daughter patent FO Seizures Mother arterial/venous malformation Stroke Father Hypertension Father Lipids Father Coronary Artery Disease Sister 33 PA SOCIAL HISTORY: Tobacco Use: Never Alcohol Use: Approximately 25.2 oz/week [which includes 42 Cans of Beer (12oz) per week] (6-7 per day.) Drug Use: No Employer And Job Title: No employer specified (unemployed) Years Of Education Completed: Not specified Marital Status: Unknown with 2 children MEDICATIONS: Current Outpatient Medications Medication Sig sildenafil (REVATIO) 20 mg tablet TAKE 4 TABLETS BY MOUTH ONE HOUR BEFORE sex. Do not exceed one USE in 48 hours. this is not a DAILY medicine. levETIRAcetam (KEPPRA) 500 mg tablet Take 1 tablet by mouth twice daily. To be taken along with 1,000 mg tablet twice daily to equal 1,500 mg levETIRAcetam (KEPPRA) 1,000 mg tablet Take 1 tablet by mouth twice daily. To be taken with 500 mg tablet to equal 1,500 mg twice daily No current facility-administered medications for this visit. I have personally reviewed the patients past medical history including social, family, surgical, diagnostics, and medications./AB Review of Systems Constitutional: Negative for chills, fever and unexpected weight change. HENT: Negative for congestion, facial swelling, trouble swallowing and voice change. Eyes: Negative for visual disturbance. Respiratory: Negative for shortness of breath. Cardiovascular: Negative for chest pain. Gastrointestinal: Negative for diarrhea, nausea and vomiting. Musculoskeletal: Negative for gait problem and myalgias. Allergic/Immunologic: Negative. Negative for immunocompromised state. Neurological: Positive for seizures. Negative for dizziness, syncope and light-headedness. Psychiatric/Behaviora l: Negative. Negative for hallucinations and self-injury. Vitals: BP 124/84 Pulse 98 Ht 167.6 cm (5' 6 ) Wt 80.7 kg (178 lb) BMI 28.73 kg/m? PHYSICAL EXAM:: The physical exam findings are as follows: General General Appearance - Well groomed Orientation: Oriented to time, oriented to place, and oriented to person. Higher Cortical Function: Awake and alert. Language functions are intact. Patient names well and repeats well, spontaneous speech as well as comprehension is normal and fund of knowledge is intact for the patient level of education. Attention span and concentration are normal and as expected for patient's age. Neurologic CRANIAL NERVES: ll - Makes and sustains eye contact. Visual reid are full to confrontation testing. lll, lV, V (more content not included)... [facility] 04-01-2024 [facility] Office Visit (NEUUPD ) ANIBAL MANE ([id number]) 1970 M Date Time Provider Department 04/01/24 11:30 AM LUIS MIGUEL KEARNS During your visit today, we recorded the following information about you: Referring Provider: SELF [200] Allergies As of Date: 04/01/2024 (No Known Allergies) Date Reviewed: 03/27/2023 Reviewed by: Dayami Villanueva MA - Fully Assessed Primary Visit Diagnosis:Generalized convulsive epilepsy (HCC) [G40.309] Other Visit Diagnoses:Idiopathic peripheral neuropathy [G60.9] Psychophysiologic insomnia [F51.04] Prescriptions as of 04/03/2024 - levETIRAcetam (KEPPRA) 500 mg tablet Take 1 tablet by mouth twice daily. To be taken along with 1,000 mg tablet twice daily to equal 1,500 mg - levETIRAcetam (KEPPRA) 1,000 mg tablet Take 1 tablet by mouth twice daily. To be taken with 500 mg tablet to equal 1,500 mg twice daily - sildenafil (REVATIO) 20 mg tablet TAKE 4 TABLETS BY MOUTH ONE HOUR BEFORE sex. Do not exceed one USE in 48 hours. this is not a DAILY medicine. Problem List As Of Date 04/01/2024 Noted Resolved Generalized convulsive epilepsy (HCC) [G40.309] 01/01/2008 Pain in limb [M79.609] 11/15/2010 Abnormal liver function test [R79.89] 11/15/2010 Alcoholism [F10.20] Anxiety and depression [F41.9, F32.A] Backache, unspecified [M54.9] 05/05/2013 Essential hypertension [I10] 08/09/2015 Palpitations [R00.2] 10/08/2015 Syncope [R55] 10/12/2015 Partial seizures (HCC) [R56.9] 04/07/2021 Idiopathic peripheral neuropathy [G60.9] 04/07/2021 Psychophysiologic insomnia [F51.04] 03/28/2023 Encounter Status:Closed by DAYAMI VILLANUEVA on 04/03/24 [facility] Office Visit (NEUPDV ) ANIBAL MANE ([id number]) 1970 M Date Time Provider Department 03/27/23 11:30 AM LUIS MIGUEL KEARNS NEUPDV During your visit today, we recorded the following information about you: Pulse Blood pressure Weight Height 75/minute 133/83 80.7 kg 1.676 m Luis Miguel Kearns MD 03/28/2023 8:58 AM Signed Referring Provider: Self Date: March 27, 2023 Chief Complaint: Seizures and Neuropathy HISTORY OF PRESENT ILLNESS: Anibal Mane is a 53 year old male who follows for seizures and neuropathy. Patient is a right handed, single gentleman accompanied by his girlfriend for today's visit. He is living with his girlfriend and does not work at this time. His first visit in the office was on 04/07/2021. He is still drinking about 5 beers daily. The patient is taking Keppra 1500 mg one tablet twice daily and denies any medication side effects. Demarco has been seizure free since 2020 and has not had to seek any medical treatment since last visit. He is having trouble sleeping and only sleeps about 3 hours a night. IDayami MA, transcribing for Luis Miguel Kearns MD. ALLERGIES No Known Allergies PAST MEDICAL HISTORY: PAST MEDICAL HISTORY Diagnosis Date Alcoholism (HCC) Anxiety and depression GEN CONVUL EPI W/O MENTN INTRACT 03/2006 First episode occurred -: at work on a [employer] job site ( stiff as a board, foaming at the mouth ) Mom had similar episodes about age 54: ended up finding an AVM in the brain (resolved with surgery) MRI -08: disproportionate invol changes for age, NL MRA (left mess 08:35, 3-08) Holter -08: negative for arrhythmia (notified by phone) [facility] rec MRI with Talat to complete eval, started Keppra History of noncompliance with medical treatment HYPERTENSION NOS PAST SURGICAL HISTORY Procedure Laterality Date ANKLE LEFT OP SURGERY ~1975 pinned STRESS TEST 08/16/2015 [facility] FAMILY HISTORY Problem Relation Age of Onset Coronary Artery Disease Father PA Heart Daughter patent FO Seizures Mother arterial/venous malformation Stroke Father Hypertension Father Lipids Father Coronary Artery Disease Sister 33 PA SOCIAL HISTORY: Tobacco Use: Never Alcohol Use: Approximately 63 oz/week [which includes 42 Cans of Beer (12oz) per week] (6-7 per day.) Drug Use: No Employer And Job Title: No employer specified (unemployed) Years Of Education Completed: Not specified Marital Status: Unknown with 2 children MEDICATIONS: Current Outpatient Medications Medication Sig levETIRAcetam (KEPPRA) 500 mg tablet TAKE ONE TABLET BY MOUTH TWICE DAILY. Take WITH 1,000mg TABLET TO equal 1,500mg TWICE DAILY. levETIRAcetam (KEPPRA) 1,000 mg tablet TAKE ONE TABLET BY MOUTH TWICE DAILY. Take WITH 500mg tablet TO equal 1,500mg TWICE DAILY. sildenafil (REVATIO) 20 mg tablet TAKE 4 TABLETS BY MOUTH ONE HOUR BEFORE sex. Do not exceed one USE in 48 hours. this is not a DAILY medicine. No current facility-administered medications for this visit. I have personally reviewed the patients past medical history including social, family, surgical, diagnostics, and medications./AB Review of Systems Constitutional: Negative for chills, fever and unexpected weight change. HENT: Negative for congestion, facial swelling, trouble swallowing and voice change. Eyes: Negative for visual disturbance. Respiratory: Negative for shortness of breath. Cardiovascular: Negative for chest pain. Gastrointestinal: Negative for diarrhea, nausea and vomiting. Musculoskeletal: Negative for gait problem and myalgias. Allergic/Immunologic: Negative. Negative for immunocompromised state. Neurological: Positive for seizures. Negative for dizziness, syncope and light-headedness. Psychiatric/Behaviora l: Negative. Negative for hallucinations and self-injury. Vitals: BP 133/83 Pulse 75 Ht 167.6 cm (5' 6 ) Wt 80.7 kg (178 lb) BMI 28.73 kg/m? PHYSICAL EXAM:: The physical exam findings are as follows: General General Appearance - Well groomed Orientation: Oriented to time, oriented to place, and oriented to person. Higher Cortical Function: Awake and alert. Language functions are intact. Patient names well and repeats well, spontaneous speech as well as comprehension is normal and fund of knowledge is intact for the patient level of education. Attention span and concentration are normal and as expected for patient's age. Neurologic CRANIAL NERVES: ll - Makes and sustains eye contact. Visual reid are full to confrontation testing. lll, lV, Vl - Pupils are 2 -3 mm in size and reactive. External ocular movements are full and there is no nystagmus. V - Facial sensation to light touch and pin prick, normal. Vll - No facial asymmetry Vlll - Normal hearing. lX - Palatal movements, normal. Xl - Good and equal shoulder shrugs. Xll - Tongue protrusion, midline. Mot (more content not included)... Normal [facility] CORONAVIRUS PCR - [facility] 11-05-2021 SARS-CoV-2 (COVID-19) RNA ALETA+probe Ql (Unsp spec) Negative Normal NORMAL: NEGATIVE [facility] Comment on above: Performed By: #### 2 [id number] #### [facility],[address] [place] [address] SEND TO IC? YES Normal [facility] Comment on above: Result Comment: RESU LTS FAXED TO INFECTION CONTROL. SARS-CoV-2 THIS TEST IS BEING USED UNDER THE FDA EUA PROCEDURE. THIS ASSAY HAS BEEN VALIDATED IN THE [facility] FOR USE WITH NASOPHARYNGEAL SPECIMENS IN [facility]. INTERPRETIVE DATA LABORATORY TEST RESULTS SHOULD ALWAYS BE CONSIDERED IN THE CONTEXT OF CLINICAL OBSERVATIONS AND EPIDEMIOLOGICAL DATA IN MAKING FINAL DIAGNOSIS AND PATIENT MANAGEMENT DECISIONS. PATIENT MANAGEMENT SHOULD FOLLOW CURRENT CDC GUIDELINES. A POSITIVE TEST RESULT FOR COVID-19 INDICATES THAT RNA FROM SARS-CoV-2 WAS DETECTED, AND THE PATIENT IS INFECTED WITH THE VIRUS AND PRESUMED TO BE CONTAGIOUS. A NEGATIVE TEST RESULT FOR THIS TEST MEANS THAT SARS-CoV-2 RNA WAS NOT PRESENT IN THE SPECIMEN ABOVE THE LIMIT OF DETECTION. HOWEVER, A NEGATVIE RESULT DOES NOT RULE OUT COVID-19 AND SHOULD NOT BE USED THE SOLE BASIS FOR TREATMENT OR PATIENT MANAGEMENT DECISIONS. A NEGATIVE RESULT DOES NOT EXCLUDE THE POSSIBILITY OF COVID-19. WHEN DIAGNOSTIC TESTING IS NEGATIVE, THE POSSIBLILTY OF A FALSE NEGATIVE RESULT SHOULD BE CONSIDERED IN THE CONTEXT OF A PATIENT'S RECENT EXPOSURES AND THE PRESENCE OF CLINICAL SIGNS AND SYMPTOMS CONSISTENT WITH COVID-19. THE POSSIBILITY OF A FALSE NEGATIVE RESULT SHOULD ESPECIALLY BE CONSIDERED IF THE PATIENT'S RECENT EXPOSURES OR CLINICAL PRESENTATION INDICATE THAT COVID-19 IS LIKELY, AND DIAGNOSTIC TESTS FOR OTHER CAUSES OF ILLNESS (e.g., OTHER RESPIRATORY ILLNESS) ARE NEGATIVE. IF COVID-19 IS STILL SUSPECTED BASED ON EXPOSURE HISTORY TOGETHER WITH OTHER CLINICAL FINDINGS, RE-TESTED SHOULD BE CONSIDERED BY HEALTHCARE PROVIDERS IN CONSULTATION WITH PUBLIC HEALTH AUTHORITIES. Performed By: #### 2 [id number] #### [facility],[address] [place] [address] MRI BRAIN WOUT CONTRASTon MRI BRAIN WOUT CONTRAST [place] [address] Name: ANIBAL MANE Phys: LUIS MIGUEL KEARNS M.D. : [birth year] Age: 51 Sex: M Acct: [id number] Loc: SLEEP Exam Date: 05/18/21 Status: REG CLI Radiology No.: [id number] Unit Number: [id number] Exam # Type/Exam [id number] MRI / MRI BRAIN WOUT CONTRAST HISTORY: Partial seizure COMPARISON: No TECHNIQUE: 1. Sagittal T1-weighted images. 2. Axial T2-weighted images. 3. Axial and coronal FLAIR images. 4. Coronal T2-weighted inversion recovery images. 5. Axial and coronal 3D T1-weighted images. 6. Axial diffusion-weighted images with ADC map. The patient refused intravenous contrast FINDINGS: The ventricles and sulci are mildly enlarged. There are no abnormal intra or extra-axial fluid collections. Brunson-white matter differentiation is maintained. There is no abnormal restriction of diffusion. There is mild sinus disease. IMPRESSION: Volume loss, more prominent than expected in a patient of this age. Otherwise unremarkable examination of the brain. Electronically signed By Tram Alatorre 05/18/2021 9:48:35 AM EST Workstation ID : [id number] < > Reported By: TRAM ALATORRE M.D. Signed In Fluency By: TRAM ALATORRE M.D. << Signature on File>> Reported By: TRAM ALATORRE M.D. Signed By: TRAM ALATORRE M.D. Tests performed at: [place] [address] Normal [facility] PROTEIN ELECTRO WITH KYA [CC L]on 04-20-2021 Albumin [Mass/Vol] 4.56 g/dL High 3.37-4.23 [facility] Comment on above: Performed By: #### 2 [id number] #### [facility],[address] [place] [address] Alpha 1 Globulin 0.21 gm/dL Normal 0.18-0.31 [facility] Comment on above: Performed By: #### 2 [id number] #### [facility],[address] [place] [address] Alpha 2 Globulin 0.59 gm/dL Normal 0.52-0.97 [facility] Comment on above: Performed By: #### 2 [id number] #### [facility],[address] [place] [address] Beta Globulin 1.05 gm/dL Normal 0.84-1.36 [facility] Comment on above: Performed By: #### 2 [id number] #### [facility],[address] [place] [address] Comment Monoclonal Protein analysis (immunofixation) is not indicated. Normal [facility] Comment on above: Result Comment: [place] [id number] [place] [address] Calvin Garces III, M.D. [id number] Performed By: #### 2 94714 #### [facility],[address] [place] [address] Gamma Globulin 1.78 gm/dL High 0.70-1.44 [facility] Comment on above: Performed By: #### 2 [id number] #### [facility],[address] [place] [address] Interpretation No definitive M protein is identified on protein electrophoresis. Normal [facility] Comment on above: Performed By: #### 2 [id number] #### [facility],[address] [place] [address] M Protein Location N/A Normal [facility] Comment on above: Performed By: #### 2 [id number] #### [facility],[address] [place] [address] M Thomas Concentratn 0.00 gm/dL Normal 0.00 [facility] Comment on above: Performed By: #### 2 92752 #### [facility],[address] [place] [address] Protein [Mass/Vol] 8.2 g/dL High 6.3-8.0 [facility] Comment on above: Performed By: #### 2 [id number] #### [facility],[address] [place] [address] Staff Review Reviewed by Radha Bray MD ([id number]) Normal [facility] Comment on above: Performed By: #### 2 [id number] #### [facility],[address] [place] [address] Prot Elect with IFEon 2020 Albumin [Mass/Vol] 4.56 g/dL High 3.37-4.23 [facility] Comment on above: Performed By: #### S EPGRX #### [facility] Routine Lab [address] [place] [address] Alpha 1 Globulin 0.21 gm/dL Normal 0.18-0.31 [facility] Comment on above: Performed By: #### S EPGRX #### [facility]ine Lab [address] [place], [place] [address] Alpha 2 Globulin 0.59 gm/dL Normal 0.52-0.97 [facility] Comment on above: Performed By: #### S EPGRX #### [facility]ine Lab [address] [place] [address] Beta Globulin 1.05 gm/dL Normal 0.84-1.36 [facility] Comment on above: Performed By: #### S EPGRX #### [facility] Routine Lab [address] [place], [place] [id number] Comment NIF Normal [facility] Comment on above: Performed By: #### S EPGRX #### [facility] Routine Lab [address] [place], [place] [id number] Gamma Globulin 1.78 gm/dL High 0.70-1.44 [facility] Comment on above: Performed By: #### S EPGRX #### [facility] Routine Lab [address] [place], [place] [address] Interpretation NMPD Normal [facility] Comment on above: Performed By: #### S EPGRX #### [facility] Routine Lab [address] [place], [place] [address] M Protein Location NAPP Normal [facility] Comment on above: Performed By: #### S EPGRX #### [facility] Routine Lab [address] [place], [place] [address] M Thomas Concentratn 0.00 gm/dL Normal 0.00 [facility] Comment on above: Performed By: #### S EPGRX #### [facility] Routine Lab [address] [place], [place] [address] SPE Staff Review FLAXS [facility] [facility] Comment on above: Performed By: #### S EPGRX #### [facility] Routine Lab [address] [place], [place] [address] Prot Elect with IFEon 2020 Protein [Mass/Vol] 8.2 g/dL High 6.3-8.0 [facility] Comment on above: Performed By: #### S EPGRX #### [facility] Routine Lab [address] [place], [place] [address] HGB A1C [CCL]on 04-17-2021 Glucose [Mass/Vol] 126 mg/dL Normal [facility] Comment on above: Result Comment: eAG: (Estimated average glucose) is a calculated value from HgbA1c and is sales representative marine supplies of the average blood glucose level in the last 2-3 month period. [facility] [employer] [address] [place] [address] Calvin Garces III, M.D. [id number] Performed By: #### 2 40587 #### [place] [id number] HbA1c (Bld) [Mass fraction] 6.0 % High 4.3-5.6 [facility] Comment on above: Result Comment: Amer ican Diabetes Association guidelines indicate that patients with HgbA1c in the range 5.7-6.4% are at increased risk for development of diabetes, and intervention by lifestyle modification may be beneficial. HgbA1c greater or equal to 6.5% is considered diagnostic of diabetes. Performed By: #### 2 80897 #### [place] [id number] LEVETIRACETAM [CCL]on 2020 levETIRAcetam [Mass/Vol] 6.7 ug/mL Low 12.0-46.0 [facility] Comment on above: Result Comment: This test is not suitable for patients receiving treatment with the drug brivaracetam (Briviact). The drug causes an interference that may lead to falsely elevated levetiracetam results. Reference ranges and high/low indicator flags are provided as general guidelines only. The treating physician must determine appropriate target levels/dosing based on the specific clinical situation. This test was developed and its performance characteristics determined by [facility]'s [facility] ([facility]). It has not been cleared or approved by the FDA. [facility] is regulated under CLIA as qualified to perform high complexity testing. This test is used for clinical purposes. It should not be regarded as investigational or for research. [facility] [employer] [address] [place] [address] Calvin Garces III, M.D. [id number] Performed By: #### 2 57635 #### [facility],[address] [place] [address] PROTEIN ELECTROPHORESIS UR W / KYA [CCL]on 04-17-2021 Albumin 58.7 % Normal [facility] Comment on above: Performed By: #### 2 74837 #### [facility],[address] [place] [address] Alpha 1 Globulin 6.7 % Normal [facility] Comment on above: Performed By: #### 2 00641 #### [facility],[address] [place] [address] Alpha 2 Globulin 7.5 % Normal [facility] Comment on above: Performed By: #### 2 79680 #### [facility],[address] [place] [address] Beta Globulin 15.9 % Normal [facility] Comment on above: Performed By: #### 2 93293 #### [facility],[address] [place] [address] Comment Monoclonal Protein analysis (immunofixation) is not indicated. Normal [facility] Comment on above: Result Comment: [facility] [address] [place] [address] Calvin Garces III, M.D. [id number] Performed By: #### 2 56639 #### [facility],[address] [place], [place] [phone] Gamma Globulin 11.2 % Normal [facility] Comment on above: Performed By: #### 2 05288 #### [facility],[address] [place] [address] Interpretation No definitive M protein is identified on protein electrophoresis. Normal [facility] Comment on above: Performed By: #### 2 84110 #### [facility],[address] [place], [place] [phone] Protein (U) [Mass/Vol] 4 mg/dL Normal 0-20 [facility] Comment on above: Performed By: #### 2 01791 #### [facility],[address] [place] [address] Staff Review Reviewed by Katharine Mckeon M.D., Ph.D ([id number]) Normal [facility] Comment on above: Performed By: #### 2 65658 #### [facility],[address] [place] [address] Prot Elec, Ur w/ IFEon 04-17 Albumin 58.7 % Normal [facility] Comment on above: Performed By: #### U EPGRX #### [facility] Routine Lab [address] [place] [phone] Alpha 1 Globulin 6.7 % Normal [facility] Comment on above: Performed By: #### U EPGRX #### [facility] Routine Lab [address] [place] [phone] Alpha 2 Globulin 7.5 % Normal [facility] Comment on above: Performed By: #### U EPGRX #### [facility] [employer] Routine Lab [address] [place] [phone] Beta Globulin 15.9 % Normal [facility] Comment on above: Performed By: #### U EPGRX #### [facility] Routine Lab [address] [place] [phone] Comment NIF Normal [facility] Comment on above: Performed By: #### U EPGRX #### [facility] [employer] Routine Lab [address] [place] [phone] Gamma Globulin 11.2 % Normal [facility] Comment on above: Performed By: #### U EPGRX #### [facility] [employer] Routine Lab [address] [place] [phone] Interpretation NMPD Normal [facility] Comment on above: Performed By: #### U EPGRX #### [facility] Routine Lab [address] [place], [place] [address] Staff Review AZZATO Normal [facility] Comment on above: Performed By: #### U EPGRX #### [facility] Routine Lab [address] [place], [place] [address] FOLATE, SERUM [CCL]on 2020 Folate [Mass/Vol] 4.2 ng/mL Low >4.7 [facility] Comment on above: Result Comment: [facility] [address] [place] [address] Calvin Garces III, M.D. [id number] Performed By: #### 2 21870 #### [facility],[address] [place] [address] Folate, Serumon 04-14-2021 Folate [Mass/Vol] 4.2 ng/mL Low >4.7 [facility] Comment on above: Performed By: #### BHARAT LEDESMA LEVET #### [facility] Routine Lab [address] [place], [place] [address] Hemoglobin A1con 04-14-2021 Glucose [Mass/Vol] 126 mg/dL Normal [facility] Comment on above: Performed By: #### BHARAT LEDESMA LEVET #### [facility] Routine Lab [address] [place], [place] [address] HbA1c (Bld) [Mass fraction] 6.0 % High 4.3-5.6 [facility] Comment on above: Performed By: #### BHARAT LEDESMA LEVET #### [facility] Routine Lab [address] [place], [place] [address] Levetiracetamon 04-14-2021 levETIRAcetam [Mass/Vol] 6.7 ug/mL Low 12.0-46.0 [facility] Comment on above: Performed By: #### H BA1C, SERFOL, LEVET #### [facility] Routine Lab [address] [place], [place] [id number] Prot Elec, Ur w/ IFEon 04-14 Protein (U) [Mass/Vol] 4 mg/dL Normal 0-20 [facility] Comment on above: Performed By: #### U EPGRX #### [facility] Routine Lab [address] [place], [place] [address] CBC + DIFFon 04-13-2021 Baso # 0.00 x10EE3/UL Normal 0.00 - 0.10 [facility] Comment on above: Performed By: #### 2 32968 #### [facility],[address] [place] [address] Basophils/100 WBC (Bld) 0.7 % Normal 0.0 - 2.0 [facility] Comment on above: Performed By: #### 2 77093 #### [facility],[address] [place] [address] CBC + DIFF Normal [facility] Comment on above: Result Comment: CBC- COMPLETE BLOOD COUNT Performed By: #### 2 23813 #### [facility],[address] [place] [address] EO # 0.50 x10EE3/UL Normal 0.00 - 0.50 [facility] Comment on above: Performed By: #### 2 11806 #### [facility],[address] [place] [address] Eosinophils/100 WBC (Bld) 10.0 % High 0.0 - 7.0 [facility] Comment on above: Performed By: #### 2 23833 #### [facility],[address] [place] [address] Erythrocyte distribution width (RBC) [Ratio] 15.0 % Normal 12.0 - 15.6 [facility] Comment on above: Performed By: #### 2 77188 #### [facility],[address] [place] [address] Hematocrit (Bld) [Volume fraction] 44.8 % Normal 40.0 - 52.0 [facility] Comment on above: Performed By: #### 2 88216 #### [facility],[address] [place] [address] Hemoglobin (Bld) [Mass/Vol] 15.3 g/dL Normal 13.0 - 17.5 [facility] Comment on above: Performed By: #### 2 74783 #### [facility],[address] [place] [address] Lymph # 1.50 x10EE3/UL Normal 0.80 - 2.80 [facility] Comment on above: Performed By: #### 2 22507 #### [facility],[address] [place] [address] Lymphocytes/100 WBC (Bld) 29.9 % Normal 20.0 - 45.0 [facility] Comment on above: Performed By: #### 2 31328 #### [facility],[address] [place] [address] MANUAL DIFF N/A Normal [facility] Comment on above: Performed By: #### 2 52749 #### [facility],[address] [place], [place] [phone] MCH (RBC) [Entitic mass] 33 pg Normal 27 - 33 [facility] Comment on above: Performed By: #### 2 49355 #### [facility],[address] [place], [place] [address] MCHC 34 X10 3 Normal 32 - 36 [facility] Comment on above: Performed By: #### 2 09929 #### [facility],[address] [place] [address] MCV (RBC) [Entitic vol] 96 fL Normal 81 - 98 [facility] Comment on above: Performed By: #### 2 69562 #### [facility],[address] [place] [address] Hill # 0.60 x10EE3/UL Normal 0.20 - 1.00 [facility] Comment on above: Performed By: #### 2 44125 #### [facility],[address] [place] [address] MONOS % 11.6 % High 0.0 - 10.0 [facility] Comment on above: Performed By: #### 2 85119 #### [facility],[address] [place] [address] Morphology Cheo (Bld) [Interp] N/A Normal [facility] Comment on above: Result Comment: {CD] Performed By: #### 2 89186 #### [facility],[address] [place] [address] Neut # 2.30 x10EE3/UL Normal 1.50 - 7.10 [facility] Comment on above: Performed By: #### 2 89302 #### [facility],[address] [place] [address] Neutrophils/100 WBC (Bld) 47.8 % Normal 46.0 - 76.0 [facility] Comment on above: Performed By: #### 2 41274 #### [facility],[address] [place] [address] PLATELET 215 x10EE3/UL Normal 150 - 450 [facility] Comment on above: Performed By: #### 2 67278 #### [facility],[address] [place] [address] Platelet mean volume (Bld) [Entitic vol] 7.6 fL Normal 6.4 - 10.5 [facility] Comment on above: Result Comment: AUTO MATED DIFFERENTIAL Performed By: #### 2 74487 #### [facility],[address],[place] [address] RBC 4.66 x 10EE6/UL Normal 4.50 - 6.00 [facility] Comment on above: Performed By: #### 2 16843 #### [facility],[address] [place] [address] 658[address] WBC 4.9 x 10EE3/UL Normal 4.5 - 10.8 [facility] Comment on above: Performed By: #### 2 42596 #### [facility],[address] [place] [address] CMP with eGFRon 04-13-2021 AGE 51 years Normal [facility] Comment on above: Performed By: #### 2 80013 #### [facility],[address] [place] [address]55[address] Albumin [Mass/Vol] 4.3 g/dL Normal 3.4 - 5.0 [facility] Comment on above: Performed By: #### 2 71141 #### [facility],[address] [place] [address] 56908 Albumin/Globulin [Mass ratio] 1.0 {ratio} Normal 0.9 - 1.6 [facility] Comment on above: Performed By: #### 2 16609 #### [facility],[address] [place] [address] 14234 ALK PHOS 96 U/L Normal 46 - 116 [facility] Comment on above: Performed By: #### 2 46007 #### [facility],[address] [place] [address] 66639 ALT [Catalytic activity/Vol] 39 U/L Normal 16 - 63 [facility] Comment on above: Performed By: #### 2 93349 #### [facility],[address] [place] [address] 98216 Anion gap [Moles/Vol] 13 mmol/L Normal 10 - 20 [facility] Comment on above: Performed By: #### 2 85602 #### [facility],[address] [place] [address] 03571 AST [Catalytic activity/Vol] 42 U/L High 15 - 37 [facility] Comment on above: Performed By: #### 2 39247 #### [facility],[address] [place] [address] 07183 B/C RATIO 8 ratio Normal 0 - 30 [facility] Comment on above: Performed By: #### 2 63265 #### [facility],[address] [place] [address] 54572 Bilirubin [Mass/Vol] 0.4 mg/dL Normal 0.2 - 1.0 [facility] Comment on above: Performed By: #### 2 43524 #### [facility],[address] [place] [address] 16854 Calcium [Mass/Vol] 9.3 mg/dL Normal 8.5 - 10.1 [facility] Comment on above: Performed By: #### 2 12550 #### [facility],[address] [place] [address] 32677 Chloride [Moles/Vol] 101 mmol/L Normal 98 - 107 [facility] Comment on above: Performed By: #### 2 24467 #### [facility],[address] [place] [address] 97112 CMP with eGFR Normal [facility] Comment on above: Result Comment: COMP REHENSIVE METABOLIC PANEL Performed By: #### 2 12163 #### [facility],[address] [place] [address] 13998 CO2 [Moles/Vol] 30.0 mmol/L Normal 21.0 - 32.0 [facility] Comment on above: Performed By: #### 2 66826 #### [facility],[address] [place] [address] 92998 Creatinine [Mass/Vol] 0.87 mg/dL Normal 0.70 - 1.30 [facility] Comment on above: Performed By: #### 2 62093 #### [facility],[address] [place] [address] 68311 GFR/1.73 sq M.predicted among non-blacks MDRD (S/P/Bld) [Vol rate/Area] mL/min/{1.73_m2} Normal 60 - 999 [facility] Comment on above: Performed By: #### 2 16540 #### [facility],[address] [place] [address] 26246 Result Comment: ACCO RDING TO THE NATIONAL KIDNEY DISEASE EDUCATION PROGRAM(NKDE), A NORMAL eGFR IS A VALUE GREATER THAN OR EQUAL TO 60 ML/MIN/1.73 SQ METERS. CHRONIC KIDNEY DISEASE: <60mL/MIN/1.73 SQ METERS KIDNEY FAILURE: <15mL/MIN/1.73 SQ METERS THIS TEST SHOULD ONLY BE USED FOR PATIENTS 18 YEARS OF AGE AND OLDER. Globulin (S) [Mass/Vol] 4.5 g/dL High 1.5 - 3.8 [facility] Comment on above: Performed By: #### 2 61565 #### [facility],[address] [place] [address] 80109 Glucose [Mass/Vol] 98 mg/dL Normal 74 - 106 [facility] Comment on above: Performed By: #### 2 93096 #### [facility],[address] [place] [address] 80839 Potassium [Moles/Vol] 4.0 mmol/L Normal 3.5 - 5.1 [facility] Comment on above: Performed By: #### 2 55541 #### [facility],[address] [place] [address] 72452 Protein [Mass/Vol] 8.8 g/dL High 6.4 - 8.2 [facility] Comment on above: Performed By: #### 2 14411 #### [facility],[address] [place] [address] 23569 Sodium [Moles/Vol] 140 mmol/L Normal 136 - 145 [facility] Comment on above: Performed By: #### 2 62473 #### [facility],[address] [place] [address] 51024 Urea nitrogen [Mass/Vol] 7 mg/dL Normal 7 - 18 [facility] Comment on above: Performed By: #### 2 58381 #### [facility],[address] [place] [address] 19542 TSHon 04-13-2021 TSH Qn 1.99 m[IU]/L Normal 0.35 - 3.74 [facility] Comment on above: Performed By: #### 2 69207 #### [facility],[address] [place] [address] 98782 VITAMIN B-12on 04-13-2021 Cobalamin (Vitamin B12) [Mass/Vol] 301 pg/mL Normal 193 - 986 [facility] Comment on above: Performed By: #### 2 53396 #### [address] [address] LEVETIRACETAM [CCL]on 2020 levETIRAcetam [Mass/Vol] 46.5 ug/mL High 12.0-46.0 [facility] Comment on above: Result Comment: This test is not suitable for patients receiving treatment with the drug brivaracetam (Briviact). The drug causes an interference that may lead to falsely elevated levetiracetam results. Reference ranges and high/low indicator flags are provided as general guidelines only. The treating physician must determine appropriate target levels/dosing based on the specific clinical situation. This test was developed and its performance characteristics determined by [facility]'s [facility] ([facility]). It has not been cleared or approved by the FDA. [facility] is regulated under CLIA as qualified to perform high complexity testing. This test is used for clinical purposes. It should not be regarded as investigational or for research. [facility] [employer] [address] [place] [address] Calvin Garces III, M.D. [id number] Performed By: #### 2 11491 #### [facility],[address] [place] [address] Levetiracetamon 03-07-2021 levETIRAcetam [Mass/Vol] 46.5 ug/mL High 12.0-46.0 [facility] Comment on above: Performed By: #### L FIORELLA #### [facility] Routine Lab [address] [place] [address] CBC + DIFFon 03-04-2021 Baso # 0.10 x10EE3/UL Normal 0.00 - 0.10 [facility] Comment on above: Performed By: #### 2 82325 #### [facility],[address] [place] [address] Basophils/100 WBC (Bld) 1.2 % Normal 0.0 - 2.0 [facility] Comment on above: Performed By: #### 2 03680 #### [facility],[address] [place] [address] CBC + DIFF Normal [facility] Comment on above: Result Comment: CBC- COMPLETE BLOOD COUNT Performed By: #### 2 18386 #### [facility],[address] [place] [address] EO # 0.30 x10EE3/UL Normal 0.00 - 0.50 [facility] Comment on above: Performed By: #### 2 55693 #### [facility],[address] [place], [place] [address] Eosinophils/100 WBC (Bld) 3.8 % Normal 0.0 - 7.0 [facility] Comment on above: Performed By: #### 2 44417 #### [place] [address] Erythrocyte distribution width (RBC) [Ratio] 14.7 % Normal 12.0 - 15.6 [facility] Comment on above: Performed By: #### 2 92008 #### [facility],[address] [place] [address] Hematocrit (Bld) [Volume fraction] 45.0 % Normal 40.0 - 52.0 [facility] Comment on above: Performed By: #### 2 12462 #### [facility],[address] [place], [place] [address] Hemoglobin (Bld) [Mass/Vol] 15.4 g/dL Normal 13.0 - 17.5 [facility] Comment on above: Performed By: #### 2 07375 #### [facility],[address] [place] [address] Lymph # 1.20 x10EE3/UL Normal 0.80 - 2.80 [facility] Comment on above: Performed By: #### 2 04298 #### [facility],[address] [place] [address] Lymphocytes/100 WBC (Bld) 15.8 % Low 20.0 - 45.0 [facility] Comment on above: Performed By: #### 2 34145 #### [facility],[address] [place] [address] 21760 MANUAL DIFF N/A Normal [facility] Comment on above: Performed By: #### 2 06816 #### [facility],[address] [place], [place] [address] MCH (RBC) [Entitic mass] 32 pg Normal 27 - 33 [facility] Comment on above: Performed By: #### 2 59884 #### [facility],[address] [place] [address] 38382 MCHC 34 X10 3 Normal 32 - 36 [facility] Comment on above: Performed By: #### 2 44597 #### [facility],[address] [place] [address] 15955 MCV (RBC) [Entitic vol] 95 fL Normal 81 - 98 [facility] Comment on above: Performed By: #### 2 10997 #### [facility],[address] [place] [address] 69096 Hill # 0.70 x10EE3/UL Normal 0.20 - 1.00 [facility] Comment on above: Performed By: #### 2 47752 #### [facility],[address] [place] [address] 28902 MONOS % 10.0 % Normal 0.0 - 10.0 [facility] Comment on above: Performed By: #### 2 75593 #### [facility],[address] [place] [address] 96606 Morphology Cheo (Bld) [Interp] N/A Normal [facility] Comment on above: Result Comment: {CD] Performed By: #### 2 47909 #### [facility],[address] [place] [address] 53873 Neut # 5.10 x10EE3/UL Normal 1.50 - 7.10 [facility] Comment on above: Performed By: #### 2 88246 #### [facility],[address] [place], [place] [address] Neutrophils/100 WBC (Bld) 69.2 % Normal 46.0 - 76.0 [facility] Comment on above: Performed By: #### 2 71616 #### [facility],[address] [place], [place] [address] PLATELET 274 x10EE3/UL Normal 150 - 450 [facility] Comment on above: Performed By: #### 2 30074 #### [facility],[address] [place] [address] 79466 Platelet mean volume (Bld) [Entitic vol] 8.3 fL Normal 6.4 - 10.5 [facility] Comment on above: Result Comment: AUTO MATED DIFFERENTIAL Performed By: #### 2 58161 #### [facility],[address] [place] [address] 26124 RBC 4.75 x 10EE6/UL Normal 4.50 - 6.00 [facility] Comment on above: Performed By: #### 2 59358 #### [facility],[address] [place] [address] 18664 WBC 7.4 x 10EE3/UL Normal 4.5 - 10.8 [facility] Comment on above: Performed By: #### 2 16206 #### [facility],[address] [place] [address] 27284 CMP with eGFRon 03-04-2021 AGE 51 years Normal [facility] Comment on above: Performed By: #### 2 44728 #### [facility],[address] [place] [address] 81515 Albumin [Mass/Vol] 4.1 g/dL Normal 3.4 - 5.0 [facility] Comment on above: Performed By: #### 2 15026 #### [facility],[address] [place] [address] 35205 Albumin/Globulin [Mass ratio] 0.9 {ratio} Normal 0.9 - 1.6 [facility] Comment on above: Performed By: #### 2 69677 #### [facility],[address] [place] [address] 67862 ALK PHOS 95 U/L Normal 46 - 116 [facility] Comment on above: Performed By: #### 2 50353 #### [facility],[address] [place] [address] 41317 ALT [Catalytic activity/Vol] 47 U/L Normal 16 - 63 [facility] Comment on above: Performed By: #### 2 13838 #### [facility],[address] [place] [address] 84258 Anion gap [Moles/Vol] 13 mmol/L Normal 10 - 20 [facility] Comment on above: Performed By: #### 2 95678 #### [facility],[address] [place] [address] 33799 AST [Catalytic activity/Vol] 40 U/L High 15 - 37 [facility] Comment on above: Performed By: #### 2 08637 #### [facility],[address] [place] [address] 33773 B/C RATIO 7 ratio Normal 0 - 30 [facility] Comment on above: Performed By: #### 2 76234 #### [facility],[address] [place] [address] 38700 Bilirubin [Mass/Vol] 0.4 mg/dL Normal 0.2 - 1.0 [facility] Comment on above: Performed By: #### 2 16340 #### [facility],[address] [place] [address] 92593 Calcium [Mass/Vol] 8.7 mg/dL Normal 8.5 - 10.1 [facility] Comment on above: Performed By: #### 2 67556 #### [facility],[address] [place] [address] 25451 Chloride [Moles/Vol] 98 mmol/L Normal 98 - 107 [facility] Comment on above: Performed By: #### 2 68453 #### [facility],[address] [place] [address] 17291 CMP with eGFR Normal [facility] Comment on above: Result Comment: COMP REHENSIVE METABOLIC PANEL Performed By: #### 2 53257 #### [facility],[address] [place] [address] 59415 CO2 [Moles/Vol] 30.0 mmol/L Normal 21.0 - 32.0 [facility] Comment on above: Performed By: #### 2 91773 #### [facility],[address] [place] [address] 83708 Creatinine [Mass/Vol] 0.96 mg/dL Normal 0.70 - 1.30 [facility] Comment on above: Performed By: #### 2 44033 #### [facility],[address] [place] [address] 50534 GFR/1.73 sq M.predicted among non-blacks MDRD (S/P/Bld) [Vol rate/Area] mL/min/{1.73_m2} Normal 60 - 999 [facility] Comment on above: Performed By: #### 2 92418 #### [facility],[address] [place] [address] 78702 Result Comment: ACCO RDING TO THE NATIONAL KIDNEY DISEASE EDUCATION PROGRAM(NKDE), A NORMAL eGFR IS A VALUE GREATER THAN OR EQUAL TO 60 ML/MIN/1.73 SQ METERS. CHRONIC KIDNEY DISEASE: <60mL/MIN/1.73 SQ METERS KIDNEY FAILURE: <15mL/MIN/1.73 SQ METERS THIS TEST SHOULD ONLY BE USED FOR PATIENTS 18 YEARS OF AGE AND OLDER. Globulin (S) [Mass/Vol] 4.4 g/dL High 1.5 - 3.8 [facility] Comment on above: Performed By: #### 2 26520 #### [facility],[address] [place] [address] 77119 Glucose [Mass/Vol] 97 mg/dL Normal 74 - 106 [facility] Comment on above: Performed By: #### 2 10121 #### [facility],[address] [place] [address] 12695 Potassium [Moles/Vol] 4.0 mmol/L Normal 3.5 - 5.1 [facility] Comment on above: Performed By: #### 2 26775 #### [facility],[address] [place] [address] 78322 Protein [Mass/Vol] 8.5 g/dL High 6.4 - 8.2 [facility] Comment on above: Performed By: #### 2 02659 #### [facility],[address] [place] [address] 57074 Sodium [Moles/Vol] 137 mmol/L Normal 136 - 145 [facility] Comment on above: Performed By: #### 2 11868 #### [facility],[address] [place] [address] 47786 Urea nitrogen [Mass/Vol] 7 mg/dL Normal 7 - 18 [facility] Comment on above: Performed By: #### 2 84840 #### [facility],[address] [place] [address] 88861 LIPID PROFILEon 03-04-2021 Cholesterol [Mass/Vol] 184 mg/dL Normal 0 - 240 [facility] Comment on above: Performed By: #### 2 57882 #### [facility],[address] [place] [address] 47677 Cholesterol in HDL [Mass/Vol] 119 mg/dL High 40 - 60 [facility] Comment on above: Performed By: #### 2 43943 #### [facility],[address] [place] [address] 09019 Cholesterol in LDL [Mass/Vol] 56 mg/dL Normal 0 - 129 [facility] Comment on above: Performed By: #### 2 39294 #### [facility],[address] [place] [address] 65319 Cholesterol.total/Ch olesterol in HDL [Mass ratio] 1.5 {ratio} Normal 0.0 - 5.0 [facility] Comment on above: Performed By: #### 2 43536 #### [facility],[address] [place] [address] 84193 Lipid 1996 panel Normal [facility] Comment on above: Result Comment: LIPI D PROFILE Performed By: #### 2 09094 #### [facility],[address] [place] [address] 32487 Triglyceride [Mass/Vol] 43 mg/dL Normal 0 - 150 [facility] Comment on above: Performed By: #### 2 26811 #### [facility],[address] [place] [address] 17853 HBSAGon 07-04-2019 HBSAG NONREACTIVE Normal NONREACTIVE [facility] Comment on above: Result Comment: RESU LTS WERE OBTAINED WITH THE [employer]AUR XP. VALUES OBTAINED WITH DIFFERENT MANUFACTURERS' ASSAY METHODS MAY NOT BE USED INTERCHANGEABLY. Performed By: #### L 500.27115, L500.10707, L500.03817, L500.58382, L500.82527, L540.37943, L540.00484, L540.89146 #### [facility] [address] [place] [address] 28039 HEP B AB QUANTon 07-04-2019 HEP B AB QUANT 4.90 mIU/mL Normal 0.00-9.99 [facility] Comment on above: Result Comment: STAT US OF IMMUNITY Protective Immunity: greater than or equal to 10 mIU/mL (Traceable to WHO International Reference Preparation) No Protective Immuniity: less than 10 mIU/mL Note: The magnitude of the measured result above the cutoff is not indicative of the total amount of antibody present. Performed By: #### L 500.79828, L500.31393, L500.31454, L500.32235, L500.80416, L540.79125, L540.06563, L540.72304 #### [facility] [address] [place] [address] 89030 HEPATITIS C ABon 07-04-2019 HCV AB NONREACTIVE Normal NONREACTIVE [facility] Comment on above: Result Comment: SCRE ENING TEST NEGATIVE NONREACTIVE HCV ANTIBODY SCREEN IS CONSISTENT WITH NO HCV INFECTION, UNLESS RECENT INFECTION IS SUSPECTED OR OTHER EVIDENCE EXISTS TO INDICATE HCV INFECTION Performed By: #### L 500.42468, L500.82417, L500.83063, L500.04843, L500.96066, L540.94460, L540.99507, L540.67585 #### [facility] [address] [place] [address] 18523 CBC W/DIFFon 07-02-2019 BASO ABS 0.10 K/CU MM Normal 0-0.2 [facility] Comment on above: Performed By: #### L 500.50269, L500.71577, L500.40452, L500.78343, L500.17800, L540.37243, L540.69159, L540.37419 #### [facility] [place] [address] Basophils/100 WBC (Bld) 1.1 % Normal 0-2 [facility] Comment on above: Performed By: #### L 500.94218, L500.73855, L500.93084, L500.24565, L500.18020, L540.03144, L540.22548, L540.14689 #### [facility] [address] [place] [address] EOS ABS 0.30 K/CU MM Normal 0-0.5 [facility] Comment on above: Performed By: #### L 500.30129, L500.62036, L500.94904, L500.81803, L500.85233, L540.58683, L540.54917, L540.14443 #### [facility] [address] [place] [address] Eosinophils/100 WBC (Bld) 3.5 % Normal 0-5 [facility] Comment on above: Performed By: #### L 500.81822, L500.53456, L500.57771, L500.83676, L500.87687, L540.83808, L540.60505, L540.00616 #### [facility] [address] [place] [address] Erythrocyte distribution width (RBC) [Ratio] 12.2 % Normal 11-14.5 [facility] Comment on above: Performed By: #### L 500.84045, L500.31662, L500.86963, L500.01048, L500.06525, L540.28965, L540.15421, L540.23869 #### [facility] [address] [place] [address] Hematocrit (Bld) [Volume fraction] 40.5 % Low 41.0-53.0 [facility] Comment on above: Performed By: #### L 500.74327, L500.04242, L500.19742, L500.89195, L500.48624, L540.84174, L540.63009, L540.88295 #### [facility] [address] [place] [address] Hemoglobin (Bld) [Mass/Vol] 13.5 g/dL Normal 13.5-17.5 [facility] Comment on above: Performed By: #### L 500.45429, L500.66537, L500.65843, L500.75663, L500.84341, L540.12655, L540.77141, L540.64518 #### [facility] [address] [place] [address] IMMATR GRAN ABS 0.00 K/CU MM Normal Less than 2 [facility] Comment on above: Performed By: #### L 500.48730, L500.83707, L500.44200, L500.67278, L500.49965, L540.20764, L540.53210, L540.17461 #### [facility] [address] [place] [address] IMMATURE GRAN % 0.3 % Normal Less than 2 [facility] Comment on above: Performed By: #### L 500.95506, L500.31058, L500.82909, L500.20060, L500.98317, L540.17549, L540.11050, L540.94420 #### [facility] [address] [place] [address] Lymphocytes (Bld) [#/Vol] 1.80 K/CU MM Normal 0.9-4.4 [facility] Comment on above: Performed By: #### L 500.16078, L500.15758, L500.89271, L500.64770, L500.13485, L540.66557, L540.47328, L540.57818 #### [facility] [address] [place] [address] Lymphocytes/100 WBC (Bld) 22.4 % Normal 20-40 [facility] Comment on above: Performed By: #### L 500.66573, L500.08959, L500.04553, L500.12676, L500.42699, L540.50883, L540.70761, L540.57763 #### [facility] [place] [address] MCHC (RBC) [Mass/Vol] 33.3 g/dL Normal 32.0-36.0 [facility] Comment on above: Performed By: #### L 500.23130, L500.99495, L500.18211, L500.19478, L500.58712, L540.54741, L540.44082, L540.21307 #### [facility] [address] [place] [address] MCV (RBC) [Entitic vol] 97.4 fL Normal 80.0-99.0 [facility] Comment on above: Performed By: #### L 500.60726, L500.55288, L500.76534, L500.64972, L500.04364, L540.45846, L540.98108, L540.49264 #### [facility] [place] [address] MONO ABS 1.10 K/CU MM Normal 0.1-1.1 [facility] Comment on above: Performed By: #### L 500.31457, L500.85890, L500.64545, L500.87798, L500.01549, L540.72706, L540.18837, L540.40747 #### [facility] [address] [place] [id number] Monocytes/100 WBC (Bld) 13.3 % High 2-10 [facility] Comment on above: Performed By: #### L 500.21459, L500.00727, L500.90273, L500.49096, L500.10929, L540.83918, L540.01497, L540.96216 #### [facility] [address] [place] [address] NEUTROPHIL ABS 4.70 K/CU MM Normal 2.0-8.3 [facility] Comment on above: Performed By: #### L 500.00042, L500.14757, L500.78809, L500.38079, L500.05794, L540.42200, L540.09797, L540.01404 #### [facility] [address] [place] [address] Neutrophils/100 WBC (Bld) 59.4 % Normal 45-75 [facility] Comment on above: Performed By: #### L 500.55645, L500.22979, L500.43767, L500.35797, L500.65720, L540.42430, L540.87538, L540.16139 #### [facility] [address] [place] [address] Nucleated RBC/100 WBC (Bld) [Ratio] 0.0 % Normal Less than 1 [facility] Comment on above: Performed By: #### L 500.92365, L500.20768, L500.87128, L500.32276, L500.39888, L540.79933, L540.14200, L540.54688 #### [facility] [address] [place] [address] Platelet mean volume (Bld) [Entitic vol] 9.8 fL Normal 9.4-12.4 [facility] Comment on above: Performed By: #### L 500.16104, L500.23373, L500.60536, L500.66325, L500.76480, L540.51522, L540.55337, L540.62116 #### [facility] [place] [address] Platelets (Bld) [#/Vol] 272 K/CU MM Normal 150-450 [facility] Comment on above: Performed By: #### L 500.63980, L500.86225, L500.55639, L500.88539, L500.99693, L540.49372, L540.37408, L540.31947 #### [facility] [address] [place] [address] RBC (Bld) [#/Vol] 4.16 M/CU MM Low 4.50-6.00 [facility] Comment on above: Performed By: #### L 500.83034, L500.28812, L500.92180, L500.44358, L500.72757, L540.99962, L540.74842, L540.59750 #### [facility] [address] [place], [place] [address] WBC (Bld) [#/Vol] 8.0 K/CUMM Normal 4.5-11.0 [facility] Comment on above: Performed By: #### L 500.79886, L500.50065, L500.08728, L500.97362, L500.97173, L540.09523, L540.95357, L540.97163 #### [facility] [address] [place] [address] 56193 CMPon 07-02-2019 Albumin [Mass/Vol] 4.2 g/dL Normal 3.2-5.0 [facility] Comment on above: Performed By: #### L 500.44001, L500.30484, L500.70703, L500.93808, L500.03195, L540.55987, L540.54049, L540.48875 #### [facility] [address] [place] [address] Albumin/Globulin [Mass ratio] 1.2 {ratio} Normal 0.8-2.0 [facility] Comment on above: Performed By: #### L 500.12032, L500.41218, L500.81045, L500.36565, L500.44017, L540.27901, L540.14513, L540.64663 #### [facility] [place] [address] ALK PHOS 49 U/L Normal 45-117 [facility] Comment on above: Performed By: #### L 500.66906, L500.64179, L500.67823, L500.91927, L500.28412, L540.83223, L540.09979, L540.27125 #### [facility] [address] [place] [address] ALT [Catalytic activity/Vol] 29 U/L Normal 13-61 [facility] Comment on above: Result Comment: RESU LTS MAY BE FALSELY DEPRESSED AFTER THE ADMINISTRATION OF SULFASALAZINE AND/OR SULFAPYRIDINE. Performed By: #### L 500.99471, L500.04447, L500.28574, L500.89689, L500.12657, L540.88338, L540.51248, L540.65056 #### [facility] [place] [address] Anion gap [Moles/Vol] 9 mmol/L Normal 5-16 [facility] Comment on above: Performed By: #### L 500.21599, L500.99747, L500.73047, L500.18088, L500.98499, L540.68034, L540.53785, L540.73720 #### [facility] [address] [place] [address] BILI TOTAL 0.4 MG/DL Normal 0.2-1.0 [facility] Comment on above: Performed By: #### L 500.88014, L500.91200, L500.12380, L500.87774, L500.25359, L540.17079, L540.42514, L540.56431 #### [facility] [place] [address] Calcium [Mass/Vol] 9.3 mg/dL Normal 8.5-10.1 [facility] Comment on above: Performed By: #### L 500.62240, L500.13411, L500.00854, L500.25052, L500.43393, L540.17017, L540.34937, L540.50241 #### [facility] [place] [id number] Chloride [Moles/Vol] 100 mmol/L Normal 98-107 [facility] Comment on above: Performed By: #### L 500.41600, L500.19609, L500.54399, L500.93187, L500.45178, L540.78600, L540.52641, L540.31044 #### [facility] [place] [address] CO2 [Moles/Vol] 25 mmol/L Normal 21-32 [facility] Comment on above: Performed By: #### L 500.92151, L500.09346, L500.25822, L500.33063, L500.65655, L540.12779, L540.58496, L540.52135 #### [facility] [place] [address] Creatinine [Mass/Vol] 0.769 mg/dL Normal 0.670-1.170 [facility] Comment on above: Result Comment: Quita ents receiving either N-Acetylcysteine (NAC) or Metamizole prior to venipuncture, may have falsely depressed results. Performed By: #### L 500.60419, L500.58419, L500.42223, L500.29125, L500.67324, L540.13516, L540.65884, L540.39105 #### [facility] [place] [address] Globulin (S) [Mass/Vol] 3.4 g/dL Normal 2.2-4.2 [facility] Comment on above: Performed By: #### L 500.59041, L500.88600, L500.21820, L500.85075, L500.79623, L540.45055, L540.31324, L540.57507 #### [facility] [address] [place] [address] Glucose [Mass/Vol] 85 mg/dL Normal 70-100 [facility] Comment on above: Result Comment: 70-1 00- Normal Fasting; 100-125 Impaired Fasting; greater than 126 on more than one result- Diabetes. ADA guidelines. Results may be falsely elevated after the administration of Sulfapyridine. Results may be falsely depressed after the administration of Sulfasalazine. Performed By: #### L 500.19857, L500.65389, L500.89378, L500.14552, L500.12964, L540.37535, L540.08881, L540.99385 #### [facility] [place] [address] Potassium [Moles/Vol] 4.6 mmol/L Normal 3.5-5.1 [facility] Comment on above: Performed By: #### L 500.82664, L500.35703, L500.99109, L500.94155, L500.08480, L540.56082, L540.21159, L540.66576 #### [facility] [place] [address] Protein [Mass/Vol] 7.5 g/dL Normal 6.0-8.5 [facility] Comment on above: Performed By: #### L 500.56490, L500.95550, L500.80606, L500.37623, L500.91683, L540.04064, L540.81226, L540.10768 #### [facility] [address] [place] [address] SGOT (AST) 21 U/L Normal 8-34 [facility] Comment on above: Result Comment: RESU LTS MAY BE FALSELY DEPRESSED AFTER THE ADMINISTRATION OF SULFASALAZINE AND/OR SULFAPYRIDINE. Performed By: #### L 500.68138, L500.61901, L500.18019, L500.24347, L500.95932, L540.88229, L540.39534, L540.19133 #### [facility] [address] [place] [address]703 Sodium [Moles/Vol] 134 mmol/L Low 136-145 [facility] Comment on above: Performed By: #### L 500.53352, L500.42300, L500.37453, L500.14141, L500.57562, L540.19373, L540.95954, L540.60732 #### [facility] [place] [address] Urea nitrogen [Mass/Vol] 9 mg/dL Normal 7-26 [facility] Comment on above: Performed By: #### L 500.29941, L500.59373, L500.76973, L500.56564, L500.74274, L540.10405, L540.15096, L540.90092 #### [facility] [address] [place] [address] 59045 Urea nitrogen/Creatinine [Mass ratio] 11 mg/mg Low 15-24 [facility] Comment on above: Performed By: #### L 500.03062, L500.23653, L500.70312, L500.58444, L500.46571, L540.43240, L540.54694, L540.80061 #### [facility] [place] [id number] GFR ESTon 07-02-2019 IF AMER Greater than 60 Normal [facility] Comment on above: Performed By: #### L 500.43693, L500.60221, L500.64091, L500.73692, L500.62519, L540.13803, L540.77790, L540.16941 #### [facility] [address] [place] [address] IF non-AFR AMER Greater than 60 Normal [facility] Comment on above: Performed By: #### L 500.38937, L500.35932, L500.65736, L500.71680, L500.27124, L540.92759, L540.60154, L540.69316 #### [facility] [address] [place], [place] [address] LIPIDon 07-02-2019 Cholesterol [Mass/Vol] 156 mg/dL Normal 0-199 [facility] Comment on above: Performed By: #### L 500.40722, L500.92901, L500.15908, L500.60221, L500.06930, L540.39742, L540.26931, L540.37783 #### [facility] [place] [address] Cholesterol in HDL [Mass/Vol] 43 mg/dL Normal [place] 40 [facility] Comment on above: Result Comment: Quita ents receiving Metamizole prior to venipuncture, may have falsely depressed results. Performed By: #### L 500.02019, L500.88829, L500.35360, L500.32387, L500.95525, L540.16775, L540.75037, L540.85304 #### [facility] [address] [place] [address] Cholesterol in LDL [Mass/Vol] 98 mg/dL Normal 0-129 [facility] Comment on above: Result Comment: ___C HOLESTEROL/HDL RATIO RISK___ CHD RISK = Total CHOL LDL HDL (CHOL/HDL) Recommended <200 <130 >40 <3.4 Borderline 200-239 130-159 3.4-4.99 High >240 >160 >5.0 Performed By: #### L 500.55577, L500.01115, L500.72355, L500.22921, L500.39180, L540.32153, L540.10504, L540.62712 #### [facility] [address] [place] [address] Triglyceride [Mass/Vol] 75 mg/dL Normal 30-149 [facility] Comment on above: Result Comment: Quita ents receiving either N-Acetylcysteine (NAC) or Metamizole prior to venipuncture, may have falsely depressed results. Performed By: #### L 500.04376, L500.57835, L500.52931, L500.26629, L500.91964, L540.23850, L540.36756, L540.91823 #### [facility] [address] [place] [id number] THYROID PRO/TSHon 07-02-2019 T3 UP 31.0 % Low 33.0-40.0 [facility] Comment on above: Performed By: #### L 500.59091, L500.43712, L500.49946, L500.06181, L500.71835, L540.59281, L540.80373, L540.75881 #### [facility] [address] [place] [id number] T4 [Mass/Vol] 6.8 ug/dL Normal 4.5-12.1 [facility] Comment on above: Result Comment: RESU LTS MAY BE FALSELY ELEVATED AFTER THE ADMINISTRATION OF SULFASALAZINE. Performed By: #### L 500.05457, L500.04758, L500.52342, L500.35441, L500.06546, L540.11656, L540.90869, L540.31918 #### [facility] [address] [place] [address] TSH Qn 0.795 UIU/ML Normal 0.358-3.740 [facility] Comment on above: Result Comment: 3rd generation ultra sensitive TSH Performed By: #### L 500.76016, L500.31252, L500.37254, L500.63351, L500.42884, L540.76240, L540.34339, L540.90258 #### [facility] [address] [place] [address] UR DRUG ABUSEon 07-02-2019 UR AMPH Negative Normal Lfbpgp=5735 [facility] Comment on above: Performed By: #### L 500.67667, L500.79966, L500.38586, L500.46607, L500.20849, L540.14731, L540.47390, L540.10498 #### [facility] [address] [place] [address] UR CONSTANZA Negative Normal Foxkdr=998 [facility] Comment on above: Performed By: #### L 500.27416, L500.38052, L500.54595, L500.16670, L500.16337, L540.68799, L540.73925, L540.58889 #### [facility] [address] [place] [address] UR MAX Negative Normal Lkeclc=596 [facility] Comment on above: Performed By: #### L 500.14692, L500.08798, L500.76203, L500.59058, L500.61623, L540.31308, L540.66479, L540.16812 #### [facility] [address] [place] [address] UR IRWIN/THC Negative Normal Cutoff=50 [facility] Comment on above: Performed By: #### L 500.49708, L500.48846, L500.34061, L500.15213, L500.50304, L540.73396, L540.45414, L540.02369 #### [facility] [address] [place] [address] UR VAMSHI Negative Normal Ieexsv=563 [facility] Comment on above: Performed By: #### L 500.33455, L500.91419, L500.02780, L500.81392, L500.03235, L540.11041, L540.16797, L540.42379 #### [facility] [address] [place] [address] UR OPIAT Negative Normal Zmidgi=516 [facility] Comment on above: Performed By: #### L 500.01803, L500.27558, L500.41346, L500.05721, L500.50449, L540.07877, L540.10199, L540.72554 #### [facility] [address] [place] [address] UR PCP Negative Normal Cutoff=25 [facility] Comment on above: Performed By: #### L 500.12958, L500.47710, L500.88058, L500.37410, L500.05866, L540.59351, L540.90834, L540.62684 #### [facility] [address] [place] [address] DRAB COMMENT Normal [facility] Comment on above: Result Comment: [facility] [employer] results are qualitative, providing a preliminary analytical result. A positive result for an assay should be confirmed by another nonimmunological, reference method. A negative result indicates that the assay material is either not present, or present at levels below the cutoff threshold for the analytical method range (AMR) validation. Performed By: #### L 500.20391, L500.01351, L500.05119, L500.67836, L500.54844, L540.69081, L540.49447, L540.27524 #### [facility] [address] [place] [address] CBC W/DIFFon 07-01-2019 BASO ABS 0.10 K/CU MM Normal 0-0.2 [facility] Comment on above: Performed By: #### L 200.98675 #### [facility] [address] [place] [address] Basophils/100 WBC (Bld) 1.1 % Normal 0-2 [facility] Comment on above: Performed By: #### L 200.40541 #### [facility] [facility] [address] [place] [address] EOS ABS 0.30 K/CU MM Normal 0-0.5 [facility] Comment on above: Performed By: #### L 200.19322 #### [facility] [address] [place] [address] Eosinophils/100 WBC (Bld) 3.6 % Normal 0-5 [facility] Comment on above: Performed By: #### L 200.39514 #### [facility] [address] [place] [address] Erythrocyte distribution width (RBC) [Ratio] 12.8 % Normal 11-14.5 [facility] Comment on above: Performed By: #### L 200.88160 #### [facility] [address] [place] [address] Hematocrit (Bld) [Volume fraction] 42.8 % Normal 41.0-53.0 [facility] Comment on above: Performed By: #### L 200.82211 #### [facility] [address] [place] [address] Hemoglobin (Bld) [Mass/Vol] 13.6 g/dL Normal 13.5-17.5 [facility] Comment on above: Performed By: #### L 200.98556 #### [facility] [address] [place] [address] IMMATR GRAN ABS 0.00 K/CU MM Normal Less than 2 [facility] Comment on above: Performed By: #### L 200.61187 #### [facility] [address] [place] [address] IMMATURE GRAN % 0.1 % Normal Less than 2 [facility] Comment on above: Performed By: #### L 200.26118 #### [facility] [address] [place] [address] Lymphocytes (Bld) [#/Vol] 1.60 K/CU MM Normal 0.9-4.4 [facility] Comment on above: Performed By: #### L 200.58332 #### [facility] [address] [place] [address] Lymphocytes/100 WBC (Bld) 22.5 % Normal 20-40 [facility] Comment on above: Performed By: #### L 200.73148 #### [facility] [address] [place] [address] MCHC (RBC) [Mass/Vol] 31.8 g/dL Low 32.0-36.0 [facility] Comment on above: Performed By: #### L 200.79860 #### [facility] [address] [place] [address] MCV (RBC) [Entitic vol] 101.9 fL High 80.0-99.0 [facility] Comment on above: Performed By: #### L 200.62485 #### [facility] [address] [place] [address] MONO ABS 0.90 K/CU MM Normal 0.1-1.1 [facility] Comment on above: Performed By: #### L 200.38574 #### [facility] [address] [place] [address] Monocytes/100 WBC (Bld) 12.4 % High 2-10 [facility] Comment on above: Performed By: #### L 200.87197 #### [facility] [address] [place], [place] [address] NEUTROPHIL ABS 4.20 K/CU MM Normal 2.0-8.3 [facility] Comment on above: Performed By: #### L 200.04226 #### [facility] [address] [place] [address] Neutrophils/100 WBC (Bld) 60.3 % Normal 45-75 [facility] Comment on above: Performed By: #### L 200.33679 #### [facility] [address] [place] [address] Nucleated RBC/100 WBC (Bld) [Ratio] 0.0 % Normal Less than 1 [facility] Comment on above: Performed By: #### L 200.47994 #### [facility] [address] [place] [address] Platelet mean volume (Bld) [Entitic vol] 10.3 fL Normal 9.4-12.4 [facility] Comment on above: Performed By: #### L 200.36945 #### [facility] [address] [place], [place] [address] Platelets (Bld) [#/Vol] 298 K/CU MM Normal 150-450 [facility] Comment on above: Performed By: #### L 200.00477 #### [facility] [address] [place] [address] RBC (Bld) [#/Vol] 4.20 M/CU MM Low 4.50-6.00 [facility] Comment on above: Performed By: #### L 200.05609 #### [facility] [address] [place] [address] WBC (Bld) [#/Vol] 7.0 K/CUMM Normal 4.5-11.0 [facility] Comment on above: Performed By: #### L 200.68820 #### [facility] [address] [place] [address] CMPon 07-01-2019 Albumin [Mass/Vol] 4.2 g/dL Normal 3.2-5.0 [facility] Comment on above: Performed By: #### L 500.25415, L500.73461, L500.21128, L500.58307, L500.81652, L540.29189, L540.08008, L540.52660 #### [facility] [address] [place] [address] Albumin/Globulin [Mass ratio] 1.2 {ratio} Normal 0.8-2.0 [facility] Comment on above: Performed By: #### L 500.72946, L500.28868, L500.87653, L500.64147, L500.29207, L540.13914, L540.13148, L540.60928 #### [facility] [place] [address] ALK PHOS 56 U/L Normal 45-117 [facility] Comment on above: Performed By: #### L 500.00941, L500.70942, L500.02524, L500.21078, L500.21201, L540.79941, L540.39288, L540.47347 #### [facility] [place] [address] ALT [Catalytic activity/Vol] 29 U/L Normal 13-61 [facility] Comment on above: Result Comment: RESU LTS MAY BE FALSELY DEPRESSED AFTER THE ADMINISTRATION OF SULFASALAZINE AND/OR SULFAPYRIDINE. Performed By: #### L 500.13135, L500.54493, L500.80437, L500.92752, L500.19387, L540.63027, L540.16432, L540.81814 #### [facility] [place] [address] Anion gap [Moles/Vol] 12 mmol/L Normal 5-16 [facility] Comment on above: Performed By: #### L 500.47951, L500.96280, L500.83124, L500.18451, L500.44334, L540.98038, L540.99051, L540.97443 #### [facility] [place] [address] BILI TOTAL 0.3 MG/DL Normal 0.2-1.0 [facility] Comment on above: Performed By: #### L 500.94978, L500.62110, L500.05933, L500.64444, L500.48495, L540.30971, L540.74623, L540.29423 #### [facility] [address] [place] [address] Calcium [Mass/Vol] 9.1 mg/dL Normal 8.5-10.1 [facility] Comment on above: Performed By: #### L 500.57375, L500.69585, L500.86035, L500.62780, L500.72555, L540.37731, L540.99808, L540.80220 #### [facility] [address] [place] [address] Chloride [Moles/Vol] 102 mmol/L Normal 98-107 [facility] Comment on above: Performed By: #### L 500.61536, L500.05027, L500.36032, L500.93326, L500.39659, L540.54406, L540.32906, L540.78664 #### [facility] [place] [address] CO2 [Moles/Vol] 21 mmol/L Normal 21-32 [facility] Comment on above: Performed By: #### L 500.08959, L500.25104, L500.48528, L500.60582, L500.53818, L540.12368, L540.46147, L540.19530 #### [facility] [place] [id number] Creatinine [Mass/Vol] 0.784 mg/dL Normal 0.670-1.170 [facility] Comment on above: Result Comment: Quita ents receiving either N-Acetylcysteine (NAC) or Metamizole prior to venipuncture, may have falsely depressed results. Performed By: #### L 500.84067, L500.93248, L500.01120, L500.92314, L500.83172, L540.59987, L540.42350, L540.48218 #### [facility] [address] [place] [address] Globulin (S) [Mass/Vol] 3.3 g/dL Normal 2.2-4.2 [facility] Comment on above: Performed By: #### L 500.07016, L500.06790, L500.16384, L500.03583, L500.10874, L540.42404, L540.17196, L540.00624 #### [facility] [address] [place] [address] Glucose [Mass/Vol] 76 mg/dL Normal 70-100 [facility] Comment on above: Result Comment: 70-1 00- Normal Fasting; 100-125 Impaired Fasting; greater than 126 on more than one result- Diabetes. ADA guidelines. Results may be falsely elevated after the administration of Sulfapyridine. Results may be falsely depressed after the administration of Sulfasalazine. Performed By: #### L 500.76633, L500.81489, L500.39370, L500.62783, L500.97898, L540.06361, L540.13701, L540.99072 #### [facility] [address] [place] [address] Potassium [Moles/Vol] 4.5 mmol/L Normal 3.5-5.1 [facility] Comment on above: Performed By: #### L 500.16211, L500.50058, L500.95755, L500.68753, L500.25707, L540.21329, L540.27004, L540.81726 #### [facility] [place] [address] Protein [Mass/Vol] 7.5 g/dL Normal 6.0-8.5 [facility] Comment on above: Performed By: #### L 500.81908, L500.97213, L500.65630, L500.01269, L500.06523, L540.55446, L540.46742, L540.38370 #### [facility] [address] [place] [address] SGOT (AST) 22 U/L Normal 8-34 [facility] Comment on above: Result Comment: RESU LTS MAY BE FALSELY DEPRESSED AFTER THE ADMINISTRATION OF SULFASALAZINE AND/OR SULFAPYRIDINE. Performed By: #### L 500.17190, L500.82093, L500.60084, L500.31579, L500.63133, L540.11250, L540.88667, L540.96390 #### [facility] [address] [place] [address] Sodium [Moles/Vol] 136 mmol/L Normal 136-145 [facility] Comment on above: Performed By: #### L 500.44916, L500.26038, L500.57696, L500.78335, L500.93776, L540.11984, L540.12341, L540.18667 #### [facility] [address] [place], [place] [address] Urea nitrogen [Mass/Vol] 10 mg/dL Normal 7-26 [facility] Comment on above: Performed By: #### L 500.23913, L500.27261, L500.75985, L500.36838, L500.01116, L540.82209, L540.14034, L540.30061 #### [facility] [address] [place] [address] Urea nitrogen/Creatinine [Mass ratio] 12 mg/mg Low 15-24 [facility] Comment on above: Performed By: #### L 500.92827, L500.79522, L500.67580, L500.15852, L500.61422, L540.06569, L540.47407, L540.42406 #### [facility] [address] [place] [address] GFR ESTon 07-01-2019 IF AMER Greater than 60 Normal [facility] Comment on above: Performed By: #### L 500.90776, L500.10168, L500.83171, L500.50185, L500.08597, L540.60738, L540.17435, L540.55456 #### [facility] [address] [place] [address] IF non-AFR AMER Greater than 60 Normal [facility] Comment on above: Performed By: #### L 500.34437, L500.79745, L500.61744, L500.38615, L500.35216, L540.47953, L540.76523, L540.61993 #### [facility] [address] [place], [place] [address] HBCABon 07-01-2019 HBCAB NONREACTIVE Normal NONREACTIVE [facility] Comment on above: Result Comment: RESU LTS WERE OBTAINED WITH THE [employer]AUR XP ANTI-HCB ASSAY. VALUES OBTAINED WITH DIFFERENT MANUFACTURERS' ASSAY METHODS MAY NOT BE USED INTERCHANGEABLY. Performed By: #### L 500.81587, L500.99997, L500.78960, L500.72772, L500.93597, L540.12701, L540.24838, L540.68627 #### [facility] [address] [place] [address] HBSAGon 07-01-2019 HBSAG NONREACTIVE Normal NONREACTIVE [facility] Comment on above: Result Comment: RESU LTS WERE OBTAINED WITH THE [employer]AUR XP. VALUES OBTAINED WITH DIFFERENT MANUFACTURERS' ASSAY METHODS MAY NOT BE USED INTERCHANGEABLY. Performed By: #### L 500.91470, L500.38921, L500.01649, L500.91049, L500.27715, L540.09127, L540.36650, L540.36326 #### [facility] [address] [place] [address] HEP B AB QUANTon 07-01-2019 HEP B AB QUANT 4.50 mIU/mL Normal 0.00-9.99 [facility] Comment on above: Result Comment: STAT US OF IMMUNITY Protective Immunity: greater than or equal to 10 mIU/mL (Traceable to WHO International Reference Preparation) No Protective Immuniity: less than 10 mIU/mL Note: The magnitude of the measured result above the cutoff is not indicative of the total amount of antibody present. Performed By: #### L 500.35892, L500.87528, L500.59614, L500.96564, L500.50757, L540.38063, L540.41516, L540.81579 #### [facility] [address] [place] [address] HEPATITIS C ABon 07-01-2019 HCV AB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 shoulder shrugs. Xll - Tongue protrusion, midline. Motor Exam Bulk/Size: Normal Strength Exam: Upper Extremity Right Left Deltoid 5 5 Biceps 5 5 Triceps 5 5 Wrist Extensor 5 5 Wrist Flexor 5 5 APB 5 5 FDI 5 5 Lower Extremity Right Left Flexor hip joint 5 5 Extensor hip joint 5 5 Extensor knee joint 5 5 Flexor knee joint 5 5 Dorsi flexor ankle joint 5 5 Plantar flexor ankle joint 5 5 Tone: Normal Abnormal movements: None Sensory: Right Left Light Touch Normal Normal Pin Prick Not checked Not checked Vibration Not checked Not checked Temperature Not checked Not checked Distal/Proximal exam normal Sensory level: None Reflex Right Left Biceps 2+ 2+ Triceps 2+ 2+ Wrist 2+ 2+ Knee 2+ 2+ Ankle Not obtained Not obtained Plantar Not checked Not checked Cerebellar Exam: Normal Gait and Stance: Slightly wide based gait Tandem walk: Not checked Romberg's: Not checked The following documents and testing were reviewed and discussed with the patient. CT Head, CTA Head and Neck 08/16/2015: No acute intracranial abnormality. Mild generalized volume loss for age. No signs of intracranial vascular occlusive disease or aneurysm formation. No hemodynamically significant stenosis within the cervical carotids by NASCET criteria. Patent bilateral cervical vertebral arteries. MRI Brain 05/18/2021: Volume loss, more prominent than expected in a patient of this age. Otherwise unremarkable examination of the brain. EEG 05/18/21: The electroencephalogram obtained in a patient during wakefulness and drowsiness is normal. No epileptiform patterns are noted. EMG 05/23/2021: Patient was unable to complete and tolerate the testing. 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 We will refill. 2.) Diagnosis should be considered potentially dangerous and life threatening. Seizure medication need to be taken regularly and faithfully. Patient should avoid triggers such as lack of sleep, alcohol, and too much stress. 3.) Follow up in 1 year. Idiopathic peripheral neuropathy - ICD9: 356.9, ICD10: G60.9 No treatment given at this time. Psychophysiologic insomnia - ICD9: 307.42, ICD10: F51.04 Patient is encouraged to stop drinking, to not take any sleeping aids to help him sleep, and to nap nap during the day. The old record was reviewed and new history was obtained and recorded. I have discussed the recommended treatment, alternative treatments and other treatment options in detail. I have discussed the risks, benefits and side effect of the recommended treatment in detail as well. I have attempted to answer all their questions to their satisfaction and understanding of the explanation has been voiced. With approval we will pursue the recommended treatment. I, Luis Miguel Kearns, have reviewed and agree with the information in the medical record transcribed by Dayami Villanueva MA. Luis Miguel Kearns MD documented in this encounter [facility] 04-03-2024 Note HNO ID: [id number] Author: LUIS MIGUEL KEARNS MD Service: ? Author Type: Physician Type: Progress Notes Filed: 04/03/2024 11:08 Note Text: Referring Provider: Self Date: April 03, 2024 Chief Complaint: Seizures, neuropathy, and insomnia HISTORY OF PRESENT ILLNESS: Anibal Mane is a 54 year old male who follows for seizures, neuropathy, and insomnia. Patient is a right handed, single gentleman who is accompanied by his girlfriend for today's visit. He is living with his girlfriend and does not work due to back problems. His first visit in the office was on 04/07/2021. The patient is taking Keppra 1,500 mg twice daily and denies any medication side effects. He recalls having a seizure on 2022, at about 7 pm. They were driving and there were a lot of lights which made him blank out for a minute. His states that he often will have a seizure in his sleep, with the last one being a month ago. She has seen him thrashing around, talking and moaning in his sleep, lasting 20 minutes. It seems to occur more often when he's very tired. He is still having trouble sleeping at night. He remains independent in his personal care. I, Dayami Villanueva MA, transcribing for Luis Miguel Kearns MD. ALLERGIES No Known Allergies PAST MEDICAL HISTORY: PAST MEDICAL HISTORY Diagnosis Date Alcoholism (HCC) Anxiety and depression GEN CONVUL EPI W/O MENTN INTRACT 03/2006 First episode occurred 03-27: at work on a [employer] job site ( stiff as a board, foaming at the mouth ) Mom had similar episodes about age 54: ended up finding an AVM in the brain (resolved with surgery) MRI 12-27: disproportionate invol changes for age, NL MRA (left mess 08:35, 01-10-08) Holter 02-26: negative for arrhythmia (notified by phone) [facility] rec MRI with [facility] to complete eval, started Keppra History of noncompliance with medical treatment HYPERTENSION NOS PAST SURGICAL HISTORY Procedure Laterality Date ANKLE LEFT OP SURGERY ~1975 pinned STRESS TEST 08/16/2015 WNL FAMILY HISTORY Problem Relation Age of Onset Coronary Artery Disease Father PA Heart Daughter patent FO Seizures Mother arterial/venous malformation Stroke Father Hypertension Father Lipids Father Coronary Artery Disease Sister 33 PA SOCIAL HISTORY: Tobacco Use: Never Alcohol Use: Approximately 25.2 oz/week [which includes 42 Cans of Beer (12oz) per week] (6-7 per day.) Drug Use: No Employer And Job Title: No employer specified (unemployed) Years Of Education Completed: Not specified Marital Status: Unknown with 2 children MEDICATIONS: Current Outpatient Medications Medication Sig sildenafil (REVATIO) 20 mg tablet TAKE 4 TABLETS BY MOUTH ONE HOUR BEFORE sex. Do not exceed one USE in 48 hours. this is not a DAILY medicine. levETIRAcetam (KEPPRA) 500 mg tablet Take 1 tablet by mouth twice daily. To be taken along with 1,000 mg tablet twice daily to equal 1,500 mg levETIRAcetam (KEPPRA) 1,000 mg tablet Take 1 tablet by mouth twice daily. To be taken with 500 mg tablet to equal 1,500 mg twice daily No current facility-administered medications for this visit. I have personally reviewed the patients past medical history including social, family, surgical, diagnostics, and medications./AB Review of Systems Constitutional: Negative for chills, fever and unexpected weight change. HENT: Negative for congestion, facial swelling, trouble swallowing and voice change. Eyes: Negative for visual disturbance. Respiratory: Negative for shortness of breath. Cardiovascular: Negative for chest pain. Gastrointestinal: Negative for diarrhea, nausea and vomiting. Musculoskeletal: Negative for gait problem and myalgias. Allergic/Immunologic: Negative. Negative for immunocompromised state. Neurological: Positive for seizures. Negative for dizziness, syncope and light-headedness. Psychiatric/Behavioral: Negative. Negative for hallucinations and self-injury. Vitals: BP 124/84 Pulse 98 Ht 167.6 cm (5' 6 ) Wt 80.7 kg (178 lb) BMI 28.73 kg/m? PHYSICAL EXAM:: The physical exam findings are as follows: General General Appearance - Well groomed Orientation: Oriented to time, oriented to place, and oriented to person. Higher Cortical Function: Awake and alert. Language functions are intact. Patient names well and repeats well, spontaneous speech as well as comprehension is normal and fund of knowledge is intact for the patient level of education. Attention span and concentration are normal and as expected for patient's age. Neurologic CRANIAL NERVES: ll - Makes and sustains eye contact. Visual reid are full to confrontation testing. lll, lV, Vl - Pupils are 2 -3 mm in size and reactive. External ocular movements are full and there is no nystagmus. V - Facial sensation to light touch and pin prick, normal. Vll - No facial asymmetry Vlll - Normal hearing. lX - Palatal movements, normal. Xl (more content not included)... [facility] 03-27-2023 Note HNO ID: [id number] Author: Luis Miguel Kearns MD Service: ? Author Type: Physician Type: Progress Notes Filed: 03/28/2023 8:58 AM Note Text: Referring Provider: Self Date: March 27, 2023 Chief Complaint: Seizures and Neuropathy HISTORY OF PRESENT ILLNESS: Anibal Mane is a 53 year old male who follows for seizures and neuropathy. Patient is a right handed, single gentleman accompanied by his girlfriend for today's visit. He is living with his girlfriend and does not work at this time. His first visit in the office was on 04/07/2021. He is still drinking about 5 beers daily. The patient is taking Keppra 1500 mg one tablet twice daily and denies any medication side effects. Demarco has been seizure free since 2020 and has not had to seek any medical treatment since last visit. He is having trouble sleeping and only sleeps about 3 hours a night. I, Dayami Villanueva MA, transcribing for Luis Miguel Kearns MD. ALLERGIES No Known Allergies PAST MEDICAL HISTORY: PAST MEDICAL HISTORY Diagnosis Date Alcoholism (HCC) Anxiety and depression GEN CONVUL EPI W/O MENTN INTRACT 03/2006 First episode occurred 03-27: at work on a [employer] job site ( stiff as a board, foaming at the mouth ) Mom had similar episodes about age 54: ended up finding an AVM in the brain (resolved with surgery) MRI 12-27: disproportionate invol changes for age, NL MRA (left mess 08:35, 01-10-08) Holter 02-26: negative for arrhythmia (notified by phone) [facility] MRI with Talat to complete eval, started Keppra History of noncompliance with medical treatment HYPERTENSION NOS PAST SURGICAL HISTORY Procedure Laterality Date ANKLE LEFT OP SURGERY ~1975 pinned STRESS TEST 08/16/2015 WNL FAMILY HISTORY Problem Relation Age of Onset Coronary Artery Disease Father PA Heart Daughter patent FO Seizures Mother arterial/venous malformation Stroke Father Hypertension Father Lipids Father Coronary Artery Disease Sister 33 PA SOCIAL HISTORY: Tobacco Use: Never Alcohol Use: Approximately 63 oz/week [which includes 42 Cans of Beer (12oz) per week] (6-7 per day.) Drug Use: No Employer And Job Title: No employer specified (unemployed) Years Of Education Completed: Not specified Marital Status: Unknown with 2 children MEDICATIONS: Current Outpatient Medications Medication Sig levETIRAcetam (KEPPRA) 500 mg tablet TAKE ONE TABLET BY MOUTH TWICE DAILY. Take WITH 1,000mg TABLET TO equal 1,500mg TWICE DAILY. levETIRAcetam (KEPPRA) 1,000 mg tablet TAKE ONE TABLET BY MOUTH TWICE DAILY. Take WITH 500mg tablet TO equal 1,500mg TWICE DAILY. sildenafil (REVATIO) 20 mg tablet TAKE 4 TABLETS BY MOUTH ONE HOUR BEFORE sex. Do not exceed one USE in 48 hours. this is not a DAILY medicine. No current facility-administered medications for this visit. I have personally reviewed the patients past medical history including social, family, surgical, diagnostics, and medications./AB Review of Systems Constitutional: Negative for chills, fever and unexpected weight change. HENT: Negative for congestion, facial swelling, trouble swallowing and voice change. Eyes: Negative for visual disturbance. Respiratory: Negative for shortness of breath. Cardiovascular: Negative for chest pain. Gastrointestinal: Negative for diarrhea, nausea and vomiting. Musculoskeletal: Negative for gait problem and myalgias. Allergic/Immunologic: Negative. Negative for immunocompromised state. Neurological: Positive for seizures. Negative for dizziness, syncope and light-headedness. Psychiatric/Behavioral: Negative. Negative for hallucinations and self-injury. Vitals: BP 133/83 Pulse 75 Ht 167.6 cm (5' 6 ) Wt 80.7 kg (178 lb) BMI 28.73 kg/m? PHYSICAL EXAM:: The physical exam findings are as follows: General General Appearance - Well groomed Orientation: Oriented to time, oriented to place, and oriented to person. Higher Cortical Function: Awake and alert. Language functions are intact. Patient names well and repeats well, spontaneous speech as well as comprehension is normal and fund of knowledge is intact for the patient level of education. Attention span and concentration are normal and as expected for patient's age. Neurologic CRANIAL NERVES: ll - Makes and sustains eye contact. Visual reid are full to confrontation testing. lll, lV, Vl - Pupils are 2 -3 mm in size and reactive. External ocular movements are full and there is no nystagmus. V - Facial sensation to light touch and pin prick, normal. Vll - No facial asymmetry Vlll - Normal hearing. lX - Palatal movements, normal. Xl - Good and equal shoulder shrugs. Xll - Tongue protrusion, midline. Motor Exam Bulk/Size: Normal Strength Exam: Upper Extremity Right Left Deltoid 5 5 Biceps 5 5 Triceps 5 5 Wrist Extensor 5 5 Wrist Flexor 5 5 APB 5 5 FDI 5 5 Lower Extremity Right Left Flexor hip joint 5 5 Extensor hip joint 5 5 Ext (more content not included)... 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 We will send refills. 2.) Diagnosis should be considered potentially dangerous and life threatening. Seizure medication need to be taken regularly and faithfully. Patient should avoid triggers such as lack of sleep, alcohol, and too much stress. 3.) Follow up in one year. Idiopathic peripheral neuropathy - ICD9: 356.9, ICD10: G60.9 Identified by absent reflexes No treatment given at this time. Psychophysiologic insomnia - ICD9: 307.42, ICD10: F51.04 Patient was encouraged to stop drinking daily as this will affect his sleep habits. He is not advised to take any sleeping aids to sleep and do not nap during the day. Sleep hygiene sheet was given to patient. documented in this encounter [facility] 03-27-2023 History of Present illness Narrative Referring Provider: Self Date: March 27, 2023 Chief Complaint: Seizures and Neuropathy HISTORY OF PRESENT ILLNESS: Anibal Mane is a 53 year old male who follows for seizures and neuropathy. Patient is a right handed, single gentleman accompanied by his girlfriend for today's visit. He is living with his girlfriend and does not work at this time. His first visit in the office was on 04/07/2021. He is still drinking about 5 beers daily. The patient is taking Keppra 1500 mg one tablet twice daily and denies any medication side effects. Demarco has been seizure free since 2020 and has not had to seek any medical treatment since last visit. He is having trouble sleeping and only sleeps about 3 hours a night. IDayami MA, transcribing for Luis Miguel Kearns MD. ALLERGIES No Known Allergies PAST MEDICAL HISTORY: PAST MEDICAL HISTORY Diagnosis Date Alcoholism (HCC) Anxiety and depression GEN CONVUL EPI W/O MENTN INTRACT 03/2006 First episode occurred 03-27: at work on a [employer] job site ( stiff as a board, foaming at the mouth ) Mom had similar episodes about age 54: ended up finding an AVM in the brain (resolved with surgery) MRI 12-27: disproportionate invol changes for age, NL MRA (left mess 08:35, 01-10-08) Holter 02-26: negative for arrhythmia (notified by phone) [facility] MRI with [facility] to complete eval, started Keppra History of noncompliance with medical treatment HYPERTENSION NOS PAST SURGICAL HISTORY Procedure Laterality Date ANKLE LEFT OP SURGERY ~1975 pinned STRESS TEST 08/16/2015 WNL FAMILY HISTORY Problem Relation Age of Onset Coronary Artery Disease Father PA Heart Daughter patent FO Seizures Mother arterial/venous malformation Stroke Father Hypertension Father Lipids Father Coronary Artery Disease Sister 33 PA SOCIAL HISTORY: Tobacco Use: Never Alcohol Use: Approximately 63 oz/week [which includes 42 Cans of Beer (12oz) per week] (6-7 per day.) Drug Use: No Employer And Job Title: No employer specified (unemployed) Years Of Education Completed: Not specified Marital Status: Unknown with 2 children MEDICATIONS: Current Outpatient Medications Medication Sig levETIRAcetam (KEPPRA) 500 mg tablet TAKE ONE TABLET BY MOUTH TWICE DAILY. Take WITH 1,000mg TABLET TO equal 1,500mg TWICE DAILY. levETIRAcetam (KEPPRA) 1,000 mg tablet TAKE ONE TABLET BY MOUTH TWICE DAILY. Take WITH 500mg tablet TO equal 1,500mg TWICE DAILY. sildenafil (REVATIO) 20 mg tablet TAKE 4 TABLETS BY MOUTH ONE HOUR BEFORE sex. Do not exceed one USE in 48 hours. this is not a DAILY medicine. No current facility-administered medications for this visit. I have personally reviewed the patients past medical history including social, family, surgical, diagnostics, and medications./AB Review of Systems Constitutional: Negative for chills, fever and unexpected weight change. HENT: Negative for congestion, facial swelling, trouble swallowing and voice change. Eyes: Negative for visual disturbance. Respiratory: Negative for shortness of breath. Cardiovascular: Negative for chest pain. Gastrointestinal: Negative for diarrhea, nausea and vomiting. Musculoskeletal: Negative for gait problem and myalgias. Allergic/Immunologic: Negative. Negative for immunocompromised state. Neurological: Positive for seizures. Negative for dizziness, syncope and light-headedness. Psychiatric/Behavioral: Negative. Negative for hallucinations and self-injury. Vitals: BP 133/83 Pulse 75 Ht 167.6 cm (5' 6 ) Wt 80.7 kg (178 lb) BMI 28.73 kg/m PHYSICAL EXAM:: The physical exam findings are as follows: General General Appearance - Well groomed Orientation: Oriented to time, oriented to place, and oriented to person. Higher Cortical Function: Awake and alert. Language functions are intact. Patient names well and repeats well, spontaneous speech as well as comprehension is normal and fund of knowledge is intact for the patient level of education. Attention span and concentration are normal and as expected for patient's age. Neurologic CRANIAL NERVES: ll - Makes and sustains eye contact. Visual reid are full to confrontation testing. lll, lV, Vl - Pupils are 2 -3 mm in size and reactive. External ocular movements are full and there is no nystagmus. V - Facial sensation to light touch and pin prick, normal. Vll - No facial asymmetry Vlll - Normal hearing. lX - Palatal movements, normal. Xl - Good and equal shoulder shrugs. Xll - Tongue protrusion, midline. Motor Exam Bulk/Size: Normal Strength Exam: Upper Extremity Right Left Deltoid 5 5 Biceps 5 5 Triceps 5 5 Wrist Extensor 5 5 Wrist Flexor 5 5 APB 5 5 FDI 5 5 Lower Extremity Right Left Flexor hip joint 5 5 Extensor hip joint 5 5 Extensor knee joint 5 5 Flexor knee joint 5 5 Dorsi flexor ankle joint 5 5 Plantar flexor ankle joint 5 5 Tone: Normal Abnormal movements: None Sensory: Right Left Light Touch Normal Normal Pin Prick Not checked Not checked Vibration Not checked Not checked Temperature Not checked Not checked Distal/Proximal exam normal Sensory level: None Reflex Right Left Biceps Absent Absent Triceps Absent Absent Wrist Absent Absent Knee Absent Absent Ankle Absent Absent Plantar Not checked Not checked Cerebellar Exam: Normal Gait and Stance: Normal Tandem walk: Not checked Romberg's: Not checked The following documents and testing were reviewed and discussed with the patient. MRI Brain 05/18/2021: Volume loss, more prominent than expected in a patient of this age. Otherwise unremarkable examination of the brain. EEG 05/18/21: The electroencephalogram obtained in a patient during wakefulness and drowsiness is normal. No epileptiform patterns are noted. EMG 05/23/2021: Patient was unable to complete and tolerate the testing. 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 We will send refills. 2.) Diagnosis should be considered potentially dangerous and life threatening. Seizure medication need to be taken regularly and faithfully. Patient should avoid triggers such as lack of sleep, alcohol, and too much stress. 3.) Follow up in one year. Idiopathic peripheral neuropathy - ICD9: 356.9, ICD10: G60.9 Identified by absent reflexes No treatment given at this time. Psychophysiologic insomnia - ICD9: 307.42, ICD10: F51.04 Patient was encouraged to stop drinking daily as this will affect his sleep habits. He is not advised to take any sleeping aids to sleep and do not nap during the day. Sleep hygiene sheet was given to patient. The old record was reviewed and new history was obtained and recorded. I have discussed the recommended treatment, alternative treatments and other treatment options in detail. I have discussed the risks, benefits and side effect of the recommended treatment in detail as well. I have attempted to answer all their questions to their satisfaction and understanding of the explanation has been voiced. With approval we will pursue the recommended treatment. I, Luis Miguel Kearns, have reviewed and agree with the information in the medical record transcribed by Dayami Villanueva MA. Luis Miguel Kearns MD documented in this encounter [facility] 02-19-2023 Miscellaneous Notes Pharmacy faxes requesting refill: Requested Prescriptions Pending Prescriptions Disp Refills levETIRAcetam (KEPPRA) 500 mg tablet [Pharmacy Med Name: levetiracetam 500 mg tablet] 60 tablet 0 Sig: TAKE ONE TABLET BY MOUTH TWICE DAILY. Take WITH 1,000mg TABLET TO equal 1,500mg TWICE DAILY. levETIRAcetam (KEPPRA) 1,000 mg tablet 60 tablet 0 Sig: TAKE ONE TABLET BY MOUTH TWICE DAILY. Take WITH 500mg tablet TO equal 1,500mg TWICE DAILY. Date of last visit:Visit date not found Phone #: [phone] (home) [phone] (cell) The patients preferred pharmacy has been captured for this encounter? yes documented in this encounter [facility] 02-09-2023 Note Patient Outreach (TESHA MPWS) ANIBAL MANE ([id number]) 1970 M Date Time Provider Department 02/09/23 ERICK MARINA During your visit today, we recorded the following information about you: Erick Marina LPN 02/09/2023 10:06 AM Signed POPULATION HEALTH NAVIGATION OUTREACH Action/FYI Pt overdue for appt and labs. ANTELMO 08/10/20. No contact with office since ANTELMO. Phoned pt, left message to return call to office. Patient Identified by Name and : NO Outreach Outcome/Action Unable to reach patient: Left message Did you use a PCP flex slot to schedule this appointment? N/A Reason for Outreach Care Gap or Scheduling/Wellness visits Payer: Payor: [facility] MEDICAID / Plan: [facility] MEDICAID / Product Type: Medicaid / Care Gap Reviewed:: N/A Reminder: Reminder note to check Health Maintenance for items below Health Maintenance items due: HEPATITIS B(1 of 3 - 3-dose series) Never done COVID-19 VACCINE(1) Never done HIV SCREENING Never done BP CONTROLLED (<130/80) Never done DTAP,TDAP,TD(1 - Tdap) due on 04/24/2008 COLORECTAL CANCER SCREENING Never done SHINGRIX VACCINE(1 of 2) Never done ANNUAL PCP TEAM CHRONIC DISEASE VISIT due on 08/10/2021 Navigation Signature: Erick Marina LPN February 09, 2023 10:03 AM Allergies As of Date: 02/09/2023 (No Known Allergies) Date Reviewed: 03/07/2022 Reviewed by: Lizzy Winston MA - Fully Assessed Reason for Visit: Population Health Navigation Outreach [3910] Prescriptions as of 02/09/2023 - sildenafil (REVATIO) 20 mg tablet TAKE 4 TABLETS BY MOUTH ONE HOUR BEFORE sex. Do not exceed one USE in 48 hours. this is not a DAILY medicine. - levETIRAcetam (KEPPRA) 1,000 mg tablet TAKE ONE TABLET BY MOUTH TWICE DAILY. Take WITH 500mg tablet TO equal 1,500mg TWICE DAILY. - levETIRAcetam (KEPPRA) 500 mg tablet TAKE ONE TABLET BY MOUTH TWICE DAILY. Take WITH 1,000mg tablet TO equal 1,500mg TWICE DAILY. Problem List As Of Date 02/09/2023 Noted Resolved Generalized convulsive epilepsy (HCC) [G40.309] 01/01/2008 Pain in limb [M79.609] 11/15/2010 Abnormal liver function test [R79.89] 11/15/2010 Alcoholism [F10.20] Anxiety and depression [F41.9, F32.A] Backache, unspecified [M54.9] 05/05/2013 Essential hypertension [I10] 08/09/2015 Palpitations [R00.2] 10/08/2015 Syncope [R55] 10/12/2015 Partial seizures (HCC) [R56.9] 04/07/2021 Idiopathic peripheral neuropathy [G60.9] 04/07/2021 Encounter Status:Closed by ERICK MARINA LPN on 02/09/23 [facility] 02-09-2023 Note HNO ID: [id number] Author: Erick Marina LPN Service: ? Author Type: ? Type: Progress Notes Filed: 02/09/2023 10:06 AM Note Text: POPULATION HEALTH NAVIGATION OUTREACH Action/FYI Pt overdue for appt and labs. ANTELMO 08/10/20. No contact with office since ANTELMO. Phoned pt, left message to return call to office. Patient Identified by Name and : NO Outreach Outcome/Action Unable to reach patient: Left message Did you use a PCP flex slot to schedule this appointment? N/A Reason for Outreach Care Gap or Scheduling/Wellness visits Payer: [place] [facility] [facility] [place] [facility] / Product Type: Medicaid / Care Gap Reviewed:: N/A Reminder: Reminder note to check Health Maintenance for items below Health Maintenance items due: HEPATITIS B(1 of 3 - 3-dose series) Never done COVID-19 VACCINE(1) Never done HIV SCREENING Never done BP CONTROLLED (<130/80) Never done DTAP,TDAP,TD(1 - Tdap) due on 04/24/2008 COLORECTAL CANCER SCREENING Never done SHINGRIX VACCINE(1 of 2) Never done ANNUAL PCP TEAM CHRONIC DISEASE VISIT due on 08/10/2021 Navigation Signature: Erick Marina LPN February 09, 2023 10:03 AM [facility] 02-09-2023 History of Present illness Narrative POPULATION HEALTH NAVIGATION OUTREACH Action/FYI Pt overdue for appt and labs. ANTELMO 08/10/20. No contact with office since ANTELMO. Phoned pt, left message to return call to office. Patient Identified by Name and : NO Outreach Outcome/Action Unable to reach patient: Left message Did you use a PCP flex slot to schedule this appointment? N/A Reason for Outreach Care Gap or Scheduling/Wellness visits Payer: Payor: [facility] MEDICAID / Plan: [facility] / Product Type: Medicaid / Care Gap Reviewed:: N/A Reminder: Reminder note to check Health Maintenance for items below Health Maintenance items due: HEPATITIS B(1 of 3 - 3-dose series) Never done COVID-19 VACCINE(1) Never done HIV SCREENING Never done BP CONTROLLED (<130/80) Never done DTAP,TDAP,TD(1 - Tdap) due on 04/24/2008 COLORECTAL CANCER SCREENING Never done SHINGRIX VACCINE(1 of 2) Never done ANNUAL PCP TEAM CHRONIC DISEASE VISIT due on 08/10/2021 Navigation Signature: Erick Marina LPN February 09, 2023 10:03 AM documented in this encounter [facility] 07-24-2022 Note HNO ID: [id number] Author: Homero Stewart RN Service: ? Author Type: Registered Nurse Type: Progress Notes Filed: 08/24/2022 3:01 AM Note Text: Patient is due for open access colonoscopy and meets criteria to be scheduled at [facility]. PCP-please release order PSS-please call patient and schedule procedure at [facility]. Thank you, Homero Stewart RN [facility] 07-24-2022 Note Patient Outreach (FA MPWS) ANIBAL MANE ([id number]) 1970 M Date Time Provider Department 07/24/22 Beba MAC During your visit today, we recorded the following information about you: Homero Stewart RN 08/24/2022 3:01 AM Signed Patient is due for open access colonoscopy and meets criteria to be scheduled at [facility]. PCP-please release order PSS-please call patient and schedule procedure at [facility]. Thank you, CHEMA Bravo RN 07/24/2022 12:23 PM Signed Bowel Preparation Instructions for: Golytely, Nulytely, Trilyte or Colyte (polyethylene glycol 3350 and electrolytes) IF YOU DO NOT FOLLOW THESE DIRECTIONS, YOUR COLONOSCOPY WILL BE CANCELLED. Marks Instructions: Your bowel must be empty so that your doctor can clearly view your colon. Follow all of the instructions in this handout EXACTLY as they are written. Do NOT eat any solid food the ENTIRE day before your colonoscopy. Drink only clear liquids. Buy your bowel preparation at least 5 days before your colonoscopy. TRANSPORTATION on the Day of Your Exam A responsible person MUST be present with you at Check In prior to your colonoscopy and REMAIN in the endoscopy area until you are discharged. You are NOT ALLOWED to drive, take a taxi or bus, or leave the Endoscopy Center ALONE. If you do not have a responsible highway truck driver (family member or friend) with you to take you home, your exam cannot be done with sedation and will be cancelled. Please bring a list of all of your current medications, including any Over-the Counter medications with you. Medications If you take insulin, diabetic medications or blood thinners such as Coumadin (warfarin), Plavix (clopidogrel), Ticlid (ticlopidine hydrochloride), Agrylin (anagrelide), Xarelto (Rivaroxaban), Pradaxa (Dabigatran), Eliquis (Apixaban), and Effient (Prasugrel). You MUST call the doctors who orders those medicines for instructions on altering the dosage before your colonoscopy. All other medications should be taken the day of the exam with a sip of water including ASPIRIN. Five (5) Days Before Your Colonoscopy Do NOT take medicines that stop diarrhea - such as Imodium, Kaopectate, or Pepto Bismol. Do NOT take fiber supplements - such as Metamucil, Citrucel, or Perdiem. Do NOT take products that contain iron - such as multi-vitamins (the label lists what is in the products). Do NOT take Vitamin E. Buy the prescription bowel preparation solution at your local pharmacy or drugstore pharmacy. 09/2019 Bowel Preparation Instructions for: Golytely, Nulytely, Trilyte or Colyte (polyethylene glycol 3350 and electrolytes) Three (3) Days Before Your Colonoscopy Do NOT eat high-fiber foods - such as popcorn, beans, seeds (flax, sunflower, quinoa), multigrain bread, nuts, salad/vegetables, or fresh and dried fruit. One (1) Day Before Your Colonoscopy Only drink clear liquids the ENTIRE DAY before your colonoscopy. Do NOT eat any solid foods. Drink at least 8 ounces of clear liquids every hour after waking up. The clear liquids you can drink include: Clear Liquid (NO RED LIQUIDS) DO NOT DRINK Gatorade, Pedialyte or Powerade Clear broth or bouillon Coffee or tea (no milk or non-dairy creamer) Carbonated and non-carbonated soft drinks Riaz-Aid or other fruit flavored drinks Strained fruit juices (no pulp) Jell-O, popsicles, hard candy Water Alcohol Milk or non-dairy creamers Noodles or vegetables in soup Juice with pulp Liquid you cannot see through Do not use tobacco/vaping products The bowel preparation solution will be consumed in two parts. Mix the solution the evening before your colonoscopy and refrigerate before drinking. You may add the flavor pack that came with the bowel preparation. Do NOT add ice, sugar or any other flavorings to the solution. Part 1 At 6:00 PM - Evening before your colonoscopy Drink an 8-oz glass of bowel preparation every 10 minutes for a total of 8 glasses. You may continue to drink clear liquids until midnight. Part 2 On the day of your colonoscopy you may drink clear liquids up to (three) 3 hours before your procedure. 4 1/2 hours before your colonoscopy Drink an 8-oz glass of bowel preparation every 10 minutes for a total of 8 glasses. Fifteen (15) minutes later, drink an 8-oz glass of clear liquids every 15 minutes for a total of 2 glasses. You may continue to drink clear liquids up to (three) 3 hours before your exam. 2 09/2019 Allergies As of Date: 07/24/2022 (No Known Allergies) Date Reviewed: 03/07/2022 Reviewed by: Lizzy Winston MA - Fully Assessed Reason for Visit: Outpatient Colonoscopy [482] Primary Visit Diagnosis:Screening for malignant neoplasm of the rectum [Z12.12] Other Visit Diagnosis:Screening for colon cancer [Z12.11] Prescriptions as of 08/24/2022 - douglas (more content not included)... [facility] 07-24-2022 Instructions Homero Stewart RN - 07/24/2022 12:23 PM EDT Images from the original note were not included. Bowel Preparation Instructions for: Golytely, Nulytely, Trilyte or Colyte (polyethylene glycol 3350 and electrolytes) IF YOU DO NOT FOLLOW THESE DIRECTIONS, YOUR COLONOSCOPY WILL BE CANCELLED. Marks Instructions: Your bowel must be empty so that your doctor can clearly view your colon. Follow all of the instructions in this handout EXACTLY as they are written. Do NOT eat any solid food the ENTIRE day before your colonoscopy. Drink only clear liquids. Buy your bowel preparation at least 5 days before your colonoscopy. TRANSPORTATION on the Day of Your Exam A responsible person MUST be present with you at Check In prior to your colonoscopy and REMAIN in the endoscopy area until you are discharged. You are NOT ALLOWED to drive, take a taxi or bus, or leave the Endoscopy Center ALONE. If you do not have a responsible highway truck driver (family member or friend) with you to take you home, your exam cannot be done with sedation and will be cancelled. Please bring a list of all of your current medications, including any Over-the Counter medications with you. Medications If you take insulin, diabetic medications or blood thinners such as Coumadin (warfarin), Plavix (clopidogrel), Ticlid (ticlopidine hydrochloride), Agrylin (anagrelide), Xarelto (Rivaroxaban), Pradaxa (Dabigatran), Eliquis (Apixaban), and Effient (Prasugrel). You MUST call the doctors who orders those medicines for instructions on altering the dosage before your colonoscopy. All other medications should be taken the day of the exam with a sip of water including ASPIRIN. Five (5) Days Before Your Colonoscopy Do NOT take medicines that stop diarrhea - such as Imodium, Kaopectate, or Pepto Bismol. Do NOT take fiber supplements - such as Metamucil, Citrucel, or Perdiem. Do NOT take products that contain iron - such as multi-vitamins (the label lists what is in the products). Do NOT take Vitamin E. Buy the prescription bowel preparation solution at your local pharmacy or drugstore pharmacy. 09/2019 Bowel Preparation Instructions for: Golytely, Nulytely, Trilyte or Colyte (polyethylene glycol 3350 and electrolytes) Three (3) Days Before Your Colonoscopy Do NOT eat high-fiber foods - such as popcorn, beans, seeds (flax, sunflower, quinoa), multigrain bread, nuts, salad/vegetables, or fresh and dried fruit. One (1) Day Before Your Colonoscopy Only drink clear liquids the ENTIRE DAY before your colonoscopy. Do NOT eat any solid foods. Drink at least 8 ounces of clear liquids every hour after waking up. The clear liquids you can drink include: Clear Liquid (NO RED LIQUIDS) DO NOT DRINK Gatorade, Pedialyte or Powerade Clear broth or bouillon Coffee or tea (no milk or non-dairy creamer) Carbonated and non-carbonated soft drinks Riaz-Aid or other fruit flavored drinks Strained fruit juices (no pulp) Jell-O, popsicles, hard candy Water Alcohol Milk or non-dairy creamers Noodles or vegetables in soup Juice with pulp Liquid you cannot see through Do not use tobacco/vaping products The bowel preparation solution will be consumed in two parts. Mix the solution the evening before your colonoscopy and refrigerate before drinking. You may add the flavor pack that came with the bowel preparation. Do NOT add ice, sugar or any other flavorings to the solution. Part 1 At 6:00 PM - Evening before your colonoscopy Drink an 8-oz glass of bowel preparation every 10 minutes for a total of 8 glasses. You may continue to drink clear liquids until midnight. Part 2 On the day of your colonoscopy you may drink clear liquids up to (three) 3 hours before your procedure. 4 1/2 hours before your colonoscopy Drink an 8-oz glass of bowel preparation every 10 minutes for a total of 8 glasses. Fifteen (15) minutes later, drink an 8-oz glass of clear liquids every 15 minutes for a total of 2 glasses. You may continue to drink clear liquids up to (three) 3 hours before your exam. 2 09/2019 documented in this encounter [facility] 07-24-2022 History of Present illness Narrative Patient is due for open access colonoscopy and meets criteria to be scheduled at [facility]. PCP-please release order PSS-please call patient and schedule procedure at [facility]. 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 1.) Patient is doing well on Keppra 1500 mg, one tablet twice daily. We will refill. 2.) Diagnosis should be considered potentially dangerous and life threatening. Seizure medication need to be taken regularly and faithfully. Patient should avoid triggers such as lack of sleep, alcohol, and too much stress. 3.)We encourage the patient to get an EEG done to see if he needs to keep taking medication. If he wants to get this done patient will call to let us know to order this. 4.) Follow up in 1 year Idiopathic peripheral neuropathy - ICD9: 356.9, ICD10: G60.9 1.) Patient was not able to tolerate the EMG so this was not completed. documented in this encounter [facility] 03-07-2022 History of Present illness Narrative Referring Provider: Beba Mac PA-C Date: March 07, 2022 Chief Complaint: Seizures and Neuropathy HISTORY OF PRESENT ILLNESS: Anibal Mane is a 52 year old male who follows for Seizures and Neuropathy. He is a right handed, single gentleman with his girlfriend today. Patient is living with his girlfriend and does not work at this time. He drinks approximately 3-4 beers a day. Patient first visit was on 04/07/2021 Patient is doing well on Keppra 1500 mg, one tablet twice daily, with no medication side effects. He has not had any reason to see a doctor or go to the ER. Patient feels safe and confident in his personal care. His girlfriend says she has noticed a difference in him. She feels he is doing better since his Keppra was increased. I, Lizzy Winston MA, transcribing for Luis Miguel Kearns MD. ALLERGIES No Known Allergies PAST MEDICAL HISTORY: PAST MEDICAL HISTORY Diagnosis Date Alcoholism (HCC) Anxiety and depression GEN CONVUL EPI W/O MENTN INTRACT 03/2006 First episode occurred 03-27: at work on a [employer] job site ( stiff as a board, foaming at the mouth ) Mom had similar episodes about age 54: ended up finding an AVM in the brain (resolved with surgery) MRI -08: disproportionate invol changes for age, NL MRA (left mess 08:35, 08) Holter 02-26: negative for arrhythmia (notified by phone) [place] rec MRI with [facility] to complete eval, started Keppra History of noncompliance with medical treatment HYPERTENSION NOS PAST SURGICAL HISTORY Procedure Laterality Date ANKLE LEFT OP SURGERY ~1975 pinned STRESS TEST 08/16/2015 WNL FAMILY HISTORY Problem Relation Age of Onset Coronary Artery Disease Father PA Heart Daughter patent FO Seizures Mother arterial/venous malformation Stroke Father Hypertension Father Lipids Father Coronary Artery Disease Sister 33 PA SOCIAL HISTORY: Tobacco Use: Never Alcohol Use: Approximately 63 oz/week [which includes 42 Cans of Beer (12oz) per week] (6-7 per day.) Drug Use: No Employer And Job Title: No employer specified (unemployed) Years Of Education Completed: Not specified Marital Status: Unknown with 2 children MEDICATIONS: Current Outpatient Medications Medication Sig sildenafil (REVATIO) 20 mg tablet TAKE 4 TABLETS BY MOUTH ONE HOUR BEFORE sex. Do not exceed one USE in 48 hours. this is not a DAILY medicine. levETIRAcetam (KEPPRA) 1,000 mg tablet TAKE ONE TABLET BY MOUTH TWICE DAILY. Take WITH 500mg tablet TO equal 1,500mg TWICE DAILY. levETIRAcetam (KEPPRA) 500 mg tablet TAKE ONE TABLET BY MOUTH TWICE DAILY. Take WITH 1,000mg tablet TO equal 1,500mg TWICE DAILY. No current facility-administered medications for this visit. I have personally reviewed the patients past medical history including social, family, surgical, diagnostics, and medications./AB Review of Systems Constitutional: Negative. Negative for unexpected weight change. HENT: Negative. Negative for congestion, facial swelling and voice change. Eyes: Negative. Respiratory: Negative. Cardiovascular: Negative. Gastrointestinal: Negative. Musculoskeletal: Negative. Negative for gait problem. Allergic/Immunologic: Negative. Negative for immunocompromised state. Neurological: Positive for seizures. Negative for syncope and light-headedness. Psychiatric/Behavioral: Negative. Negative for hallucinations and self-injury. Vitals: BP 163/94 (BP Site: Right Arm, BP Position: Sitting, BP Cuff Size: Regular Adult) Pulse 79 Ht 167.6 cm (5' 6 ) Wt 80.7 kg (178 lb) BMI 28.73 kg/m PHYSICAL EXAM:: The physical exam findings are as follows: General General Appearance - Well groomed Orientation: Oriented to time, oriented to place, and oriented to person. Higher Cortical Function: Awake and alert. Language functions are intact. Patient names well and repeats well, spontaneous speech as well as comprehension is normal and fund of knowledge is intact for the patient level of education. Attention span and concentration are normal and as expected for patient's age. Neurologic CRANIAL NERVES: ll - Makes and sustains eye contact. Visual reid are full to confrontation testing. lll, lV, Vl - Pupils are 2 -3 mm in size and reactive. External ocular movements are full and there is no nystagmus. V - Facial sensation to light touch and pin prick, normal. Vll - No facial asymmetry Vlll - Normal hearing. lX - Palatal movements, normal. Xl - Good and equal shoulder shrugs. Xll - Tongue protrusion, midline. Motor Exam Bulk/Size: Normal Strength Exam: Upper Extremity Right Left Deltoid 5 5 Biceps 5 5 Triceps 5 5 Wrist Extensor 5 5 Wrist Flexor 5 5 APB 5 5 FDI 5 5 Lower Extremity Right Left Flexor hip joint 5 5 Extensor hip joint 5 5 Extensor knee joint 5 5 Flexor knee joint 5 5 Dorsi flexor ankle joint 5 5 Plantar flexor ankle joint 5 5 Tone: Normal Abnormal movements: None Sensory: Right Left Light Touch Normal Normal Pin Prick Not checked Not checked Vibration Not checked Not checked Temperature Not checked Not checked Distal/Proximal exam normal Sensory level: None Reflex Right Left Biceps 1+ 1+ Triceps 1+ 1+ Wrist 1+ 1+ Knee 1+ 1+ Ankle Not checked Not checked Plantar Not checked Not checked Cerebellar Exam: Normal Gait and Stance: Normal Tandem walk: Not checked Romberg's: Not checked Test results MRI Brain 05/18/2021: Volume loss, more prominent than expected in a patient of this age. Otherwise unremarkable examination of the brain. EEG 05/18/21: The electroencephalogram obtained in a patient during wakefulness and drowsiness is normal. No epileptiform patterns are noted. EMG 05/23/2021: Patient was unable to complete and tolerate the testing. 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 1.) Patient is doing well on Keppra 1500 mg, one tablet twice daily. We will refill. 2.) Diagnosis should be considered potentially dangerous and life threatening. Seizure medication need to be taken regularly and faithfully. Patient should avoid triggers such as lack of sleep, alcohol, and too much stress. 3.)We encourage the patient to get an EEG done to see if he needs to keep taking medication. If he wants to get this done patient will call to let us know to order this. 4.) Follow up in 1 year Idiopathic peripheral neuropathy - ICD9: 356.9, ICD10: G60.9 1.) Patient was not able to tolerate the EMG so this was not completed. I have discussed the recommended treatment, alternative treatments and other treatment options in detail. I have discussed the risks, benefits and side effect of the recommended treatment in detail as well. I have attempted to answer all their questions to their satisfaction and understanding of the explanation has been voiced. With approval we will pursue the recommended treatment. I, Luis Miguel Kearns, have reviewed and agree with the information in the medical record transcribed by Lizzy Winston MA. Luis Miguel Kearns MD documented in this encounter [facility] 02-09-2022 Miscellaneous Notes Pharmacy faxes requesting refill: Pending Prescriptions Disp Refills LEVETIRACETAM 1,000 MG TABLET 60 tablet 0 Sig: TAKE ONE TABLET BY MOUTH TWICE DAILY. Take WITH 500mg tablet TO equal 1,500mg TWICE DAILY. JODI: Yes LEVETIRACETAM 500 MG TABLET 60 tablet 0 Sig: TAKE ONE TABLET BY MOUTH TWICE DAILY. Take WITH 1,000mg tablet TO equal 1,500mg TWICE DAILY. JODI: Yes Date of last visit: 06/17/2021 Follow up made for 02/21/2022 Phone #: [phone] (home) [phone] (cell) The patients preferred pharmacy has been captured for this encounter? yes documented in this encounter [facility] Evaluation note Diagnosis Generalized convulsive epilepsy (HCC) Generalized convulsive epilepsy without mention of intractable epilepsy [facility] Diagnosis Idiopathic peripheral neuropathy- Primary Unspecified hereditary and idiopathic peripheral neuropathy Generalized convulsive epilepsy (HCC) Generalized convulsive epilepsy without mention of intractable epilepsy [facility] Generalized convulsive epilepsy (HCC) Generalized convulsive epilepsy without mention of intractable epilepsy [facility] Diagnosis Screening for malignant neoplasm of the rectum- Primary Screening for colon cancer Special screening for malignant neoplasms, colon [facility] Diagnosis Generalized convulsive epilepsy (HCC) Generalized convulsive epilepsy without mention of intractable epilepsy documented in this encounter [facility]* Diagnosis Generalized convulsive epilepsy (HCC)- Primary Generalized convulsive epilepsy without mention of intractable epilepsy Idiopathic peripheral neuropathy Unspecified hereditary and idiopathic peripheral neuropathy Psychophysiologic insomnia Persistent disorder of initiating or maintaining sleep documented in this encounter [facility] note* Diagnosis Generalized convulsive epilepsy (HCC)- Primary Generalized convulsive epilepsy without mention of intractable epilepsy Idiopathic peripheral neuropathy Unspecified hereditary and idiopathic peripheral neuropathy Psychophysiologic insomnia Persistent disorder of initiating or maintaining sleep documented in this encounter [facility] note* Diagnosis Generalized convulsive epilepsy (HCC)- Primary Generalized convulsive epilepsy without mention of intractable epilepsy Idiopathic peripheral neuropathy Unspecified hereditary and idiopathic peripheral neuropathy Psychophysiologic insomnia Persistent disorder of initiating or maintaining sleep documented in this encounter [facility] Purpose Family History No Family History Records FoundNo Family History Records FoundNo Family History Records FoundNo Family History Records FoundNo Family History Records FoundNo Family History Records FoundNo Family History Records Found Advance Directives No Advanced Directives Records FoundNo Advanced Directives Records FoundNo Advanced Directives Records FoundNo Advanced Directives Records FoundNo Advanced Directives Records FoundNo Advanced Directives Records FoundNo Advanced Directives Records Found Reason for Referral Specialty Diagnoses / Procedures Referred By Annie t Referred To Contact Diagnoses Generalized convulsive epilepsy (HCC) Luis Miguel Kearns MD [address] [place] [address] Referral ID Status Reason Start Date Expiration Date Visits Re quested Visits Authorized [id number] Closed 1 1 Referral ID Status Reason Start Date Expiration Date Visits Re quested Visits Authorized [id number] Closed 1 1 Referral ID Status Reason Start Date Expiration Date Visits Re quested Visits Authorized [id number] Closed 1 1 Additional Source Comments (unrecognized sect ion and content) No Status Records FoundNo Status Records FoundNo Status Records FoundNo Status Records FoundNo Status Records FoundNo Status Records FoundNo Status Records Found INFORMATION SOURCE (unrecogn ized section and content) DATE CREATED AUTHOR 06/21/2019 [facility] ([place]) DATE CREATED AUTHOR AUTHOR'S ORGANIZ ATION 07/09/2019 [facility] DATE CREATED AUTHOR AUTHOR'S ORGANIZ ATION 04/21/2021 [facility] DATE CREATED AUTHOR AUTHOR'S ORGANIZ ATION 10/13/2021 [facility] DATE CREATED AUTHOR AUTHOR'S ORGANIZ ATION 11/11/2021 [facility] DATE CREATED AUTHOR AUTHOR'S ORGANIZ ATION 04/02/2023 [facility] DATE CREATED AUTHOR AUTHOR'S ORGANIZ ATION 04/04/2024 [facility] Source Comments (unrecognize d section and content) In the event this informatio n is protected by the [facility] Confidentiality of Alcohol and Drug Abuse Patient Records regulations: The Federal rules restrict any use of the information to criminally investigate or prosecute any alcohol or drug abuse patient.[facility] the event this information is protected by the Federal Confidentiality of Alcohol and Drug Abuse Patient Records regulations: The Federal rules restrict any use of the information to criminally investigate or prosecute any alcohol or drug abuse patient.[facility] the event this information is protected by the Federal Confidentiality of Alcohol and Drug Abuse Patient Records regulations: The Federal rules restrict any use of the information to criminally investigate or prosecute any alcohol or drug abuse patient.[facility] the event this information is protected by the Federal Confidentiality of Alcohol and Drug Abuse Patient Records regulations: The Federal rules restrict any use of the information to criminally investigate or prosecute any alcohol or drug abuse patient.[facility] the event this information is protected by the Federal Confidentiality of Alcohol and Drug Abuse Patient Records regulations: The Federal rules restrict any use of the information to criminally investigate or prosecute any alcohol or drug abuse patient.[facility] the event this information is protected by the Federal Confidentiality of Alcohol and Drug Abuse Patient Records regulations: The Federal rules restrict any use of the information to criminally investigate or prosecute any alcohol or drug abuse patient.[facility] the event this information is protected by the Federal Confidentiality of Alcohol and Drug Abuse Patient Records regulations: The Federal rules restrict any use of the information to criminally investigate or prosecute any alcohol or drug abuse patient.[facility] the event this information is protected by the Federal Confidentiality of Alcohol and Drug Abuse Patient Records regulations: The Federal rules restrict any use of the information to criminally investigate or prosecute any alcohol or drug abuse patient.[facility] the event this information is protected by the Federal Confidentiality of Alcohol and Drug Abuse Patient Records regulations: The Federal rules restrict any use of the information to criminally investigate or prosecute any alcohol or drug abuse patient.[facility] Reason for Visit (unrecogniz ed section and content) Reason Comments Refill Request Reason Comments Seizures Reason Onset Date Comments Outpatient Colonoscopy 07/24/2022 Reason Onset Date Comments Population Health Navigation Outreach 02/09/2023 Reason Comments Refill Request Reason Comments Seizures Care Teams (unrecognized sec tion and content) Entertainment & Media Correspondent Relationship Specialty Start Date End Date Beba Mac PA-C [address] [place] [address] PCP - General Family Practice 05/05/20 [employer] Correspondent Relationship Specialty Start Date End Date Beba Mac PA-C [address] [place], [place] [id number] PCP - General Family Practice 05/05/20 Entertainment [employer] Media Correspondent Relationship Specialty Start Date End Date Beba Mac PA-C [address] [place], [place] [id number] PCP - General Family Practice 05/05/20 Entertainment & Media Correspondent Relationship Specialty Start Date End Date Beba Mac PA-C [address] [place], [place] [address] PCP - General Family Medicine 05/05/20 Entertainment [employer] Media Correspondent Relationship Specialty Start Date End Date Beba Mac PA-C [address] [place], [place] [id number] PCP - General Family Medicine 05/05/20 Entertainment [employer] Media Correspondent Relationship Specialty Start Date End Date Pcp, No PCP - General 02/13/23 Entertainment & Media Correspondent Relationship Specialty Start Date End Date Pcp, No PCP - General 02/13/23 09/20/23 FOR RECORDS PERTAINING TO PATIENTS WHO ARE OR HAVE BEEN ENROLLED IN A CHEMICAL DEPENDENCY/SUBSTANCEABUSE PROGRAM, SOME INFORMATION MAY BE OMITTED. This clinical summary was aggregated from multiple sources. Caution should be exercised in using it in the provision of clinical care. This summary normalizes information from multiple sources, and as a consequence, information in this document may materially change the coding, format and clinical context of patient data. In addition, data may be omitted in some cases. CLINICAL DECISIONS SHOULD BE BASED ON THE PRIMARY CLINICAL RECORDS. [facility] [employer] [facility]. provides no warranty or guarantee of the accuracy or completeness of information in this document.
== END | disposition home or self-care (01) ==
LOC: LABSPEC 10:54
PROVIDERS: Referring Provider Internal Medicine Medical Oncology; Visit Provider Internal Medicine Medical Oncology
DX: D64.89 Other specified anemias (principal)
CPT/HCPCS: 82274

== ENCOUNTER → 2024-09-16 | Outpatient (CLI) | payer MEDICAID, SELFPAY ==
--- NOTE | 2024-09-16 08:28 | US_ITS ---
STUDY: ABDOMINAL ULTRASOUND - RIGHT UPPER QUADRANT; ELASTOGRAPHY REASON FOR VISIT: Male, 54 years old. Elevated liver function tests. TECHNIQUE: Ultrasound evaluation of the right upper quadrant was performed with real-time and static madison-scale imaging. Point quantification shear wave elastography was performed ([employer]). TECHNICAL QUALITY: Adequate. COMPARISON: None. FINDINGS: Liver: The liver measures 16.4 cm. There is increased echogenicity consistent with fatty infiltration. The bile ducts are within normal limits. There is hepatic color flow. The direction of portal flow is hepatopetal. There is no demonstrated mass lesion. Median liver stiffness measured 27.6 kPa. Gallbladder: Normal distended gallbladder. The gallbladder wall measures 3.4 mm. There is a negative sonographic Cruz''s sign. There is no pericholecystic fluid. There are no gallstones. Sludge is seen within the gallbladder lumen. Common Bile Duct (C.B.D.): The common bile duct measures 2.8 mm. Pancreas: Not visualized due to overlying bowel gas. Right Kidney: Normal size of the right kidney. The right kidney measures 11.5 cm x 5.3 cm x 4.7 cm. Normal renal cortex. The right cortex measures 1.2 cm. There is no demonstrated renal mass or cyst. There is no right hydronephrosis. US/ABD Limited w/ Elastography IMPRESSION: 1. Liver stiffness measures 27.6 kPa compatible with F3-F4 (Moderate to severe liver fibrosis) Metavir score. Electronically Signed: Lior Angulo MD at 11:08 EST ,
== END | disposition home or self-care (01) ==
LOC: US 08:28
DX: K70.10 Alcoholic hepatitis without ascites (principal)
CPT/HCPCS: 76705; 76981